=== PATIENT | male | born 1990 | race Caucasian/White ===

== ENCOUNTER 2016-10-11 17:17 | Emergency (ER) | payer MEDICAID, OTHER ==
[~2016-10-11] VITALS: Ht 167.6 cm; Wt 65.9 kg
[~2016-10-11 17:17] MED LIST: RISP3 PO
[2016-10-11 18:34] LABS: BASOPHILS # (AUTO) 0.03 K/uL (0.00-0.20); BASOPHILS % (AUTO) 0.5 % (0.0-2.0); EOSINOPHILS # (AUTO) 0.17 K/uL (0.00-0.70); EOSINOPHILS % (AUTO) 2.56 % (1.0-6.0); HEMATOCRIT 42.2 % (41-53); HEMOGLOBIN 14.2 g/dL (13.5-17.5); LYMPHOCYTES # (AUTO) 2.1 K/uL (1.0-4.8); LYMPHOCYTES % (AUTO) 30.6 % (22.0-44.0); MEAN CORPUSCULAR HEMOGLOBIN 31.6 pg (26.0-34.0); MEAN CORPUSCULAR HGB CONC 33.7 G/dL (31.0-37.0); MEAN CORPUSCULAR VOLUME 94 fL (80-100); MONOCYTES # (AUTO) 0.6 K/uL (0.1-1.0); MONOCYTES % (AUTO) 9.1 % (2.0-9.0); NEUTROPHILS # (AUTO) 3.9 K/uL (1.8-7.7); NEUTROPHILS % (AUTO) 57.3 % (40.0-70.0); PLATELET COUNT (AUTO) 220 K/uL (150-450); WHITE BLOOD COUNT (AUTO) 6.7 K/uL (4.5-11.0)
[2016-10-11 18:37] LABS: ANION GAP 4 mmol/L (8-16); CALCIUM, TOTAL 8.8 mg/dL (8.8-10.5); CARBON DIOXIDE 30 mmol/L (22-29); CHLORIDE 104 mmol/L (98-107); CREATININE 1.02 mg/dL (0.60-1.30); GLOMERULAR FILTR. RATE CALC > 60 mL/min (>60); POTASSIUM 4.6 mmol/L (3.5-5.1); SODIUM SERUM 138 mmol/L (136-145); UREA NITROGEN, BLOOD 6 mg/dL (7-18)
[2016-10-11 18:47] VITALS: BP 104/61
[2016-10-11 18:51] LABS: ALANINE AMINOTRANSFERASE 23 U/L (12-78); ALBUMIN 4.1 g/dL (3.4-5.0); ASPARTATE AMINOTRANSFERASE 16 U/L (15-37); BILIRUBIN,TOTAL 0.3 mg/dL (0.1-1.0)
[2016-10-11] MEDS ORDERED: LORazepam 1 MG TABLET PO ONE (19:45)
[2016-10-11] MEDS ORDERED: RisperiDONE 1 MG TABLET PO ONE (20:00)
== END 2016-10-11 20:08 | disposition home or self-care (01) ==
LOC: EMS 17:18
DX: F31.9 Bipolar disorder, unspecified (principal); Z91.012 Allergy to eggs; Z91.011 Allergy to milk products; Z88.0 Allergy status to penicillin; Z91.018 Allergy to other foods
CPT/HCPCS: 36415; 80053; 80307; 85025; 99285; G0480

== ENCOUNTER 2016-10-24 13:47 | Emergency (ER) | payer MEDICAID, OTHER ==
[~2016-10-24] VITALS: Ht 167.6 cm; Wt 68.2 kg
[2016-10-24 15:11] LABS: BASOPHILS # (AUTO) 0.03 K/uL (0.00-0.20); BASOPHILS % (AUTO) 0.3 % (0.0-2.0); EOSINOPHILS # (AUTO) 0.35 K/uL (0.00-0.70); EOSINOPHILS % (AUTO) 3.48 % (1.0-6.0); HEMATOCRIT 42.1 % (41-53); HEMOGLOBIN 13.9 g/dL (13.5-17.5); LYMPHOCYTES # (AUTO) 1.4 K/uL (1.0-4.8); LYMPHOCYTES % (AUTO) 13.4 % (22.0-44.0); MEAN CORPUSCULAR HEMOGLOBIN 31.4 pg (26.0-34.0); MEAN CORPUSCULAR VOLUME 95 fL (80-100); MONOCYTES # (AUTO) 0.8 K/uL (0.1-1.0); MONOCYTES % (AUTO) 7.5 % (2.0-9.0); NEUTROPHILS # (AUTO) 7.6 K/uL (1.8-7.7); NEUTROPHILS % (AUTO) 75.4 % (40.0-70.0); PLATELET COUNT (AUTO) 190 K/uL (150-450); RED BLOOD CELL COUNT(AUTO) 4.43 MIL/uL (4.50-5.90); WHITE BLOOD COUNT (AUTO) 10.1 K/uL (4.5-11.0)
[2016-10-24 15:19] LABS: ANION GAP 4 mmol/L (8-16); CALCIUM, TOTAL 8.1 mg/dL (8.8-10.5); CARBON DIOXIDE 28 mmol/L (22-29); CHLORIDE 106 mmol/L (98-107); CREATININE 1.01 mg/dL (0.60-1.30); GLOMERULAR FILTR. RATE CALC > 60 mL/min (>60); POTASSIUM 4.2 mmol/L (3.5-5.1); SODIUM SERUM 138 mmol/L (136-145); UREA NITROGEN, BLOOD 8 mg/dL (7-18)
[2016-10-24 15:25] LABS: ALANINE AMINOTRANSFERASE 17 U/L (12-78); ALBUMIN 3.4 g/dL (3.4-5.0); ASPARTATE AMINOTRANSFERASE 10 U/L (15-37); BILIRUBIN,TOTAL 0.4 mg/dL (0.1-1.0); TOTAL PROTEIN, SERUM 6.1 g/dL (6.4-8.2)
[2016-10-24] MEDS ORDERED: AMMONIA 1 EA AMP IH ONE (17:28)
[2016-10-24 20:48] VITALS: BP 115/56
== END 2016-10-24 20:50 | disposition home or self-care (01) ==
LOC: EMS 13:49
DX: F20.0 Paranoid schizophrenia (principal); F31.9 Bipolar disorder, unspecified; F15.10 Other stimulant abuse, uncomplicated; Z91.012 Allergy to eggs; Z91.011 Allergy to milk products; Z88.0 Allergy status to penicillin; Z91.018 Allergy to other foods
CPT/HCPCS: 36415; 70450; 72125; 80053; 80307; 85025; 93005; 99285; G0480

== ENCOUNTER 2017-05-09 20:52 | Inpatient (IN) | payer MEDICAID, OTHER ==
[~2017-05-09] VITALS: Ht 165.1 cm; Wt 64.4 kg
[~2017-05-09 20:52] MED LIST changes: +DIPH25CA85 PO; +PALI234D IM; -RISP3 PO
[2017-05-09] MEDS ORDERED: RIFA150 PO (21:08)
[2017-05-09 21:37] LABS: BASOPHILS % (AUTO) 1.1 % (0.0-2.0); EOSINOPHILS % (AUTO) 3.9 % (1.0-6.0); HEMATOCRIT 41.2 % (41-53); LYMPHOCYTES % (AUTO) 16.7 % (22.0-44.0); MEAN CORPUSCULAR HEMOGLOBIN 31.1 pg (26.0-34.0); MEAN CORPUSCULAR VOLUME 92 fL (80-100); NEUTROPHILS # (AUTO) 3.7 K/uL (1.8-7.7); NEUTROPHILS % (AUTO) 61.3 % (40.0-70.0); PLATELET COUNT (AUTO) 176 K/uL (150-450); RED CELL DISTRIBUTION WIDTH 13.6 % (11.5-14.5)
[2017-05-09 22:04] LABS: ANION GAP 6 mmol/L (8-16); CALCIUM, TOTAL 8.5 mg/dL (8.8-10.5); CARBON DIOXIDE 34 mmol/L (22-29); CHLORIDE 98 mmol/L (98-107); CREATININE 0.94 mg/dL (0.60-1.30); GLOMERULAR FILTR. RATE CALC > 60 mL/min (>60); GLUCOSE,RANDOM 67 mg/dL (70-110); POTASSIUM 3.2 mmol/L (3.5-5.1); SODIUM SERUM 138 mmol/L (136-145); UREA NITROGEN, BLOOD 7 mg/dL (7-18)
[2017-05-09 22:10] LABS: ALANINE AMINOTRANSFERASE 23 U/L (12-78); ALBUMIN 3.9 g/dL (3.4-5.0); ALKALINE PHOSPHATASE 87 U/L (46-116); ASPARTATE AMINOTRANSFERASE 28 U/L (15-37); BILIRUBIN,TOTAL 0.2 mg/dL (0.1-1.0); TOTAL PROTEIN, SERUM 7.1 g/dL (6.4-8.2)
[2017-05-09] MEDS ORDERED: BENZONATATE 100 MG CAPSULE PO ONE (23:15)
[2017-05-09] MEDS ORDERED: POTASSIUM CHLORIDE 20 MEQ ER TABLET PO ONE (23:30)
[2017-05-09] MEDS ORDERED: HALOPERIDOL 5 MG TABLET PO PRN (23:30)
[2017-05-09 23:54] LABS: APPEARANCE,URINE CLEAR (CLEAR); BILIRUBIN,URINE NEGATIVE (NEGATIVE); GLUCOSE, URINE (UA) NEGATIVE (NEGATIVE); KETONES,URINE NEGATIVE (NEGATIVE); LEUKOCYTE ESTERASE ,URINE NEGATIVE (NEGATIVE); NITRATE,URINE NEGATIVE (NEGATIVE); OCCULT BLOOD,URINE NEGATIVE (NEGATIVE); PH,URINE 8.5 (5.0-8.0); PROTEIN,URINE NEGATIVE (NEGATIVE); UROBILINOGEN,URINE 0.2 mg/dL (<=1.0)
[2017-05-09 23:58] LABS: AMPHET/METH SCREEN,URINE NEGATIVE (NEGATIVE); BARBITURATE SCREEN, URINE NEGATIVE (NEGATIVE); BENZODIAZEPINES SCREEN,URINE NEGATIVE (NEGATIVE); CANNABINOID SCREEN,URINE NEGATIVE (NEGATIVE); COCAINE SCREEN,URINE NEGATIVE (NEGATIVE); METHADONE SCREEN, URINE NEGATIVE (NEGATIVE); OPIATE SCREEN,URINE NEGATIVE (NEGATIVE)
[2017-05-09 23:59] LABS: PHENCYCLIDINE SCREEN,URINE NEGATIVE (NEGATIVE)
[2017-05-10 03:37] LABS: CHOL/HDL RATIO 2.5 (4.2-7.3); CHOLESTEROL 160 mg/dL (131-200); HDL CHOLESTEROL 64 mg/dL (40-60); LDL CHOL (CALC.) 79 mg/dL (0-130); TRIGLYCERIDES 87 mg/dL (15-150)
[2017-05-10] MEDS: LORazepam 2 MG TABLET PO PRN ×2 (09:27→20:42)
[2017-05-10] MEDS ORDERED: ClonazePAM 0.5 MG TABLET PO ONE (18:15)
[2017-05-10 20:14] VITALS: BP 118/67
[2017-05-10] MEDS ORDERED: ACETAMINOPHEN 650 MG RECTAL SUPPOSITORY PR PRN (20:30)
[2017-05-10] MEDS: ZOLPIDEM TARTRATE 10 MG TABLET PO PRN (20:42)
[2017-05-10] MEDS: IBUPROFEN 400 MG TABLET PO PRN (20:42)
[2017-05-10] MEDS ORDERED: ACETAMINOPHEN 325 MG TABLET PO PRN (21:30)
[2017-05-11 06:42] VITALS: BP 109/67
[2017-05-11 08:00] VITALS: BP 110/66
[2017-05-11] MEDS: NICOTINE 21 MG/24 HOUR PATCH TD SCH (08:40)
[2017-05-11] MEDS: IBUPROFEN 400 MG TABLET PO PRN (08:40)
[2017-05-11] MEDS: LORazepam 2 MG TABLET PO PRN ×3 (08:40→20:35)
[2017-05-11] MEDS ORDERED: TUBERCULIN, PURIFIED PROTEIN DERIVATIVE 5 TU/0.1 ML SYG ID ONE (11:00)
[2017-05-11] MEDS: LORATADINE 10 MG TABLET PO SCH (16:35)
[2017-05-11 16:47] VITALS: BP 110/66
[2017-05-11] MEDS: ZOLPIDEM TARTRATE 10 MG TABLET PO PRN (20:02)
[2017-05-11] MEDS: DiphenhydrAMINE HCL 25 MG CAPSULE PO SCH (20:02)
[2017-05-11] MEDS: HALOPERIDOL 5 MG TABLET PO SCH (20:08)
[2017-05-11] MEDS: BENZTROPINE MESYLATE 2 MG TABLET PO SCH (20:08)
[2017-05-12 06:44] VITALS: BP 124/64
[2017-05-12 08:19] VITALS: BP 112/62
[2017-05-12] MEDS: LORATADINE 10 MG TABLET PO SCH (09:34)
[2017-05-12] MEDS: NICOTINE 21 MG/24 HOUR PATCH TD SCH (09:37)
[2017-05-12 12:30] VITALS: BP 126/67
[2017-05-12] MEDS: IBUPROFEN 400 MG TABLET PO PRN (12:42)
[2017-05-12 16:00] VITALS: BP 123/65
[2017-05-12] MEDS: LORazepam 2 MG TABLET PO PRN ×2 (16:37→20:38)
[2017-05-12] MEDS: DiphenhydrAMINE HCL 25 MG CAPSULE PO SCH (20:37)
[2017-05-12] MEDS: HALOPERIDOL 5 MG TABLET PO SCH (20:37)
[2017-05-12] MEDS: BENZTROPINE MESYLATE 2 MG TABLET PO SCH (20:37)
[2017-05-12] MEDS: ZOLPIDEM TARTRATE 10 MG TABLET PO PRN (20:38)
[2017-05-13 08:00] VITALS: BP 116/66
[2017-05-13] MEDS: LORATADINE 10 MG TABLET PO SCH (09:31)
[2017-05-13] MEDS: NICOTINE 21 MG/24 HOUR PATCH TD SCH (09:31)
[2017-05-13] MEDS: RIFAMPIN 150 MG CAPSULE PO SCH (09:31)
[2017-05-13] MEDS: LORazepam 2 MG TABLET PO PRN ×3 (09:32→20:50)
[2017-05-13 16:00] VITALS: BP 131/73
[2017-05-13] MEDS: ZOLPIDEM TARTRATE 10 MG TABLET PO PRN (20:50)
[2017-05-13] MEDS: PALIPERIDONE 3 MG ER TABLET PO SCH (20:50)
[2017-05-13] MEDS: BENZTROPINE MESYLATE 2 MG TABLET PO SCH (20:50)
[2017-05-13] MEDS: DiphenhydrAMINE HCL 25 MG CAPSULE PO SCH (20:50)
[2017-05-14 03:48] VITALS: BP 102/64
[2017-05-14 08:23] VITALS: BP 124/70
[2017-05-14] MEDS: LORazepam 2 MG TABLET PO PRN ×2 (09:11→13:25)
[2017-05-14] MEDS: LORATADINE 10 MG TABLET PO SCH (09:11)
[2017-05-14] MEDS: RIFAMPIN 150 MG CAPSULE PO SCH (09:11)
[2017-05-14] MEDS: NICOTINE 21 MG/24 HOUR PATCH TD SCH (09:12)
[2017-05-14 16:00] VITALS: BP 121/66
[2017-05-14] MEDS: DiphenhydrAMINE HCL 25 MG CAPSULE PO SCH (20:29)
[2017-05-14] MEDS: PALIPERIDONE 3 MG ER TABLET PO SCH (20:29)
[2017-05-14] MEDS: BENZTROPINE MESYLATE 2 MG TABLET PO SCH (20:30)
[2017-05-15 06:09] VITALS: BP 110/66
[2017-05-15 08:00] VITALS: BP 122/55
[2017-05-15] MEDS: RIFAMPIN 150 MG CAPSULE PO SCH (08:53)
[2017-05-15] MEDS: LORATADINE 10 MG TABLET PO SCH (08:53)
[2017-05-15] MEDS: NICOTINE 21 MG/24 HOUR PATCH TD SCH (08:59)
[2017-05-15] MEDS: LORazepam 2 MG TABLET PO PRN ×2 (14:01→21:18)
[2017-05-15 16:05] VITALS: BP 112/62
[2017-05-15] MEDS: DiphenhydrAMINE HCL 25 MG CAPSULE PO SCH (21:17)
[2017-05-15] MEDS: PALIPERIDONE 3 MG ER TABLET PO SCH (21:17)
[2017-05-15] MEDS: BENZTROPINE MESYLATE 2 MG TABLET PO SCH (21:17)
[2017-05-15] MEDS: ZOLPIDEM TARTRATE 10 MG TABLET PO PRN (21:18)
[2017-05-16 05:22] VITALS: BP 108/76
[2017-05-16 08:04] VITALS: BP 123/67
[2017-05-16] MEDS: RIFAMPIN 150 MG CAPSULE PO SCH (08:51)
[2017-05-16] MEDS: LORATADINE 10 MG TABLET PO SCH (08:51)
[2017-05-16] MEDS: NICOTINE 21 MG/24 HOUR PATCH TD SCH (08:52)
[2017-05-16] MEDS: IBUPROFEN 400 MG TABLET PO PRN (13:42)
[2017-05-16 13:43] VITALS: BP 112/58
[2017-05-16 16:00] VITALS: BP 114/64
[2017-05-16] MEDS: LORazepam 2 MG TABLET PO PRN (16:58)
[2017-05-16] MEDS: BENZTROPINE MESYLATE 2 MG TABLET PO SCH (20:25)
[2017-05-16] MEDS: PALIPERIDONE 3 MG ER TABLET PO SCH (20:26)
[2017-05-16] MEDS: DiphenhydrAMINE HCL 25 MG CAPSULE PO SCH (20:26)
[2017-05-16] MEDS: ZOLPIDEM TARTRATE 10 MG TABLET PO PRN (20:26)
[2017-05-17 06:31] VITALS: BP 109/64
[2017-05-17 08:24] VITALS: BP 117/62
[2017-05-17] MEDS: LORazepam 2 MG TABLET PO PRN ×3 (08:36→21:45)
[2017-05-17] MEDS: RIFAMPIN 150 MG CAPSULE PO SCH (08:36)
[2017-05-17] MEDS: LORATADINE 10 MG TABLET PO SCH (08:37)
[2017-05-17] MEDS: NICOTINE 21 MG/24 HOUR PATCH TD SCH (08:37)
[2017-05-17 16:00] VITALS: BP 116/67
[2017-05-17] MEDS ORDERED: PALIPERIDONE PALMITATE 234 MG/1.5 ML SYRINGE IM SCH (21:00)
[2017-05-17] MEDS: PALIPERIDONE 3 MG ER TABLET PO SCH (21:10)
[2017-05-17] MEDS: DiphenhydrAMINE HCL 25 MG CAPSULE PO SCH (21:10)
[2017-05-17] MEDS: BENZTROPINE MESYLATE 2 MG TABLET PO SCH (21:10)
[2017-05-18 05:57] VITALS: BP 122/68
[2017-05-18 08:36] VITALS: BP 110/60
[2017-05-18] MEDS: LORATADINE 10 MG TABLET PO SCH (08:58)
[2017-05-18] MEDS: RIFAMPIN 150 MG CAPSULE PO SCH (08:58)
[2017-05-18] MEDS: NICOTINE 21 MG/24 HOUR PATCH TD SCH (08:58)
[2017-05-18] MEDS ORDERED: PALI6 PO (10:35)
[2017-05-18] MEDS ORDERED: BENZ2TAB10 PO (10:35)
== END 2017-05-18 14:54 | disposition home or self-care (01) | DRG 750 ==
LOC: EMS 20:53 → B3A 05-10 17:21
PROVIDERS: ADMIT Psychiatry & Neurology Psychiatry; ATTEND Psychiatry & Neurology Psychiatry
DX: F20.0 Paranoid schizophrenia (principal); R45.851 Suicidal ideations; E87.6 Hypokalemia; F10.10 Alcohol abuse, uncomplicated; G89.29 Other chronic pain; M54.9 Dorsalgia, unspecified; F31.9 Bipolar disorder, unspecified; R76.11 Nonspecific reaction to tuberculin skin test without active tuberculosis; Z88.0 Allergy status to penicillin; Z91.5 Personal history of self-harm; Z91.012 Allergy to eggs; Z91.018 Allergy to other foods
CPT/HCPCS: 71046; 84132; 99285; G0480

== ENCOUNTER 2017-07-24 17:55 | Inpatient (IN) | payer MEDICAID ==
[~2017-07-24] VITALS: Ht 167.6 cm; Wt 65.9 kg
[~2017-07-24 17:55] MED LIST changes: +BENZ2TAB10 PO; -DIPH25CA85 PO; +PALI6 PO; +RIFA150 PO
[2017-07-24] MEDS ORDERED: HALOPERIDOL 5 MG TABLET PO PRN (18:45)
[2017-07-24 18:49] VITALS: BP 114/59
[2017-07-24] MEDS ORDERED: -PHARMACY VACCINE NOTE- MISC ONE (19:00)
[2017-07-24 19:40] VITALS: BP 117/78
[2017-07-24] MEDS: ZOLPIDEM TARTRATE 10 MG TABLET PO PRN (20:40)
[2017-07-24] MEDS ORDERED: IBUPROFEN 400 MG TABLET PO PRN (21:00)
[2017-07-24] MEDS ORDERED: ACETAMINOPHEN 325 MG TABLET PO PRN (21:00)
[2017-07-25 06:09] VITALS: BP 107/60
[2017-07-25 08:29] VITALS: BP 108/75
[2017-07-25] MEDS: NICOTINE 7 MG/24 HOUR PATCH TD SCH (09:00)
[2017-07-25] MEDS ORDERED: ACETAMINOPHEN 325 MG TABLET PO PRN (09:45)
[2017-07-25 09:51] LABS: EOSINOPHILS % (AUTO) 6.3 % (1.0-6.0); HEMATOCRIT 42.7 % (41-53); HEMOGLOBIN 14.9 g/dL (13.5-17.5); LYMPHOCYTES # (AUTO) 2.2 K/uL (1.0-4.8); LYMPHOCYTES % (AUTO) 34.5 % (22.0-44.0); MEAN CORPUSCULAR HEMOGLOBIN 31.2 pg (26.0-34.0); MEAN CORPUSCULAR HGB CONC 34.8 G/dL (31.0-37.0); MEAN CORPUSCULAR VOLUME 90 fL (80-100); MONOCYTES # (AUTO) 0.7 K/uL (0.1-1.0); MONOCYTES % (AUTO) 10.9 % (2.0-9.0); NEUTROPHILS # (AUTO) 3.1 K/uL (1.8-7.7); NEUTROPHILS % (AUTO) 47.3 % (40.0-70.0); PLATELET COUNT (AUTO) 171 K/uL (150-450); RED BLOOD CELL COUNT(AUTO) 4.77 MIL/uL (4.50-5.90); RED CELL DISTRIBUTION WIDTH 13.4 % (11.5-14.5)
[2017-07-25 09:59] LABS: HEMOGLOBIN A1C 5.5 % (4.5-6.2)
[2017-07-25 10:19] LABS: ALANINE AMINOTRANSFERASE 21 U/L (12-78); ALBUMIN 3.7 g/dL (3.4-5.0); ALKALINE PHOSPHATASE 87 U/L (46-116); ANION GAP 8 mmol/L (8-16); ASPARTATE AMINOTRANSFERASE 19 U/L (15-37); BILIRUBIN,TOTAL 0.4 mg/dL (0.1-1.0); CARBON DIOXIDE 30 mmol/L (22-29); CHLORIDE 104 mmol/L (98-107); CHOL/HDL RATIO 2.8 (4.2-7.3); CHOLESTEROL 130 mg/dL (131-200); CREATININE 0.88 mg/dL (0.60-1.30); FREE T4 (FREE THYROXINE) 1.09 ng/dL (0.76-1.46); GLOMERULAR FILTR. RATE CALC > 60 mL/min (>60); GLUCOSE,RANDOM 96 mg/dL (70-110); HDL CHOLESTEROL 46 mg/dL (40-60); LDL CHOL (CALC.) 62 mg/dL (0-130); POTASSIUM 3.8 mmol/L (3.5-5.1); SODIUM SERUM 142 mmol/L (136-145); THYROID STIMULATING HORMONE 1.12 uIU/mL (0.36-3.74); TOTAL PROTEIN, SERUM 6.8 g/dL (6.4-8.2); TRIGLYCERIDES 110 mg/dL (15-150); UREA NITROGEN, BLOOD 12 mg/dL (7-18)
[2017-07-25] MEDS: IBUPROFEN 400 MG TABLET PO PRN (11:58)
[2017-07-25 17:20] VITALS: BP 114/65
[2017-07-25] MEDS: LORazepam 2 MG TABLET PO PRN (17:27)
[2017-07-25] MEDS ORDERED: PALIPERIDONE PALMITATE 234 MG/1.5 ML SYRINGE IM SCH (20:15)
[2017-07-26 06:18] VITALS: BP 109/62
[2017-07-26 08:00] VITALS: BP 107/61
[2017-07-26] MEDS: RIFAMPIN 150 MG CAPSULE PO SCH (09:00)
[2017-07-26] MEDS: NICOTINE 7 MG/24 HOUR PATCH TD SCH (09:47)
[2017-07-26 16:12] VITALS: BP 105/67
[2017-07-26] MEDS: IBUPROFEN 400 MG TABLET PO PRN (16:30)
[2017-07-26] MEDS: LORazepam 2 MG TABLET PO PRN (18:00)
[2017-07-26] MEDS: BENZTROPINE MESYLATE 2 MG TABLET PO SCH (20:44)
[2017-07-26] MEDS: ZOLPIDEM TARTRATE 10 MG TABLET PO PRN (22:08)
[2017-07-27 06:09] VITALS: BP 105/60
[2017-07-27 08:52] VITALS: BP 102/69
[2017-07-27] MEDS: RIFAMPIN 150 MG CAPSULE PO SCH (09:15)
[2017-07-27] MEDS: NICOTINE 7 MG/24 HOUR PATCH TD SCH (09:15)
[2017-07-27 12:09] VITALS: BP 108/53
[2017-07-27] MEDS: IBUPROFEN 400 MG TABLET PO PRN (12:13)
[2017-07-27] MEDS: LORazepam 2 MG TABLET PO PRN (16:11)
[2017-07-27 16:51] VITALS: BP 105/61
[2017-07-27] MEDS: ZOLPIDEM TARTRATE 10 MG TABLET PO PRN (20:35)
[2017-07-27] MEDS: BENZTROPINE MESYLATE 2 MG TABLET PO SCH (21:00)
[2017-07-28 06:43] VITALS: BP 108/68
[2017-07-28 08:27] VITALS: BP 111/66
[2017-07-28] MEDS: RIFAMPIN 150 MG CAPSULE PO SCH (09:14)
[2017-07-28] MEDS: NICOTINE 7 MG/24 HOUR PATCH TD SCH (09:14)
[2017-07-28] MEDS: LORazepam 2 MG TABLET PO PRN (09:14)
[2017-08-03] MEDS ORDERED: PALIPERIDONE PALMITATE 234 MG/1.5 ML SYRINGE IM SCH (09:00)
== END 2017-07-28 13:30 | disposition home or self-care (01) | DRG 750 ==
LOC: B2S 18:55
PROVIDERS: ADMIT Psychiatry & Neurology Psychiatry; ATTEND Psychiatry & Neurology Psychiatry
DX: F20.0 Paranoid schizophrenia (principal); R45.851 Suicidal ideations; Z88.0 Allergy status to penicillin; Z91.011 Allergy to milk products; F31.9 Bipolar disorder, unspecified; R76.11 Nonspecific reaction to tuberculin skin test without active tuberculosis; F10.10 Alcohol abuse, uncomplicated; Z71.41 Alcohol abuse counseling and surveillance of alcoholic; Z71.51 Drug abuse counseling and surveillance of drug abuser; F19.10 Other psychoactive substance abuse, uncomplicated
CPT/HCPCS: 83036; 84439; 84443

== ENCOUNTER 2018-07-12 11:50 | Emergency (ER) | payer MEDICAID, OTHER ==
[~2018-07-12 11:50] MED LIST changes: -PALI234D IM; -PALI6 PO
== END 2018-07-12 13:00 | disposition left against medical advice (07) ==
LOC: EMS 11:51
DX: Z53.21 Procedure and treatment not carried out due to patient leaving prior to being seen by health care provider (principal)

== ENCOUNTER 2018-07-15 09:14 | Emergency (ER) | payer OTHER ==
[~2018-07-15] VITALS: Ht 167.6 cm; Wt 75.0 kg
[2018-07-15] MEDS ORDERED: PROZ10 PO (09:24)
[2018-07-15] MEDS ORDERED: GABA-531 PO (09:24)
[2018-07-15] MEDS ORDERED: ACETAMINOPHEN 500 MG TABLET PO ONE (09:45)
[2018-07-15 09:56] LABS: BASOPHILS % (AUTO) 0.5 % (0.0-2.0); EOSINOPHILS % (AUTO) 1.5 % (1.0-6.0); HEMATOCRIT 37.5 % (41-53); HEMOGLOBIN 12.1 g/dL (13.5-17.5); LYMPHOCYTES # (AUTO) 1.1 K/uL (1.0-4.8); LYMPHOCYTES % (AUTO) 10.7 % (22.0-44.0); MEAN CORPUSCULAR HEMOGLOBIN 26.9 pg (26.0-34.0); MEAN CORPUSCULAR HGB CONC 32.3 G/dL (31.0-37.0); MEAN CORPUSCULAR VOLUME 83 fL (80-100); MONOCYTES % (AUTO) 9.2 % (2.0-9.0); NEUTROPHILS # (AUTO) 8.4 K/uL (1.8-7.7); NEUTROPHILS % (AUTO) 78.1 % (40.0-70.0); PLATELET COUNT (AUTO) 231 K/uL (150-450); RED CELL DISTRIBUTION WIDTH 16.3 % (11.5-14.5)
[2018-07-15 10:04] LABS: ANION GAP 8 mmol/L (8-16); CALCIUM, TOTAL 9.4 mg/dL (8.8-10.5); CARBON DIOXIDE 30 mmol/L (22-29); CHLORIDE 101 mmol/L (98-107); CREATININE 0.97 mg/dL (0.60-1.30); GLOMERULAR FILTR. RATE CALC > 60 mL/min (>60); GLUCOSE,RANDOM 98 mg/dL (70-110); SODIUM SERUM 139 mmol/L (136-145); UREA NITROGEN, BLOOD 10 mg/dL (7-18)
[2018-07-15 10:10] LABS: ALANINE AMINOTRANSFERASE 32 U/L (12-78); ALBUMIN 3.8 g/dL (3.4-5.0); ALKALINE PHOSPHATASE 85 U/L (46-116); ASPARTATE AMINOTRANSFERASE 23 U/L (15-37); BILIRUBIN,TOTAL 0.2 mg/dL (0.1-1.0)
[2018-07-15 11:29] LABS: AMPHET/METH SCREEN,URINE NEGATIVE (NEGATIVE); BARBITURATE SCREEN, URINE NEGATIVE (NEGATIVE); BENZODIAZEPINES SCREEN,URINE NEGATIVE (NEGATIVE); CANNABINOID SCREEN,URINE POSITIVE (NEGATIVE); COCAINE SCREEN,URINE NEGATIVE (NEGATIVE); METHADONE SCREEN, URINE NEGATIVE (NEGATIVE); OPIATE SCREEN,URINE POSITIVE (NEGATIVE)
[2018-07-15 11:32] LABS: PHENCYCLIDINE SCREEN,URINE NEGATIVE (NEGATIVE)
[2018-07-15 11:40] VITALS: BP 120/68
== END 2018-07-15 11:45 | disposition home or self-care (01) ==
LOC: EMS 09:14
DX: F20.9 Schizophrenia, unspecified (principal); F15.10 Other stimulant abuse, uncomplicated; R51 Headache; F31.9 Bipolar disorder, unspecified; Z88.0 Allergy status to penicillin; Z91.011 Allergy to milk products
CPT/HCPCS: 36415; 71045; 80053; 80307; 85025; 99284; G0480

== ENCOUNTER 2018-08-18 22:52 | Inpatient (IN) | payer MEDICAID, OTHER ==
[~2018-08-18] VITALS: Ht 170.2 cm; Wt 63.0 kg
[~2018-08-18 22:52] MED LIST changes: -BENZ2TAB10 PO; +GABA-531 PO; +PROZ10 PO
[2018-08-19] MEDS ORDERED: HALOPERIDOL LACTATE 5 MG/ML VIAL IM ONE
[2018-08-19] MEDS ORDERED: LORazepam 2 MG/ML VIAL IM ONE
[2018-08-19] MEDS ORDERED: DiphenhydrAMINE HCL 50 MG/ML VIAL IM ONE
[2018-08-19] MEDS ORDERED: HALOPERIDOL 5 MG TABLET PO PRN (00:15)
[2018-08-19 00:39] LABS: BASOPHILS % (AUTO) 0.6 % (0.0-2.0); EOSINOPHILS % (AUTO) 6.4 % (1.0-6.0); HEMATOCRIT 35.1 % (41-53); HEMOGLOBIN 11.1 g/dL (13.5-17.5); LYMPHOCYTES # (AUTO) 1.8 K/uL (1.0-4.8); MEAN CORPUSCULAR HEMOGLOBIN 26.3 pg (26.0-34.0); MEAN CORPUSCULAR HGB CONC 31.7 G/dL (31.0-37.0); MEAN CORPUSCULAR VOLUME 83 fL (80-100); MONOCYTES # (AUTO) 0.7 K/uL (0.1-1.0); MONOCYTES % (AUTO) 9.6 % (2.0-9.0); NEUTROPHILS # (AUTO) 4.7 K/uL (1.8-7.7); NEUTROPHILS % (AUTO) 60.4 % (40.0-70.0); PLATELET COUNT (AUTO) 237 K/uL (150-450); RED BLOOD CELL COUNT(AUTO) 4.23 MIL/uL (4.50-5.90); RED CELL DISTRIBUTION WIDTH 16.5 % (11.5-14.5)
[2018-08-19 00:45] LABS: ANION GAP 8 mmol/L (8-16); CALCIUM, TOTAL 8.9 mg/dL (8.8-10.5); CARBON DIOXIDE 27 mmol/L (22-29); CHLORIDE 102 mmol/L (98-107); CREATININE 1.04 mg/dL (0.60-1.30); GLOMERULAR FILTR. RATE CALC > 60 mL/min (>60); GLUCOSE,RANDOM 135 mg/dL (70-110); POTASSIUM 3.2 mmol/L (3.5-5.1); SODIUM SERUM 137 mmol/L (136-145); UREA NITROGEN, BLOOD 9 mg/dL (7-18)
[2018-08-19 00:47] LABS: LITHIUM < 0.20 mmol/L (0.60-1.20)
[2018-08-19 00:58] LABS: ALANINE AMINOTRANSFERASE 20 U/L (12-78); ALBUMIN 3.9 g/dL (3.4-5.0); ALKALINE PHOSPHATASE 84 U/L (46-116); ASPARTATE AMINOTRANSFERASE 23 U/L (15-37); BILIRUBIN,TOTAL 0.3 mg/dL (0.1-1.0); THYROID STIMULATING HORMONE 1.09 uIU/mL (0.36-3.74); TOTAL PROTEIN, SERUM 6.5 g/dL (6.4-8.2)
[2018-08-19 00:59] LABS: VALPROIC ACID < 3 mcg/mL (50-100)
[2018-08-19 01:16] LABS: APPEARANCE,URINE CLEAR (CLEAR); BILIRUBIN,URINE NEGATIVE (NEGATIVE); GLUCOSE, URINE (UA) NEGATIVE (NEGATIVE); KETONES,URINE NEGATIVE (NEGATIVE); LEUKOCYTE ESTERASE ,URINE NEGATIVE (NEGATIVE); NITRATE,URINE NEGATIVE (NEGATIVE); OCCULT BLOOD,URINE NEGATIVE (NEGATIVE); PROTEIN,URINE NEGATIVE (NEGATIVE); UROBILINOGEN,URINE 0.2 mg/dL (<=1.0)
[2018-08-19 01:51] LABS: AMPHET/METH SCREEN,URINE POSITIVE (NEGATIVE); BARBITURATE SCREEN, URINE NEGATIVE (NEGATIVE); BENZODIAZEPINES SCREEN,URINE NEGATIVE (NEGATIVE); CANNABINOID SCREEN,URINE POSITIVE (NEGATIVE); COCAINE SCREEN,URINE NEGATIVE (NEGATIVE); METHADONE SCREEN, URINE NEGATIVE (NEGATIVE); OPIATE SCREEN,URINE NEGATIVE (NEGATIVE)
[2018-08-19 01:54] LABS: PHENCYCLIDINE SCREEN,URINE NEGATIVE (NEGATIVE)
[2018-08-19] MEDS ORDERED: POTASSIUM CHLORIDE 20 MEQ ER TABLET PO ONE (03:00)
[2018-08-20 01:10] VITALS: BP 106/65
[2018-08-20] MEDS: LORazepam 2 MG TABLET PO PRN ×2 (10:49→20:06)
[2018-08-20] MEDS ORDERED: BACITRACIN 28.4 GM OINTMENT TP PRN (12:30)
[2018-08-20] MEDS ORDERED: ALBUTEROL SULFATE HFA 90 MCG/PUFF 8 GM INHALER IH PRN (12:30)
[2018-08-20] MEDS ORDERED: ONDANSETRON HCL 4 MG TABLET PO PRN (12:30)
[2018-08-20] MEDS ORDERED: ACETAMINOPHEN 325 MG TABLET PO PRN (12:30)
[2018-08-20] MEDS ORDERED: DOCUSATE SODIUM 100 MG CAPSULE PO PRN (12:30)
[2018-08-20] MEDS ORDERED: IBUPROFEN 400 MG TABLET PO PRN (12:30)
[2018-08-20] MEDS ORDERED: MAGNESIUM HYDROXIDE SUSPENSION 30 ML UDCUP PO PRN (12:30)
[2018-08-20] MEDS ORDERED: PETROLATUM,WHITE 28 GM JELLY TP PRN (12:30)
[2018-08-20] MEDS ORDERED: NICOTINE 14 MG/24 HOUR PATCH TD PRN (12:30)
[2018-08-20] MEDS ORDERED: MAG HYDROX/AL HYDROX/SIMETH ES 30 ML SUSPENSION UDCUP PO PRN (12:30)
[2018-08-20] MEDS ORDERED: CloNIDine HCL 0.1 MG TABLET PO PRN (12:30)
[2018-08-20] MEDS ORDERED: GuaiFENesin/D-METHORPHAN [SUGAR-FREE] 200-20MG/10 ML SYRUP UDCUP PO PRN (12:30)
[2018-08-20 14:29] VITALS: BP 118/63
[2018-08-20] MEDS: ZOLPIDEM TARTRATE 10 MG TABLET PO PRN (20:06)
[2018-08-21] MEDS: RIFAMPIN 150 MG CAPSULE PO SCH ×2 (08:21→08:46)
[2018-08-21 10:31] VITALS: BP 98/62
[2018-08-21] MEDS: ARIPiprazole 10 MG TABLET PO SCH (10:38)
[2018-08-21] MEDS: FLUoxetine HCL 20 MG CAPSULE PO SCH (10:38)
[2018-08-21] MEDS: LORazepam 2 MG TABLET PO PRN ×2 (13:22→18:18)
[2018-08-21] MEDS: BACITRACIN 28.4 GM OINTMENT TP SCH (17:00)
[2018-08-21 18:16] VITALS: BP 116/55
[2018-08-21] MEDS: ZOLPIDEM TARTRATE 10 MG TABLET PO PRN (20:19)
[2018-08-22 08:00] VITALS: BP 128/66
[2018-08-22] MEDS: RIFAMPIN 150 MG CAPSULE PO SCH (09:00)
[2018-08-22] MEDS: ARIPiprazole 10 MG TABLET PO SCH (09:29)
[2018-08-22] MEDS: FLUoxetine HCL 20 MG CAPSULE PO SCH (09:32)
[2018-08-22] MEDS: LORazepam 2 MG TABLET PO PRN (09:32)
[2018-08-22] MEDS: BACITRACIN 28.4 GM OINTMENT TP SCH (09:32)
[2018-08-22] MEDS ORDERED: ARIP10TA8 PO (12:49)
[2018-08-22] MEDS ORDERED: BACI30OI6 TP (12:53)
== END 2018-08-22 14:45 | disposition home or self-care (01) | DRG 750 ==
LOC: EMS 22:52 → 3EC 08-19 23:45
DX: F25.0 Schizoaffective disorder, bipolar type (principal); R45.850 Homicidal ideations; D64.9 Anemia, unspecified; F15.10 Other stimulant abuse, uncomplicated; F10.10 Alcohol abuse, uncomplicated; E87.6 Hypokalemia; F12.10 Cannabis abuse, uncomplicated; Z79.899 Other long term (current) drug therapy
CPT/HCPCS: 84443; 96372; G0480; J1200; J1630; J2060

== ENCOUNTER 2018-08-26 17:55 | Emergency (ER) | payer MEDICAID, OTHER ==
[~2018-08-26] VITALS: Ht 170.2 cm; Wt 72.7 kg
[~2018-08-26 17:55] MED LIST changes: +ARIP10TA8 PO; +BACI30OI6 TP; -GABA-531 PO
[2018-08-26 19:40] LABS: BASOPHILS % (AUTO) 0.8 % (0.0-2.0); EOSINOPHILS % (AUTO) 3.1 % (1.0-6.0); HEMOGLOBIN 11.8 g/dL (13.5-17.5); LYMPHOCYTES # (AUTO) 1.9 K/uL (1.0-4.8); LYMPHOCYTES % (AUTO) 19.8 % (22.0-44.0); MEAN CORPUSCULAR HEMOGLOBIN 26.8 pg (26.0-34.0); MEAN CORPUSCULAR HGB CONC 31.9 G/dL (31.0-37.0); MEAN CORPUSCULAR VOLUME 84 fL (80-100); MONOCYTES % (AUTO) 10.7 % (2.0-9.0); NEUTROPHILS # (AUTO) 6.4 K/uL (1.8-7.7); NEUTROPHILS % (AUTO) 65.6 % (40.0-70.0); PLATELET COUNT (AUTO) 231 K/uL (150-450); RED BLOOD CELL COUNT(AUTO) 4.41 MIL/uL (4.50-5.90); RED CELL DISTRIBUTION WIDTH 16.5 % (11.5-14.5)
[2018-08-26 19:44] LABS: ANION GAP 5 mmol/L (8-16); CARBON DIOXIDE 32 mmol/L (22-29); CHLORIDE 104 mmol/L (98-107); CREATININE 0.81 mg/dL (0.60-1.30); GLOMERULAR FILTR. RATE CALC > 60 mL/min (>60); GLUCOSE,RANDOM 99 mg/dL (70-110); SODIUM SERUM 141 mmol/L (136-145); UREA NITROGEN, BLOOD 18 mg/dL (7-18)
[2018-08-26 19:50] LABS: ALANINE AMINOTRANSFERASE 27 U/L (12-78); ALBUMIN 4.1 g/dL (3.4-5.0); ALKALINE PHOSPHATASE 99 U/L (46-116); ASPARTATE AMINOTRANSFERASE 27 U/L (15-37); BILIRUBIN,TOTAL 0.2 mg/dL (0.1-1.0)
[2018-08-26] MEDS ORDERED: BACITRACIN 0.9 GM PACKET OINTMENT TP ONE (20:00)
[2018-08-26 21:54] LABS: AMPHET/METH SCREEN,URINE POSITIVE (NEGATIVE); BARBITURATE SCREEN, URINE NEGATIVE (NEGATIVE); BENZODIAZEPINES SCREEN,URINE NEGATIVE (NEGATIVE); CANNABINOID SCREEN,URINE POSITIVE (NEGATIVE); COCAINE SCREEN,URINE NEGATIVE (NEGATIVE); METHADONE SCREEN, URINE NEGATIVE (NEGATIVE); OPIATE SCREEN,URINE NEGATIVE (NEGATIVE)
[2018-08-26 21:55] LABS: PHENCYCLIDINE SCREEN,URINE NEGATIVE (NEGATIVE)
[2018-08-27 04:56] VITALS: BP 127/80
== END 2018-08-27 05:06 | disposition home or self-care (01) ==
LOC: EMS 17:55
DX: S60.221A Contusion of right hand, initial encounter (principal); F25.9 Schizoaffective disorder, unspecified; R45.851 Suicidal ideations; F31.9 Bipolar disorder, unspecified; F15.90 Other stimulant use, unspecified, uncomplicated; Z88.0 Allergy status to penicillin; Z88.8 Allergy status to other drugs, medicaments and biological substances; W22.8XXA Striking against or struck by other objects, initial encounter; Y93.89 Activity, other specified; Y92.89 Other specified places as the place of occurrence of the external cause; Y99.8 Other external cause status
CPT/HCPCS: 36415; 73130; 80053; 80307; 85025; 99285; G0480

== ENCOUNTER 2018-09-04 05:04 | Inpatient (IN) | payer MEDICAID, OTHER ==
[~2018-09-04] VITALS: Ht 167.6 cm; Wt 60.8 kg
[~2018-09-04 05:04] MED LIST changes: -BACI30OI6 TP
[2018-09-04] MEDS ORDERED: DiphenhydrAMINE HCL 50 MG/ML VIAL IM ONE (05:30)
[2018-09-04] MEDS ORDERED: HALOPERIDOL LACTATE 5 MG/ML VIAL IM ONE (05:30)
[2018-09-04] MEDS ORDERED: LORazepam 2 MG/ML VIAL IM ONE (05:30)
[2018-09-04] MEDS ORDERED: ZIPRASIDONE MESYLATE 20 MG/VIAL IM ONE (05:30)
[2018-09-04 07:19] LABS: BASOPHILS % (AUTO) 0.8 % (0.0-2.0); EOSINOPHILS % (AUTO) 2.1 % (1.0-6.0); HEMOGLOBIN 11.3 g/dL (13.5-17.5); MEAN CORPUSCULAR HEMOGLOBIN 26.6 pg (26.0-34.0); MEAN CORPUSCULAR HGB CONC 32.1 G/dL (31.0-37.0); MEAN CORPUSCULAR VOLUME 83 fL (80-100); MONOCYTES # (AUTO) 0.9 K/uL (0.1-1.0); MONOCYTES % (AUTO) 11.2 % (2.0-9.0); NEUTROPHILS # (AUTO) 4.8 K/uL (1.8-7.7); NEUTROPHILS % (AUTO) 60.9 % (40.0-70.0); PLATELET COUNT (AUTO) 247 K/uL (150-450); RED BLOOD CELL COUNT(AUTO) 4.23 MIL/uL (4.50-5.90); RED CELL DISTRIBUTION WIDTH 16.9 % (11.5-14.5)
[2018-09-04 07:31] LABS: ANION GAP 7 mmol/L (8-16); CALCIUM, TOTAL 8.9 mg/dL (8.8-10.5); CARBON DIOXIDE 28 mmol/L (22-29); CHLORIDE 105 mmol/L (98-107); CREATININE 0.84 mg/dL (0.60-1.30); GLOMERULAR FILTR. RATE CALC > 60 mL/min (>60); GLUCOSE,RANDOM 96 mg/dL (70-110); POTASSIUM 3.4 mmol/L (3.5-5.1); SODIUM SERUM 140 mmol/L (136-145); UREA NITROGEN, BLOOD 15 mg/dL (7-18)
[2018-09-04 07:37] LABS: ALANINE AMINOTRANSFERASE 25 U/L (12-78); ALBUMIN 3.7 g/dL (3.4-5.0); ALKALINE PHOSPHATASE 94 U/L (46-116); ASPARTATE AMINOTRANSFERASE 26 U/L (15-37); BILIRUBIN,TOTAL 0.2 mg/dL (0.1-1.0)
[2018-09-04] MEDS ORDERED: OLANZapine 5 MG RAPDIS TABLET PO PRN (13:15)
[2018-09-04] MEDS ORDERED: ZOLPIDEM TARTRATE 10 MG TABLET PO PRN (13:15)
[2018-09-04 16:11] VITALS: BP 131/67
[2018-09-05 02:15] VITALS: BP 109/49
[2018-09-05 08:02] VITALS: BP 126/70
[2018-09-05] MEDS: RIFAMPIN 150 MG CAPSULE PO SCH (09:00)
[2018-09-05] MEDS: ARIPiprazole 10 MG TABLET PO SCH (09:00)
[2018-09-05] MEDS: FLUoxetine HCL 10 MG CAPSULE PO SCH (09:50)
[2018-09-05] MEDS: LORazepam 2 MG TABLET PO PRN ×2 (10:02→18:22)
[2018-09-05 11:01] LABS: AMPHET/METH SCREEN,URINE NEGATIVE (NEGATIVE); BARBITURATE SCREEN, URINE NEGATIVE (NEGATIVE); BENZODIAZEPINES SCREEN,URINE NEGATIVE (NEGATIVE); CANNABINOID SCREEN,URINE POSITIVE (NEGATIVE); COCAINE SCREEN,URINE NEGATIVE (NEGATIVE); METHADONE SCREEN, URINE NEGATIVE (NEGATIVE); OPIATE SCREEN,URINE NEGATIVE (NEGATIVE); PHENCYCLIDINE SCREEN,URINE NEGATIVE (NEGATIVE)
[2018-09-05] MEDS ORDERED: MAG HYDROX/AL HYDROX/SIMETH ES 30 ML SUSPENSION UDCUP PO PRN (15:45)
[2018-09-05] MEDS ORDERED: POTASSIUM CHLORIDE 10% 40 MEQ/30 ML LIQUID UDCUP PO ONE (15:45)
[2018-09-05] MEDS ORDERED: IBUPROFEN 400 MG TABLET PO PRN (15:45)
[2018-09-05] MEDS ORDERED: ACETAMINOPHEN 325 MG TABLET PO PRN (15:45)
[2018-09-05] MEDS ORDERED: CloNIDine HCL 0.1 MG TABLET PO PRN (15:45)
[2018-09-05] MEDS ORDERED: DOCUSATE SODIUM 100 MG CAPSULE PO PRN (15:45)
[2018-09-05] MEDS ORDERED: GuaiFENesin/D-METHORPHAN [SUGAR-FREE] 200-20MG/10 ML SYRUP UDCUP PO PRN (15:45)
[2018-09-05] MEDS ORDERED: LOPERAMIDE HCL 2 MG CAPSULE PO PRN (15:45)
[2018-09-05] MEDS ORDERED: MAGNESIUM HYDROXIDE SUSPENSION 30 ML UDCUP PO PRN (15:45)
[2018-09-05] MEDS ORDERED: PETROLATUM,WHITE 28 GM JELLY TP PRN (15:45)
[2018-09-05] MEDS ORDERED: ALBUTEROL SULFATE HFA 90 MCG/PUFF 8 GM INHALER IH PRN (15:45)
[2018-09-05] MEDS ORDERED: NICOTINE 14 MG/24 HOUR PATCH TD PRN (15:45)
[2018-09-05] MEDS ORDERED: ONDANSETRON HCL 4 MG TABLET PO PRN (15:45)
[2018-09-05 16:30] VITALS: BP 120/60
[2018-09-06] MEDS: ARIPiprazole 10 MG TABLET PO SCH (09:00)
[2018-09-06] MEDS: RIFAMPIN 150 MG CAPSULE PO SCH (09:00)
[2018-09-06] MEDS: FLUoxetine HCL 10 MG CAPSULE PO SCH (09:24)
[2018-09-06 11:42] VITALS: BP 119/55
[2018-09-06] MEDS: LORazepam 2 MG TABLET PO PRN ×2 (12:54→17:33)
[2018-09-06 17:45] VITALS: BP 128/79
[2018-09-07 08:25] VITALS: BP 141/82
[2018-09-07] MEDS: RIFAMPIN 150 MG CAPSULE PO SCH (09:00)
[2018-09-07] MEDS: ARIPiprazole 10 MG TABLET PO SCH (09:34)
[2018-09-07] MEDS: FLUoxetine HCL 10 MG CAPSULE PO SCH (09:34)
[2018-09-07] MEDS ORDERED: ARIP10TA8 PO (10:45)
[2018-09-07] MEDS ORDERED: PROZ10 PO (10:45)
== END 2018-09-07 14:30 | disposition home or self-care (01) | DRG 750 ==
LOC: EMS 05:09 → 3EI 14:51
DX: F25.0 Schizoaffective disorder, bipolar type (principal); R45.851 Suicidal ideations; E87.6 Hypokalemia; F12.10 Cannabis abuse, uncomplicated; F15.10 Other stimulant abuse, uncomplicated; D64.9 Anemia, unspecified; Z88.0 Allergy status to penicillin; Z65.3 Problems related to other legal circumstances; Z79.899 Other long term (current) drug therapy; Z86.11 Personal history of tuberculosis; Z88.8 Allergy status to other drugs, medicaments and biological substances
CPT/HCPCS: 80307; 87081; 96372; 99291; G0480; J1200; J1630; J2060; J3486

== ENCOUNTER 2018-10-05 22:38 | Inpatient (IN) | payer MEDICAID ==
[~2018-10-05] VITALS: Ht 165.1 cm; Wt 61.2 kg
[~2018-10-05 22:38] MED LIST changes: -ARIP10TA8 PO; +FLUO-191 PO; +PALI234D IM; -PROZ10 PO; -RIFA150 PO
[2018-10-05] MEDS ORDERED: RisperiDONE 1 MG TABLET PO ONE (23:00)
[2018-10-05 23:14] LABS: AMPHET/METH SCREEN,URINE POSITIVE (NEGATIVE); BARBITURATE SCREEN, URINE NEGATIVE (NEGATIVE); BENZODIAZEPINES SCREEN,URINE NEGATIVE (NEGATIVE); CANNABINOID SCREEN,URINE POSITIVE (NEGATIVE); COCAINE SCREEN,URINE NEGATIVE (NEGATIVE); METHADONE SCREEN, URINE NEGATIVE (NEGATIVE); OPIATE SCREEN,URINE NEGATIVE (NEGATIVE)
[2018-10-05 23:16] LABS: PHENCYCLIDINE SCREEN,URINE NEGATIVE (NEGATIVE)
[2018-10-05 23:23] LABS: BASOPHILS % (AUTO) 0.7 % (0.0-2.0); EOSINOPHILS % (AUTO) 1.9 % (1.0-6.0); HEMATOCRIT 37.1 % (41-53); HEMOGLOBIN 11.9 g/dL (13.5-17.5); LYMPHOCYTES % (AUTO) 26.6 % (22.0-44.0); MEAN CORPUSCULAR VOLUME 81 fL (80-100); MONOCYTES # (AUTO) 0.8 K/uL (0.1-1.0); MONOCYTES % (AUTO) 10.7 % (2.0-9.0); NEUTROPHILS # (AUTO) 4.5 K/uL (1.8-7.7); NEUTROPHILS % (AUTO) 60.1 % (40.0-70.0); PLATELET COUNT (AUTO) 223 K/uL (150-450); RED BLOOD CELL COUNT(AUTO) 4.57 MIL/uL (4.50-5.90); RED CELL DISTRIBUTION WIDTH 15.9 % (11.5-14.5)
[2018-10-05 23:32] LABS: ANION GAP 8 mmol/L (8-16); CALCIUM, TOTAL 9.1 mg/dL (8.8-10.5); CARBON DIOXIDE 28 mmol/L (22-29); CHLORIDE 101 mmol/L (98-107); CREATININE 1.07 mg/dL (0.60-1.30); GLOMERULAR FILTR. RATE CALC > 60 mL/min (>60); GLUCOSE,RANDOM 82 mg/dL (70-110); POTASSIUM 3.7 mmol/L (3.5-5.1); SODIUM SERUM 137 mmol/L (136-145); UREA NITROGEN, BLOOD 12 mg/dL (7-18)
[2018-10-05 23:38] LABS: ALANINE AMINOTRANSFERASE 23 U/L (12-78); ALBUMIN 3.7 g/dL (3.4-5.0); ALKALINE PHOSPHATASE 89 U/L (46-116); ASPARTATE AMINOTRANSFERASE 24 U/L (15-37); BILIRUBIN,TOTAL 0.3 mg/dL (0.1-1.0); TOTAL PROTEIN, SERUM 6.8 g/dL (6.4-8.2)
[2018-10-06 00:51] VITALS: BP 102/59
[2018-10-06] MEDS ORDERED: ALBUTEROL SULFATE HFA 90 MCG/PUFF 8 GM INHALER IH PRN (07:15)
[2018-10-06] MEDS ORDERED: NICOTINE 14 MG/24 HOUR PATCH TD PRN (07:15)
[2018-10-06] MEDS ORDERED: CloNIDine HCL 0.1 MG TABLET PO PRN (07:15)
[2018-10-06] MEDS ORDERED: MAGNESIUM HYDROXIDE SUSPENSION 30 ML UDCUP PO PRN (07:15)
[2018-10-06] MEDS ORDERED: MAG HYDROX/AL HYDROX/SIMETH ES 30 ML SUSPENSION UDCUP PO PRN (07:15)
[2018-10-06] MEDS ORDERED: ONDANSETRON HCL 4 MG TABLET PO PRN (07:15)
[2018-10-06] MEDS ORDERED: GuaiFENesin/D-METHORPHAN [SUGAR-FREE] 200-20MG/10 ML SYRUP UDCUP PO PRN (07:15)
[2018-10-06] MEDS ORDERED: DOCUSATE SODIUM 100 MG CAPSULE PO PRN (07:15)
[2018-10-06] MEDS ORDERED: PETROLATUM,WHITE 28 GM JELLY TP PRN (07:15)
[2018-10-06] MEDS ORDERED: LOPERAMIDE HCL 2 MG CAPSULE PO PRN (07:15)
[2018-10-06] MEDS: ACETAMINOPHEN 325 MG TABLET PO PRN (12:59)
[2018-10-06 13:00] VITALS: BP 103/60
[2018-10-06] MEDS: LORazepam 2 MG TABLET PO PRN (14:53)
[2018-10-07 06:36] LABS: BASOPHILS % (AUTO) 1.1 % (0.0-2.0); EOSINOPHILS % (AUTO) 7.1 % (1.0-6.0); HEMATOCRIT 38.5 % (41-53); HEMOGLOBIN 12.2 g/dL (13.5-17.5); LYMPHOCYTES # (AUTO) 1.8 K/uL (1.0-4.8); LYMPHOCYTES % (AUTO) 35.8 % (22.0-44.0); MEAN CORPUSCULAR HEMOGLOBIN 26.3 pg (26.0-34.0); MEAN CORPUSCULAR HGB CONC 31.7 G/dL (31.0-37.0); MEAN CORPUSCULAR VOLUME 83 fL (80-100); MONOCYTES # (AUTO) 0.7 K/uL (0.1-1.0); MONOCYTES % (AUTO) 13.3 % (2.0-9.0); NEUTROPHILS # (AUTO) 2.2 K/uL (1.8-7.7); NEUTROPHILS % (AUTO) 42.7 % (40.0-70.0); PLATELET COUNT (AUTO) 220 K/uL (150-450); RED BLOOD CELL COUNT(AUTO) 4.64 MIL/uL (4.50-5.90); RED CELL DISTRIBUTION WIDTH 16.3 % (11.5-14.5)
[2018-10-07 06:44] LABS: HEMOGLOBIN A1C 5.8 % (4.5-6.2)
[2018-10-07 07:07] LABS: ALANINE AMINOTRANSFERASE 19 U/L (12-78); ALBUMIN 3.3 g/dL (3.4-5.0); ALKALINE PHOSPHATASE 79 U/L (46-116); ANION GAP 7 mmol/L (8-16); ASPARTATE AMINOTRANSFERASE 13 U/L (15-37); BILIRUBIN,TOTAL 0.3 mg/dL (0.1-1.0); CALCIUM, TOTAL 8.9 mg/dL (8.8-10.5); CARBON DIOXIDE 27 mmol/L (22-29); CHLORIDE 105 mmol/L (98-107); CHOL/HDL RATIO 2.5 (4.2-7.3); CHOLESTEROL 120 mg/dL (131-200); CREATININE 0.85 mg/dL (0.60-1.30); GLOMERULAR FILTR. RATE CALC > 60 mL/min (>60); GLUCOSE,RANDOM 88 mg/dL (70-110); HDL CHOLESTEROL 48 mg/dL (40-60); LDL CHOL (CALC.) 60 mg/dL (0-130); POTASSIUM 4.3 mmol/L (3.5-5.1); SODIUM SERUM 139 mmol/L (136-145); THYROID STIMULATING HORMONE 0.38 uIU/mL (0.36-3.74); TOTAL PROTEIN, SERUM 6.1 g/dL (6.4-8.2); TRIGLYCERIDES 58 mg/dL (15-150); UREA NITROGEN, BLOOD 15 mg/dL (7-18)
[2018-10-07] MEDS: FLUoxetine HCL 20 MG CAPSULE PO SCH (08:38)
[2018-10-07 09:45] VITALS: BP 101/56
[2018-10-07] MEDS: LORazepam 2 MG TABLET PO PRN ×2 (11:14→16:16)
[2018-10-07 16:23] VITALS: BP 106/64
[2018-10-07] MEDS: ZOLPIDEM TARTRATE 10 MG TABLET PO PRN (20:53)
[2018-10-08] MEDS: FLUoxetine HCL 20 MG CAPSULE PO SCH (08:00)
[2018-10-08 08:32] VITALS: BP 109/61
[2018-10-08] MEDS: LORazepam 2 MG TABLET PO PRN ×2 (11:48→17:05)
[2018-10-08] MEDS: IBUPROFEN 400 MG TABLET PO PRN (12:05)
[2018-10-09] MEDS: LORazepam 2 MG TABLET PO PRN ×2 (07:58→16:03)
[2018-10-09] MEDS: FLUoxetine HCL 20 MG CAPSULE PO SCH (07:58)
[2018-10-09 11:27] VITALS: BP 106/60
[2018-10-09 16:00] VITALS: BP 104/60
[2018-10-09] MEDS: ZOLPIDEM TARTRATE 10 MG TABLET PO PRN (20:15)
[2018-10-10] MEDS: FLUoxetine HCL 20 MG CAPSULE PO SCH (08:18)
[2018-10-10] MEDS: LORazepam 2 MG TABLET PO PRN ×2 (10:43→18:00)
[2018-10-10] MEDS: NICOTINE 21 MG/24 HOUR PATCH TD SCH (10:46)
[2018-10-10 13:11] VITALS: BP 111/60
[2018-10-10 16:02] VITALS: BP 105/65
[2018-10-10] MEDS: ZOLPIDEM TARTRATE 10 MG TABLET PO PRN (20:21)
[2018-10-11 08:10] VITALS: BP 107/75
[2018-10-11] MEDS: FLUoxetine HCL 20 MG CAPSULE PO SCH (08:32)
[2018-10-11] MEDS: NICOTINE 21 MG/24 HOUR PATCH TD SCH (09:04)
[2018-10-11 09:42] VITALS: BP 107/75
[2018-10-11] MEDS: LORazepam 2 MG TABLET PO PRN ×2 (10:53→16:36)
[2018-10-11 16:20] VITALS: BP 114/63
[2018-10-11] MEDS: ZOLPIDEM TARTRATE 10 MG TABLET PO PRN (21:03)
[2018-10-12 08:07] VITALS: BP 122/67
[2018-10-12] MEDS: FLUoxetine HCL 20 MG CAPSULE PO SCH (08:08)
[2018-10-12] MEDS: NICOTINE 21 MG/24 HOUR PATCH TD SCH (08:09)
[2018-10-12] MEDS: LORazepam 2 MG TABLET PO PRN ×3 (09:20→20:57)
[2018-10-12 16:10] VITALS: BP 133/71
[2018-10-12] MEDS: ZOLPIDEM TARTRATE 10 MG TABLET PO PRN (20:58)
[2018-10-12] MEDS: RisperiDONE 2 MG TABLET PO SCH (20:58)
[2018-10-13 08:30] VITALS: BP 118/58
[2018-10-13] MEDS: FLUoxetine HCL 20 MG CAPSULE PO SCH (08:39)
[2018-10-13] MEDS: NICOTINE 21 MG/24 HOUR PATCH TD SCH (08:40)
[2018-10-13] MEDS: LORazepam 2 MG TABLET PO PRN ×3 (10:07→20:09)
[2018-10-13 16:05] VITALS: BP 141/73
[2018-10-13] MEDS: RisperiDONE 2 MG TABLET PO SCH (20:09)
[2018-10-13] MEDS: ZOLPIDEM TARTRATE 10 MG TABLET PO PRN (20:09)
[2018-10-14] MEDS: NICOTINE 21 MG/24 HOUR PATCH TD SCH (08:30)
[2018-10-14] MEDS: FLUoxetine HCL 20 MG CAPSULE PO SCH (09:08)
[2018-10-14] MEDS: LORazepam 2 MG TABLET PO PRN ×3 (09:09→20:29)
[2018-10-14 09:20] VITALS: BP 118/78
[2018-10-14 16:08] VITALS: BP 117/63
[2018-10-14] MEDS: RisperiDONE 2 MG TABLET PO SCH (20:30)
[2018-10-14] MEDS: ZOLPIDEM TARTRATE 10 MG TABLET PO PRN (21:15)
[2018-10-15 08:15] VITALS: BP 104/61
[2018-10-15] MEDS: FLUoxetine HCL 20 MG CAPSULE PO SCH (08:33)
[2018-10-15] MEDS: LORazepam 2 MG TABLET PO PRN ×4 (08:33→22:06)
[2018-10-15] MEDS: NICOTINE 21 MG/24 HOUR PATCH TD SCH (08:40)
[2018-10-15 16:00] VITALS: BP 115/65
[2018-10-15] MEDS: RisperiDONE 2 MG TABLET PO SCH (20:09)
[2018-10-15] MEDS: ZOLPIDEM TARTRATE 10 MG TABLET PO PRN (20:10)
[2018-10-16 08:33] VITALS: BP 121/65
[2018-10-16] MEDS: FLUoxetine HCL 20 MG CAPSULE PO SCH (08:38)
[2018-10-16] MEDS: NICOTINE 21 MG/24 HOUR PATCH TD SCH (08:41)
[2018-10-16] MEDS: LORazepam 1 MG TABLET PO PRN ×2 (10:50→17:39)
[2018-10-16 16:31] VITALS: BP 109/66
[2018-10-16] MEDS: RisperiDONE 2 MG TABLET PO SCH (20:23)
[2018-10-16] MEDS: ZOLPIDEM TARTRATE 10 MG TABLET PO PRN (20:23)
[2018-10-17] MEDS: LORazepam 1 MG TABLET PO PRN ×3 (00:15→17:54)
[2018-10-17] MEDS: NICOTINE 21 MG/24 HOUR PATCH TD SCH (08:56)
[2018-10-17] MEDS: FLUoxetine HCL 20 MG CAPSULE PO SCH (08:57)
[2018-10-17] MEDS ORDERED: PALIPERIDONE PALMITATE 234 MG/1.5 ML SYRINGE IM SCH (09:00)
[2018-10-17 12:15] VITALS: BP 114/78
[2018-10-17 16:40] VITALS: BP 105/65
[2018-10-17] MEDS: ZOLPIDEM TARTRATE 10 MG TABLET PO PRN (20:42)
[2018-10-17] MEDS: RisperiDONE 2 MG TABLET PO SCH (20:42)
[2018-10-18] MEDS: LORazepam 1 MG TABLET PO PRN ×4 (00:35→20:03)
[2018-10-18] MEDS: FLUoxetine HCL 20 MG CAPSULE PO SCH (08:26)
[2018-10-18] MEDS: NICOTINE 21 MG/24 HOUR PATCH TD SCH (08:26)
[2018-10-18 16:54] VITALS: BP 115/65
[2018-10-18] MEDS: RisperiDONE 2 MG TABLET PO SCH (20:03)
[2018-10-18] MEDS: ZOLPIDEM TARTRATE 10 MG TABLET PO PRN (20:03)
[2018-10-18] MEDS: IBUPROFEN 400 MG TABLET PO PRN (22:07)
[2018-10-19 08:01] VITALS: BP 95/56
[2018-10-19] MEDS: NICOTINE 21 MG/24 HOUR PATCH TD SCH (09:00)
[2018-10-19] MEDS: FLUoxetine HCL 20 MG CAPSULE PO SCH (09:00)
[2018-10-19] MEDS: LORazepam 1 MG TABLET PO PRN ×3 (11:24→23:59)
[2018-10-19 17:09] VITALS: BP 120/72
[2018-10-19] MEDS: RisperiDONE 2 MG TABLET PO SCH (20:21)
[2018-10-19] MEDS: ZOLPIDEM TARTRATE 10 MG TABLET PO PRN (20:21)
[2018-10-19] MEDS: IBUPROFEN 400 MG TABLET PO PRN (21:13)
[2018-10-19 21:15] VITALS: BP 118/62
[2018-10-20 08:28] VITALS: BP 118/69
[2018-10-20] MEDS: NICOTINE 21 MG/24 HOUR PATCH TD SCH (08:28)
[2018-10-20] MEDS: FLUoxetine HCL 20 MG CAPSULE PO SCH (08:57)
[2018-10-20] MEDS: ACETAMINOPHEN 325 MG TABLET PO PRN (11:08)
[2018-10-20] MEDS: LORazepam 1 MG TABLET PO PRN (11:19)
[2018-10-20 16:30] VITALS: BP 116/66
[2018-10-20] MEDS: RisperiDONE 2 MG TABLET PO SCH (20:26)
[2018-10-21 00:40] VITALS: BP 112/71
[2018-10-21] MEDS: ZOLPIDEM TARTRATE 10 MG TABLET PO PRN (00:44)
[2018-10-21] MEDS: IBUPROFEN 400 MG TABLET PO PRN (00:44)
[2018-10-21] MEDS: LORazepam 1 MG TABLET PO PRN (01:12)
[2018-10-21] MEDS: FLUoxetine HCL 20 MG CAPSULE PO SCH (08:45)
[2018-10-21] MEDS ORDERED: PALI234D IM (08:59)
[2018-10-21] MEDS ORDERED: RISP2 PO (08:59)
[2018-10-21] MEDS ORDERED: FLUO-191 PO (08:59)
[2018-10-21 09:03] VITALS: BP 135/78
== END 2018-10-21 12:35 | disposition home or self-care (01) | DRG 750 ==
LOC: EMS 22:40 → 3EC 10-06 00:01
DX: F25.0 Schizoaffective disorder, bipolar type (principal); F15.20 Other stimulant dependence, uncomplicated; F12.20 Cannabis dependence, uncomplicated; D64.9 Anemia, unspecified; F17.210 Nicotine dependence, cigarettes, uncomplicated; F19.10 Other psychoactive substance abuse, uncomplicated; Z86.11 Personal history of tuberculosis; Z91.14 Patient's other noncompliance with medication regimen; Z88.0 Allergy status to penicillin; Z79.899 Other long term (current) drug therapy; Z88.8 Allergy status to other drugs, medicaments and biological substances; Z59.0 Homelessness; Z71.51 Drug abuse counseling and surveillance of drug abuser
CPT/HCPCS: 83036; 84443; 87081; G0480

== ENCOUNTER 2019-01-20 15:14 | Inpatient (IN) | payer MEDICAID ==
[~2019-01-20] VITALS: Ht 162.6 cm; Wt 61.7 kg
[~2019-01-20 15:14] MED LIST changes: +RISP2 PO
[2019-01-20 17:16] LABS: BASOPHILS % (AUTO) 0.7 % (0.0-2.0); EOSINOPHILS % (AUTO) 1.3 % (1.0-6.0); HEMATOCRIT 41.2 % (41-53); HEMOGLOBIN 13.5 g/dL (13.5-17.5); LYMPHOCYTES # (AUTO) 1.9 K/uL (1.0-4.8); LYMPHOCYTES % (AUTO) 24.5 % (22.0-44.0); MEAN CORPUSCULAR HEMOGLOBIN 28.7 pg (26.0-34.0); MEAN CORPUSCULAR HGB CONC 32.8 G/dL (31.0-37.0); MEAN CORPUSCULAR VOLUME 88 fL (80-100); MONOCYTES # (AUTO) 0.8 K/uL (0.1-1.0); MONOCYTES % (AUTO) 9.8 % (2.0-9.0); NEUTROPHILS # (AUTO) 4.9 K/uL (1.8-7.7); NEUTROPHILS % (AUTO) 63.7 % (40.0-70.0); PLATELET COUNT (AUTO) 238 K/uL (150-450); RED BLOOD CELL COUNT(AUTO) 4.71 MIL/uL (4.50-5.90); RED CELL DISTRIBUTION WIDTH 17.5 % (11.5-14.5)
[2019-01-20 17:24] LABS: ANION GAP 8 mmol/L (8-16); CARBON DIOXIDE 30 mmol/L (22-29); CHLORIDE 104 mmol/L (98-107); CREATININE 0.95 mg/dL (0.60-1.30); GLOMERULAR FILTR. RATE CALC > 60 mL/min (>60); GLUCOSE,RANDOM 101 mg/dL (70-110); POTASSIUM 4.3 mmol/L (3.5-5.1); SODIUM SERUM 142 mmol/L (136-145); UREA NITROGEN, BLOOD 10 mg/dL (7-18)
[2019-01-20 17:30] LABS: ALANINE AMINOTRANSFERASE 7 U/L (12-78); ALBUMIN 4.1 g/dL (3.4-5.0); ALKALINE PHOSPHATASE 86 U/L (46-116); ASPARTATE AMINOTRANSFERASE 22 U/L (15-37); BILIRUBIN,TOTAL 0.2 mg/dL (0.1-1.0)
[2019-01-20 19:13] LABS: AMPHET/METH SCREEN,URINE NEGATIVE (NEGATIVE); BARBITURATE SCREEN, URINE NEGATIVE (NEGATIVE); BENZODIAZEPINES SCREEN,URINE NEGATIVE (NEGATIVE); CANNABINOID SCREEN,URINE POSITIVE (NEGATIVE); COCAINE SCREEN,URINE NEGATIVE (NEGATIVE); METHADONE SCREEN, URINE NEGATIVE (NEGATIVE); OPIATE SCREEN,URINE NEGATIVE (NEGATIVE)
[2019-01-20 19:17] LABS: PHENCYCLIDINE SCREEN,URINE NEGATIVE (NEGATIVE)
[2019-01-21] MEDS ORDERED: INFLUENZA VIRUS VACCINE QVS 2019-20 (3YR+)/PF 60 MCG/0.5 ML SYRINGE IM ONE (04:15)
[2019-01-21 04:19] VITALS: BP 116/77
[2019-01-21 08:12] VITALS: BP 111/67
[2019-01-21 16:00] VITALS: BP 117/69
[2019-01-21] MEDS ORDERED: PETROLATUM,WHITE 28 GM JELLY TP PRN (20:00)
[2019-01-21] MEDS ORDERED: BENZOCAINE/MENTHOL LOZENGE MM PRN (20:00)
[2019-01-21] MEDS ORDERED: ONDANSETRON HCL 4 MG TABLET PO PRN (20:00)
[2019-01-21] MEDS ORDERED: MAG HYDROX/AL HYDROX/SIMETH ES 30 ML SUSPENSION UDCUP PO PRN (20:00)
[2019-01-21] MEDS ORDERED: ACETAMINOPHEN 325 MG TABLET PO PRN (20:00)
[2019-01-21] MEDS ORDERED: CloNIDine HCL 0.1 MG TABLET PO PRN (20:00)
[2019-01-21] MEDS ORDERED: LOPERAMIDE HCL 2 MG CAPSULE PO PRN (20:00)
[2019-01-21] MEDS ORDERED: DOCUSATE SODIUM 100 MG CAPSULE PO PRN (20:00)
[2019-01-21] MEDS ORDERED: OMEPRAZOLE 20 MG CAPSULE PO PRN (20:00)
[2019-01-21] MEDS ORDERED: BACITRACIN 28.4 GM OINTMENT TP PRN (20:00)
[2019-01-21] MEDS ORDERED: MAGNESIUM HYDROXIDE SUSPENSION 30 ML UDCUP PO PRN (20:00)
[2019-01-21] MEDS ORDERED: ALBUTEROL SULFATE HFA 90 MCG/PUFF 8 GM INHALER IH PRN (20:00)
[2019-01-21] MEDS: LORazepam 2 MG TABLET PO PRN (21:42)
[2019-01-21] MEDS: ZOLPIDEM TARTRATE 10 MG TABLET PO PRN (21:42)
[2019-01-22 06:20] VITALS: BP 131/76
[2019-01-22 08:00] VITALS: BP 97/71
[2019-01-22 08:14] LABS: CHOL/HDL RATIO 2.6 (4.2-7.3)
[2019-01-22] MEDS: RisperiDONE 3 MG TABLET PO SCH ×2 (10:08→16:54)
[2019-01-22 16:00] VITALS: BP 115/65
[2019-01-22] MEDS: LORazepam 2 MG TABLET PO PRN (16:54)
[2019-01-23 08:30] VITALS: BP 132/62
[2019-01-23] MEDS: LORazepam 2 MG TABLET PO PRN ×2 (08:41→16:26)
[2019-01-23] MEDS: RisperiDONE 3 MG TABLET PO SCH ×2 (08:41→16:26)
[2019-01-23 17:14] VITALS: BP 114/62
[2019-01-23] MEDS ORDERED: HALOPERIDOL LACTATE 5 MG/ML VIAL IM ONE (20:15)
[2019-01-23] MEDS ORDERED: DiphenhydrAMINE HCL 50 MG/ML VIAL IM ONE (20:15)
[2019-01-23] MEDS ORDERED: LORazepam 2 MG/ML VIAL IM ONE (20:15)
[2019-01-24 06:54] VITALS: BP 114/72
[2019-01-24] MEDS: RisperiDONE 3 MG TABLET PO SCH ×2 (08:09→16:49)
[2019-01-24 08:18] VITALS: BP 141/61
[2019-01-24] MEDS: LORazepam 2 MG TABLET PO PRN (16:49)
[2019-01-24 17:08] VITALS: BP 120/60
[2019-01-25 08:00] VITALS: BP 113/61
[2019-01-25] MEDS: RisperiDONE 3 MG TABLET PO SCH ×2 (08:37→16:35)
[2019-01-25 16:00] VITALS: BP 116/72
[2019-01-26] MEDS: RisperiDONE 3 MG TABLET PO SCH ×2 (08:12→16:15)
[2019-01-26 08:59] VITALS: BP 114/66
[2019-01-26 14:26] VITALS: BP 117/68
[2019-01-26] MEDS: IBUPROFEN 600 MG TABLET PO PRN (14:26)
[2019-01-26 16:19] VITALS: BP 117/61
[2019-01-27 05:44] VITALS: BP 126/72
[2019-01-27 08:15] VITALS: BP 117/63
[2019-01-27] MEDS: RisperiDONE 3 MG TABLET PO SCH (09:44)
[2019-01-27 16:12] VITALS: BP 111/73
[2019-01-27] MEDS: LORazepam 2 MG TABLET PO PRN (16:54)
[2019-01-27] MEDS: RisperiDONE 4 MG TABLET PO SCH (16:54)
[2019-01-27] MEDS: HALOPERIDOL 5 MG TABLET PO PRN (16:54)
[2019-01-27] MEDS: ZOLPIDEM TARTRATE 10 MG TABLET PO PRN (20:31)
[2019-01-28 06:58] VITALS: BP 107/75
[2019-01-28] MEDS: RisperiDONE 4 MG TABLET PO SCH ×2 (09:03→16:26)
[2019-01-28 10:33] VITALS: BP 116/74
[2019-01-28] MEDS: HALOPERIDOL 5 MG TABLET PO PRN (16:26)
[2019-01-28] MEDS: LORazepam 2 MG TABLET PO PRN ×2 (16:26→20:47)
[2019-01-28 16:44] VITALS: BP 119/78
[2019-01-28] MEDS: ZOLPIDEM TARTRATE 10 MG TABLET PO PRN (20:47)
[2019-01-29 08:12] VITALS: BP 131/67
[2019-01-29] MEDS: RisperiDONE 4 MG TABLET PO SCH ×2 (09:24→16:01)
[2019-01-29] MEDS: HALOPERIDOL 5 MG TABLET PO PRN ×2 (10:24→16:01)
[2019-01-29] MEDS: LORazepam 2 MG TABLET PO PRN ×3 (10:24→21:01)
[2019-01-29 16:00] VITALS: BP 119/67
[2019-01-29] MEDS: ZOLPIDEM TARTRATE 10 MG TABLET PO PRN (21:01)
[2019-01-30 01:12] VITALS: BP 117/72
[2019-01-30] MEDS: RisperiDONE 4 MG TABLET PO SCH ×2 (09:33→17:21)
[2019-01-30 12:32] VITALS: BP 120/62
[2019-01-30] MEDS ORDERED: LORazepam 2 MG/ML VIAL IM ONE (12:45)
[2019-01-30] MEDS ORDERED: DiphenhydrAMINE HCL 50 MG/ML VIAL IM ONE (12:45)
[2019-01-30] MEDS ORDERED: HALOPERIDOL LACTATE 5 MG/ML VIAL IM ONE (12:45)
[2019-01-30] MEDS: LORazepam 2 MG TABLET PO PRN (17:21)
[2019-01-30] MEDS: HALOPERIDOL 5 MG TABLET PO PRN (17:21)
[2019-01-31 08:16] VITALS: BP 124/61
[2019-01-31] MEDS: RisperiDONE 4 MG TABLET PO SCH ×2 (08:32→16:22)
[2019-01-31 16:02] VITALS: BP 125/83
[2019-02-01 00:14] VITALS: BP 117/78
[2019-02-01] MEDS: LORazepam 2 MG TABLET PO PRN ×3 (00:44→16:01)
[2019-02-01] MEDS: ZOLPIDEM TARTRATE 10 MG TABLET PO PRN ×2 (00:44→20:42)
[2019-02-01 08:17] VITALS: BP 117/72
[2019-02-01] MEDS: RisperiDONE 4 MG TABLET PO SCH ×2 (08:34→16:01)
[2019-02-01] MEDS: HALOPERIDOL 5 MG TABLET PO PRN ×2 (08:34→16:01)
[2019-02-02 08:00] VITALS: BP 124/73
[2019-02-02] MEDS: HALOPERIDOL 5 MG TABLET PO PRN ×3 (08:22→20:46)
[2019-02-02] MEDS: RisperiDONE 4 MG TABLET PO SCH ×2 (08:22→16:46)
[2019-02-02] MEDS: LORazepam 2 MG TABLET PO PRN ×3 (08:22→20:46)
[2019-02-02 13:51] VITALS: BP 127/84
[2019-02-02] MEDS: IBUPROFEN 600 MG TABLET PO PRN (13:51)
[2019-02-02] MEDS ORDERED: ONDANSETRON HCL 4 MG/2 ML VIAL IM ONE (14:30)
[2019-02-02 16:00] VITALS: BP 116/77
[2019-02-02] MEDS: ZOLPIDEM TARTRATE 10 MG TABLET PO PRN (20:46)
[2019-02-03 06:16] VITALS: BP 115/75
[2019-02-03 08:09] VITALS: BP 122/73
[2019-02-03] MEDS: RisperiDONE 4 MG TABLET PO SCH ×2 (09:14→16:31)
[2019-02-03] MEDS ORDERED: RISP4 PO (15:28)
[2019-02-03 16:49] VITALS: BP 122/69
== END 2019-02-03 18:52 | disposition home or self-care (01) | DRG 750 ==
LOC: EMS 15:15 → B3A 01-21 02:03
PROVIDERS: ADMIT Psychiatry & Neurology Psychiatry; ATTEND Psychiatry & Neurology Psychiatry
DX: F20.0 Paranoid schizophrenia (principal); F31.9 Bipolar disorder, unspecified; G47.00 Insomnia, unspecified; K59.00 Constipation, unspecified; Z88.0 Allergy status to penicillin; Z88.8 Allergy status to other drugs, medicaments and biological substances; Z90.49 Acquired absence of other specified parts of digestive tract
CPT/HCPCS: 96372; G0480; J1200; J1630; J2060; J2405

== ENCOUNTER 2019-02-09 16:08 | Inpatient (IN) | payer MEDICAID, OTHER ==
[~2019-02-09] VITALS: Ht 160 cm; Wt 62.6 kg
[~2019-02-09 16:08] MED LIST changes: -FLUO-191 PO; -PALI234D IM; -RISP2 PO; +RISP4 PO
[2019-02-09 17:12] LABS: BASOPHILS % (AUTO) 0.8 % (0.0-2.0); EOSINOPHILS % (AUTO) 0.6 % (1.0-6.0); HEMATOCRIT 45.5 % (41-53); LYMPHOCYTES # (AUTO) 2.2 K/uL (1.0-4.8); LYMPHOCYTES % (AUTO) 17.1 % (22.0-44.0); MEAN CORPUSCULAR HEMOGLOBIN 28.8 pg (26.0-34.0); MEAN CORPUSCULAR HGB CONC 33.1 G/dL (31.0-37.0); MEAN CORPUSCULAR VOLUME 87 fL (80-100); MONOCYTES # (AUTO) 1.4 K/uL (0.1-1.0); MONOCYTES % (AUTO) 10.4 % (2.0-9.0); NEUTROPHILS # (AUTO) 9.2 K/uL (1.8-7.7); NEUTROPHILS % (AUTO) 71.1 % (40.0-70.0); PLATELET COUNT (AUTO) 252 K/uL (150-450); RED BLOOD CELL COUNT(AUTO) 5.22 MIL/uL (4.50-5.90); RED CELL DISTRIBUTION WIDTH 15.9 % (11.5-14.5)
[2019-02-09 17:19] LABS: ANION GAP 12 mmol/L (8-16); CALCIUM, TOTAL 9.5 mg/dL (8.8-10.5); CARBON DIOXIDE 24 mmol/L (22-29); CHLORIDE 99 mmol/L (98-107); GLOMERULAR FILTR. RATE CALC > 60 mL/min (>60); GLUCOSE,RANDOM 112 mg/dL (70-110); POTASSIUM 3.4 mmol/L (3.5-5.1); SODIUM SERUM 135 mmol/L (136-145); UREA NITROGEN, BLOOD 8 mg/dL (7-18)
[2019-02-09 17:25] LABS: ALANINE AMINOTRANSFERASE 40 U/L (12-78); ALBUMIN 4.5 g/dL (3.4-5.0); ALKALINE PHOSPHATASE 107 U/L (46-116); ASPARTATE AMINOTRANSFERASE 59 U/L (15-37); BILIRUBIN,TOTAL 0.6 mg/dL (0.1-1.0); TOTAL PROTEIN, SERUM 8.1 g/dL (6.4-8.2)
[2019-02-09] MEDS ORDERED: HALOPERIDOL LACTATE 5 MG/ML VIAL IM ONE (19:30)
[2019-02-09] MEDS ORDERED: LORazepam 2 MG/ML VIAL IM ONE (19:30)
[2019-02-09] MEDS ORDERED: DiphenhydrAMINE HCL 50 MG/ML VIAL IM ONE (19:30)
[2019-02-09 19:52] LABS: AMPHET/METH SCREEN,URINE POSITIVE (NEGATIVE); BARBITURATE SCREEN, URINE NEGATIVE (NEGATIVE); BENZODIAZEPINES SCREEN,URINE NEGATIVE (NEGATIVE); CANNABINOID SCREEN,URINE POSITIVE (NEGATIVE); COCAINE SCREEN,URINE NEGATIVE (NEGATIVE); METHADONE SCREEN, URINE NEGATIVE (NEGATIVE); OPIATE SCREEN,URINE NEGATIVE (NEGATIVE)
[2019-02-09 20:00] LABS: PHENCYCLIDINE SCREEN,URINE NEGATIVE (NEGATIVE)
[2019-02-10 04:38] LABS: CHOL/HDL RATIO 2.2 (4.2-7.3); CHOLESTEROL 155 mg/dL (131-200); HDL CHOLESTEROL 72 mg/dL (40-60); LDL CHOL (CALC.) 70 mg/dL (0-130); TRIGLYCERIDES 64 mg/dL (15-150)
[2019-02-10 16:00] VITALS: BP 109/75
[2019-02-10] MEDS: LORazepam 2 MG TABLET PO PRN (17:33)
[2019-02-10] MEDS ORDERED: INFLUENZA VIRUS VACCINE QVS 2019-20 (3YR+)/PF 60 MCG/0.5 ML SYRINGE IM ONE (18:30)
[2019-02-10] MEDS ORDERED: ALBUTEROL SULFATE HFA 90 MCG/PUFF 8 GM INHALER IH PRN (20:15)
[2019-02-10] MEDS ORDERED: ONDANSETRON HCL 4 MG TABLET PO PRN (20:15)
[2019-02-10] MEDS ORDERED: BENZOCAINE/MENTHOL LOZENGE MM PRN (20:15)
[2019-02-10] MEDS ORDERED: BACITRACIN 28.4 GM OINTMENT TP PRN (20:15)
[2019-02-10] MEDS ORDERED: MAG HYDROX/AL HYDROX/SIMETH ES 30 ML SUSPENSION UDCUP PO PRN (20:15)
[2019-02-10] MEDS ORDERED: CloNIDine HCL 0.1 MG TABLET PO PRN (20:15)
[2019-02-10] MEDS ORDERED: MAGNESIUM HYDROXIDE SUSPENSION 30 ML UDCUP PO PRN (20:15)
[2019-02-10] MEDS ORDERED: ACETAMINOPHEN 325 MG TABLET PO PRN (20:15)
[2019-02-10] MEDS ORDERED: LOPERAMIDE HCL 2 MG CAPSULE PO PRN (20:15)
[2019-02-10] MEDS ORDERED: PETROLATUM,WHITE 28 GM JELLY TP PRN (20:15)
[2019-02-11 07:19] VITALS: BP 105/72
[2019-02-11] MEDS: DOCUSATE SODIUM 100 MG CAPSULE PO SCH (08:53)
[2019-02-11] MEDS: OMEPRAZOLE 20 MG CAPSULE PO SCH (08:53)
[2019-02-11 09:11] VITALS: BP 95/63
[2019-02-11] MEDS: LORazepam 2 MG TABLET PO PRN ×2 (12:19→16:38)
[2019-02-11 16:00] VITALS: BP 105/68
[2019-02-11] MEDS: HALOPERIDOL 5 MG TABLET PO PRN (16:38)
[2019-02-12 08:11] VITALS: BP 109/69
[2019-02-12] MEDS: DOCUSATE SODIUM 100 MG CAPSULE PO SCH (08:53)
[2019-02-12] MEDS: OMEPRAZOLE 20 MG CAPSULE PO SCH (08:53)
[2019-02-12] MEDS: RisperiDONE 4 MG TABLET PO SCH ×2 (10:54→16:12)
[2019-02-12 16:00] VITALS: BP 114/73
[2019-02-12] MEDS: HALOPERIDOL 5 MG TABLET PO PRN (16:12)
[2019-02-12] MEDS: LORazepam 2 MG TABLET PO PRN (16:12)
[2019-02-12 17:05] VITALS: BP 114/73
[2019-02-13 08:30] VITALS: BP 123/65
[2019-02-13] MEDS: OMEPRAZOLE 20 MG CAPSULE PO SCH (08:39)
[2019-02-13] MEDS: DOCUSATE SODIUM 100 MG CAPSULE PO SCH (08:39)
[2019-02-13] MEDS: RisperiDONE 4 MG TABLET PO SCH ×2 (08:39→16:56)
[2019-02-13 16:18] VITALS: BP 104/60
[2019-02-13] MEDS: LORazepam 2 MG TABLET PO PRN (16:56)
[2019-02-13] MEDS: HALOPERIDOL 5 MG TABLET PO PRN (16:56)
[2019-02-14 04:19] VITALS: BP 108/62
[2019-02-14] MEDS: RisperiDONE 4 MG TABLET PO SCH ×2 (08:32→16:22)
[2019-02-14] MEDS: DOCUSATE SODIUM 100 MG CAPSULE PO SCH (08:32)
[2019-02-14] MEDS: OMEPRAZOLE 20 MG CAPSULE PO SCH (08:32)
[2019-02-14 09:29] VITALS: BP 112/72
[2019-02-14] MEDS: IBUPROFEN 600 MG TABLET PO PRN (09:29)
[2019-02-14 09:59] VITALS: BP 107/74
[2019-02-14 16:00] VITALS: BP 106/66
[2019-02-15] MEDS: ZOLPIDEM TARTRATE 10 MG TABLET PO PRN (01:07)
[2019-02-15] MEDS: LORazepam 2 MG TABLET PO PRN ×4 (01:07→17:10)
[2019-02-15 01:09] VITALS: BP 123/72
[2019-02-15] MEDS: DOCUSATE SODIUM 100 MG CAPSULE PO SCH (08:36)
[2019-02-15] MEDS: RisperiDONE 4 MG TABLET PO SCH ×2 (08:36→17:10)
[2019-02-15] MEDS: OMEPRAZOLE 20 MG CAPSULE PO SCH (08:36)
[2019-02-15] MEDS: HALOPERIDOL 5 MG TABLET PO PRN ×2 (08:36→17:10)
[2019-02-15] MEDS ORDERED: POTASSIUM CHLORIDE 10 MEQ ER TABLET PO ONE (09:15)
[2019-02-15 16:00] VITALS: BP 108/65
[2019-02-16 05:03] VITALS: BP 102/69
[2019-02-16] MEDS: DOCUSATE SODIUM 100 MG CAPSULE PO SCH (08:16)
[2019-02-16] MEDS: LORazepam 2 MG TABLET PO PRN ×3 (08:16→20:20)
[2019-02-16] MEDS: RisperiDONE 4 MG TABLET PO SCH ×2 (08:16→16:19)
[2019-02-16] MEDS: HALOPERIDOL 5 MG TABLET PO PRN ×2 (08:16→16:20)
[2019-02-16] MEDS: OMEPRAZOLE 20 MG CAPSULE PO SCH (08:16)
[2019-02-16 08:32] VITALS: BP 105/62
[2019-02-16 16:07] VITALS: BP 102/60
[2019-02-16] MEDS: ZOLPIDEM TARTRATE 10 MG TABLET PO PRN (20:20)
[2019-02-17 05:48] VITALS: BP 113/76
[2019-02-17] MEDS: RisperiDONE 4 MG TABLET PO SCH ×2 (08:29→16:21)
[2019-02-17] MEDS: DOCUSATE SODIUM 100 MG CAPSULE PO SCH (08:29)
[2019-02-17] MEDS: OMEPRAZOLE 20 MG CAPSULE PO SCH (08:29)
[2019-02-17 08:56] VITALS: BP 116/63
[2019-02-17 12:47] VITALS: BP 137/78
[2019-02-17] MEDS: IBUPROFEN 600 MG TABLET PO PRN (12:47)
[2019-02-17] MEDS: LORazepam 2 MG TABLET PO PRN (12:47)
[2019-02-17 16:05] VITALS: BP 123/74
[2019-02-17] MEDS: ZOLPIDEM TARTRATE 10 MG TABLET PO PRN (21:15)
[2019-02-18 06:14] VITALS: BP 118/72
[2019-02-18 08:06] VITALS: BP 128/64
[2019-02-18] MEDS: RisperiDONE 4 MG TABLET PO SCH ×2 (08:08→16:02)
[2019-02-18] MEDS: DOCUSATE SODIUM 100 MG CAPSULE PO SCH (08:08)
[2019-02-18] MEDS: OMEPRAZOLE 20 MG CAPSULE PO SCH (08:08)
[2019-02-18 08:20] LABS: ANION GAP 6 mmol/L (8-16); CALCIUM, TOTAL 9.1 mg/dL (8.8-10.5); CARBON DIOXIDE 30 mmol/L (22-29); CHLORIDE 103 mmol/L (98-107); CREATININE 0.84 mg/dL (0.60-1.30); GLOMERULAR FILTR. RATE CALC > 60 mL/min (>60); GLUCOSE,RANDOM 87 mg/dL (70-110); POTASSIUM 4.6 mmol/L (3.5-5.1); SODIUM SERUM 139 mmol/L (136-145); UREA NITROGEN, BLOOD 15 mg/dL (7-18)
[2019-02-18] MEDS ORDERED: RisperiDONE 4 MG TABLET ONE (15:24)
[2019-02-18 16:14] VITALS: BP 115/71
[2019-02-18] MEDS: ClonazePAM 0.5 MG TABLET PO SCH (20:41)
[2019-02-18] MEDS: HALOPERIDOL 5 MG TABLET PO SCH (20:41)
[2019-02-19] MEDS: RisperiDONE 4 MG TABLET PO SCH ×2 (08:19→16:59)
[2019-02-19] MEDS: ClonazePAM 0.5 MG TABLET PO SCH ×2 (08:19→16:58)
[2019-02-19] MEDS: DOCUSATE SODIUM 100 MG CAPSULE PO SCH (08:19)
[2019-02-19] MEDS: OMEPRAZOLE 20 MG CAPSULE PO SCH (08:19)
[2019-02-19 08:22] VITALS: BP 107/57
[2019-02-19] MEDS: IBUPROFEN 600 MG TABLET PO PRN (13:27)
[2019-02-19 16:10] VITALS: BP 110/62
[2019-02-19] MEDS: HALOPERIDOL 5 MG TABLET PO PRN (16:58)
[2019-02-19] MEDS: HALOPERIDOL 5 MG TABLET PO SCH (20:52)
[2019-02-19] MEDS: ZOLPIDEM TARTRATE 10 MG TABLET PO PRN (20:52)
[2019-02-20] MEDS: OMEPRAZOLE 20 MG CAPSULE PO SCH (08:47)
[2019-02-20] MEDS: DOCUSATE SODIUM 100 MG CAPSULE PO SCH (08:47)
[2019-02-20] MEDS: IBUPROFEN 600 MG TABLET PO PRN (08:47)
[2019-02-20] MEDS: RisperiDONE 4 MG TABLET PO SCH ×2 (08:47→16:18)
[2019-02-20] MEDS: ClonazePAM 0.5 MG TABLET PO SCH ×2 (08:50→16:18)
[2019-02-20 16:08] VITALS: BP 120/69
[2019-02-20] MEDS: HALOPERIDOL 5 MG TABLET PO SCH (20:23)
[2019-02-21 02:37] VITALS: BP 114/71
[2019-02-21] MEDS: IBUPROFEN 600 MG TABLET PO PRN (02:48)
[2019-02-21 08:00] VITALS: BP 129/76
[2019-02-21] MEDS: OMEPRAZOLE 20 MG CAPSULE PO SCH (08:24)
[2019-02-21] MEDS: RisperiDONE 4 MG TABLET PO SCH ×2 (08:25→16:35)
[2019-02-21] MEDS: DOCUSATE SODIUM 100 MG CAPSULE PO SCH (08:25)
[2019-02-21] MEDS: ClonazePAM 0.5 MG TABLET PO SCH ×2 (08:25→16:35)
[2019-02-21] MEDS ORDERED: HALOPERIDOL DECANOATE 100 MG/ML VIAL IM ONE (12:30)
[2019-02-21] MEDS: NICOTINE 14 MG/24 HOUR PATCH TD SCH (14:13)
[2019-02-21 16:05] VITALS: BP 108/72
[2019-02-21] MEDS: HALOPERIDOL 5 MG TABLET PO SCH (20:36)
[2019-02-21] MEDS: ZOLPIDEM TARTRATE 10 MG TABLET PO PRN (20:36)
[2019-02-22 01:23] VITALS: BP 120/80
[2019-02-22 01:59] VITALS: BP 126/84
[2019-02-22] MEDS: IBUPROFEN 600 MG TABLET PO PRN ×2 (01:59→20:50)
[2019-02-22 08:04] VITALS: BP 121/61
[2019-02-22] MEDS: OMEPRAZOLE 20 MG CAPSULE PO SCH (08:22)
[2019-02-22] MEDS: DOCUSATE SODIUM 100 MG CAPSULE PO SCH (08:22)
[2019-02-22] MEDS: ClonazePAM 0.5 MG TABLET PO SCH ×2 (08:22→17:19)
[2019-02-22] MEDS: RisperiDONE 4 MG TABLET PO SCH ×2 (08:22→17:19)
[2019-02-22] MEDS: NICOTINE 14 MG/24 HOUR PATCH TD SCH (08:23)
[2019-02-22 16:05] VITALS: BP 109/67
[2019-02-22] MEDS: HALOPERIDOL 5 MG TABLET PO SCH (20:06)
[2019-02-23 06:11] VITALS: BP 100/55
[2019-02-23 08:10] VITALS: BP 126/63
[2019-02-23] MEDS: DOCUSATE SODIUM 100 MG CAPSULE PO SCH (08:24)
[2019-02-23] MEDS: RisperiDONE 4 MG TABLET PO SCH ×2 (08:24→16:31)
[2019-02-23] MEDS: ClonazePAM 0.5 MG TABLET PO SCH ×2 (08:24→16:31)
[2019-02-23] MEDS: NICOTINE 14 MG/24 HOUR PATCH TD SCH (08:25)
[2019-02-23] MEDS: OMEPRAZOLE 20 MG CAPSULE PO SCH (08:26)
[2019-02-23] MEDS: IBUPROFEN 600 MG TABLET PO PRN (08:56)
[2019-02-23] MEDS: LORazepam 2 MG TABLET PO PRN (12:16)
[2019-02-23] MEDS: HALOPERIDOL 5 MG TABLET PO PRN (12:16)
[2019-02-23 16:52] VITALS: BP 116/67
[2019-02-23] MEDS: ZOLPIDEM TARTRATE 10 MG TABLET PO PRN (20:04)
[2019-02-23] MEDS: HALOPERIDOL 5 MG TABLET PO SCH (20:04)
[2019-02-24 08:07] VITALS: BP 118/62
[2019-02-24] MEDS: ClonazePAM 0.5 MG TABLET PO SCH ×2 (08:22→17:06)
[2019-02-24] MEDS: OMEPRAZOLE 20 MG CAPSULE PO SCH (08:22)
[2019-02-24] MEDS: DOCUSATE SODIUM 100 MG CAPSULE PO SCH (08:23)
[2019-02-24] MEDS: RisperiDONE 4 MG TABLET PO SCH ×2 (08:23→17:06)
[2019-02-24] MEDS: NICOTINE 14 MG/24 HOUR PATCH TD SCH (08:52)
[2019-02-24] MEDS ORDERED: HALOPERIDOL DECANOATE 50 MG/ML VIAL IM ONE (09:00)
[2019-02-24] MEDS ORDERED: HALO5TAB2 PO (13:17)
[2019-02-24] MEDS ORDERED: CLON.5 PO (13:17)
[2019-02-24 16:05] VITALS: BP 107/66
== END 2019-02-24 19:50 | disposition home or self-care (01) | DRG 750 ==
LOC: EMS 16:11 → B3A 02-10 13:30 → 3EC 02-18 14:32 → B3A 02-18 16:19
PROVIDERS: ADMIT Psychiatry & Neurology Psychiatry; ATTEND Psychiatry & Neurology Psychiatry
DX: F20.0 Paranoid schizophrenia (principal); F31.9 Bipolar disorder, unspecified; G47.00 Insomnia, unspecified; K59.00 Constipation, unspecified; Z20.1 Contact with and (suspected) exposure to tuberculosis; Z90.49 Acquired absence of other specified parts of digestive tract; Z86.11 Personal history of tuberculosis; Z56.0 Unemployment, unspecified; Z88.0 Allergy status to penicillin
CPT/HCPCS: G0480; J1200; J1630; J1631; J2060

== ENCOUNTER 2019-03-04 07:50 | Inpatient (IN) | payer MEDICAID, OTHER ==
[~2019-03-04] VITALS: Ht 167.6 cm; Wt 67.2 kg
[~2019-03-04 07:50] MED LIST changes: +CLON.5 PO; +HALO5TAB2 PO
[2019-03-04] MEDS ORDERED: IBUPROFEN 600 MG TABLET PO ONE (09:45)
[2019-03-04] MEDS ORDERED: OLANZapine 5 MG TABLET PO ONE (09:45)
[2019-03-04] MEDS ORDERED: ACETAMINOPHEN 500 MG TABLET PO ONE (09:45)
[2019-03-04] MEDS ORDERED: DiphenhydrAMINE HCL 25 MG CAPSULE PO ONE (10:45)
[2019-03-04] MEDS ORDERED: LORazepam 1 MG TABLET PO ONE (10:45)
[2019-03-04] MEDS ORDERED: HALOPERIDOL 5 MG TABLET PO ONE (10:45)
[2019-03-04 10:54] LABS: BASOPHILS % (AUTO) 0.6 % (0.0-2.0); EOSINOPHILS % (AUTO) 2.8 % (1.0-6.0); HEMATOCRIT 43.2 % (41-53); HEMOGLOBIN 14.3 g/dL (13.5-17.5); LYMPHOCYTES % (AUTO) 29.2 % (22.0-44.0); MEAN CORPUSCULAR HEMOGLOBIN 29.3 pg (26.0-34.0); MEAN CORPUSCULAR HGB CONC 33.1 G/dL (31.0-37.0); MEAN CORPUSCULAR VOLUME 89 fL (80-100); MONOCYTES # (AUTO) 0.8 K/uL (0.1-1.0); MONOCYTES % (AUTO) 11.2 % (2.0-9.0); NEUTROPHILS # (AUTO) 3.9 K/uL (1.8-7.7); NEUTROPHILS % (AUTO) 56.2 % (40.0-70.0); PLATELET COUNT (AUTO) 245 K/uL (150-450); RED BLOOD CELL COUNT(AUTO) 4.88 MIL/uL (4.50-5.90); RED CELL DISTRIBUTION WIDTH 14.6 % (11.5-14.5)
[2019-03-04 11:05] LABS: ANION GAP 7 mmol/L (8-16); CALCIUM, TOTAL 8.8 mg/dL (8.8-10.5); CARBON DIOXIDE 29 mmol/L (22-29); CHLORIDE 101 mmol/L (98-107); CREATININE 0.89 mg/dL (0.60-1.30); GLOMERULAR FILTR. RATE CALC > 60 mL/min (>60); GLUCOSE,RANDOM 102 mg/dL (70-110); POTASSIUM 4.2 mmol/L (3.5-5.1); SODIUM SERUM 137 mmol/L (136-145); UREA NITROGEN, BLOOD 14 mg/dL (7-18)
[2019-03-04 11:10] LABS: ALANINE AMINOTRANSFERASE 42 U/L (12-78); ALKALINE PHOSPHATASE 101 U/L (46-116); ASPARTATE AMINOTRANSFERASE 29 U/L (15-37); BILIRUBIN,TOTAL 0.2 mg/dL (0.1-1.0); TOTAL PROTEIN, SERUM 7.4 g/dL (6.4-8.2)
[2019-03-04 11:11] LABS: AMPHET/METH SCREEN,URINE POSITIVE (NEGATIVE); BARBITURATE SCREEN, URINE NEGATIVE (NEGATIVE); BENZODIAZEPINES SCREEN,URINE NEGATIVE (NEGATIVE); CANNABINOID SCREEN,URINE NEGATIVE (NEGATIVE); COCAINE SCREEN,URINE NEGATIVE (NEGATIVE); METHADONE SCREEN, URINE NEGATIVE (NEGATIVE); OPIATE SCREEN,URINE NEGATIVE (NEGATIVE); PHENCYCLIDINE SCREEN,URINE NEGATIVE (NEGATIVE)
[2019-03-04 14:22] VITALS: BP 105/70
[2019-03-04] MEDS ORDERED: INFLUENZA VIRUS VACCINE QVS 2019-20 (3YR+)/PF 60 MCG/0.5 ML SYRINGE IM ONE (15:45)
[2019-03-04] MEDS ORDERED: ONDANSETRON HCL 4 MG TABLET PO PRN (16:00)
[2019-03-04] MEDS ORDERED: PETROLATUM,WHITE 28 GM JELLY TP PRN (16:00)
[2019-03-04] MEDS ORDERED: CloNIDine HCL 0.1 MG TABLET PO PRN (16:00)
[2019-03-04] MEDS ORDERED: BACITRACIN 28.4 GM OINTMENT TP PRN (16:00)
[2019-03-04] MEDS ORDERED: LOPERAMIDE HCL 2 MG CAPSULE PO PRN (16:00)
[2019-03-04] MEDS ORDERED: ALBUTEROL SULFATE HFA 90 MCG/PUFF 8 GM INHALER IH PRN (16:00)
[2019-03-04] MEDS ORDERED: ACETAMINOPHEN 325 MG TABLET PO PRN (16:00)
[2019-03-04] MEDS ORDERED: MAGNESIUM HYDROXIDE SUSPENSION 30 ML UDCUP PO PRN (16:00)
[2019-03-04] MEDS ORDERED: MAG HYDROX/AL HYDROX/SIMETH ES 30 ML SUSPENSION UDCUP PO PRN (16:00)
[2019-03-04] MEDS ORDERED: BENZOCAINE/MENTHOL LOZENGE MM PRN (16:00)
[2019-03-04] MEDS: ClonazePAM 0.5 MG TABLET PO SCH (16:25)
[2019-03-04] MEDS: BENZTROPINE MESYLATE 1 MG TABLET PO SCH (16:25)
[2019-03-04] MEDS: HALOPERIDOL 5 MG TABLET PO SCH (20:18)
[2019-03-05 06:45] VITALS: BP 114/65
[2019-03-05] MEDS: OMEPRAZOLE 20 MG CAPSULE PO SCH (08:04)
[2019-03-05] MEDS: DOCUSATE SODIUM 100 MG CAPSULE PO SCH (08:04)
[2019-03-05] MEDS: ClonazePAM 0.5 MG TABLET PO SCH ×2 (08:04→16:06)
[2019-03-05] MEDS: BENZTROPINE MESYLATE 1 MG TABLET PO SCH ×2 (08:04→16:06)
[2019-03-05 08:32] VITALS: BP 104/60
[2019-03-05 15:34] VITALS: BP 115/72
[2019-03-05] MEDS: IBUPROFEN 600 MG TABLET PO PRN (15:34)
[2019-03-05 16:08] VITALS: BP 115/72
[2019-03-05] MEDS: HALOPERIDOL 5 MG TABLET PO SCH (20:00)
[2019-03-06 06:45] VITALS: BP 116/65
[2019-03-06 06:48] VITALS: BP 142/92
[2019-03-06 08:18] VITALS: BP 103/47
[2019-03-06] MEDS: DOCUSATE SODIUM 100 MG CAPSULE PO SCH (08:48)
[2019-03-06] MEDS: ClonazePAM 0.5 MG TABLET PO SCH ×2 (08:48→16:22)
[2019-03-06] MEDS: BENZTROPINE MESYLATE 1 MG TABLET PO SCH ×2 (08:48→16:22)
[2019-03-06] MEDS: OMEPRAZOLE 20 MG CAPSULE PO SCH (08:48)
[2019-03-06] MEDS: IBUPROFEN 600 MG TABLET PO PRN (11:56)
[2019-03-06 16:03] VITALS: BP 110/65
[2019-03-06] MEDS: HALOPERIDOL 5 MG TABLET PO SCH (20:34)
[2019-03-07 06:14] VITALS: BP 102/63
[2019-03-07] MEDS: ClonazePAM 0.5 MG TABLET PO SCH ×2 (08:37→16:14)
[2019-03-07] MEDS: OMEPRAZOLE 20 MG CAPSULE PO SCH (08:37)
[2019-03-07] MEDS: DOCUSATE SODIUM 100 MG CAPSULE PO SCH (08:37)
[2019-03-07] MEDS: BENZTROPINE MESYLATE 1 MG TABLET PO SCH ×2 (08:37→16:14)
[2019-03-07 16:18] VITALS: BP 118/65
[2019-03-07] MEDS: HALOPERIDOL 5 MG TABLET PO SCH (20:17)
[2019-03-08 06:58] VITALS: BP 108/59
[2019-03-08 08:14] VITALS: BP 106/61
[2019-03-08] MEDS: DOCUSATE SODIUM 100 MG CAPSULE PO SCH (08:21)
[2019-03-08] MEDS: BENZTROPINE MESYLATE 1 MG TABLET PO SCH ×2 (08:21→16:31)
[2019-03-08] MEDS: ClonazePAM 0.5 MG TABLET PO SCH ×2 (08:21→16:31)
[2019-03-08] MEDS: OMEPRAZOLE 20 MG CAPSULE PO SCH (08:21)
[2019-03-08] MEDS: IBUPROFEN 600 MG TABLET PO PRN ×2 (11:54→18:44)
[2019-03-08 16:12] VITALS: BP 145/59
[2019-03-08] MEDS: HALOPERIDOL 5 MG TABLET PO PRN (17:24)
[2019-03-08] MEDS: HALOPERIDOL 5 MG TABLET PO SCH (20:34)
[2019-03-08] MEDS: ZOLPIDEM TARTRATE 10 MG TABLET PO PRN (21:13)
[2019-03-09 06:40] VITALS: BP 134/64
[2019-03-09 08:17] VITALS: BP 101/65
[2019-03-09] MEDS: OMEPRAZOLE 20 MG CAPSULE PO SCH (08:42)
[2019-03-09] MEDS: DOCUSATE SODIUM 100 MG CAPSULE PO SCH (08:42)
[2019-03-09] MEDS: BENZTROPINE MESYLATE 1 MG TABLET PO SCH ×2 (08:42→16:27)
[2019-03-09] MEDS: ClonazePAM 0.5 MG TABLET PO SCH ×2 (08:42→16:27)
[2019-03-09] MEDS: IBUPROFEN 600 MG TABLET PO PRN ×2 (09:17→20:51)
[2019-03-09] MEDS: BENZOCAINE 10% 7 GM GEL TP PRN ×2 (13:30→20:51)
[2019-03-09] MEDS: HALOPERIDOL 5 MG TABLET PO PRN (14:02)
[2019-03-09 18:52] VITALS: BP 135/64
[2019-03-09] MEDS: HALOPERIDOL 5 MG TABLET PO SCH (20:34)
[2019-03-09] MEDS: ZOLPIDEM TARTRATE 10 MG TABLET PO PRN (20:50)
[2019-03-10] MEDS: HALOPERIDOL 5 MG TABLET PO PRN (06:44)
[2019-03-10] MEDS: BENZOCAINE 10% 7 GM GEL TP PRN ×2 (06:44→17:45)
[2019-03-10] MEDS: IBUPROFEN 600 MG TABLET PO PRN ×2 (06:54→17:44)
[2019-03-10 08:34] VITALS: BP 108/78
[2019-03-10] MEDS: BENZTROPINE MESYLATE 1 MG TABLET PO SCH ×2 (09:07→16:11)
[2019-03-10] MEDS: OMEPRAZOLE 20 MG CAPSULE PO SCH (09:08)
[2019-03-10] MEDS: ClonazePAM 0.5 MG TABLET PO SCH ×2 (09:08→16:11)
[2019-03-10] MEDS: DOCUSATE SODIUM 100 MG CAPSULE PO SCH (09:08)
[2019-03-10 16:08] VITALS: BP 116/65
[2019-03-10] MEDS: ZOLPIDEM TARTRATE 10 MG TABLET PO PRN (21:00)
[2019-03-10] MEDS: HALOPERIDOL 5 MG TABLET PO SCH (21:00)
[2019-03-11 02:14] VITALS: BP 110/69
[2019-03-11] MEDS: IBUPROFEN 600 MG TABLET PO PRN ×3 (02:18→20:02)
[2019-03-11] MEDS: BENZOCAINE 10% 7 GM GEL TP PRN ×2 (05:03→20:02)
[2019-03-11 08:16] VITALS: BP 113/83
[2019-03-11] MEDS: ClonazePAM 0.5 MG TABLET PO SCH ×2 (08:38→16:49)
[2019-03-11] MEDS: OMEPRAZOLE 20 MG CAPSULE PO SCH (08:38)
[2019-03-11] MEDS: BENZTROPINE MESYLATE 1 MG TABLET PO SCH ×2 (08:38→16:49)
[2019-03-11] MEDS: DOCUSATE SODIUM 100 MG CAPSULE PO SCH (08:39)
[2019-03-11] MEDS ORDERED: HALOPERIDOL LACTATE 5 MG/ML VIAL ONE (10:10)
[2019-03-11] MEDS ORDERED: DiphenhydrAMINE HCL 50 MG/ML VIAL ONE (10:10)
[2019-03-11] MEDS ORDERED: LORazepam 2 MG/ML VIAL ONE (10:10)
[2019-03-11] MEDS ORDERED: LORazepam 2 MG/ML VIAL IM ONE (10:15)
[2019-03-11] MEDS ORDERED: DiphenhydrAMINE HCL 50 MG/ML VIAL IM ONE (10:15)
[2019-03-11] MEDS ORDERED: HALOPERIDOL LACTATE 5 MG/ML VIAL IM ONE (10:15)
[2019-03-11 16:09] VITALS: BP 104/77
[2019-03-11] MEDS: HALOPERIDOL 5 MG TABLET PO SCH (20:02)
[2019-03-11] MEDS: ZOLPIDEM TARTRATE 10 MG TABLET PO PRN (20:02)
[2019-03-12] MEDS: OMEPRAZOLE 20 MG CAPSULE PO SCH (08:32)
[2019-03-12] MEDS: DOCUSATE SODIUM 100 MG CAPSULE PO SCH (08:37)
[2019-03-12] MEDS: ClonazePAM 0.5 MG TABLET PO SCH ×2 (08:38→16:06)
[2019-03-12] MEDS: BENZTROPINE MESYLATE 1 MG TABLET PO SCH ×2 (08:38→16:06)
[2019-03-12] MEDS: BENZOCAINE 10% 7 GM GEL TP PRN (13:02)
[2019-03-12] MEDS: IBUPROFEN 600 MG TABLET PO PRN (13:05)
[2019-03-12 16:03] VITALS: BP 116/66
[2019-03-12] MEDS: HALOPERIDOL 5 MG TABLET PO SCH (20:38)
[2019-03-13] MEDS: OMEPRAZOLE 20 MG CAPSULE PO SCH (08:50)
[2019-03-13] MEDS: ClonazePAM 0.5 MG TABLET PO SCH ×2 (08:50→16:31)
[2019-03-13] MEDS: BENZTROPINE MESYLATE 1 MG TABLET PO SCH ×2 (08:50→16:31)
[2019-03-13] MEDS: DOCUSATE SODIUM 100 MG CAPSULE PO SCH (08:50)
[2019-03-13 09:25] VITALS: BP 111/52
[2019-03-13] MEDS: IBUPROFEN 600 MG TABLET PO PRN ×2 (09:25→22:44)
[2019-03-13 16:11] VITALS: BP 109/55
[2019-03-13] MEDS: HALOPERIDOL 5 MG TABLET PO SCH (20:27)
[2019-03-13] MEDS: ZOLPIDEM TARTRATE 10 MG TABLET PO PRN (20:28)
[2019-03-13] MEDS: BENZOCAINE 10% 7 GM GEL TP PRN (21:26)
[2019-03-14 08:33] VITALS: BP 110/73
[2019-03-14] MEDS: OMEPRAZOLE 20 MG CAPSULE PO SCH (08:45)
[2019-03-14] MEDS: ClonazePAM 0.5 MG TABLET PO SCH ×2 (08:45→16:48)
[2019-03-14] MEDS: BENZTROPINE MESYLATE 1 MG TABLET PO SCH ×2 (08:45→16:48)
[2019-03-14] MEDS: DOCUSATE SODIUM 100 MG CAPSULE PO SCH (08:45)
[2019-03-14 16:22] VITALS: BP 115/65
[2019-03-14] MEDS: HALOPERIDOL 5 MG TABLET PO SCH (20:28)
[2019-03-14] MEDS: ZOLPIDEM TARTRATE 10 MG TABLET PO PRN (20:28)
[2019-03-14] MEDS ORDERED: KETOROLAC TROMETHAMINE 30 MG/ML VIAL IM PRN (23:00)
[2019-03-15 06:00] VITALS: BP 116/71
[2019-03-15] MEDS: OMEPRAZOLE 20 MG CAPSULE PO SCH (08:18)
[2019-03-15] MEDS: ClonazePAM 0.5 MG TABLET PO SCH ×2 (08:19→16:38)
[2019-03-15] MEDS: DOCUSATE SODIUM 100 MG CAPSULE PO SCH (08:20)
[2019-03-15] MEDS: BENZTROPINE MESYLATE 1 MG TABLET PO SCH ×2 (08:20→16:38)
[2019-03-15] MEDS: IBUPROFEN 600 MG TABLET PO PRN (09:27)
[2019-03-15] MEDS: HALOPERIDOL 5 MG TABLET PO PRN (14:06)
[2019-03-15 16:01] VITALS: BP 123/99
[2019-03-15] MEDS: BENZOCAINE 10% 7 GM GEL TP PRN (17:28)
[2019-03-15] MEDS: HALOPERIDOL 5 MG TABLET PO SCH (20:11)
[2019-03-16 08:27] VITALS: BP 102/41
[2019-03-16] MEDS: BENZTROPINE MESYLATE 1 MG TABLET PO SCH ×2 (08:27→16:08)
[2019-03-16] MEDS: DOCUSATE SODIUM 100 MG CAPSULE PO SCH (08:27)
[2019-03-16] MEDS: OMEPRAZOLE 20 MG CAPSULE PO SCH (08:27)
[2019-03-16] MEDS: ClonazePAM 0.5 MG TABLET PO SCH ×2 (08:28→16:08)
[2019-03-16] MEDS: IBUPROFEN 600 MG TABLET PO PRN (09:03)
[2019-03-16] MEDS: QUEtiapine FUMARATE 100 MG TABLET PO PRN (16:08)
[2019-03-16 16:11] VITALS: BP 101/69
[2019-03-16] MEDS: HALOPERIDOL 10 MG TABLET PO SCH (20:32)
[2019-03-16] MEDS: ZOLPIDEM TARTRATE 10 MG TABLET PO PRN (20:32)
[2019-03-17 02:08] VITALS: BP 113/75
[2019-03-17] MEDS ORDERED: KETOROLAC TROMETHAMINE 30 MG/ML VIAL IVP ONE (08:15)
[2019-03-17 08:54] VITALS: BP 127/76
[2019-03-17] MEDS: DOCUSATE SODIUM 100 MG CAPSULE PO SCH (09:33)
[2019-03-17] MEDS: ClonazePAM 0.5 MG TABLET PO SCH ×2 (09:33→16:04)
[2019-03-17] MEDS: OMEPRAZOLE 20 MG CAPSULE PO SCH (09:34)
[2019-03-17] MEDS: HALOPERIDOL 10 MG TABLET PO SCH ×2 (09:34→20:15)
[2019-03-17] MEDS: BENZTROPINE MESYLATE 1 MG TABLET PO SCH ×2 (09:34→16:04)
[2019-03-17] MEDS: QUEtiapine FUMARATE 100 MG TABLET PO PRN ×2 (11:03→16:16)
[2019-03-17 16:04] VITALS: BP 115/69
[2019-03-18 08:15] VITALS: BP 108/68
[2019-03-18] MEDS: OMEPRAZOLE 20 MG CAPSULE PO SCH (08:37)
[2019-03-18] MEDS: ClonazePAM 0.5 MG TABLET PO SCH ×2 (08:37→16:14)
[2019-03-18] MEDS: DOCUSATE SODIUM 100 MG CAPSULE PO SCH (08:38)
[2019-03-18] MEDS: BENZTROPINE MESYLATE 1 MG TABLET PO SCH ×2 (08:38→16:14)
[2019-03-18] MEDS: HALOPERIDOL 10 MG TABLET PO SCH ×2 (08:38→20:14)
[2019-03-18] MEDS: QUEtiapine FUMARATE 100 MG TABLET PO PRN ×2 (11:28→17:01)
[2019-03-18 16:57] VITALS: BP 110/61
[2019-03-18 17:34] VITALS: BP 110/61
[2019-03-18 19:35] VITALS: BP 120/85
[2019-03-18] MEDS: IBUPROFEN 600 MG TABLET PO PRN (19:35)
[2019-03-19] MEDS: HALOPERIDOL 10 MG TABLET PO SCH ×2 (08:18→20:36)
[2019-03-19] MEDS: OMEPRAZOLE 20 MG CAPSULE PO SCH (08:18)
[2019-03-19] MEDS: BENZTROPINE MESYLATE 1 MG TABLET PO SCH ×2 (08:18→16:14)
[2019-03-19] MEDS: ClonazePAM 0.5 MG TABLET PO SCH ×2 (08:18→16:14)
[2019-03-19] MEDS: DOCUSATE SODIUM 100 MG CAPSULE PO SCH (08:18)
[2019-03-19] MEDS: QUEtiapine FUMARATE 100 MG TABLET PO PRN ×2 (12:19→16:31)
[2019-03-19 16:11] VITALS: BP 133/79
[2019-03-19] MEDS: ZOLPIDEM TARTRATE 10 MG TABLET PO PRN (20:36)
[2019-03-19] MEDS: IBUPROFEN 600 MG TABLET PO PRN (23:42)
[2019-03-20] MEDS: OMEPRAZOLE 20 MG CAPSULE PO SCH (08:14)
[2019-03-20] MEDS: ClonazePAM 0.5 MG TABLET PO SCH ×2 (08:14→16:09)
[2019-03-20] MEDS: DOCUSATE SODIUM 100 MG CAPSULE PO SCH (08:14)
[2019-03-20] MEDS: HALOPERIDOL 10 MG TABLET PO SCH ×2 (08:15→20:52)
[2019-03-20] MEDS: BENZTROPINE MESYLATE 1 MG TABLET PO SCH ×2 (08:15→16:09)
[2019-03-20 08:26] VITALS: BP 110/76
[2019-03-20] MEDS: QUEtiapine FUMARATE 100 MG TABLET PO PRN ×2 (09:52→16:09)
[2019-03-20 16:23] VITALS: BP 120/70
[2019-03-20] MEDS: ZOLPIDEM TARTRATE 10 MG TABLET PO PRN (20:52)
[2019-03-20] MEDS ORDERED: HALOPERIDOL DECANOATE 100 MG/ML VIAL IM SCH (21:00)
[2019-03-21] MEDS: DOCUSATE SODIUM 100 MG CAPSULE PO SCH (08:48)
[2019-03-21] MEDS: HALOPERIDOL 10 MG TABLET PO SCH ×2 (08:49→20:20)
[2019-03-21] MEDS: ClonazePAM 0.5 MG TABLET PO SCH ×2 (08:49→16:02)
[2019-03-21] MEDS: BENZTROPINE MESYLATE 1 MG TABLET PO SCH ×2 (08:49→16:02)
[2019-03-21] MEDS: OMEPRAZOLE 20 MG CAPSULE PO SCH (08:49)
[2019-03-21] MEDS: IBUPROFEN 600 MG TABLET PO PRN (12:57)
[2019-03-21] MEDS: BENZOCAINE 10% 7 GM GEL TP PRN (12:58)
[2019-03-21 16:00] VITALS: BP 122/76
[2019-03-21] MEDS: QUEtiapine FUMARATE 100 MG TABLET PO PRN (19:17)
[2019-03-21] MEDS: ZOLPIDEM TARTRATE 10 MG TABLET PO PRN (20:20)
[2019-03-22 08:07] VITALS: BP 129/59
[2019-03-22] MEDS: HALOPERIDOL 10 MG TABLET PO SCH (09:03)
[2019-03-22] MEDS: BENZTROPINE MESYLATE 1 MG TABLET PO SCH (09:03)
[2019-03-22] MEDS: ClonazePAM 0.5 MG TABLET PO SCH (09:03)
[2019-03-22] MEDS: OMEPRAZOLE 20 MG CAPSULE PO SCH (09:03)
[2019-03-22] MEDS: DOCUSATE SODIUM 100 MG CAPSULE PO SCH (09:03)
[2019-03-22] MEDS ORDERED: HALO10 PO (10:38)
[2019-03-22] MEDS ORDERED: BENZ1TAB10 PO (10:39)
[2019-03-22] MEDS ORDERED: HALO100V4 IM (10:39)
== END 2019-03-22 15:10 | disposition home or self-care (01) | DRG 750 ==
LOC: EMS 07:52 → B2S 11:45 → B3A 15:00
PROVIDERS: ADMIT Psychiatry & Neurology Psychiatry; ATTEND Psychiatry & Neurology Psychiatry
DX: F20.0 Paranoid schizophrenia (principal); R45.850 Homicidal ideations; F15.90 Other stimulant use, unspecified, uncomplicated; F31.9 Bipolar disorder, unspecified; G47.00 Insomnia, unspecified; K59.00 Constipation, unspecified; F41.9 Anxiety disorder, unspecified; Z90.49 Acquired absence of other specified parts of digestive tract; Z86.11 Personal history of tuberculosis
CPT/HCPCS: 87081; G0480; J1200; J1630; J1631; J1885; J2060

== ENCOUNTER 2019-03-29 15:51 | Inpatient (IN) | payer MEDICAID, OTHER ==
[~2019-03-29] VITALS: Ht 167.6 cm; Wt 64.4 kg
[~2019-03-29 15:51] MED LIST changes: +BENZ1TAB10 PO; +HALO10 PO; +HALO100V4 IM; -HALO5TAB2 PO; -RISP4 PO
[2019-03-29] MEDS ORDERED: HYD50 PO (17:13)
[2019-03-29] MEDS ORDERED: DICL50TA9 PO (17:13)
[2019-03-29 17:23] LABS: BASOPHILS % (AUTO) 0.6 % (0.0-2.0); HEMATOCRIT 41.2 % (41-53); HEMOGLOBIN 14.1 g/dL (13.5-17.5); LYMPHOCYTES # (AUTO) 2.3 K/uL (1.0-4.8); LYMPHOCYTES % (AUTO) 21.6 % (22.0-44.0); MEAN CORPUSCULAR HEMOGLOBIN 30.6 pg (26.0-34.0); MEAN CORPUSCULAR HGB CONC 34.3 G/dL (31.0-37.0); MEAN CORPUSCULAR VOLUME 89 fL (80-100); MONOCYTES # (AUTO) 1.2 K/uL (0.1-1.0); MONOCYTES % (AUTO) 11.4 % (2.0-9.0); NEUTROPHILS # (AUTO) 6.9 K/uL (1.8-7.7); NEUTROPHILS % (AUTO) 65.4 % (40.0-70.0); PLATELET COUNT (AUTO) 270 K/uL (150-450); RED BLOOD CELL COUNT(AUTO) 4.63 MIL/uL (4.50-5.90); RED CELL DISTRIBUTION WIDTH 13.9 % (11.5-14.5)
[2019-03-29 17:35] LABS: ANION GAP 8 mmol/L (8-16); CALCIUM, TOTAL 9.2 mg/dL (8.8-10.5); CARBON DIOXIDE 32 mmol/L (22-29); CHLORIDE 102 mmol/L (98-107); CREATININE 1.03 mg/dL (0.60-1.30); GLOMERULAR FILTR. RATE CALC > 60 mL/min (>60); GLUCOSE,RANDOM 92 mg/dL (70-110); POTASSIUM 3.8 mmol/L (3.5-5.1); SODIUM SERUM 142 mmol/L (136-145); UREA NITROGEN, BLOOD 4 mg/dL (7-18)
[2019-03-29 17:39] LABS: AMPHET/METH SCREEN,URINE POSITIVE (NEGATIVE); BARBITURATE SCREEN, URINE NEGATIVE (NEGATIVE); BENZODIAZEPINES SCREEN,URINE NEGATIVE (NEGATIVE); CANNABINOID SCREEN,URINE POSITIVE (NEGATIVE); COCAINE SCREEN,URINE NEGATIVE (NEGATIVE); METHADONE SCREEN, URINE NEGATIVE (NEGATIVE); OPIATE SCREEN,URINE NEGATIVE (NEGATIVE)
[2019-03-29 17:40] LABS: ALANINE AMINOTRANSFERASE 24 U/L (12-78); ALBUMIN 3.9 g/dL (3.4-5.0); ALKALINE PHOSPHATASE 97 U/L (46-116); ASPARTATE AMINOTRANSFERASE 18 U/L (15-37); BILIRUBIN,TOTAL 0.3 mg/dL (0.1-1.0); TOTAL PROTEIN, SERUM 7.6 g/dL (6.4-8.2)
[2019-03-29 17:41] LABS: PHENCYCLIDINE SCREEN,URINE NEGATIVE (NEGATIVE)
[2019-03-29] MEDS ORDERED: QUEtiapine FUMARATE 100 MG TABLET PO PRN (18:45)
[2019-03-29] MEDS ORDERED: ZOLPIDEM TARTRATE 10 MG TABLET PO PRN (18:45)
[2019-03-29 19:27] LABS: APPEARANCE,URINE CLEAR (CLEAR); BILIRUBIN,URINE NEGATIVE (NEGATIVE); GLUCOSE, URINE (UA) NEGATIVE (NEGATIVE); KETONES,URINE NEGATIVE (NEGATIVE); LEUKOCYTE ESTERASE ,URINE NEGATIVE (NEGATIVE); NITRATE,URINE NEGATIVE (NEGATIVE); OCCULT BLOOD,URINE NEGATIVE (NEGATIVE); PH,URINE 6.5 (5.0-8.0); PROTEIN,URINE NEGATIVE (NEGATIVE); UROBILINOGEN,URINE 0.2 mg/dL (<=1.0)
[2019-03-29] MEDS ORDERED: ClonazePAM 1 MG TABLET PO SCH (21:00)
[2019-03-29] MEDS: HALOPERIDOL 5 MG TABLET PO SCH (21:00)
[2019-03-29] MEDS: BENZTROPINE MESYLATE 1 MG TABLET PO SCH (21:05)
[2019-03-30 04:09] LABS: CHOL/HDL RATIO 3.1 (4.2-7.3); CHOLESTEROL 143 mg/dL (131-200); HDL CHOLESTEROL 46 mg/dL (40-60); LDL CHOL (CALC.) 79 mg/dL (0-130); TRIGLYCERIDES 92 mg/dL (15-150)
[2019-03-30 05:41] VITALS: BP 132/79
[2019-03-30] MEDS ORDERED: INFLUENZA VIRUS VACCINE QVS 2019-20 (3YR+)/PF 60 MCG/0.5 ML SYRINGE IM ONE (07:00)
[2019-03-30] MEDS: BENZTROPINE MESYLATE 1 MG TABLET PO SCH ×2 (09:00→16:39)
[2019-03-30] MEDS: HALOPERIDOL 5 MG TABLET PO SCH (09:00)
[2019-03-30] MEDS ORDERED: OMEPRAZOLE 20 MG CAPSULE PO PRN (09:15)
[2019-03-30] MEDS ORDERED: BENZOCAINE/MENTHOL LOZENGE MM PRN (09:15)
[2019-03-30] MEDS ORDERED: ACETAMINOPHEN 325 MG TABLET PO PRN (09:15)
[2019-03-30] MEDS ORDERED: ONDANSETRON HCL 4 MG TABLET PO PRN (09:15)
[2019-03-30] MEDS ORDERED: CloNIDine HCL 0.1 MG TABLET PO PRN (09:15)
[2019-03-30] MEDS ORDERED: BACITRACIN 28.4 GM OINTMENT TP PRN (09:15)
[2019-03-30] MEDS ORDERED: PETROLATUM,WHITE 28 GM JELLY TP PRN (09:15)
[2019-03-30] MEDS ORDERED: MAGNESIUM HYDROXIDE SUSPENSION 30 ML UDCUP PO PRN (09:15)
[2019-03-30] MEDS ORDERED: ALBUTEROL SULFATE HFA 90 MCG/PUFF 8 GM INHALER IH PRN (09:15)
[2019-03-30] MEDS ORDERED: DOCUSATE SODIUM 100 MG CAPSULE PO PRN (09:15)
[2019-03-30] MEDS ORDERED: MAG HYDROX/AL HYDROX/SIMETH ES 30 ML SUSPENSION UDCUP PO PRN (09:15)
[2019-03-30] MEDS ORDERED: LOPERAMIDE HCL 2 MG CAPSULE PO PRN (09:15)
[2019-03-30 09:48] VITALS: BP 110/69
[2019-03-30] MEDS: ClonazePAM 0.5 MG TABLET PO SCH ×2 (10:26→16:39)
[2019-03-30] MEDS: OLANZapine 5 MG TABLET PO SCH (16:40)
[2019-03-30 21:28] VITALS: BP 127/84
[2019-03-31 05:52] VITALS: BP 119/73
[2019-03-31] MEDS: OLANZapine 5 MG TABLET PO SCH ×2 (09:00→17:00)
[2019-03-31] MEDS: BENZTROPINE MESYLATE 1 MG TABLET PO SCH ×2 (09:00→17:00)
[2019-03-31 09:35] VITALS: BP 133/74
[2019-03-31] MEDS: ClonazePAM 0.5 MG TABLET PO SCH ×2 (10:27→17:14)
[2019-03-31 18:13] VITALS: BP 113/69
[2019-04-01 08:57] VITALS: BP 131/88
[2019-04-01] MEDS: ClonazePAM 0.5 MG TABLET PO SCH ×2 (09:00→16:05)
[2019-04-01] MEDS: BENZTROPINE MESYLATE 1 MG TABLET PO SCH ×2 (09:00→16:07)
[2019-04-01] MEDS: OLANZapine 5 MG TABLET PO SCH ×2 (09:43→16:07)
[2019-04-01 16:00] VITALS: BP 114/65
[2019-04-01] MEDS: IBUPROFEN 600 MG TABLET PO PRN (16:06)
[2019-04-02 08:00] VITALS: BP 105/68
[2019-04-02] MEDS: BENZTROPINE MESYLATE 1 MG TABLET PO SCH ×2 (08:53→16:13)
[2019-04-02] MEDS: ClonazePAM 0.5 MG TABLET PO SCH ×2 (08:58→16:13)
[2019-04-02] MEDS: OLANZapine 5 MG TABLET PO SCH ×2 (08:59→16:13)
[2019-04-02] MEDS: IBUPROFEN 600 MG TABLET PO PRN (09:43)
[2019-04-02 19:27] VITALS: BP 124/73
[2019-04-03 08:58] VITALS: BP 96/54
[2019-04-03] MEDS: ClonazePAM 0.5 MG TABLET PO SCH ×2 (10:25→16:31)
[2019-04-03] MEDS: OLANZapine 5 MG TABLET PO SCH ×2 (10:25→16:32)
[2019-04-03] MEDS: BENZTROPINE MESYLATE 1 MG TABLET PO SCH ×2 (10:25→16:31)
[2019-04-03 21:18] VITALS: BP 131/70
[2019-04-04 08:00] VITALS: BP 124/98
[2019-04-04 08:30] VITALS: BP 124/98
[2019-04-04] MEDS: BENZTROPINE MESYLATE 1 MG TABLET PO SCH ×2 (10:03→16:28)
[2019-04-04] MEDS: OLANZapine 5 MG TABLET PO SCH ×2 (10:03→16:28)
[2019-04-04] MEDS: ClonazePAM 0.5 MG TABLET PO SCH ×2 (10:03→16:28)
[2019-04-04 17:56] VITALS: BP 115/63
[2019-04-05 08:30] VITALS: BP 122/68
[2019-04-05] MEDS: BENZTROPINE MESYLATE 1 MG TABLET PO SCH ×2 (09:27→16:16)
[2019-04-05] MEDS: OLANZapine 5 MG TABLET PO SCH ×2 (09:27→16:16)
[2019-04-05] MEDS: ClonazePAM 0.5 MG TABLET PO SCH ×2 (09:27→16:16)
[2019-04-05 17:48] VITALS: BP 115/74
[2019-04-06] MEDS: OLANZapine 5 MG TABLET PO SCH ×2 (08:56→16:08)
[2019-04-06] MEDS: ClonazePAM 0.5 MG TABLET PO SCH ×2 (08:57→16:08)
[2019-04-06] MEDS: BENZTROPINE MESYLATE 1 MG TABLET PO SCH ×2 (08:57→16:08)
[2019-04-06 09:17] VITALS: BP 123/78
[2019-04-06 19:51] VITALS: BP 114/59
[2019-04-07] MEDS: OLANZapine 5 MG TABLET PO SCH ×2 (09:06→16:04)
[2019-04-07] MEDS: ClonazePAM 0.5 MG TABLET PO SCH ×2 (09:06→16:04)
[2019-04-07] MEDS: BENZTROPINE MESYLATE 1 MG TABLET PO SCH ×2 (09:06→16:04)
[2019-04-07 10:06] VITALS: BP 136/82
[2019-04-07 17:05] VITALS: BP_SYST 122; BP_SYST 135; BP_DIAS 73; BP_DIAS 98
[2019-04-08 08:51] VITALS: BP 130/80
[2019-04-08] MEDS: ClonazePAM 0.5 MG TABLET PO SCH (10:51)
[2019-04-08] MEDS: OLANZapine 5 MG TABLET PO SCH (10:51)
[2019-04-08] MEDS: BENZTROPINE MESYLATE 1 MG TABLET PO SCH (10:52)
[2019-04-08] MEDS ORDERED: BENZ1TAB10 PO (14:15)
[2019-04-08] MEDS ORDERED: CLON.5 PO (14:17)
[2019-04-08] MEDS ORDERED: HALO100A IM (14:24)
[2019-04-08] MEDS ORDERED: OLAN15TA2 PO (14:26)
[2019-04-17] MEDS ORDERED: HALOPERIDOL DECANOATE 100 MG/ML VIAL IM SCH (09:00)
== END 2019-04-08 15:45 | disposition home or self-care (01) | DRG 885 ==
LOC: EMS 15:59 → 3EI 03-30 01:00
PROVIDERS: ADMIT Psychiatry & Neurology Psychiatry; ATTEND Psychiatry & Neurology Psychiatry
DX: F25.1 Schizoaffective disorder, depressive type (principal); F17.210 Nicotine dependence, cigarettes, uncomplicated; F31.9 Bipolar disorder, unspecified; F15.10 Other stimulant abuse, uncomplicated; F41.9 Anxiety disorder, unspecified; K59.00 Constipation, unspecified; G47.00 Insomnia, unspecified; Z90.49 Acquired absence of other specified parts of digestive tract; Z59.0 Homelessness; Z86.11 Personal history of tuberculosis; Z91.14 Patient's other noncompliance with medication regimen
CPT/HCPCS: 87081; G0480

== ENCOUNTER 2019-06-25 03:46 | Inpatient (IN) | payer MEDICAID, OTHER ==
[~2019-06-25] VITALS: Ht 167.6 cm; Wt 62.5 kg
[~2019-06-25 03:46] MED LIST changes: -HALO10 PO; +HALO100A IM; -HALO100V4 IM; +OLAN15TA2 PO
[2019-06-25 05:10] LABS: AMPHET/METH SCREEN,URINE POSITIVE (NEGATIVE); BARBITURATE SCREEN, URINE NEGATIVE (NEGATIVE); BENZODIAZEPINES SCREEN,URINE NEGATIVE (NEGATIVE); CANNABINOID SCREEN,URINE POSITIVE (NEGATIVE); COCAINE SCREEN,URINE NEGATIVE (NEGATIVE); METHADONE SCREEN, URINE NEGATIVE (NEGATIVE); OPIATE SCREEN,URINE NEGATIVE (NEGATIVE); PHENCYCLIDINE SCREEN,URINE NEGATIVE (NEGATIVE)
[2019-06-25] MEDS ORDERED: HALOPERIDOL 5 MG TABLET PO PRN (05:30)
[2019-06-25] MEDS ORDERED: LORazepam 1 MG TABLET PO ONE (05:30)
[2019-06-25] MEDS ORDERED: LORazepam 2 MG/ML VIAL IM ONE (05:45)
[2019-06-25] MEDS ORDERED: HALOPERIDOL LACTATE 5 MG/ML VIAL IM ONE (05:45)
[2019-06-25] MEDS ORDERED: DiphenhydrAMINE HCL 50 MG/ML VIAL IM ONE (05:45)
[2019-06-25 08:49] VITALS: BP 124/59
[2019-06-25] MEDS ORDERED: MAG HYDROX/AL HYDROX/SIMETH ES 30 ML SUSPENSION UDCUP PO PRN (14:45)
[2019-06-25] MEDS ORDERED: ALBUTEROL SULFATE HFA 90 MCG/PUFF 8 GM INHALER IH PRN (14:45)
[2019-06-25] MEDS ORDERED: ONDANSETRON HCL 4 MG TABLET PO PRN (14:45)
[2019-06-25] MEDS ORDERED: ACETAMINOPHEN 325 MG TABLET PO PRN (14:45)
[2019-06-25] MEDS ORDERED: DOCUSATE SODIUM 100 MG CAPSULE PO PRN (14:45)
[2019-06-25] MEDS ORDERED: BACITRACIN 28.4 GM OINTMENT TP PRN (14:45)
[2019-06-25] MEDS ORDERED: LOPERAMIDE HCL 2 MG CAPSULE PO PRN (14:45)
[2019-06-25] MEDS ORDERED: MAGNESIUM HYDROXIDE SUSPENSION 30 ML UDCUP PO PRN (14:45)
[2019-06-25] MEDS ORDERED: IBUPROFEN 600 MG TABLET PO PRN (14:45)
[2019-06-25] MEDS ORDERED: OMEPRAZOLE 20 MG CAPSULE PO PRN (14:45)
[2019-06-25] MEDS ORDERED: PETROLATUM,WHITE 28 GM JELLY TP PRN (14:45)
[2019-06-25] MEDS ORDERED: CloNIDine HCL 0.1 MG TABLET PO PRN (14:45)
[2019-06-25] MEDS ORDERED: BENZOCAINE/MENTHOL LOZENGE MM PRN (14:45)
[2019-06-25 16:39] VITALS: BP 117/73
[2019-06-25] MEDS ORDERED: RisperiDONE 3 MG TABLET PO SCH (17:30)
[2019-06-25] MEDS: HALOPERIDOL 10 MG TABLET PO SCH (20:46)
[2019-06-26] MEDS ORDERED: HALOPERIDOL DECANOATE 100 MG/ML VIAL IM SCH (09:00)
[2019-06-26] MEDS ORDERED: HALOPERIDOL LACTATE 5 MG/ML VIAL ONE (09:06)
[2019-06-26] MEDS ORDERED: HALOPERIDOL LACTATE 5 MG/ML VIAL IM ONE (09:15)
[2019-06-26] MEDS ORDERED: DiphenhydrAMINE HCL 50 MG/ML VIAL IM ONE (09:15)
[2019-06-26] MEDS ORDERED: LORazepam 2 MG/ML VIAL IM ONE (09:15)
[2019-06-26 19:02] VITALS: BP 133/78
[2019-06-26] MEDS: HALOPERIDOL 10 MG TABLET PO SCH (20:21)
[2019-06-27 11:09] VITALS: BP 107/61
[2019-06-27] MEDS ORDERED: HALOPERIDOL LACTATE 5 MG/ML VIAL IM ONE (12:15)
[2019-06-27] MEDS ORDERED: LORazepam 2 MG/ML VIAL IM ONE (12:15)
[2019-06-27] MEDS ORDERED: DiphenhydrAMINE HCL 50 MG/ML VIAL IM ONE (12:15)
[2019-06-27 16:09] VITALS: BP 116/67
[2019-06-27] MEDS: HALOPERIDOL 10 MG TABLET PO SCH (20:06)
[2019-06-28] MEDS: LORazepam 2 MG TABLET PO PRN ×2 (14:41→20:18)
[2019-06-28 16:12] VITALS: BP 106/73
[2019-06-28] MEDS: HALOPERIDOL 10 MG TABLET PO SCH (20:25)
[2019-06-29 02:24] VITALS: BP 106/66
[2019-06-29] MEDS: ZOLPIDEM TARTRATE 10 MG TABLET PO PRN (02:24)
[2019-06-29 08:10] VITALS: BP 125/72
[2019-06-29] MEDS: LORazepam 2 MG TABLET PO PRN ×2 (08:35→13:58)
[2019-06-29] MEDS ORDERED: HALOPERIDOL DECANOATE 100 MG/ML VIAL IM ONE (12:45)
[2019-06-29 16:02] VITALS: BP 141/68
[2019-06-29] MEDS: HALOPERIDOL 10 MG TABLET PO SCH (20:20)
[2019-06-30] MEDS: ZOLPIDEM TARTRATE 10 MG TABLET PO PRN (02:00)
[2019-06-30 02:04] VITALS: BP 118/70
[2019-06-30] MEDS ORDERED: HALO100V4 IM (09:19)
[2019-06-30 09:30] VITALS: BP 116/75
[2019-06-30] MEDS: LORazepam 2 MG TABLET PO PRN (12:55)
[2019-06-30 16:40] VITALS: BP 134/86
[2019-06-30] MEDS ORDERED: HALOPERIDOL LACTATE 5 MG/ML VIAL ONE (19:15)
[2019-06-30] MEDS ORDERED: HALOPERIDOL LACTATE 5 MG/ML VIAL IM ONE (19:15)
[2019-06-30] MEDS ORDERED: LORazepam 2 MG/ML VIAL IM ONE (19:15)
[2019-06-30] MEDS ORDERED: DiphenhydrAMINE HCL 50 MG/ML VIAL IM ONE (19:15)
[2019-06-30] MEDS ORDERED: LORazepam 2 MG/ML VIAL ONE (19:15)
[2019-06-30] MEDS ORDERED: DiphenhydrAMINE HCL 50 MG/ML VIAL ONE (19:15)
[2019-07-01 07:51] LABS: BASOPHILS % (AUTO) 0.7 % (0.0-2.0); EOSINOPHILS % (AUTO) 4.5 % (1.0-6.0); HEMOGLOBIN 14.4 g/dL (13.5-17.5); LYMPHOCYTES # (AUTO) 1.9 K/uL (1.0-4.8); LYMPHOCYTES % (AUTO) 25.1 % (22.0-44.0); MEAN CORPUSCULAR HEMOGLOBIN 29.7 pg (26.0-34.0); MEAN CORPUSCULAR HGB CONC 33.4 G/dL (31.0-37.0); MEAN CORPUSCULAR VOLUME 89 fL (80-100); MONOCYTES # (AUTO) 0.8 K/uL (0.1-1.0); MONOCYTES % (AUTO) 10.6 % (2.0-9.0); NEUTROPHILS # (AUTO) 4.5 K/uL (1.8-7.7); NEUTROPHILS % (AUTO) 59.1 % (40.0-70.0); PLATELET COUNT (AUTO) 249 K/uL (150-450); RED BLOOD CELL COUNT(AUTO) 4.84 MIL/uL (4.50-5.90); RED CELL DISTRIBUTION WIDTH 14.6 % (11.5-14.5)
[2019-07-01 08:00] VITALS: BP 112/80
[2019-07-01 08:24] LABS: ALANINE AMINOTRANSFERASE 32 U/L (12-78); ALBUMIN 3.6 g/dL (3.4-5.0); ALKALINE PHOSPHATASE 101 U/L (46-116); ANION GAP 5 mmol/L (8-16); ASPARTATE AMINOTRANSFERASE 21 U/L (15-37); BILIRUBIN,TOTAL 0.4 mg/dL (0.1-1.0); CALCIUM, TOTAL 8.9 mg/dL (8.8-10.5); CARBON DIOXIDE 30 mmol/L (22-29); CHLORIDE 103 mmol/L (98-107); CREATININE 0.94 mg/dL (0.60-1.30); GLOMERULAR FILTR. RATE CALC > 60 mL/min (>60); GLUCOSE,RANDOM 83 mg/dL (70-110); POTASSIUM 4.5 mmol/L (3.5-5.1); SODIUM SERUM 138 mmol/L (136-145); TOTAL PROTEIN, SERUM 6.5 g/dL (6.4-8.2); UREA NITROGEN, BLOOD 16 mg/dL (7-18)
[2019-07-01] MEDS ORDERED: LORazepam 2 MG/ML VIAL ONE (14:28)
[2019-07-01] MEDS ORDERED: DiphenhydrAMINE HCL 50 MG/ML VIAL ONE (14:28)
[2019-07-01] MEDS ORDERED: HALOPERIDOL LACTATE 5 MG/ML VIAL ONE (14:28)
[2019-07-01] MEDS ORDERED: HALOPERIDOL LACTATE 5 MG/ML VIAL IM ONE (14:30)
[2019-07-01] MEDS ORDERED: LORazepam 2 MG/ML VIAL IM ONE (14:30)
[2019-07-01] MEDS ORDERED: DiphenhydrAMINE HCL 50 MG/ML VIAL IM ONE (14:30)
[2019-07-01] MEDS: ZOLPIDEM TARTRATE 10 MG TABLET PO PRN (22:27)
[2019-07-02 10:15] VITALS: BP 109/54
== END 2019-07-02 15:00 | disposition home or self-care (01) | DRG 885 ==
LOC: EMS 03:46 → 3EC 07:27 → EMS 08:14
PROVIDERS: ADMIT Psychiatry & Neurology Psychiatry; ATTEND Psychiatry & Neurology Psychiatry
DX: F20.0 Paranoid schizophrenia (principal); F31.9 Bipolar disorder, unspecified; Z87.891 Personal history of nicotine dependence; Z86.11 Personal history of tuberculosis
CPT/HCPCS: 99291; J1200; J1630; J1631; J2060

== ENCOUNTER 2019-07-06 15:58 | Inpatient (IN) | payer MEDICAID, OTHER ==
[~2019-07-06] VITALS: Ht 172.7 cm; Wt 62.1 kg
[~2019-07-06 15:58] MED LIST changes: -BENZ1TAB10 PO; -CLON.5 PO; -HALO100A IM; +HALO100V4 IM; -OLAN15TA2 PO
[2019-07-06 21:04] LABS: BASOPHILS % (AUTO) 0.4 % (0.0-2.0); EOSINOPHILS % (AUTO) 6.5 % (1.0-6.0); HEMATOCRIT 38.9 % (41-53); HEMOGLOBIN 12.7 g/dL (13.5-17.5); LYMPHOCYTES # (AUTO) 2.9 K/uL (1.0-4.8); LYMPHOCYTES % (AUTO) 42.3 % (22.0-44.0); MEAN CORPUSCULAR HGB CONC 32.7 G/dL (31.0-37.0); MEAN CORPUSCULAR VOLUME 89 fL (80-100); MONOCYTES # (AUTO) 0.8 K/uL (0.1-1.0); MONOCYTES % (AUTO) 12.1 % (2.0-9.0); NEUTROPHILS # (AUTO) 2.7 K/uL (1.8-7.7); NEUTROPHILS % (AUTO) 38.7 % (40.0-70.0); PLATELET COUNT (AUTO) 246 K/uL (150-450); RED BLOOD CELL COUNT(AUTO) 4.38 MIL/uL (4.50-5.90); RED CELL DISTRIBUTION WIDTH 14.5 % (11.5-14.5)
[2019-07-06 21:18] LABS: ANION GAP 9 mmol/L (8-16); CALCIUM, TOTAL 8.3 mg/dL (8.8-10.5); CARBON DIOXIDE 27 mmol/L (22-29); CHLORIDE 106 mmol/L (98-107); CREATININE 0.87 mg/dL (0.60-1.30); GLOMERULAR FILTR. RATE CALC > 60 mL/min (>60); GLUCOSE,RANDOM 85 mg/dL (70-110); POTASSIUM 3.6 mmol/L (3.5-5.1); SODIUM SERUM 142 mmol/L (136-145); UREA NITROGEN, BLOOD 10 mg/dL (7-18)
[2019-07-06 21:24] LABS: ALANINE AMINOTRANSFERASE 42 U/L (12-78); ALBUMIN 3.5 g/dL (3.4-5.0); ALKALINE PHOSPHATASE 98 U/L (46-116); ASPARTATE AMINOTRANSFERASE 45 U/L (15-37); BILIRUBIN,TOTAL 0.4 mg/dL (0.1-1.0); TOTAL PROTEIN, SERUM 6.4 g/dL (6.4-8.2)
[2019-07-06] MEDS ORDERED: HALOPERIDOL 5 MG TABLET PO PRN (22:45)
[2019-07-07 03:09] VITALS: BP 114/81
[2019-07-07] MEDS ORDERED: INFLUENZA VIRUS VACCINE QVS 2019-20 (3YR+)/PF 60 MCG/0.5 ML SYRINGE IM ONE (04:30)
[2019-07-07 05:27] LABS: CHOL/HDL RATIO 2.8 (4.2-7.3); CHOLESTEROL 113 mg/dL (131-200); HDL CHOLESTEROL 40 mg/dL (40-60); LDL CHOL (CALC.) 64 mg/dL (0-130); TRIGLYCERIDES 47 mg/dL (15-150)
[2019-07-07 08:10] VITALS: BP 126/70
[2019-07-07] MEDS ORDERED: CloNIDine HCL 0.1 MG TABLET PO PRN (08:15)
[2019-07-07] MEDS ORDERED: MAGNESIUM HYDROXIDE SUSPENSION 30 ML UDCUP PO PRN (08:15)
[2019-07-07] MEDS ORDERED: MAG HYDROX/AL HYDROX/SIMETH ES 30 ML SUSPENSION UDCUP PO PRN (08:15)
[2019-07-07] MEDS ORDERED: PETROLATUM,WHITE 28 GM JELLY TP PRN (08:15)
[2019-07-07] MEDS ORDERED: LOPERAMIDE HCL 2 MG CAPSULE PO PRN (08:15)
[2019-07-07] MEDS ORDERED: BENZOCAINE/MENTHOL LOZENGE MM PRN (08:15)
[2019-07-07] MEDS ORDERED: ONDANSETRON HCL 4 MG TABLET PO PRN (08:15)
[2019-07-07] MEDS ORDERED: BACITRACIN 28.4 GM OINTMENT TP PRN (08:15)
[2019-07-07] MEDS ORDERED: ALBUTEROL SULFATE HFA 90 MCG/PUFF 8 GM INHALER IH PRN (08:15)
[2019-07-07] MEDS: OMEPRAZOLE 20 MG CAPSULE PO SCH (09:00)
[2019-07-07] MEDS: DOCUSATE SODIUM 100 MG CAPSULE PO SCH (09:00)
[2019-07-07 11:56] VITALS: BP 122/74
[2019-07-07] MEDS: ACETAMINOPHEN 325 MG TABLET PO PRN (11:56)
[2019-07-07 16:05] VITALS: BP 104/78
[2019-07-07] MEDS: LORazepam 2 MG TABLET PO PRN (16:39)
[2019-07-07 17:02] VITALS: BP 118/72
[2019-07-07] MEDS: IBUPROFEN 600 MG TABLET PO PRN (17:02)
[2019-07-07] MEDS: HALOPERIDOL 5 MG TABLET PO SCH (20:32)
[2019-07-07] MEDS: BENZTROPINE MESYLATE 2 MG TABLET PO SCH (20:32)
[2019-07-08 08:00] VITALS: BP 105/59
[2019-07-08] MEDS: DOCUSATE SODIUM 100 MG CAPSULE PO SCH (08:02)
[2019-07-08] MEDS: LORazepam 2 MG TABLET PO PRN (08:02)
[2019-07-08] MEDS: OMEPRAZOLE 20 MG CAPSULE PO SCH (08:02)
[2019-07-08 16:06] VITALS: BP 105/61
[2019-07-08 18:37] VITALS: BP 115/76
[2019-07-08] MEDS: ACETAMINOPHEN 325 MG TABLET PO PRN (18:42)
[2019-07-08] MEDS: BENZTROPINE MESYLATE 2 MG TABLET PO SCH (20:18)
[2019-07-08] MEDS: HALOPERIDOL 5 MG TABLET PO SCH (20:18)
[2019-07-09 08:00] VITALS: BP 142/71
[2019-07-09] MEDS: LORazepam 2 MG TABLET PO PRN ×2 (08:08→18:10)
[2019-07-09] MEDS: DOCUSATE SODIUM 100 MG CAPSULE PO SCH (08:31)
[2019-07-09] MEDS: OMEPRAZOLE 20 MG CAPSULE PO SCH (08:31)
[2019-07-09 16:05] VITALS: BP 115/65
[2019-07-09] MEDS: BENZTROPINE MESYLATE 2 MG TABLET PO SCH (20:10)
[2019-07-09] MEDS: HALOPERIDOL 5 MG TABLET PO SCH (20:10)
[2019-07-10 08:00] VITALS: BP 106/67
[2019-07-10] MEDS: OMEPRAZOLE 20 MG CAPSULE PO SCH (08:31)
[2019-07-10] MEDS: LORazepam 2 MG TABLET PO PRN ×2 (08:31→18:06)
[2019-07-10] MEDS: DOCUSATE SODIUM 100 MG CAPSULE PO SCH (08:31)
[2019-07-10 12:38] VITALS: BP 116/72
[2019-07-10] MEDS: ACETAMINOPHEN 325 MG TABLET PO PRN (12:38)
[2019-07-10 16:13] VITALS: BP 119/72
[2019-07-10] MEDS: HALOPERIDOL 5 MG TABLET PO SCH (20:10)
[2019-07-10] MEDS: BENZTROPINE MESYLATE 2 MG TABLET PO SCH (20:10)
[2019-07-11 08:02] VITALS: BP 106/66
[2019-07-11] MEDS: DOCUSATE SODIUM 100 MG CAPSULE PO SCH (08:36)
[2019-07-11] MEDS: OMEPRAZOLE 20 MG CAPSULE PO SCH (08:36)
[2019-07-11] MEDS: LORazepam 2 MG TABLET PO PRN ×3 (08:47→20:18)
[2019-07-11 16:04] VITALS: BP 120/66
[2019-07-11] MEDS: HALOPERIDOL 5 MG TABLET PO SCH (20:00)
[2019-07-11] MEDS: BENZTROPINE MESYLATE 2 MG TABLET PO SCH (20:00)
[2019-07-11] MEDS: ZOLPIDEM TARTRATE 10 MG TABLET PO PRN (21:19)
[2019-07-11] MEDS: GuaiFENesin [SUGAR-FREE] 200 MG/10 ML SOLUTION UDCUP PO PRN (22:16)
[2019-07-12] MEDS: DOCUSATE SODIUM 100 MG CAPSULE PO SCH (09:00)
[2019-07-12] MEDS: OMEPRAZOLE 20 MG CAPSULE PO SCH (09:03)
[2019-07-12 09:16] VITALS: BP 133/62
[2019-07-12] MEDS: LORazepam 2 MG TABLET PO PRN ×2 (11:38→20:09)
[2019-07-12 16:15] VITALS: BP 110/60
[2019-07-12] MEDS: HALOPERIDOL 5 MG TABLET PO SCH (20:11)
[2019-07-12] MEDS: BENZTROPINE MESYLATE 2 MG TABLET PO SCH (20:11)
[2019-07-13 08:08] VITALS: BP 134/55
[2019-07-13] MEDS: OMEPRAZOLE 20 MG CAPSULE PO SCH (08:29)
[2019-07-13] MEDS: LORazepam 2 MG TABLET PO PRN ×3 (08:29→17:44)
[2019-07-13] MEDS: DOCUSATE SODIUM 100 MG CAPSULE PO SCH (08:34)
[2019-07-13 16:04] VITALS: BP 120/68
[2019-07-13] MEDS: IBUPROFEN 600 MG TABLET PO PRN (18:24)
[2019-07-13] MEDS: HALOPERIDOL 5 MG TABLET PO SCH (20:15)
[2019-07-13] MEDS: BENZTROPINE MESYLATE 2 MG TABLET PO SCH (20:15)
[2019-07-14] MEDS: DOCUSATE SODIUM 100 MG CAPSULE PO SCH (08:06)
[2019-07-14] MEDS: OMEPRAZOLE 20 MG CAPSULE PO SCH (08:06)
[2019-07-14] MEDS: GuaiFENesin [SUGAR-FREE] 200 MG/10 ML SOLUTION UDCUP PO PRN (08:07)
[2019-07-14] MEDS: LORazepam 2 MG TABLET PO PRN (08:07)
[2019-07-14 08:51] VITALS: BP 116/62
[2019-07-14 16:17] VITALS: BP 111/59
[2019-07-14] MEDS: BENZTROPINE MESYLATE 2 MG TABLET PO SCH (20:10)
[2019-07-14] MEDS: HALOPERIDOL 5 MG TABLET PO SCH (20:10)
[2019-07-15] MEDS: DOCUSATE SODIUM 100 MG CAPSULE PO SCH (08:27)
[2019-07-15] MEDS: OMEPRAZOLE 20 MG CAPSULE PO SCH (08:27)
[2019-07-15 09:14] VITALS: BP 116/72
[2019-07-15] MEDS: LORazepam 2 MG TABLET PO PRN (15:01)
[2019-07-15 16:43] VITALS: BP 118/65
[2019-07-15] MEDS: BENZTROPINE MESYLATE 2 MG TABLET PO SCH (20:46)
[2019-07-15] MEDS: HALOPERIDOL 5 MG TABLET PO SCH (20:46)
[2019-07-15] MEDS ORDERED: DOCUSATE SODIUM 100 MG CAPSULE PO PRN (21:45)
[2019-07-15] MEDS ORDERED: OMEPRAZOLE 20 MG CAPSULE PO PRN (21:45)
[2019-07-15] MEDS ORDERED: GuaiFENesin/D-METHORPHAN/PHENYLEPH 5 ML LIQUID ORAL.SYG PO PRN (21:45)
[2019-07-16] MEDS: MULTIVITAMINS WITH IRON TABLET PO SCH (08:19)
[2019-07-16 08:47] VITALS: BP 115/64
[2019-07-16] MEDS: LORazepam 2 MG TABLET PO PRN ×2 (12:09→17:48)
[2019-07-16 16:00] VITALS: BP 114/62
[2019-07-16] MEDS: HALOPERIDOL 5 MG TABLET PO SCH (19:20)
[2019-07-16] MEDS: BENZTROPINE MESYLATE 2 MG TABLET PO SCH (19:20)
[2019-07-17] MEDS: MULTIVITAMINS WITH IRON TABLET PO SCH (08:00)
[2019-07-17 08:29] VITALS: BP 113/64
[2019-07-17] MEDS: LORazepam 2 MG TABLET PO PRN (08:41)
[2019-07-17] MEDS ORDERED: LORazepam 2 MG/ML VIAL ONE (16:09)
[2019-07-17] MEDS ORDERED: DiphenhydrAMINE HCL 50 MG/ML VIAL ONE (16:10)
[2019-07-17] MEDS ORDERED: HALOPERIDOL LACTATE 5 MG/ML VIAL ONE (16:10)
[2019-07-17] MEDS ORDERED: LORazepam 2 MG/ML VIAL IM ONE (16:15)
[2019-07-17] MEDS ORDERED: HALOPERIDOL LACTATE 5 MG/ML VIAL IM ONE (16:15)
[2019-07-17] MEDS ORDERED: DiphenhydrAMINE HCL 50 MG/ML VIAL IM ONE (16:15)
[2019-07-17 16:57] VITALS: BP 125/69
[2019-07-17] MEDS: BENZTROPINE MESYLATE 2 MG TABLET PO SCH (20:24)
[2019-07-17] MEDS: HALOPERIDOL 5 MG TABLET PO SCH (20:24)
[2019-07-18] MEDS: MULTIVITAMINS WITH IRON TABLET PO SCH (08:00)
[2019-07-18] MEDS: LORazepam 2 MG TABLET PO PRN (10:27)
[2019-07-18 10:30] VITALS: BP 133/67
[2019-07-18 12:34] VITALS: BP 124/62
[2019-07-18] MEDS: IBUPROFEN 600 MG TABLET PO PRN (12:34)
[2019-07-18 17:42] VITALS: BP 96/66
[2019-07-18] MEDS: HALOPERIDOL 5 MG TABLET PO SCH (20:32)
[2019-07-18] MEDS: BENZTROPINE MESYLATE 2 MG TABLET PO SCH (20:32)
[2019-07-18 20:42] VITALS: BP 121/64
[2019-07-18] MEDS: ZOLPIDEM TARTRATE 10 MG TABLET PO PRN (22:04)
[2019-07-19] MEDS: MULTIVITAMINS WITH IRON TABLET PO SCH (08:00)
[2019-07-19] MEDS: LORazepam 2 MG TABLET PO PRN ×2 (08:25→20:41)
[2019-07-19 10:29] VITALS: BP 119/73
[2019-07-19 18:22] VITALS: BP 127/84
[2019-07-19] MEDS: BENZTROPINE MESYLATE 2 MG TABLET PO SCH (20:37)
[2019-07-19] MEDS: HALOPERIDOL 5 MG TABLET PO SCH (20:37)
[2019-07-19] MEDS: ZOLPIDEM TARTRATE 10 MG TABLET PO PRN (20:41)
[2019-07-20] MEDS: MULTIVITAMINS WITH IRON TABLET PO SCH (08:00)
[2019-07-20 10:22] VITALS: BP 109/64
[2019-07-20] MEDS: LORazepam 2 MG TABLET PO PRN (12:56)
[2019-07-20] MEDS: NICOTINE 21 MG/24 HOUR PATCH TD SCH (14:51)
[2019-07-20 17:05] VITALS: BP 101/62
[2019-07-20] MEDS: BENZTROPINE MESYLATE 2 MG TABLET PO SCH (20:31)
[2019-07-20] MEDS: HALOPERIDOL 5 MG TABLET PO SCH (20:32)
[2019-07-21] MEDS: ZOLPIDEM TARTRATE 10 MG TABLET PO PRN (00:35)
[2019-07-21 01:00] VITALS: BP 134/78
[2019-07-21] MEDS: MULTIVITAMINS WITH IRON TABLET PO SCH (08:00)
[2019-07-21 08:09] VITALS: BP 147/79
[2019-07-21] MEDS: NICOTINE 21 MG/24 HOUR PATCH TD SCH (08:44)
[2019-07-21] MEDS: LORazepam 2 MG TABLET PO PRN (11:27)
[2019-07-21 16:22] VITALS: BP 130/93
[2019-07-21] MEDS: BENZTROPINE MESYLATE 2 MG TABLET PO SCH (20:55)
[2019-07-21] MEDS: HALOPERIDOL 5 MG TABLET PO SCH (20:56)
[2019-07-22] MEDS: ZOLPIDEM TARTRATE 10 MG TABLET PO PRN (01:45)
[2019-07-22] MEDS: LORazepam 2 MG TABLET PO PRN (01:45)
[2019-07-22 03:37] VITALS: BP 120/72
[2019-07-22] MEDS: MULTIVITAMINS WITH IRON TABLET PO SCH (08:00)
[2019-07-22 08:22] VITALS: BP 103/61
[2019-07-22] MEDS: NICOTINE 21 MG/24 HOUR PATCH TD SCH (08:56)
[2019-07-22 16:06] VITALS: BP 134/74
[2019-07-22] MEDS: IBUPROFEN 600 MG TABLET PO PRN (17:56)
[2019-07-22] MEDS: HALOPERIDOL 5 MG TABLET PO SCH (20:39)
[2019-07-22] MEDS: BENZTROPINE MESYLATE 2 MG TABLET PO SCH (20:39)
[2019-07-23] MEDS: MULTIVITAMINS WITH IRON TABLET PO SCH (08:00)
[2019-07-23] MEDS: NICOTINE 21 MG/24 HOUR PATCH TD SCH (08:16)
[2019-07-23 08:48] VITALS: BP 110/71
[2019-07-23] MEDS ORDERED: HALOPERIDOL DECANOATE 100 MG/ML VIAL IM SCH (09:00)
[2019-07-23] MEDS ORDERED: HALOPERIDOL DECANOATE 100 MG/ML VIAL IM ONE (13:00)
[2019-07-23] MEDS ORDERED: BENZ2TAB10 PO (13:35)
[2019-07-23] MEDS ORDERED: HALO100V4 IM (13:35)
== END 2019-07-23 14:45 | disposition home or self-care (01) | DRG 885 ==
LOC: EMS 16:01 → 3EC 07-07 02:57
PROVIDERS: ADMIT Psychiatry & Neurology Psychiatry; ATTEND Psychiatry & Neurology Psychiatry
DX: F20.0 Paranoid schizophrenia (principal); E78.00 Pure hypercholesterolemia, unspecified; F12.90 Cannabis use, unspecified, uncomplicated; F15.90 Other stimulant use, unspecified, uncomplicated; Z91.14 Patient's other noncompliance with medication regimen; Z87.891 Personal history of nicotine dependence; Z87.820 Personal history of traumatic brain injury; Z86.11 Personal history of tuberculosis; K59.00 Constipation, unspecified; G47.00 Insomnia, unspecified; F31.9 Bipolar disorder, unspecified; Z79.899 Other long term (current) drug therapy; Z28.21 Immunization not carried out because of patient refusal
CPT/HCPCS: 87081; G0480; J1200; J1630; J1631; J2060

== ENCOUNTER 2019-08-10 04:51 | Inpatient (IN) | payer MEDICAID, OTHER ==
[~2019-08-10] VITALS: Ht 160 cm; Wt 68.9 kg
[~2019-08-10 04:51] MED LIST changes: +BENZ2TAB10 PO
[2019-08-10] MEDS ORDERED: QUET200T PO (05:06)
[2019-08-10] MEDS ORDERED: QUET25TA PO (05:06)
[2019-08-10 05:29] LABS: BASOPHILS % (AUTO) 0.5 % (0.0-2.0); EOSINOPHILS % (AUTO) 6.1 % (1.0-6.0); HEMATOCRIT 40.2 % (41-53); HEMOGLOBIN 13.4 g/dL (13.5-17.5); LYMPHOCYTES # (AUTO) 2.4 K/uL (1.0-4.8); LYMPHOCYTES % (AUTO) 23.4 % (22.0-44.0); MEAN CORPUSCULAR HEMOGLOBIN 29.5 pg (26.0-34.0); MEAN CORPUSCULAR HGB CONC 33.3 G/dL (31.0-37.0); MEAN CORPUSCULAR VOLUME 89 fL (80-100); NEUTROPHILS # (AUTO) 6.1 K/uL (1.8-7.7); PLATELET COUNT (AUTO) 217 K/uL (150-450); RED BLOOD CELL COUNT(AUTO) 4.54 MIL/uL (4.50-5.90); RED CELL DISTRIBUTION WIDTH 14.6 % (11.5-14.5)
[2019-08-10 05:41] LABS: AMPHET/METH SCREEN,URINE NEGATIVE (NEGATIVE); BARBITURATE SCREEN, URINE NEGATIVE (NEGATIVE); BENZODIAZEPINES SCREEN,URINE NEGATIVE (NEGATIVE); CANNABINOID SCREEN,URINE NEGATIVE (NEGATIVE); COCAINE SCREEN,URINE NEGATIVE (NEGATIVE); METHADONE SCREEN, URINE NEGATIVE (NEGATIVE); OPIATE SCREEN,URINE NEGATIVE (NEGATIVE)
[2019-08-10 05:42] LABS: PHENCYCLIDINE SCREEN,URINE NEGATIVE (NEGATIVE)
[2019-08-10 05:42] LABS: ANION GAP 8 mmol/L (8-16); CALCIUM, TOTAL 11.2 mg/dL (8.8-10.5); CARBON DIOXIDE 28 mmol/L (22-29); CHLORIDE 102 mmol/L (98-107); CREATININE 0.93 mg/dL (0.60-1.30); GLOMERULAR FILTR. RATE CALC > 60 mL/min (>60); GLUCOSE,RANDOM 110 mg/dL (70-110); POTASSIUM 3.6 mmol/L (3.5-5.1); SODIUM SERUM 138 mmol/L (136-145); UREA NITROGEN, BLOOD 12 mg/dL (7-18)
[2019-08-10 05:48] LABS: ALANINE AMINOTRANSFERASE 41 U/L (12-78); ALBUMIN 3.9 g/dL (3.4-5.0); ALKALINE PHOSPHATASE 109 U/L (46-116); ASPARTATE AMINOTRANSFERASE 24 U/L (15-37); BILIRUBIN,TOTAL 0.1 mg/dL (0.1-1.0); TOTAL PROTEIN, SERUM 7.2 g/dL (6.4-8.2)
[2019-08-10 10:45] VITALS: BP 127/67
[2019-08-10] MEDS ORDERED: INFLUENZA VIRUS VACCINE QVS 2019-20 (3YR+)/PF 60 MCG/0.5 ML SYRINGE IM ONE (11:45)
[2019-08-10] MEDS ORDERED: PNEUMOCOCCAL VACCINE POLYVALENT 0.5 ML VIAL [PPSV23] IM ONE (11:45)
[2019-08-10] MEDS ORDERED: LOPERAMIDE HCL 2 MG CAPSULE PO PRN (13:00)
[2019-08-10] MEDS ORDERED: MAGNESIUM HYDROXIDE SUSPENSION 30 ML UDCUP PO PRN (13:00)
[2019-08-10] MEDS ORDERED: MAG HYDROX/AL HYDROX/SIMETH ES 30 ML SUSPENSION UDCUP PO PRN (13:00)
[2019-08-10 16:01] VITALS: BP 116/60
[2019-08-11 05:56] VITALS: BP 118/67
[2019-08-11 08:02] VITALS: BP 121/72
[2019-08-11] MEDS: PROMETHAZINE HCL 25 MG TABLET PO PRN (13:33)
[2019-08-11] MEDS: LORazepam 2 MG TABLET PO PRN (13:33)
[2019-08-11 16:18] VITALS: BP 116/60
[2019-08-12 05:10] VITALS: BP 150/74
[2019-08-12 08:02] VITALS: BP 109/64
[2019-08-12 08:55] LABS: CHOL/HDL RATIO 4.4 (4.2-7.3)
[2019-08-12] MEDS: NICOTINE 21 MG/24 HOUR PATCH TD SCH ×2 (09:00→09:54)
[2019-08-12 09:40] LABS: FREE T4 (FREE THYROXINE) 1.07 ng/dL (0.76-1.46); THYROID STIMULATING HORMONE 1.45 uIU/mL (0.36-3.74)
[2019-08-12] MEDS: ACETAMINOPHEN 325 MG TABLET PO PRN (15:21)
[2019-08-12 16:03] VITALS: BP 127/81
[2019-08-12] MEDS: LORazepam 2 MG TABLET PO PRN (16:27)
[2019-08-12] MEDS: PROMETHAZINE HCL 25 MG TABLET PO PRN (20:04)
[2019-08-12 20:08] VITALS: BP 130/72
[2019-08-12] MEDS: ZOLPIDEM TARTRATE 10 MG TABLET PO PRN (20:46)
[2019-08-13 08:45] VITALS: BP 110/57
[2019-08-13] MEDS: LORazepam 2 MG TABLET PO PRN ×3 (09:34→20:34)
[2019-08-13] MEDS: NICOTINE 21 MG/24 HOUR PATCH TD SCH (09:34)
[2019-08-13] MEDS: HALOPERIDOL 5 MG TABLET PO PRN (09:35)
[2019-08-13 17:03] VITALS: BP 114/78
[2019-08-13] MEDS: ZOLPIDEM TARTRATE 10 MG TABLET PO PRN (20:18)
[2019-08-14 05:56] VITALS: BP 120/61
[2019-08-14] MEDS ORDERED: LOPERAMIDE HCL 2 MG CAPSULE PO PRN (06:00)
[2019-08-14] MEDS ORDERED: CloNIDine HCL 0.1 MG TABLET PO PRN (06:00)
[2019-08-14] MEDS ORDERED: BACITRACIN 28.4 GM OINTMENT TP PRN (06:00)
[2019-08-14] MEDS ORDERED: ALBUTEROL SULFATE HFA 90 MCG/PUFF 8 GM INHALER IH PRN (06:00)
[2019-08-14] MEDS ORDERED: BENZOCAINE/MENTHOL LOZENGE MM PRN (06:00)
[2019-08-14] MEDS ORDERED: ONDANSETRON HCL 4 MG TABLET PO PRN (06:00)
[2019-08-14] MEDS ORDERED: PETROLATUM,WHITE 28 GM JELLY TP PRN (06:00)
[2019-08-14] MEDS: MULTIVITAMINS WITH IRON TABLET PO SCH (07:30)
[2019-08-14 08:01] VITALS: BP 106/64
[2019-08-14] MEDS: DOCUSATE SODIUM 100 MG CAPSULE PO SCH (09:00)
[2019-08-14] MEDS: OMEPRAZOLE 20 MG CAPSULE PO SCH (09:00)
[2019-08-14] MEDS: QUEtiapine FUMARATE 200 MG TABLET PO SCH ×2 (09:00→16:02)
[2019-08-14] MEDS: NICOTINE 21 MG/24 HOUR PATCH TD SCH (09:17)
[2019-08-14] MEDS: ACETAMINOPHEN 325 MG TABLET PO PRN (09:48)
[2019-08-14] MEDS: BENZOCAINE 10% 7 GM GEL TP PRN ×2 (11:25→15:06)
[2019-08-14] MEDS: HYDROCODONE/ACETAMINOPHEN 5-325 MG TABLET PO PRN ×2 (12:42→20:14)
[2019-08-14] MEDS: LORazepam 2 MG TABLET PO PRN (16:02)
[2019-08-14 17:26] VITALS: BP 130/92
[2019-08-14] MEDS: ZOLPIDEM TARTRATE 10 MG TABLET PO PRN (20:14)
[2019-08-15 00:40] VITALS: BP 132/65
[2019-08-15] MEDS: MULTIVITAMINS WITH IRON TABLET PO SCH (07:30)
[2019-08-15 08:15] VITALS: BP 127/69
[2019-08-15] MEDS: OMEPRAZOLE 20 MG CAPSULE PO SCH (09:00)
[2019-08-15] MEDS: DOCUSATE SODIUM 100 MG CAPSULE PO SCH (09:00)
[2019-08-15] MEDS: QUEtiapine FUMARATE 200 MG TABLET PO SCH ×2 (09:48→16:04)
[2019-08-15] MEDS: NICOTINE 21 MG/24 HOUR PATCH TD SCH (09:48)
[2019-08-15 16:01] VITALS: BP 129/67
[2019-08-15] MEDS: LORazepam 2 MG TABLET PO PRN ×2 (16:04→20:27)
[2019-08-15] MEDS: ZOLPIDEM TARTRATE 10 MG TABLET PO PRN (20:27)
[2019-08-16] MEDS: MULTIVITAMINS WITH IRON TABLET PO SCH (06:39)
[2019-08-16] MEDS: DOCUSATE SODIUM 100 MG CAPSULE PO SCH (08:44)
[2019-08-16] MEDS: OMEPRAZOLE 20 MG CAPSULE PO SCH (08:44)
[2019-08-16] MEDS: QUEtiapine FUMARATE 200 MG TABLET PO SCH ×2 (08:44→16:06)
[2019-08-16] MEDS: NICOTINE 21 MG/24 HOUR PATCH TD SCH (08:45)
[2019-08-16 08:47] VITALS: BP 105/62
[2019-08-16 16:00] VITALS: BP 126/69
[2019-08-16] MEDS: HYDROCODONE/ACETAMINOPHEN 5-325 MG TABLET PO PRN (16:06)
[2019-08-16] MEDS: LORazepam 2 MG TABLET PO PRN (16:06)
[2019-08-17] VITALS: BP 111/59
[2019-08-17] MEDS: MULTIVITAMINS WITH IRON TABLET PO SCH (06:39)
[2019-08-17 08:26] VITALS: BP 112/76
[2019-08-17] MEDS: NICOTINE 21 MG/24 HOUR PATCH TD SCH (08:42)
[2019-08-17] MEDS: QUEtiapine FUMARATE 200 MG TABLET PO SCH ×2 (08:43→17:08)
[2019-08-17] MEDS: DOCUSATE SODIUM 100 MG CAPSULE PO SCH (08:43)
[2019-08-17] MEDS: OMEPRAZOLE 20 MG CAPSULE PO SCH (08:43)
[2019-08-17] MEDS: HYDROCODONE/ACETAMINOPHEN 5-325 MG TABLET PO PRN (11:38)
[2019-08-17 16:00] VITALS: BP 133/69
[2019-08-17] MEDS: LORazepam 2 MG TABLET PO PRN (17:08)
[2019-08-18 00:04] VITALS: BP 118/86
[2019-08-18] MEDS: LORazepam 2 MG TABLET PO PRN ×3 (00:11→21:02)
[2019-08-18] MEDS: ZOLPIDEM TARTRATE 10 MG TABLET PO PRN ×2 (00:11→20:47)
[2019-08-18] MEDS: MULTIVITAMINS WITH IRON TABLET PO SCH (07:18)
[2019-08-18] MEDS: QUEtiapine FUMARATE 200 MG TABLET PO SCH ×2 (08:25→16:27)
[2019-08-18] MEDS: DOCUSATE SODIUM 100 MG CAPSULE PO SCH (08:32)
[2019-08-18] MEDS: OMEPRAZOLE 20 MG CAPSULE PO SCH (08:32)
[2019-08-18] MEDS: NICOTINE 21 MG/24 HOUR PATCH TD SCH (13:46)
[2019-08-18 16:01] VITALS: BP 115/84
[2019-08-19] MEDS: MULTIVITAMINS WITH IRON TABLET PO SCH (06:39)
[2019-08-19] MEDS: HYDROCODONE/ACETAMINOPHEN 5-325 MG TABLET PO PRN (08:12)
[2019-08-19] MEDS: DOCUSATE SODIUM 100 MG CAPSULE PO SCH ×2 (08:12→09:00)
[2019-08-19] MEDS: QUEtiapine FUMARATE 200 MG TABLET PO SCH ×2 (08:12→16:00)
[2019-08-19] MEDS: OMEPRAZOLE 20 MG CAPSULE PO SCH ×2 (08:12→09:00)
[2019-08-19 08:21] VITALS: BP 117/76
[2019-08-19] MEDS: NICOTINE 21 MG/24 HOUR PATCH TD SCH ×2 (09:00→14:52)
[2019-08-19] MEDS: LORazepam 2 MG TABLET PO PRN (14:51)
[2019-08-19 16:01] VITALS: BP 102/60
[2019-08-19] MEDS: ZOLPIDEM TARTRATE 10 MG TABLET PO PRN (20:43)
[2019-08-20 01:09] VITALS: BP 109/67
[2019-08-20] MEDS: MULTIVITAMINS WITH IRON TABLET PO SCH (06:35)
[2019-08-20 08:04] VITALS: BP 130/61
[2019-08-20] MEDS: OMEPRAZOLE 20 MG CAPSULE PO SCH (08:08)
[2019-08-20] MEDS: QUEtiapine FUMARATE 200 MG TABLET PO SCH ×2 (08:08→16:52)
[2019-08-20] MEDS: DOCUSATE SODIUM 100 MG CAPSULE PO SCH (08:08)
[2019-08-20] MEDS: NICOTINE 21 MG/24 HOUR PATCH TD SCH (08:10)
[2019-08-20] MEDS ORDERED: HALOPERIDOL DECANOATE 100 MG/ML VIAL IM SCH (09:00)
[2019-08-20] MEDS: HYDROCODONE/ACETAMINOPHEN 5-325 MG TABLET PO PRN (09:59)
[2019-08-20] MEDS: LORazepam 2 MG TABLET PO PRN (09:59)
[2019-08-20 16:01] VITALS: BP 116/58
[2019-08-20] MEDS: ZOLPIDEM TARTRATE 10 MG TABLET PO PRN (20:47)
[2019-08-21 06:34] VITALS: BP 111/56
[2019-08-21] MEDS: MULTIVITAMINS WITH IRON TABLET PO SCH (06:44)
[2019-08-21 08:01] VITALS: BP_SYST 103; BP_SYST 121; BP_DIAS 53; BP_DIAS 62
[2019-08-21] MEDS: QUEtiapine FUMARATE 200 MG TABLET PO SCH ×2 (08:27→16:44)
[2019-08-21] MEDS: DOCUSATE SODIUM 100 MG CAPSULE PO SCH (08:41)
[2019-08-21] MEDS: OMEPRAZOLE 20 MG CAPSULE PO SCH (08:41)
[2019-08-21] MEDS: NICOTINE 21 MG/24 HOUR PATCH TD SCH (09:00)
[2019-08-21] MEDS: HYDROCODONE/ACETAMINOPHEN 5-325 MG TABLET PO PRN (11:41)
[2019-08-21 16:03] VITALS: BP 113/87
[2019-08-21] MEDS: LORazepam 2 MG TABLET PO PRN (16:44)
[2019-08-22 06:00] VITALS: BP 104/56
[2019-08-22] MEDS ORDERED: MULTIVITAMINS WITH IRON TABLET PO SCH (06:00)
[2019-08-22] MEDS: QUEtiapine FUMARATE 200 MG TABLET PO SCH ×2 (08:15→16:02)
[2019-08-22 08:26] VITALS: BP 130/61
[2019-08-22] MEDS: NICOTINE 21 MG/24 HOUR PATCH TD SCH (09:00)
[2019-08-22] MEDS: DOCUSATE SODIUM 100 MG CAPSULE PO SCH (09:00)
[2019-08-22] MEDS: MULTIVITAMINS WITH IRON TABLET PO SCH (09:00)
[2019-08-22] MEDS: OMEPRAZOLE 20 MG CAPSULE PO SCH (09:00)
[2019-08-22] MEDS: LORazepam 2 MG TABLET PO PRN (16:02)
[2019-08-22 16:11] VITALS: BP 112/69
[2019-08-23] VITALS (7 sets, daily range): BP systolic 109–118; BP diastolic 64–72
[2019-08-23] MEDS: NICOTINE 21 MG/24 HOUR PATCH TD SCH (08:05)
[2019-08-23] MEDS: OMEPRAZOLE 20 MG CAPSULE PO SCH (08:05)
[2019-08-23] MEDS: MULTIVITAMINS WITH IRON TABLET PO SCH (08:06)
[2019-08-23] MEDS: QUEtiapine FUMARATE 200 MG TABLET PO SCH ×2 (08:06→16:31)
[2019-08-23] MEDS: DOCUSATE SODIUM 100 MG CAPSULE PO SCH (08:06)
[2019-08-23] MEDS: HYDROCODONE/ACETAMINOPHEN 5-325 MG TABLET PO PRN ×2 (08:06→14:21)
[2019-08-23] MEDS: BENZOCAINE 10% 7 GM GEL TP PRN (17:41)
[2019-08-23] MEDS: ZOLPIDEM TARTRATE 10 MG TABLET PO PRN (21:26)
[2019-08-24] VITALS (7 sets, daily range): BP systolic 106–122; BP diastolic 62–72
[2019-08-24] MEDS: NICOTINE 21 MG/24 HOUR PATCH TD SCH (08:01)
[2019-08-24] MEDS: HYDROCODONE/ACETAMINOPHEN 5-325 MG TABLET PO PRN ×2 (08:02→14:03)
[2019-08-24] MEDS: QUEtiapine FUMARATE 200 MG TABLET PO SCH ×2 (08:02→17:18)
[2019-08-24] MEDS: DOCUSATE SODIUM 100 MG CAPSULE PO SCH (08:02)
[2019-08-24] MEDS: MULTIVITAMINS WITH IRON TABLET PO SCH (08:03)
[2019-08-24] MEDS: OMEPRAZOLE 20 MG CAPSULE PO SCH (08:03)
[2019-08-24] MEDS: ZOLPIDEM TARTRATE 10 MG TABLET PO PRN (21:01)
[2019-08-25 04:56] VITALS: BP 125/78
[2019-08-25] MEDS: MULTIVITAMINS WITH IRON TABLET PO SCH ×2 (08:16→09:00)
[2019-08-25] MEDS: DOCUSATE SODIUM 100 MG CAPSULE PO SCH ×2 (08:16→09:00)
[2019-08-25] MEDS: QUEtiapine FUMARATE 200 MG TABLET PO SCH ×2 (08:16→17:01)
[2019-08-25] MEDS: OMEPRAZOLE 20 MG CAPSULE PO SCH ×2 (08:16→09:00)
[2019-08-25] MEDS: NICOTINE 21 MG/24 HOUR PATCH TD SCH (08:17)
[2019-08-25] MEDS: HYDROCODONE/ACETAMINOPHEN 5-325 MG TABLET PO PRN ×2 (12:18→20:35)
[2019-08-25 16:09] VITALS: BP 125/74
[2019-08-25] MEDS: LORazepam 2 MG TABLET PO PRN (17:01)
[2019-08-25] MEDS: ZOLPIDEM TARTRATE 10 MG TABLET PO PRN (20:35)
[2019-08-25] MEDS ORDERED: OMEPRAZOLE 20 MG CAPSULE PO PRN (22:30)
[2019-08-25] MEDS ORDERED: DOCUSATE SODIUM 100 MG CAPSULE PO PRN (22:30)
[2019-08-26 00:25] VITALS: BP 124/72
[2019-08-26] MEDS: BENZOCAINE 10% 7 GM GEL TP PRN (01:16)
[2019-08-26] MEDS: HYDROCODONE/ACETAMINOPHEN 5-325 MG TABLET PO PRN (02:46)
[2019-08-26 08:12] VITALS: BP 123/65
[2019-08-26 08:19] LABS: HEMATOCRIT 41.7 % (41-53); HEMOGLOBIN 14.2 g/dL (13.5-17.5); MEAN CORPUSCULAR HEMOGLOBIN 30.1 pg (26.0-34.0); MEAN CORPUSCULAR HGB CONC 33.9 G/dL (31.0-37.0); MEAN CORPUSCULAR VOLUME 89 fL (80-100); PLATELET COUNT (AUTO) 234 K/uL (150-450); RED CELL DISTRIBUTION WIDTH 13.7 % (11.5-14.5)
[2019-08-26] MEDS: LORazepam 2 MG TABLET PO PRN ×2 (08:21→16:30)
[2019-08-26] MEDS: NICOTINE 21 MG/24 HOUR PATCH TD SCH (08:21)
[2019-08-26] MEDS: QUEtiapine FUMARATE 200 MG TABLET PO SCH ×2 (08:21→16:30)
[2019-08-26] MEDS: MULTIVITAMINS WITH IRON TABLET PO SCH (08:21)
[2019-08-26 09:10] LABS: ANION GAP 10 mmol/L (8-16); CALCIUM, TOTAL 9.4 mg/dL (8.8-10.5); CARBON DIOXIDE 28 mmol/L (22-29); CHLORIDE 100 mmol/L (98-107); CREATININE 0.81 mg/dL (0.60-1.30); GLOMERULAR FILTR. RATE CALC > 60 mL/min (>60); GLUCOSE,RANDOM 84 mg/dL (70-110); PHOSPHORUS 3.9 mg/dL (2.5-4.9); POTASSIUM 3.6 mmol/L (3.5-5.1); SODIUM SERUM 138 mmol/L (136-145); UREA NITROGEN, BLOOD 16 mg/dL (7-18)
[2019-08-26 09:42] LABS: BAND NEUTROPHILS % (MANUAL) 4 % (0-5); LYMPHOCYTES % (MANUAL) 37 % (22-44); MONOCYTES % (MANUAL) 2 % (2-9); SEGMENTED NEUTROPHILS % 57 % (40-70)
[2019-08-27 08:15] VITALS: BP 119/69
[2019-08-27] MEDS: MULTIVITAMINS WITH IRON TABLET PO SCH (09:14)
[2019-08-27] MEDS: QUEtiapine FUMARATE 200 MG TABLET PO SCH ×2 (09:15→16:03)
[2019-08-27] MEDS: NICOTINE 21 MG/24 HOUR PATCH TD SCH (09:15)
[2019-08-27] MEDS: LORazepam 2 MG TABLET PO PRN ×2 (14:53→20:43)
[2019-08-27] MEDS: HYDROCODONE/ACETAMINOPHEN 5-325 MG TABLET PO PRN (14:54)
[2019-08-27 14:58] VITALS: BP 127/78
[2019-08-27 16:39] VITALS: BP 108/85
[2019-08-27] MEDS: ZOLPIDEM TARTRATE 10 MG TABLET PO PRN (20:43)
[2019-08-28 05:00] VITALS: BP 118/70
[2019-08-28] MEDS: MULTIVITAMINS WITH IRON TABLET PO SCH (09:12)
[2019-08-28] MEDS: QUEtiapine FUMARATE 200 MG TABLET PO SCH ×2 (09:12→17:04)
[2019-08-28] MEDS: NICOTINE 21 MG/24 HOUR PATCH TD SCH (09:13)
[2019-08-28] MEDS: LORazepam 2 MG TABLET PO PRN (14:39)
[2019-08-28 16:08] VITALS: BP 116/65
[2019-08-29 00:49] VITALS: BP 116/60
[2019-08-29] MEDS: MULTIVITAMINS WITH IRON TABLET PO SCH (08:43)
[2019-08-29] MEDS: QUEtiapine FUMARATE 200 MG TABLET PO SCH ×2 (08:43→16:52)
[2019-08-29] MEDS: NICOTINE 21 MG/24 HOUR PATCH TD SCH (09:00)
[2019-08-29 16:05] VITALS: BP 111/60
[2019-08-29] MEDS ORDERED: TUBERCULIN, PURIFIED PROTEIN DERIVATIVE 5 TU/0.1 ML SYRINGE ID ONE (17:00)
[2019-08-30 01:24] VITALS: BP 138/73
[2019-08-30] MEDS: NICOTINE 21 MG/24 HOUR PATCH TD SCH (09:00)
[2019-08-30] MEDS: MULTIVITAMINS WITH IRON TABLET PO SCH (09:24)
[2019-08-30] MEDS: QUEtiapine FUMARATE 200 MG TABLET PO SCH ×2 (09:24→16:27)
[2019-08-30] MEDS: HYDROCODONE/ACETAMINOPHEN 5-325 MG TABLET PO PRN (14:39)
[2019-08-30 16:21] VITALS: BP 127/73
[2019-08-30] MEDS: LORazepam 2 MG TABLET PO PRN (16:27)
[2019-08-30] MEDS: ZOLPIDEM TARTRATE 10 MG TABLET PO PRN (22:14)
[2019-08-31 06:58] VITALS: BP 102/60
[2019-08-31 09:24] VITALS: BP 118/77
[2019-08-31] MEDS: NICOTINE 21 MG/24 HOUR PATCH TD SCH (09:56)
[2019-08-31] MEDS: QUEtiapine FUMARATE 200 MG TABLET PO SCH ×2 (09:56→16:08)
[2019-08-31] MEDS: MULTIVITAMINS WITH IRON TABLET PO SCH (10:05)
[2019-08-31] MEDS: HYDROCODONE/ACETAMINOPHEN 5-325 MG TABLET PO PRN (13:34)
[2019-08-31] MEDS: LORazepam 2 MG TABLET PO PRN ×2 (13:34→20:38)
[2019-08-31 16:11] VITALS: BP 139/75
[2019-08-31] MEDS: ZOLPIDEM TARTRATE 10 MG TABLET PO PRN (20:38)
[2019-09-01 04:51] VITALS: BP 130/71
[2019-09-01 08:30] VITALS: BP 110/60
[2019-09-01] MEDS: MULTIVITAMINS WITH IRON TABLET PO SCH (08:58)
[2019-09-01] MEDS: NICOTINE 21 MG/24 HOUR PATCH TD SCH ×2 (08:58→09:00)
[2019-09-01] MEDS: QUEtiapine FUMARATE 200 MG TABLET PO SCH ×2 (08:58→16:14)
[2019-09-01] MEDS: LORazepam 2 MG TABLET PO PRN ×2 (13:54→21:03)
[2019-09-01 16:05] VITALS: BP 116/60
[2019-09-01] MEDS: HYDROCODONE/ACETAMINOPHEN 5-325 MG TABLET PO PRN (16:05)
[2019-09-01 16:07] VITALS: BP 116/60
[2019-09-01 17:05] VITALS: BP 118/64
[2019-09-01] MEDS: ZOLPIDEM TARTRATE 10 MG TABLET PO PRN (21:03)
[2019-09-02] VITALS: BP 120/66
[2019-09-02] MEDS: QUEtiapine FUMARATE 200 MG TABLET PO SCH ×2 (08:35→16:06)
[2019-09-02] MEDS: MULTIVITAMINS WITH IRON TABLET PO SCH (08:35)
[2019-09-02] MEDS: NICOTINE 21 MG/24 HOUR PATCH TD SCH (08:36)
[2019-09-02 08:41] VITALS: BP 97/54
[2019-09-02 16:14] VITALS: BP 124/69
[2019-09-02] MEDS: HYDROCODONE/ACETAMINOPHEN 5-325 MG TABLET PO PRN (16:27)
[2019-09-02] MEDS: LORazepam 2 MG TABLET PO PRN (19:18)
[2019-09-03] VITALS (7 sets, daily range): BP systolic 12–130; BP diastolic 66–77
[2019-09-03] MEDS: LORazepam 2 MG TABLET PO PRN ×2 (00:11→16:02)
[2019-09-03] MEDS: HYDROCODONE/ACETAMINOPHEN 5-325 MG TABLET PO PRN ×3 (00:12→14:15)
[2019-09-03] MEDS: MULTIVITAMINS WITH IRON TABLET PO SCH (08:13)
[2019-09-03] MEDS: QUEtiapine FUMARATE 200 MG TABLET PO SCH ×2 (08:13→16:02)
[2019-09-03] MEDS: NICOTINE 21 MG/24 HOUR PATCH TD SCH (08:14)
[2019-09-03] MEDS: ZOLPIDEM TARTRATE 10 MG TABLET PO PRN (22:39)
[2019-09-04] MEDS: LORazepam 2 MG TABLET PO PRN ×3 (00:12→18:45)
[2019-09-04] MEDS: IBUPROFEN 600 MG TABLET PO PRN (00:12)
[2019-09-04 05:19] VITALS: BP 143/94
[2019-09-04 07:50] VITALS: BP 134/70
[2019-09-04] MEDS: HYDROCODONE/ACETAMINOPHEN 5-325 MG TABLET PO PRN ×2 (07:55→14:00)
[2019-09-04 08:29] VITALS: BP 132/77
[2019-09-04] MEDS: QUEtiapine FUMARATE 200 MG TABLET PO SCH ×2 (08:52→16:24)
[2019-09-04] MEDS: MULTIVITAMINS WITH IRON TABLET PO SCH (08:52)
[2019-09-04] MEDS: NICOTINE 21 MG/24 HOUR PATCH TD SCH ×2 (09:00→14:35)
[2019-09-04 14:00] VITALS: BP 118/68
[2019-09-04 15:00] VITALS: BP 126/70
[2019-09-04 16:11] VITALS: BP 119/68
[2019-09-04] MEDS: BENZOCAINE 10% 7 GM GEL TP PRN (16:25)
[2019-09-05 01:07] VITALS: BP 130/83
[2019-09-05 08:09] VITALS: BP 126/61
[2019-09-05] MEDS: QUEtiapine FUMARATE 200 MG TABLET PO SCH ×2 (08:22→16:38)
[2019-09-05] MEDS: MULTIVITAMINS WITH IRON TABLET PO SCH (08:22)
[2019-09-05] MEDS: NICOTINE 21 MG/24 HOUR PATCH TD SCH (08:23)
[2019-09-05] MEDS: LORazepam 2 MG TABLET PO PRN (16:38)
[2019-09-05] MEDS: HYDROCODONE/ACETAMINOPHEN 5-325 MG TABLET PO PRN (16:38)
[2019-09-05 16:42] VITALS: BP 113/65
[2019-09-06 00:20] VITALS: BP 128/8
[2019-09-06 02:38] VITALS: BP 124/76
[2019-09-06] MEDS: ZOLPIDEM TARTRATE 10 MG TABLET PO PRN (02:43)
[2019-09-06] MEDS: HYDROCODONE/ACETAMINOPHEN 5-325 MG TABLET PO PRN (02:43)
[2019-09-06] MEDS: LORazepam 2 MG TABLET PO PRN (02:43)
[2019-09-06 08:42] VITALS: BP 128/80
[2019-09-06] MEDS: MULTIVITAMINS WITH IRON TABLET PO SCH (08:50)
[2019-09-06] MEDS: QUEtiapine FUMARATE 200 MG TABLET PO SCH ×2 (08:50→16:29)
[2019-09-06] MEDS: NICOTINE 21 MG/24 HOUR PATCH TD SCH (09:00)
[2019-09-06 16:22] VITALS: BP 128/76
[2019-09-07 08:05] VITALS: BP 117/66
[2019-09-07] MEDS: MULTIVITAMINS WITH IRON TABLET PO SCH (09:08)
[2019-09-07] MEDS: QUEtiapine FUMARATE 200 MG TABLET PO SCH ×2 (09:08→16:27)
[2019-09-07] MEDS: NICOTINE 21 MG/24 HOUR PATCH TD SCH (09:08)
[2019-09-07 13:21] VITALS: BP 122/72
[2019-09-07] MEDS: HYDROCODONE/ACETAMINOPHEN 5-325 MG TABLET PO PRN (13:21)
[2019-09-07 14:21] VITALS: BP 124/68
[2019-09-07] MEDS: LORazepam 2 MG TABLET PO PRN (17:08)
[2019-09-07] MEDS: ZOLPIDEM TARTRATE 10 MG TABLET PO PRN (22:10)
[2019-09-08 00:37] VITALS: BP 118/69
[2019-09-08 08:08] VITALS: BP 97/59
[2019-09-08] MEDS: MULTIVITAMINS WITH IRON TABLET PO SCH (08:25)
[2019-09-08] MEDS: QUEtiapine FUMARATE 200 MG TABLET PO SCH ×2 (08:25→16:02)
[2019-09-08 08:42] VITALS: BP 120/68
[2019-09-08] MEDS: NICOTINE 21 MG/24 HOUR PATCH TD SCH (09:00)
[2019-09-08] MEDS: LORazepam 2 MG TABLET PO PRN ×3 (13:21→23:35)
[2019-09-08] MEDS: HALOPERIDOL 5 MG TABLET PO PRN ×2 (13:21→23:35)
[2019-09-08] MEDS: HYDROCODONE/ACETAMINOPHEN 5-325 MG TABLET PO PRN ×2 (13:21→19:47)
[2019-09-08 16:12] VITALS: BP 138/68
[2019-09-08] MEDS: BENZOCAINE 10% 7 GM GEL TP PRN (19:46)
[2019-09-08] MEDS: ZOLPIDEM TARTRATE 10 MG TABLET PO PRN (20:58)
[2019-09-09 00:05] VITALS: BP 132/84
[2019-09-09 08:23] VITALS: BP 111/63
[2019-09-09] MEDS: QUEtiapine FUMARATE 200 MG TABLET PO SCH ×2 (08:59→16:21)
[2019-09-09] MEDS: NICOTINE 21 MG/24 HOUR PATCH TD SCH ×2 (09:00→15:06)
[2019-09-09] MEDS: MULTIVITAMINS WITH IRON TABLET PO SCH (09:00)
[2019-09-09] MEDS: LORazepam 2 MG TABLET PO PRN ×3 (12:19→20:44)
[2019-09-09] MEDS: HALOPERIDOL 5 MG TABLET PO PRN (12:19)
[2019-09-09] MEDS: HYDROCODONE/ACETAMINOPHEN 5-325 MG TABLET PO PRN ×2 (12:19→18:25)
[2019-09-09] MEDS: BENZOCAINE 10% 7 GM GEL TP PRN (18:27)
[2019-09-09] MEDS: ZOLPIDEM TARTRATE 10 MG TABLET PO PRN (20:44)
[2019-09-09 21:25] VITALS: BP 129/81
[2019-09-10] MEDS: NICOTINE 21 MG/24 HOUR PATCH TD SCH (09:00)
[2019-09-10] MEDS: MULTIVITAMINS WITH IRON TABLET PO SCH (09:31)
[2019-09-10] MEDS: QUEtiapine FUMARATE 200 MG TABLET PO SCH ×2 (09:31→16:10)
[2019-09-10 16:09] VITALS: BP 129/73
[2019-09-10] MEDS: HYDROCODONE/ACETAMINOPHEN 5-325 MG TABLET PO PRN (16:10)
[2019-09-10] MEDS: LORazepam 2 MG TABLET PO PRN ×2 (16:10→20:28)
[2019-09-10] MEDS: BENZOCAINE 10% 7 GM GEL TP PRN (16:10)
[2019-09-10] MEDS: ZOLPIDEM TARTRATE 10 MG TABLET PO PRN (20:28)
[2019-09-11 00:02] VITALS: BP 132/95
[2019-09-11] MEDS: HYDROCODONE/ACETAMINOPHEN 5-325 MG TABLET PO PRN (00:02)
[2019-09-11 08:08] VITALS: BP 131/86
[2019-09-11] MEDS: MULTIVITAMINS WITH IRON TABLET PO SCH (09:22)
[2019-09-11] MEDS: NICOTINE 21 MG/24 HOUR PATCH TD SCH (09:22)
[2019-09-11] MEDS: QUEtiapine FUMARATE 200 MG TABLET PO SCH ×2 (09:23→16:47)
[2019-09-11] MEDS: IBUPROFEN 600 MG TABLET PO PRN (12:46)
[2019-09-11 16:18] VITALS: BP 127/73
[2019-09-11] MEDS: LORazepam 2 MG TABLET PO PRN (16:47)
[2019-09-11] MEDS: ZOLPIDEM TARTRATE 10 MG TABLET PO PRN (21:33)
[2019-09-12 04:54] VITALS: BP 111/77
[2019-09-12] MEDS: HYDROCODONE/ACETAMINOPHEN 5-325 MG TABLET PO PRN ×2 (04:54→14:51)
[2019-09-12 08:06] VITALS: BP 134/71
[2019-09-12] MEDS: NICOTINE 21 MG/24 HOUR PATCH TD SCH (08:23)
[2019-09-12] MEDS: MULTIVITAMINS WITH IRON TABLET PO SCH (08:23)
[2019-09-12] MEDS: QUEtiapine FUMARATE 200 MG TABLET PO SCH ×2 (08:39→16:31)
[2019-09-12 14:51] VITALS: BP 136/76
[2019-09-12 16:12] VITALS: BP 135/82
[2019-09-12] MEDS: ZOLPIDEM TARTRATE 10 MG TABLET PO PRN (20:39)
[2019-09-12] MEDS: LORazepam 2 MG TABLET PO PRN (20:39)
[2019-09-13 02:30] VITALS: BP 133/78
[2019-09-13 08:11] VITALS: BP 106/63
[2019-09-13] MEDS: MULTIVITAMINS WITH IRON TABLET PO SCH (08:26)
[2019-09-13] MEDS: NICOTINE 21 MG/24 HOUR PATCH TD SCH (08:26)
[2019-09-13] MEDS: QUEtiapine FUMARATE 200 MG TABLET PO SCH ×2 (08:26→16:09)
[2019-09-13] MEDS: LORazepam 2 MG TABLET PO PRN ×2 (16:09→20:19)
[2019-09-13] MEDS: BENZOCAINE 10% 7 GM GEL TP PRN (16:10)
[2019-09-13] MEDS: HYDROCODONE/ACETAMINOPHEN 5-325 MG TABLET PO PRN (16:10)
[2019-09-13 16:15] VITALS: BP 129/79
[2019-09-13] MEDS: HALOPERIDOL 5 MG TABLET PO PRN (20:19)
[2019-09-13] MEDS: ZOLPIDEM TARTRATE 10 MG TABLET PO PRN (20:19)
[2019-09-14 05:35] VITALS: BP 126/72
[2019-09-14] MEDS: QUEtiapine FUMARATE 200 MG TABLET PO SCH ×2 (08:24→16:12)
[2019-09-14] MEDS: MULTIVITAMINS WITH IRON TABLET PO SCH (08:24)
[2019-09-14] MEDS: NICOTINE 21 MG/24 HOUR PATCH TD SCH (08:24)
[2019-09-14] MEDS: LORazepam 2 MG TABLET PO PRN ×3 (08:24→20:32)
[2019-09-14 13:29] VITALS: BP 125/75
[2019-09-14 16:07] VITALS: BP 122/80
[2019-09-14] MEDS: HYDROCODONE/ACETAMINOPHEN 5-325 MG TABLET PO PRN (16:12)
[2019-09-14 16:19] VITALS: BP 125/16
[2019-09-14] MEDS: ZOLPIDEM TARTRATE 10 MG TABLET PO PRN (20:33)
[2019-09-15 00:54] VITALS: BP 119/77
[2019-09-15 08:32] VITALS: BP 116/73
[2019-09-15] MEDS: NICOTINE 21 MG/24 HOUR PATCH TD SCH (09:00)
[2019-09-15] MEDS: QUEtiapine FUMARATE 200 MG TABLET PO SCH ×2 (09:51→16:21)
[2019-09-15] MEDS: MULTIVITAMINS WITH IRON TABLET PO SCH (09:51)
[2019-09-15 15:45] VITALS: BP 128/64
[2019-09-15] MEDS: HYDROCODONE/ACETAMINOPHEN 5-325 MG TABLET PO PRN ×2 (15:45→21:58)
[2019-09-15 16:05] VITALS: BP 135/55
[2019-09-15] MEDS: ZOLPIDEM TARTRATE 10 MG TABLET PO PRN (20:54)
[2019-09-15] MEDS: LORazepam 2 MG TABLET PO PRN (21:27)
[2019-09-15 21:55] VITALS: BP 122/66
[2019-09-15 22:58] VITALS: BP 120/62
[2019-09-16 06:41] VITALS: BP 118/70
[2019-09-16] MEDS: QUEtiapine FUMARATE 200 MG TABLET PO SCH ×2 (08:19→17:16)
[2019-09-16] MEDS: MULTIVITAMINS WITH IRON TABLET PO SCH (08:19)
[2019-09-16] MEDS: NICOTINE 21 MG/24 HOUR PATCH TD SCH (08:19)
[2019-09-16] MEDS: LORazepam 2 MG TABLET PO PRN ×2 (08:19→13:21)
[2019-09-16 08:47] VITALS: BP 113/72
[2019-09-16 16:08] VITALS: BP 110/68
[2019-09-16] MEDS: HYDROCODONE/ACETAMINOPHEN 5-325 MG TABLET PO PRN (17:58)
[2019-09-16] MEDS: ZOLPIDEM TARTRATE 10 MG TABLET PO PRN (22:29)
[2019-09-17 08:06] VITALS: BP 105/60
[2019-09-17] MEDS: NICOTINE 21 MG/24 HOUR PATCH TD SCH (09:00)
[2019-09-17] MEDS: MULTIVITAMINS WITH IRON TABLET PO SCH (09:07)
[2019-09-17] MEDS: QUEtiapine FUMARATE 200 MG TABLET PO SCH ×2 (09:07→16:44)
[2019-09-17] MEDS: HYDROCODONE/ACETAMINOPHEN 5-325 MG TABLET PO PRN ×2 (15:14→23:40)
[2019-09-17] MEDS: LORazepam 2 MG TABLET PO PRN (15:14)
[2019-09-17 16:04] VITALS: BP 135/77
[2019-09-17] MEDS: ZOLPIDEM TARTRATE 10 MG TABLET PO PRN (23:40)
[2019-09-18 03:16] VITALS: BP 128/82
[2019-09-18 08:12] VITALS: BP 139/80
[2019-09-18] MEDS: MULTIVITAMINS WITH IRON TABLET PO SCH (09:19)
[2019-09-18] MEDS: QUEtiapine FUMARATE 200 MG TABLET PO SCH ×2 (09:19→16:54)
[2019-09-18] MEDS: NICOTINE 21 MG/24 HOUR PATCH TD SCH (09:57)
[2019-09-18] MEDS: HYDROCODONE/ACETAMINOPHEN 5-325 MG TABLET PO PRN ×3 (09:57→23:01)
[2019-09-18] MEDS: CHLORHEXIDINE GLUCONATE 0.12% 15 ML UDCUP ORAL RINSE PO SCH ×3 (13:00→20:41)
[2019-09-18 16:09] VITALS: BP 134/82
[2019-09-18] MEDS: LORazepam 2 MG TABLET PO PRN (16:54)
[2019-09-18] MEDS ORDERED: ERYTHROMYCIN BASE 500 MG TABLET PO SCH (21:00)
[2019-09-18 22:56] VITALS: BP 138/72
[2019-09-18] MEDS: ACETAMINOPHEN 325 MG TABLET PO PRN (22:56)
[2019-09-19] MEDS ORDERED: SODIUM CHLORIDE 0.9% 100 ML ONE (00:41)
[2019-09-19] MEDS ORDERED: IOVERSOL 350 MG/ML 100 ML VIAL ONE (00:41)
== END 2019-09-19 06:15 | disposition short-term general hospital (02) | DRG 750 ==
LOC: EMS 04:53 → B3A 10:47
PROVIDERS: ADMIT Psychiatry & Neurology Psychiatry; ATTEND Psychiatry & Neurology Psychiatry
DX: F20.0 Paranoid schizophrenia (principal); F41.9 Anxiety disorder, unspecified; G47.00 Insomnia, unspecified; K59.00 Constipation, unspecified; K02.9 Dental caries, unspecified; Z86.11 Personal history of tuberculosis; Z59.0 Homelessness
CPT/HCPCS: 83735; 84100; 84439; 84443; 85007; 87081; G0480; J1631; J7050

== ENCOUNTER 2019-09-19 00:21 | Inpatient (IN) | payer MEDICAID, OTHER ==
[~2019-09-19] VITALS: Ht 170.2 cm; Wt 72.7 kg
[~2019-09-19 00:21] MED LIST changes: +QUET200T PO; +QUET25TA PO
[2019-09-19] MEDS ORDERED: CLINDAMYCIN 600 MG/D5% WATER 50 ML IV ONE (00:45)
[2019-09-19 01:21] LABS: BASOPHILS % (AUTO) 0.3 % (0.0-2.0); EOSINOPHILS % (AUTO) 2.3 % (1.0-6.0); HEMATOCRIT 40.8 % (41-53); HEMOGLOBIN 13.6 g/dL (13.5-17.5); LYMPHOCYTES # (AUTO) 1.4 K/uL (1.0-4.8); LYMPHOCYTES % (AUTO) 15.7 % (22.0-44.0); MEAN CORPUSCULAR HEMOGLOBIN 29.7 pg (26.0-34.0); MEAN CORPUSCULAR HGB CONC 33.4 G/dL (31.0-37.0); MEAN CORPUSCULAR VOLUME 89 fL (80-100); MONOCYTES # (AUTO) 1.2 K/uL (0.1-1.0); MONOCYTES % (AUTO) 13.8 % (2.0-9.0); NEUTROPHILS # (AUTO) 5.9 K/uL (1.8-7.7); NEUTROPHILS % (AUTO) 67.9 % (40.0-70.0); PLATELET COUNT (AUTO) 221 K/uL (150-450); RED BLOOD CELL COUNT(AUTO) 4.58 MIL/uL (4.50-5.90)
[2019-09-19 01:23] LABS: ANION GAP 11 mmol/L (8-16); CALCIUM, TOTAL 9.4 mg/dL (8.8-10.5); CARBON DIOXIDE 27 mmol/L (22-29); CHLORIDE 103 mmol/L (98-107); CREATININE 0.76 mg/dL (0.60-1.30); GLOMERULAR FILTR. RATE CALC > 60 mL/min (>60); GLUCOSE,RANDOM 111 mg/dL (70-110); POTASSIUM 4.1 mmol/L (3.5-5.1); SODIUM SERUM 141 mmol/L (136-145); UREA NITROGEN, BLOOD 14 mg/dL (7-18)
[2019-09-19 01:30] LABS: ALANINE AMINOTRANSFERASE 31 U/L (12-78); ALBUMIN 3.8 g/dL (3.4-5.0); ALKALINE PHOSPHATASE 93 U/L (46-116); ASPARTATE AMINOTRANSFERASE 15 U/L (15-37); BILIRUBIN,TOTAL 0.2 mg/dL (0.1-1.0); TOTAL PROTEIN, SERUM 7.7 g/dL (6.4-8.2)
[2019-09-19 01:50] LABS: INFLUENZA TYPE A NEGATIVE FOR TYPE A (NEGATIVE); INFLUENZA TYPE B NEGATIVE FOR TYPE B (NEGATIVE)
[2019-09-19] MEDS ORDERED: PredniSONE 20 MG TABLET PO ONE (02:00)
[2019-09-19] MEDS ORDERED: SODIUM CHLORIDE 0.9% 1,000 ML IV ONE (02:00)
[2019-09-19] MEDS ORDERED: DiphenhydrAMINE HCL 50 MG/ML VIAL IVP ONE (02:00)
[2019-09-19] MEDS ORDERED: 0.9% SODIUM CHLORIDE 10 ML SYRINGE IVP PRN ×2 (04:15→05:45)
[2019-09-19] MEDS ORDERED: ACETAMINOPHEN 325 MG TABLET PO PRN (04:15)
[2019-09-19] MEDS ORDERED: HYDROCODONE/ACETAMINOPHEN 5-325 MG TABLET PO ONE (05:00)
[2019-09-19] MEDS ORDERED: OxyCODONE HCL/ACETAMINOPHEN 5-325 MG TABLET PO PRN (05:45)
[2019-09-19] MEDS ORDERED: ONDANSETRON HCL 4 MG/2 ML VIAL IVP PRN (05:45)
[2019-09-19] MEDS ORDERED: DOCUSATE SODIUM 100 MG CAPSULE PO SCH (09:00)
[2019-09-19] MEDS ORDERED: FAMOTIDINE 10 MG/ML 2 ML VIAL IVP SCH ×2 (09:00)
[2019-09-19] MEDS ORDERED: SODIUM CHLORIDE 0.9% 500 ML IV ONE (09:21)
[2019-09-19] MEDS: CLINDAMYCIN 600 MG/D5% WATER 50 ML IV SCH ×2 (10:14→16:42)
[2019-09-19 11:27] VITALS: BP 100/57
[2019-09-19] MEDS ORDERED: DOCUSATE SODIUM 100 MG CAPSULE PO PRN (11:45)
[2019-09-19] MEDS: SODIUM CHLORIDE 0.9% 1,000 ML IV SCH ×2 (11:45→22:28)
[2019-09-19] MEDS: LEVOFLOXACIN 750 MG/D5% WATER 150 ML IV SCH (15:00)
[2019-09-19] MEDS: OxyCODONE HCL/ACETAMINOPHEN 5-325 MG TABLET PO PRN ×2 (15:00→22:14)
[2019-09-19 16:00] VITALS: BP 105/56
[2019-09-19 19:50] VITALS: BP 110/58
[2019-09-20] MEDS: CLINDAMYCIN 900 MG/D5% WATER 50 ML IV SCH ×3 (00:33→17:11)
[2019-09-20 04:15] VITALS: BP 108/56
[2019-09-20] MEDS: PANTOPRAZOLE SODIUM 40 MG DR TABLET PO SCH (07:46)
[2019-09-20] MEDS: OxyCODONE HCL/ACETAMINOPHEN 5-325 MG TABLET PO PRN ×2 (07:46→21:54)
[2019-09-20 07:47] VITALS: BP 151/83
[2019-09-20 08:20] LABS: BASOPHILS % (AUTO) 0.5 % (0.0-2.0); EOSINOPHILS % (AUTO) 4.6 % (1.0-6.0); HEMATOCRIT 42.1 % (41-53); HEMOGLOBIN 14.2 g/dL (13.5-17.5); LYMPHOCYTES # (AUTO) 2.1 K/uL (1.0-4.8); LYMPHOCYTES % (AUTO) 23.9 % (22.0-44.0); MEAN CORPUSCULAR HEMOGLOBIN 30.4 pg (26.0-34.0); MEAN CORPUSCULAR HGB CONC 33.7 G/dL (31.0-37.0); MEAN CORPUSCULAR VOLUME 90 fL (80-100); MONOCYTES # (AUTO) 1.2 K/uL (0.1-1.0); PLATELET COUNT (AUTO) 228 K/uL (150-450); RED BLOOD CELL COUNT(AUTO) 4.66 MIL/uL (4.50-5.90); RED CELL DISTRIBUTION WIDTH 14.5 % (11.5-14.5)
[2019-09-20 08:33] LABS: ANION GAP 8 mmol/L (8-16); CALCIUM, TOTAL 9.6 mg/dL (8.8-10.5); CARBON DIOXIDE 32 mmol/L (22-29); CHLORIDE 100 mmol/L (98-107); CREATININE 0.91 mg/dL (0.60-1.30); GLOMERULAR FILTR. RATE CALC > 60 mL/min (>60); GLUCOSE,RANDOM 101 mg/dL (70-110); POTASSIUM 4.2 mmol/L (3.5-5.1); SODIUM SERUM 140 mmol/L (136-145); UREA NITROGEN, BLOOD 14 mg/dL (7-18)
[2019-09-20] MEDS: QUEtiapine FUMARATE 200 MG TABLET PO SCH ×2 (10:19→21:42)
[2019-09-20 11:38] VITALS: BP 104/51
[2019-09-20 14:52] VITALS: BP 122/73
[2019-09-20] MEDS: SODIUM CHLORIDE 0.9% 1,000 ML IV SCH ×2 (15:12→23:03)
[2019-09-20] MEDS: LEVOFLOXACIN 750 MG/D5% WATER 150 ML IV SCH (15:12)
[2019-09-20 21:17] VITALS: BP 110/63
[2019-09-21] MEDS: CLINDAMYCIN 900 MG/D5% WATER 50 ML IV SCH ×3 (00:49→16:53)
[2019-09-21 04:04] VITALS: BP 123/69
[2019-09-21 07:24] VITALS: BP 117/74
[2019-09-21] MEDS: QUEtiapine FUMARATE 200 MG TABLET PO SCH ×2 (07:59→20:18)
[2019-09-21] MEDS: OxyCODONE HCL/ACETAMINOPHEN 5-325 MG TABLET PO PRN ×2 (07:59→16:53)
[2019-09-21] MEDS: PANTOPRAZOLE SODIUM 40 MG DR TABLET PO SCH (07:59)
[2019-09-21] MEDS: SODIUM CHLORIDE 0.9% 1,000 ML IV SCH ×2 (10:49→22:36)
[2019-09-21] MEDS: LEVOFLOXACIN 750 MG/D5% WATER 150 ML IV SCH (13:43)
[2019-09-21 19:55] VITALS: BP 106/55
[2019-09-22] MEDS: CLINDAMYCIN 900 MG/D5% WATER 50 ML IV SCH ×2 (01:37→08:26)
[2019-09-22 07:08] LABS: BASOPHILS % (AUTO) 0.4 % (0.0-2.0); EOSINOPHILS % (AUTO) 8.3 % (1.0-6.0); HEMATOCRIT 40.6 % (41-53); HEMOGLOBIN 13.7 g/dL (13.5-17.5); LYMPHOCYTES % (AUTO) 37.8 % (22.0-44.0); MEAN CORPUSCULAR HEMOGLOBIN 30.2 pg (26.0-34.0); MEAN CORPUSCULAR HGB CONC 33.8 G/dL (31.0-37.0); MEAN CORPUSCULAR VOLUME 89 fL (80-100); MONOCYTES # (AUTO) 0.6 K/uL (0.1-1.0); MONOCYTES % (AUTO) 11.8 % (2.0-9.0); NEUTROPHILS # (AUTO) 2.2 K/uL (1.8-7.7); NEUTROPHILS % (AUTO) 41.7 % (40.0-70.0); PLATELET COUNT (AUTO) 245 K/uL (150-450); RED BLOOD CELL COUNT(AUTO) 4.54 MIL/uL (4.50-5.90)
[2019-09-22 07:27] LABS: ALANINE AMINOTRANSFERASE 25 U/L (12-78); ALBUMIN 3.6 g/dL (3.4-5.0); ALKALINE PHOSPHATASE 80 U/L (46-116); ANION GAP 6 mmol/L (8-16); ASPARTATE AMINOTRANSFERASE 17 U/L (15-37); BILIRUBIN,TOTAL 0.3 mg/dL (0.1-1.0); C-REACTIVE PROTEIN QUANT 0.78 mg/dL (0.00-0.30); CALCIUM, TOTAL 9.4 mg/dL (8.8-10.5); CARBON DIOXIDE 30 mmol/L (22-29); CHLORIDE 103 mmol/L (98-107); CREATININE 1.04 mg/dL (0.60-1.30); GLOMERULAR FILTR. RATE CALC > 60 mL/min (>60); GLUCOSE,RANDOM 86 mg/dL (70-110); POTASSIUM 4.1 mmol/L (3.5-5.1); SODIUM SERUM 139 mmol/L (136-145); TOTAL PROTEIN, SERUM 7.3 g/dL (6.4-8.2); UREA NITROGEN, BLOOD 16 mg/dL (7-18)
[2019-09-22 08:24] VITALS: BP 109/66
[2019-09-22] MEDS: QUEtiapine FUMARATE 200 MG TABLET PO SCH ×2 (08:26→19:59)
[2019-09-22] MEDS: PANTOPRAZOLE SODIUM 40 MG DR TABLET PO SCH (08:26)
[2019-09-22] MEDS: LEVOFLOXACIN 750 MG/D5% WATER 150 ML IV SCH (14:20)
[2019-09-22] MEDS: CLINDAMYCIN HCL 150 MG CAPSULE PO SCH ×2 (14:59→23:28)
[2019-09-22] MEDS ORDERED: SODIUM CHLORIDE 0.9% 500 ML IV ONE (15:00)
[2019-09-22 15:07] VITALS: BP 117/59
[2019-09-22] MEDS: LORazepam 1 MG TABLET PO PRN (16:54)
[2019-09-22 19:32] VITALS: BP 115/58
[2019-09-22] MEDS: SODIUM CHLORIDE 0.9% 1,000 ML IV SCH (23:27)
[2019-09-22] MEDS: OxyCODONE HCL/ACETAMINOPHEN 5-325 MG TABLET PO PRN (23:32)
[2019-09-23] VITALS: BP 113/63
[2019-09-23] MEDS: LORazepam 1 MG TABLET PO PRN (00:07)
[2019-09-23 04:00] VITALS: BP 110/50
[2019-09-23 07:52] VITALS: BP 106/58
[2019-09-23] MEDS: CLINDAMYCIN HCL 150 MG CAPSULE PO SCH (08:13)
[2019-09-23] MEDS: PANTOPRAZOLE SODIUM 40 MG DR TABLET PO SCH (08:13)
[2019-09-23] MEDS: QUEtiapine FUMARATE 200 MG TABLET PO SCH (08:13)
[2019-09-23] MEDS ORDERED: LEVOFLOXACIN 750 MG TABLET PO SCH (09:00)
[2019-09-23 11:49] VITALS: BP 100/56
[2019-09-23] MEDS ORDERED: LEVO750T68 PO (12:59)
[2019-09-23] MEDS ORDERED: CLIN150C9 PO (12:59)
[2019-09-23] MEDS ORDERED: QUET200T PO (13:00)
== END 2019-09-23 14:00 | DRG 114 ==
LOC: EMS 00:21 → 6N 05:44
PROVIDERS: ADMIT Internal Medicine; ATTEND Internal Medicine
DX: K04.7 Periapical abscess without sinus (principal); F20.9 Schizophrenia, unspecified; M27.2 Inflammatory conditions of jaws; F31.9 Bipolar disorder, unspecified; Z88.0 Allergy status to penicillin; L03.211 Cellulitis of face; Z90.49 Acquired absence of other specified parts of digestive tract; Z20.828 Contact with and (suspected) exposure to other viral communicable diseases; K02.9 Dental caries, unspecified; F41.9 Anxiety disorder, unspecified; G43.909 Migraine, unspecified, not intractable, without status migrainosus; Z88.8 Allergy status to other drugs, medicaments and biological substances; Z91.041 Radiographic dye allergy status
CPT/HCPCS: 70491; 84145; 86140; 87040; 87081; 87804; 93005; J1200; J1956; J3490; J7030; J7040

== ENCOUNTER 2019-09-23 09:24 | Inpatient (IN) | payer MEDICAID ==
[~2019-09-23] VITALS: Ht 162.6 cm; Wt 75.7 kg
[2019-09-23] MEDS ORDERED: LEVO750T68 PO (12:59)
[2019-09-23] MEDS ORDERED: CLIN150C9 PO (12:59)
[2019-09-23] MEDS ORDERED: QUET200T PO (13:00)
[2019-09-23] MEDS ORDERED: ZOLPIDEM TARTRATE 10 MG TABLET PO PRN (14:45)
[2019-09-23 15:43] VITALS: BP 135/80
[2019-09-23 16:38] VITALS: BP 103/61
[2019-09-23 17:59] VITALS: BP 103/61
[2019-09-23] MEDS: QUEtiapine FUMARATE 200 MG TABLET PO SCH (21:46)
[2019-09-24 05:48] VITALS: BP 114/72
[2019-09-24] MEDS ORDERED: ALBUTEROL SULFATE HFA 90 MCG/PUFF 8 GM INHALER IH PRN (07:00)
[2019-09-24] MEDS ORDERED: CloNIDine HCL 0.1 MG TABLET PO PRN (07:00)
[2019-09-24] MEDS ORDERED: OMEPRAZOLE 20 MG CAPSULE PO PRN (07:00)
[2019-09-24] MEDS ORDERED: BENZOCAINE/MENTHOL LOZENGE MM PRN (07:00)
[2019-09-24] MEDS ORDERED: DOCUSATE SODIUM 100 MG CAPSULE PO PRN (07:00)
[2019-09-24] MEDS ORDERED: LOPERAMIDE HCL 2 MG CAPSULE PO PRN (07:00)
[2019-09-24] MEDS ORDERED: MAGNESIUM HYDROXIDE SUSPENSION 30 ML UDCUP PO PRN (07:00)
[2019-09-24] MEDS ORDERED: PETROLATUM,WHITE 28 GM JELLY TP PRN (07:00)
[2019-09-24] MEDS ORDERED: CHLORHEXIDINE GLUCONATE 0.12% 15 ML UDCUP ORAL RINSE PO PRN (07:00)
[2019-09-24] MEDS ORDERED: BACITRACIN 28.4 GM OINTMENT TP PRN (07:00)
[2019-09-24] MEDS ORDERED: ONDANSETRON HCL 4 MG TABLET PO PRN (07:00)
[2019-09-24] MEDS ORDERED: MAG HYDROX/AL HYDROX/SIMETH ES 30 ML SUSPENSION UDCUP PO PRN (07:00)
[2019-09-24] MEDS: LEVOFLOXACIN 750 MG TABLET PO SCH ×2 (08:58→14:52)
[2019-09-24] MEDS: CLINDAMYCIN HCL 150 MG CAPSULE PO SCH ×3 (08:58→16:30)
[2019-09-24] MEDS: QUEtiapine FUMARATE 200 MG TABLET PO SCH ×2 (08:58→20:25)
[2019-09-24 09:17] VITALS: BP 91/52
[2019-09-24 16:20] VITALS: BP 130/74
[2019-09-24] MEDS: LORazepam 2 MG TABLET PO PRN ×2 (17:12→23:16)
[2019-09-25 00:10] VITALS: BP 128/74
[2019-09-25] MEDS: CLINDAMYCIN HCL 150 MG CAPSULE PO SCH ×3 (08:56→16:08)
[2019-09-25] MEDS: QUEtiapine FUMARATE 200 MG TABLET PO SCH ×2 (08:56→20:47)
[2019-09-25] MEDS: LEVOFLOXACIN 750 MG TABLET PO SCH (08:56)
[2019-09-25] MEDS: LORazepam 2 MG TABLET PO PRN ×2 (08:57→16:08)
[2019-09-25 09:11] VITALS: BP 112/60
[2019-09-25 16:09] VITALS: BP 111/60
[2019-09-26 01:07] VITALS: BP 127/76
[2019-09-26 08:11] VITALS: BP 100/60
[2019-09-26] MEDS: LEVOFLOXACIN 750 MG TABLET PO SCH (08:17)
[2019-09-26] MEDS: CLINDAMYCIN HCL 150 MG CAPSULE PO SCH ×3 (08:17→16:02)
[2019-09-26] MEDS: QUEtiapine FUMARATE 200 MG TABLET PO SCH ×2 (08:17→20:20)
[2019-09-26 16:10] VITALS: BP 125/73
[2019-09-26] MEDS: QUEtiapine FUMARATE 100 MG TABLET PO PRN (20:20)
[2019-09-26 20:44] VITALS: BP 118/74
[2019-09-26] MEDS: IBUPROFEN 600 MG TABLET PO PRN (20:44)
[2019-09-27 00:41] VITALS: BP 119/82
[2019-09-27 08:07] VITALS: BP 108/66
[2019-09-27] MEDS: LEVOFLOXACIN 750 MG TABLET PO SCH (08:09)
[2019-09-27] MEDS: QUEtiapine FUMARATE 200 MG TABLET PO SCH ×2 (08:09→20:16)
[2019-09-27] MEDS: CLINDAMYCIN HCL 150 MG CAPSULE PO SCH ×3 (08:09→16:03)
[2019-09-27] MEDS: QUEtiapine FUMARATE 100 MG TABLET PO PRN ×2 (12:29→19:52)
[2019-09-27] MEDS: LORazepam 2 MG TABLET PO PRN ×2 (16:03→20:38)
[2019-09-27 16:17] VITALS: BP 110/66
[2019-09-28 05:47] VITALS: BP 124/76
[2019-09-28] MEDS: CLINDAMYCIN HCL 150 MG CAPSULE PO SCH ×3 (08:03→16:38)
[2019-09-28] MEDS: LEVOFLOXACIN 750 MG TABLET PO SCH (08:03)
[2019-09-28] MEDS: QUEtiapine FUMARATE 200 MG TABLET PO SCH ×2 (08:03→20:05)
[2019-09-28 08:09] VITALS: BP 106/73
[2019-09-28 16:10] VITALS: BP 129/85
[2019-09-28] MEDS: ClonazePAM 0.5 MG TABLET PO SCH (20:05)
[2019-09-28] MEDS: QUEtiapine FUMARATE 100 MG TABLET PO PRN (22:30)
[2019-09-29 00:08] VITALS: BP 108/84
[2019-09-29 08:23] VITALS: BP 109/72
[2019-09-29] MEDS: LEVOFLOXACIN 750 MG TABLET PO SCH (09:13)
[2019-09-29] MEDS: QUEtiapine FUMARATE 200 MG TABLET PO SCH ×2 (09:13→20:35)
[2019-09-29] MEDS: CLINDAMYCIN HCL 150 MG CAPSULE PO SCH ×3 (09:13→16:27)
[2019-09-29 16:07] VITALS: BP 127/93
[2019-09-29] MEDS: ClonazePAM 0.5 MG TABLET PO SCH (20:34)
[2019-09-30 04:10] VITALS: BP 111/66
[2019-09-30] MEDS: LEVOFLOXACIN 750 MG TABLET PO SCH (08:35)
[2019-09-30] MEDS: QUEtiapine FUMARATE 200 MG TABLET PO SCH ×2 (08:36→20:19)
[2019-09-30] MEDS: CLINDAMYCIN HCL 150 MG CAPSULE PO SCH ×3 (08:36→16:13)
[2019-09-30 08:50] VITALS: BP 126/63
[2019-09-30] MEDS: QUEtiapine FUMARATE 100 MG TABLET PO PRN (13:33)
[2019-09-30 16:52] VITALS: BP 138/77
[2019-09-30 19:20] VITALS: BP 128/76
[2019-09-30] MEDS: IBUPROFEN 600 MG TABLET PO PRN (19:20)
[2019-09-30] MEDS: ClonazePAM 0.5 MG TABLET PO SCH (20:19)
[2019-10-01 05:27] VITALS: BP 121/72
[2019-10-01] MEDS: CLINDAMYCIN HCL 150 MG CAPSULE PO SCH ×3 (08:19→16:23)
[2019-10-01] MEDS: QUEtiapine FUMARATE 100 MG TABLET PO PRN ×2 (08:20→10:06)
[2019-10-01] MEDS: QUEtiapine FUMARATE 200 MG TABLET PO SCH ×2 (08:37→20:43)
[2019-10-01 09:22] VITALS: BP 114/63
[2019-10-01] MEDS: LORazepam 2 MG TABLET PO PRN (16:24)
[2019-10-01 16:32] VITALS: BP 141/89
[2019-10-01] MEDS: ClonazePAM 0.5 MG TABLET PO SCH (20:43)
[2019-10-02 05:29] VITALS: BP 110/35
[2019-10-02 08:25] VITALS: BP 114/65
[2019-10-02] MEDS: CLINDAMYCIN HCL 150 MG CAPSULE PO SCH ×3 (08:29→16:42)
[2019-10-02] MEDS: QUEtiapine FUMARATE 200 MG TABLET PO SCH ×2 (08:31→20:36)
[2019-10-02] MEDS: QUEtiapine FUMARATE 100 MG TABLET PO PRN (13:38)
[2019-10-02 16:20] VITALS: BP 131/82
[2019-10-02] MEDS: ClonazePAM 0.5 MG TABLET PO SCH (20:36)
[2019-10-03] MEDS: ACETAMINOPHEN 325 MG TABLET PO PRN (00:22)
[2019-10-03] MEDS: QUEtiapine FUMARATE 100 MG TABLET PO PRN (00:22)
[2019-10-03 00:27] VITALS: BP 127/82
[2019-10-03] MEDS: QUEtiapine FUMARATE 200 MG TABLET PO SCH ×2 (08:02→20:50)
[2019-10-03] MEDS: CLINDAMYCIN HCL 150 MG CAPSULE PO SCH ×3 (08:02→16:49)
[2019-10-03 08:06] VITALS: BP 117/60
[2019-10-03 16:04] VITALS: BP 125/73
[2019-10-03] MEDS: LORazepam 2 MG TABLET PO PRN (16:49)
[2019-10-04 05:00] VITALS: BP 121/70
[2019-10-04 08:22] VITALS: BP 119/72
[2019-10-04] MEDS: QUEtiapine FUMARATE 200 MG TABLET PO SCH ×2 (08:48→20:50)
[2019-10-04] MEDS: IBUPROFEN 600 MG TABLET PO PRN (13:23)
[2019-10-04 16:22] VITALS: BP 126/77
[2019-10-05] MEDS: QUEtiapine FUMARATE 100 MG TABLET PO PRN ×2 (04:23→13:25)
[2019-10-05 05:53] VITALS: BP 132/74
[2019-10-05 08:20] VITALS: BP 131/80
[2019-10-05] MEDS: QUEtiapine FUMARATE 200 MG TABLET PO SCH ×2 (08:27→20:08)
[2019-10-05 21:12] VITALS: BP 113/63
[2019-10-06 05:58] VITALS: BP 116/86
[2019-10-06] MEDS: QUEtiapine FUMARATE 200 MG TABLET PO SCH ×2 (08:01→20:09)
[2019-10-06 08:37] VITALS: BP 119/71
[2019-10-06 16:04] VITALS: BP 112/67
[2019-10-06] MEDS: LORazepam 2 MG TABLET PO PRN (16:47)
[2019-10-06] MEDS: QUEtiapine FUMARATE 100 MG TABLET PO PRN (17:13)
[2019-10-06] MEDS: IBUPROFEN 600 MG TABLET PO PRN (19:36)
[2019-10-07 00:55] VITALS: BP 105/60
[2019-10-07 06:55] LABS: HEMATOCRIT 40.1 % (41-53); HEMOGLOBIN 13.6 g/dL (13.5-17.5); MEAN CORPUSCULAR HEMOGLOBIN 30.4 pg (26.0-34.0); MEAN CORPUSCULAR VOLUME 89 fL (80-100); PLATELET COUNT (AUTO) 209 K/uL (150-450); RED BLOOD CELL COUNT(AUTO) 4.49 MIL/uL (4.50-5.90); RED CELL DISTRIBUTION WIDTH 14.2 % (11.5-14.5)
[2019-10-07 07:24] LABS: ANION GAP 11 mmol/L (8-16); CARBON DIOXIDE 25 mmol/L (22-29); CHLORIDE 106 mmol/L (98-107); CREATININE 0.79 mg/dL (0.60-1.30); GLOMERULAR FILTR. RATE CALC > 60 mL/min (>60); GLUCOSE,RANDOM 93 mg/dL (70-110); PHOSPHORUS 4.5 mg/dL (2.5-4.9); POTASSIUM 4.5 mmol/L (3.5-5.1); SODIUM SERUM 142 mmol/L (136-145); UREA NITROGEN, BLOOD 12 mg/dL (7-18)
[2019-10-07 08:03] VITALS: BP 112/70
[2019-10-07] MEDS: QUEtiapine FUMARATE 100 MG TABLET PO PRN ×3 (08:07→17:41)
[2019-10-07] MEDS: QUEtiapine FUMARATE 200 MG TABLET PO SCH ×2 (08:33→20:11)
[2019-10-07 12:33] LABS: BAND NEUTROPHILS % (MANUAL) 3 % (0-5); BASOPHILS % (MANUAL) 1 % (0-2); EOSINOPHILS % (MANUAL) 5 % (1-6); LYMPHOCYTES % (MANUAL) 39 % (22-44); MONOCYTES % (MANUAL) 12 % (2-9); SEGMENTED NEUTROPHILS % 40 % (40-70)
[2019-10-07 16:03] VITALS: BP 136/69
[2019-10-07] MEDS: LORazepam 2 MG TABLET PO PRN (17:41)
[2019-10-08 04:10] VITALS: BP 128/75
[2019-10-08] MEDS: QUEtiapine FUMARATE 200 MG TABLET PO SCH ×2 (08:00→22:21)
[2019-10-08 08:03] VITALS: BP 139/75
[2019-10-08 16:04] VITALS: BP 138/87
[2019-10-09 05:23] VITALS: BP 125/76
[2019-10-09 08:14] VITALS: BP 108/72
[2019-10-09] MEDS: QUEtiapine FUMARATE 200 MG TABLET PO SCH ×2 (08:30→20:25)
[2019-10-09 16:12] VITALS: BP 112/76
[2019-10-09] MEDS: IBUPROFEN 600 MG TABLET PO PRN (16:31)
[2019-10-09] MEDS: LORazepam 2 MG TABLET PO PRN (16:32)
[2019-10-09] MEDS: QUEtiapine FUMARATE 100 MG TABLET PO PRN (17:52)
[2019-10-10] MEDS: QUEtiapine FUMARATE 200 MG TABLET PO SCH ×2 (08:10→20:17)
[2019-10-10] MEDS: QUEtiapine FUMARATE 100 MG TABLET PO PRN (14:54)
[2019-10-10 16:05] VITALS: BP 116/68
[2019-10-10] MEDS: ACETAMINOPHEN 325 MG TABLET PO PRN (18:56)
[2019-10-11 00:23] VITALS: BP 121/78
[2019-10-11] MEDS: QUEtiapine FUMARATE 200 MG TABLET PO SCH ×2 (07:59→20:09)
[2019-10-11 08:42] VITALS: BP 128/75
[2019-10-11] MEDS: QUEtiapine FUMARATE 100 MG TABLET PO PRN ×2 (13:07→17:28)
[2019-10-11 17:04] VITALS: BP 118/78
[2019-10-12 06:10] VITALS: BP 122/70
[2019-10-12 06:41] VITALS: BP 120/70
[2019-10-12] MEDS: QUEtiapine FUMARATE 100 MG TABLET PO PRN (07:58)
[2019-10-12 08:07] VITALS: BP 120/73
[2019-10-12] MEDS: QUEtiapine FUMARATE 200 MG TABLET PO SCH ×2 (09:05→20:26)
[2019-10-12 16:42] VITALS: BP 122/69
[2019-10-13 05:32] VITALS: BP 124/76
[2019-10-13 08:05] VITALS: BP 111/78
[2019-10-13] MEDS: QUEtiapine FUMARATE 200 MG TABLET PO SCH ×2 (08:37→20:29)
[2019-10-13] MEDS: IBUPROFEN 600 MG TABLET PO PRN (08:37)
[2019-10-13 16:12] VITALS: BP 134/86
[2019-10-14 08:14] VITALS: BP 132/66
[2019-10-14] MEDS: QUEtiapine FUMARATE 200 MG TABLET PO SCH ×2 (08:34→20:50)
[2019-10-14] MEDS: IBUPROFEN 600 MG TABLET PO PRN (16:03)
[2019-10-14 16:04] VITALS: BP 121/69
[2019-10-14] MEDS: QUEtiapine FUMARATE 100 MG TABLET PO PRN (21:48)
[2019-10-15 05:39] VITALS: BP 137/78
[2019-10-15 08:15] VITALS: BP 127/73
[2019-10-15] MEDS: QUEtiapine FUMARATE 200 MG TABLET PO SCH ×2 (08:24→20:27)
[2019-10-15] MEDS: QUEtiapine FUMARATE 100 MG TABLET PO PRN ×2 (13:23→17:28)
[2019-10-15] MEDS: ACETAMINOPHEN 325 MG TABLET PO PRN (13:23)
[2019-10-15 16:04] VITALS: BP 140/75
[2019-10-16 05:36] VITALS: BP 110/62
[2019-10-16] MEDS: QUEtiapine FUMARATE 200 MG TABLET PO SCH ×2 (08:31→20:29)
[2019-10-16 16:04] VITALS: BP 128/71
[2019-10-17 01:12] VITALS: BP 118/78
[2019-10-17 08:05] VITALS: BP 127/67
[2019-10-17] MEDS: QUEtiapine FUMARATE 200 MG TABLET PO SCH ×2 (08:39→20:30)
[2019-10-17] MEDS: QUEtiapine FUMARATE 100 MG TABLET PO PRN (16:06)
[2019-10-17 17:38] VITALS: BP 121/74
[2019-10-18 05:48] VITALS: BP 122/78
[2019-10-18 08:11] VITALS: BP 132/68
[2019-10-18] MEDS: QUEtiapine FUMARATE 200 MG TABLET PO SCH ×2 (08:40→20:18)
[2019-10-18 16:07] VITALS: BP 117/72
[2019-10-18] MEDS: QUEtiapine FUMARATE 100 MG TABLET PO PRN (21:07)
[2019-10-19 05:42] VITALS: BP 116/84
[2019-10-19] MEDS: QUEtiapine FUMARATE 200 MG TABLET PO SCH ×2 (08:20→21:48)
[2019-10-19 08:58] VITALS: BP 127/70
[2019-10-19 20:06] VITALS: BP 128/81
[2019-10-19] MEDS: QUEtiapine FUMARATE 100 MG TABLET PO PRN (20:52)
[2019-10-20 01:55] VITALS: BP 122/78
[2019-10-20] MEDS: QUEtiapine FUMARATE 100 MG TABLET PO PRN (08:03)
[2019-10-20 08:12] VITALS: BP 116/68
[2019-10-20] MEDS: QUEtiapine FUMARATE 200 MG TABLET PO SCH ×2 (09:14→20:39)
[2019-10-20 16:06] VITALS: BP 132/71
[2019-10-20] MEDS ORDERED: LORazepam 2 MG/ML VIAL ONE (20:28)
[2019-10-20] MEDS ORDERED: DiphenhydrAMINE HCL 50 MG/ML VIAL ONE (20:29)
[2019-10-20] MEDS ORDERED: ZIPRASIDONE MESYLATE 20 MG/VIAL IM PRN (20:30)
[2019-10-20] MEDS ORDERED: DiphenhydrAMINE HCL 50 MG/ML VIAL IM ONE (20:30)
[2019-10-20] MEDS ORDERED: LORazepam 2 MG/ML VIAL IM ONE (20:30)
[2019-10-20] MEDS ORDERED: ZIPRASIDONE MESYLATE 20 MG/VIAL IM ONE (20:31)
[2019-10-21 06:19] VITALS: BP 116/63
[2019-10-21 08:09] VITALS: BP 128/56
[2019-10-21] MEDS: QUEtiapine FUMARATE 200 MG TABLET PO SCH (09:11)
[2019-10-21] MEDS: QUEtiapine FUMARATE 100 MG TABLET PO PRN (11:01)
[2019-10-21 16:03] VITALS: BP 115/69
[2019-10-21] MEDS: ACETAMINOPHEN 325 MG TABLET PO PRN (16:49)
[2019-10-21] MEDS: IBUPROFEN 600 MG TABLET PO PRN (18:36)
[2019-10-21] MEDS: RisperiDONE CONC 2 MG/2 ML SOLUTION ORAL.SYG PO SCH (20:23)
[2019-10-21] MEDS: ChlorproMAZINE HCL 25 MG/ML 2 ML AMP IM PRN (21:28)
[2019-10-22 00:02] VITALS: BP 121/68
[2019-10-22] MEDS: RisperiDONE CONC 2 MG/2 ML SOLUTION ORAL.SYG PO SCH ×2 (09:00→20:17)
[2019-10-22] MEDS: ChlorproMAZINE HCL 25 MG/ML 2 ML AMP IM PRN (09:25)
[2019-10-22 16:03] VITALS: BP 122/78
[2019-10-23 04:20] VITALS: BP 139/79
[2019-10-23 08:00] VITALS: BP_SYST 101; BP_SYST 125; BP_DIAS 71; BP_DIAS 76
[2019-10-23] MEDS: RisperiDONE CONC 2 MG/2 ML SOLUTION ORAL.SYG PO SCH ×2 (09:37→20:24)
[2019-10-23] MEDS: IBUPROFEN 600 MG TABLET PO PRN (14:09)
[2019-10-23 16:04] VITALS: BP 120/80
[2019-10-24 01:00] VITALS: BP 121/73
[2019-10-24 08:14] VITALS: BP 106/50
[2019-10-24] MEDS: RisperiDONE CONC 2 MG/2 ML SOLUTION ORAL.SYG PO SCH ×2 (08:57→21:45)
[2019-10-24 16:04] VITALS: BP 113/76
[2019-10-25 00:30] VITALS: BP 114/74
[2019-10-25 08:19] VITALS: BP 120/71
[2019-10-25] MEDS: RisperiDONE CONC 2 MG/2 ML SOLUTION ORAL.SYG PO SCH ×2 (08:31→20:29)
[2019-10-26] MEDS: RisperiDONE CONC 2 MG/2 ML SOLUTION ORAL.SYG PO SCH ×2 (08:12→20:10)
[2019-10-26 08:33] VITALS: BP 119/67
[2019-10-26] MEDS: IBUPROFEN 600 MG TABLET PO PRN ×2 (12:24→22:02)
[2019-10-26 13:24] VITALS: BP 126/82
[2019-10-26 16:04] VITALS: BP 119/72
[2019-10-26 16:55] LABS: GLUCOMETER DEV NAME(LOC) BV3N.; GLUCOSE,POINT OF CARE 142 MG/DL (70-110)
[2019-10-27 06:18] VITALS: BP 118/65
[2019-10-27 08:14] VITALS: BP 117/82
[2019-10-27] MEDS: RisperiDONE CONC 2 MG/2 ML SOLUTION ORAL.SYG PO SCH ×2 (09:54→20:18)
[2019-10-27] MEDS ORDERED: ONDANSETRON HCL 4 MG/2 ML VIAL IM ONE (11:00)
[2019-10-27 13:27] VITALS: BP 127/80
[2019-10-27] MEDS: ACETAMINOPHEN 325 MG TABLET PO PRN ×2 (13:30→18:25)
[2019-10-27 16:04] VITALS: BP 116/77
[2019-10-27 18:15] VITALS: BP 136/79
[2019-10-28 01:18] VITALS: BP 110/72
[2019-10-28 07:44] LABS: BASOPHILS % (AUTO) 0.7 % (0.0-2.0); EOSINOPHILS % (AUTO) 6.9 % (1.0-6.0); HEMATOCRIT 38.1 % (41-53); LYMPHOCYTES # (AUTO) 2.1 K/uL (1.0-4.8); LYMPHOCYTES % (AUTO) 36.8 % (22.0-44.0); MEAN CORPUSCULAR HEMOGLOBIN 30.2 pg (26.0-34.0); MEAN CORPUSCULAR VOLUME 89 fL (80-100); MONOCYTES # (AUTO) 0.8 K/uL (0.1-1.0); MONOCYTES % (AUTO) 13.5 % (2.0-9.0); NEUTROPHILS # (AUTO) 2.4 K/uL (1.8-7.7); NEUTROPHILS % (AUTO) 42.1 % (40.0-70.0); PLATELET COUNT (AUTO) 220 K/uL (150-450)
[2019-10-28 08:00] LABS: ALANINE AMINOTRANSFERASE 21 U/L (12-78); ALBUMIN 3.8 g/dL (3.4-5.0); ALKALINE PHOSPHATASE 96 U/L (46-116); ANION GAP 12 mmol/L (8-16); ASPARTATE AMINOTRANSFERASE 20 U/L (15-37); BILIRUBIN,TOTAL 0.2 mg/dL (0.1-1.0); CALCIUM, TOTAL 8.4 mg/dL (8.8-10.5); CARBON DIOXIDE 27 mmol/L (22-29); CHLORIDE 105 mmol/L (98-107); CREATININE 0.85 mg/dL (0.60-1.30); GLOMERULAR FILTR. RATE CALC > 60 mL/min (>60); GLUCOSE,RANDOM 90 mg/dL (70-110); LIPASE 171 U/L (73-393); POTASSIUM 3.7 mmol/L (3.5-5.1); SODIUM SERUM 144 mmol/L (136-145); TOTAL PROTEIN, SERUM 7.2 g/dL (6.4-8.2); UREA NITROGEN, BLOOD 10 mg/dL (7-18)
[2019-10-28 08:03] VITALS: BP 129/75
[2019-10-28] MEDS: RisperiDONE CONC 2 MG/2 ML SOLUTION ORAL.SYG PO SCH ×2 (08:22→21:24)
[2019-10-28 16:20] VITALS: BP 129/81
[2019-10-28] MEDS: ACETAMINOPHEN 325 MG TABLET PO PRN (17:15)
[2019-10-28] MEDS: IBUPROFEN 600 MG TABLET PO PRN (22:17)
[2019-10-29 06:16] VITALS: BP 110/68
[2019-10-29 09:03] VITALS: BP 112/71
[2019-10-29] MEDS: RisperiDONE CONC 2 MG/2 ML SOLUTION ORAL.SYG PO SCH ×2 (09:19→20:09)
[2019-10-29 16:13] VITALS: BP 122/76
[2019-10-29] MEDS: IBUPROFEN 600 MG TABLET PO PRN (19:45)
[2019-10-30 08:11] VITALS: BP 109/62
[2019-10-30] MEDS: RisperiDONE CONC 2 MG/2 ML SOLUTION ORAL.SYG PO SCH ×2 (08:21→20:16)
[2019-10-30 16:19] VITALS: BP 114/73
[2019-10-30] MEDS: IBUPROFEN 600 MG TABLET PO PRN (17:52)
[2019-10-31] MEDS: RisperiDONE CONC 2 MG/2 ML SOLUTION ORAL.SYG PO SCH ×2 (08:17→20:15)
[2019-10-31 08:22] VITALS: BP 136/81
[2019-10-31 16:06] VITALS: BP 109/67
[2019-11-01 00:43] VITALS: BP 112/72
[2019-11-01] MEDS: RisperiDONE CONC 2 MG/2 ML SOLUTION ORAL.SYG PO SCH ×2 (08:27→20:25)
[2019-11-01 09:39] VITALS: BP 108/63
[2019-11-01 16:04] VITALS: BP 118/70
[2019-11-02 05:54] VITALS: BP 113/73
[2019-11-02 08:04] VITALS: BP 100/55
[2019-11-02] MEDS: RisperiDONE CONC 2 MG/2 ML SOLUTION ORAL.SYG PO SCH ×2 (09:24→20:42)
[2019-11-02] MEDS: ACETAMINOPHEN 325 MG TABLET PO PRN (14:03)
[2019-11-02 14:05] VITALS: BP 128/68
[2019-11-02 16:04] VITALS: BP 109/64
[2019-11-03 08:06] VITALS: BP 118/66
[2019-11-03] MEDS: RisperiDONE CONC 2 MG/2 ML SOLUTION ORAL.SYG PO SCH ×2 (10:34→20:06)
[2019-11-03 16:06] VITALS: BP 136/76
[2019-11-04 01:12] VITALS: BP 122/68
[2019-11-04 08:25] VITALS: BP 136/78
[2019-11-04] MEDS: RisperiDONE CONC 2 MG/2 ML SOLUTION ORAL.SYG PO SCH ×2 (09:20→20:08)
[2019-11-04 16:06] VITALS: BP 137/75
[2019-11-05 04:33] VITALS: BP 126/70
[2019-11-05 08:38] VITALS: BP 125/73
[2019-11-05] MEDS: RisperiDONE CONC 2 MG/2 ML SOLUTION ORAL.SYG PO SCH ×2 (08:48→20:10)
[2019-11-05 16:22] VITALS: BP 138/70
[2019-11-06 05:24] VITALS: BP 111/84
[2019-11-06 08:17] VITALS: BP 116/73
[2019-11-06] MEDS: RisperiDONE CONC 2 MG/2 ML SOLUTION ORAL.SYG PO SCH ×2 (08:19→20:01)
[2019-11-06 16:03] VITALS: BP 115/66
[2019-11-07 00:23] VITALS: BP 121/74
[2019-11-07 08:24] VITALS: BP 117/67
[2019-11-07] MEDS: RisperiDONE CONC 2 MG/2 ML SOLUTION ORAL.SYG PO SCH ×2 (09:20→21:07)
[2019-11-07 16:37] VITALS: BP 113/75
[2019-11-07] MEDS: ACETAMINOPHEN 325 MG TABLET PO PRN (19:21)
[2019-11-08 04:20] VITALS: BP 117/80
[2019-11-08 08:10] VITALS: BP 101/63
[2019-11-08] MEDS: RisperiDONE CONC 2 MG/2 ML SOLUTION ORAL.SYG PO SCH ×2 (09:17→20:28)
[2019-11-08 16:15] VITALS: BP 121/74
[2019-11-09 00:05] VITALS: BP 118/80
[2019-11-09 08:11] VITALS: BP 116/70
[2019-11-09] MEDS: RisperiDONE CONC 2 MG/2 ML SOLUTION ORAL.SYG PO SCH ×2 (08:20→20:16)
[2019-11-09 16:02] VITALS: BP 126/68
[2019-11-10 01:41] VITALS: BP 124/94
[2019-11-10 08:07] VITALS: BP 119/63
[2019-11-10] MEDS: RisperiDONE CONC 2 MG/2 ML SOLUTION ORAL.SYG PO SCH ×2 (08:40→20:42)
[2019-11-10 16:19] VITALS: BP 118/70
[2019-11-10] MEDS ORDERED: RISP2L PO (20:45)
[2019-11-11 04:13] VITALS: BP 114/68
[2019-11-11] MEDS: RisperiDONE CONC 2 MG/2 ML SOLUTION ORAL.SYG PO SCH (08:34)
== END 2019-11-11 10:35 | DRG 885 ==
LOC: B3A 15:35
PROVIDERS: ADMIT Psychiatry & Neurology Child & Adolescent Psychiatry; ATTEND Psychiatry & Neurology Psychiatry
DX: F20.0 Paranoid schizophrenia (principal); G47.00 Insomnia, unspecified; K59.00 Constipation, unspecified; F41.9 Anxiety disorder, unspecified; Z72.0 Tobacco use; F19.10 Other psychoactive substance abuse, uncomplicated; Z20.828 Contact with and (suspected) exposure to other viral communicable diseases; Z59.0 Homelessness; Z91.14 Patient's other noncompliance with medication regimen
CPT/HCPCS: 70450; 83735; 84100; 85007; 87081; J1200; J2060; J2405; J3230; J3486; Q0162

== ENCOUNTER 2019-10-26 17:21 | Emergency (ER) | payer MEDICAID, OTHER ==
[~2019-10-26 17:21] MED LIST changes: -BENZ2TAB10 PO; +CLIN150C9 PO; -HALO100V4 IM; +LEVO750T68 PO; -QUET25TA PO
== END 2019-10-26 18:30 | disposition left against medical advice (07) ==
LOC: EMS 17:23
DX: Z03.89 Encounter for observation for other suspected diseases and conditions ruled out (principal); Z53.21 Procedure and treatment not carried out due to patient leaving prior to being seen by health care provider

== ENCOUNTER 2019-12-27 17:00 | Inpatient (IN) | payer MEDICAID, OTHER ==
[~2019-12-27] VITALS: Ht 170.2 cm; Wt 65.8 kg
[~2019-12-27 17:00] MED LIST changes: -CLIN150C9 PO; -LEVO750T68 PO; -QUET200T PO; +RISP2L PO
[2019-12-27 18:30] LABS: BASOPHILS % (AUTO) 0.3 % (0.0-2.0); EOSINOPHILS % (AUTO) 4.6 % (1.0-6.0); HEMATOCRIT 40.5 % (41-53); HEMOGLOBIN 13.6 g/dL (13.5-17.5); LYMPHOCYTES # (AUTO) 2.6 K/uL (1.0-4.8); LYMPHOCYTES % (AUTO) 31.8 % (22.0-44.0); MEAN CORPUSCULAR HEMOGLOBIN 29.8 pg (26.0-34.0); MEAN CORPUSCULAR HGB CONC 33.6 G/dL (31.0-37.0); MEAN CORPUSCULAR VOLUME 89 fL (80-100); MONOCYTES # (AUTO) 0.8 K/uL (0.1-1.0); MONOCYTES % (AUTO) 10.3 % (2.0-9.0); NEUTROPHILS # (AUTO) 4.4 K/uL (1.8-7.7); PLATELET COUNT (AUTO) 235 K/uL (150-450); RED BLOOD CELL COUNT(AUTO) 4.57 MIL/uL (4.50-5.90); RED CELL DISTRIBUTION WIDTH 13.2 % (11.5-14.5)
[2019-12-27 18:42] LABS: ALANINE AMINOTRANSFERASE 59 U/L (12-78); ALKALINE PHOSPHATASE 85 U/L (46-116); ASPARTATE AMINOTRANSFERASE 65 U/L (15-37); BILIRUBIN,TOTAL 0.3 mg/dL (0.1-1.0); CALCIUM, TOTAL 9.3 mg/dL (8.8-10.5); CARBON DIOXIDE 30 mmol/L (22-29); CREATININE 0.94 mg/dL (0.60-1.30); GLOMERULAR FILTR. RATE CALC > 60 mL/min (>60); GLUCOSE,RANDOM 106 mg/dL (70-110); TOTAL PROTEIN, SERUM 7.4 g/dL (6.4-8.2); UREA NITROGEN, BLOOD 7 mg/dL (7-18)
[2019-12-27] MEDS: HALOPERIDOL 5 MG TABLET PO ONE ×2 (18:45→18:54)
[2019-12-27] MEDS: LORazepam 2 MG TABLET PO ONE ×2 (18:45→18:53)
[2019-12-27 18:48] LABS: ANION GAP 6 mmol/L (8-16); CHLORIDE 100 mmol/L (98-107); POTASSIUM 3.9 mmol/L (3.5-5.1); SODIUM SERUM 136 mmol/L (136-145)
[2019-12-27 19:47] LABS: AMPHET/METH SCREEN,URINE NEGATIVE (NEGATIVE); BARBITURATE SCREEN, URINE NEGATIVE (NEGATIVE); BENZODIAZEPINES SCREEN,URINE NEGATIVE (NEGATIVE); CANNABINOID SCREEN,URINE POSITIVE (NEGATIVE); COCAINE SCREEN,URINE NEGATIVE (NEGATIVE); METHADONE SCREEN, URINE NEGATIVE (NEGATIVE); OPIATE SCREEN,URINE NEGATIVE (NEGATIVE)
[2019-12-27 19:53] LABS: PHENCYCLIDINE SCREEN,URINE NEGATIVE (NEGATIVE)
[2019-12-27] MEDS ORDERED: ZOLPIDEM TARTRATE 10 MG TABLET PO PRN (21:00)
[2019-12-27] MEDS ORDERED: HALOPERIDOL 5 MG TABLET PO PRN (21:00)
[2019-12-27] MEDS ORDERED: ACETAMINOPHEN 500 MG TABLET PO ONE (21:00)
[2019-12-28 02:15] VITALS: BP 117/78
[2019-12-28 08:18] LABS: CHOL/HDL RATIO 3.1 (4.2-7.3)
[2019-12-28] MEDS ORDERED: OMEPRAZOLE 20 MG CAPSULE PO PRN (08:30)
[2019-12-28] MEDS ORDERED: PETROLATUM,WHITE 28 GM JELLY TP PRN (08:30)
[2019-12-28] MEDS ORDERED: ALBUTEROL SULFATE HFA 90 MCG/PUFF 8 GM INHALER IH PRN (08:30)
[2019-12-28] MEDS ORDERED: LOPERAMIDE HCL 2 MG CAPSULE PO PRN (08:30)
[2019-12-28] MEDS ORDERED: MAGNESIUM HYDROXIDE SUSPENSION 30 ML UDCUP PO PRN (08:30)
[2019-12-28] MEDS ORDERED: CloNIDine HCL 0.1 MG TABLET PO PRN (08:30)
[2019-12-28] MEDS ORDERED: MAG HYDROX/AL HYDROX/SIMETH ES 30 ML SUSPENSION UDCUP PO PRN (08:30)
[2019-12-28] MEDS ORDERED: IBUPROFEN 600 MG TABLET PO PRN (08:30)
[2019-12-28] MEDS ORDERED: BENZOCAINE/MENTHOL LOZENGE PO PRN (08:30)
[2019-12-28] MEDS ORDERED: DOCUSATE SODIUM 100 MG CAPSULE PO PRN (08:30)
[2019-12-28] MEDS ORDERED: ACETAMINOPHEN 325 MG TABLET PO PRN (08:30)
[2019-12-28] MEDS ORDERED: ONDANSETRON HCL 4 MG TABLET PO PRN (08:30)
[2019-12-28] MEDS ORDERED: BACITRACIN 28 GM OINTMENT TP PRN (08:30)
[2019-12-28 08:48] VITALS: BP 126/61
[2019-12-28] MEDS: RisperiDONE CONC 2 MG/2 ML SOLUTION ORAL.SYG PO SCH ×2 (10:30→21:00)
[2019-12-28 16:08] VITALS: BP 103/58
[2019-12-29 06:12] VITALS: BP 130/79
[2019-12-29 08:23] VITALS: BP 117/69
[2019-12-29] MEDS: RisperiDONE CONC 2 MG/2 ML SOLUTION ORAL.SYG PO SCH ×3 (09:00→20:42)
[2019-12-29] MEDS ORDERED: HALOPERIDOL LACTATE 5 MG/ML VIAL IM PRN (14:15)
[2019-12-29 16:08] VITALS: BP 117/74
[2019-12-29] MEDS: LORazepam 2 MG TABLET PO PRN (19:16)
[2019-12-30 03:52] VITALS: BP 122/72
[2019-12-30 08:17] VITALS: BP 121/80
[2019-12-30] MEDS: RisperiDONE CONC 2 MG/2 ML SOLUTION ORAL.SYG PO SCH ×2 (09:02→20:55)
[2019-12-30 16:00] VITALS: BP 114/68
[2019-12-30] MEDS: LORazepam 2 MG TABLET PO PRN (16:57)
[2019-12-31 08:14] VITALS: BP 116/68
[2019-12-31] MEDS: RisperiDONE CONC 2 MG/2 ML SOLUTION ORAL.SYG PO SCH (08:29)
== END 2019-12-31 10:49 | DRG 750 ==
LOC: EMS 17:25 → B3A 21:07
PROVIDERS: ADMIT Psychiatry & Neurology Child & Adolescent Psychiatry; ATTEND Psychiatry & Neurology Child & Adolescent Psychiatry
DX: F20.9 Schizophrenia, unspecified (principal); G47.00 Insomnia, unspecified; K59.00 Constipation, unspecified; F41.9 Anxiety disorder, unspecified; Z87.891 Personal history of nicotine dependence; Z88.0 Allergy status to penicillin; Z91.041 Radiographic dye allergy status; Z20.828 Contact with and (suspected) exposure to other viral communicable diseases
CPT/HCPCS: 87426; G0480; 36415-L1; 36415-TC; 71045-TC; 80061-TC

== ENCOUNTER 2020-04-16 23:30 | Inpatient (IN) | payer MEDICAID, OTHER ==
[~2020-04-16] VITALS: Ht 167.6 cm; Wt 76.7 kg
[~2020-04-16 23:30] MED LIST changes: +RISP1SOL11 PO; -RISP2L PO
[2020-04-17 00:06] LABS: BASOPHILS % (AUTO) 0.3 % (0.0-2.0); HEMATOCRIT 41.2 % (41-53); HEMOGLOBIN 13.5 g/dL (13.5-17.5); LYMPHOCYTES # (AUTO) 2.2 K/uL (1.0-4.8); LYMPHOCYTES % (AUTO) 22.4 % (22.0-44.0); MEAN CORPUSCULAR HEMOGLOBIN 29.9 pg (26.0-34.0); MEAN CORPUSCULAR HGB CONC 32.7 G/dL (31.0-37.0); MEAN CORPUSCULAR VOLUME 92 fL (80-100); MONOCYTES # (AUTO) 1.3 K/uL (0.1-1.0); MONOCYTES % (AUTO) 12.9 % (2.0-9.0); NEUTROPHILS # (AUTO) 6.3 K/uL (1.8-7.7); NEUTROPHILS % (AUTO) 63.4 % (40.0-70.0); PLATELET COUNT (AUTO) 302 K/uL (150-450); RED CELL DISTRIBUTION WIDTH 13.7 % (11.5-14.5)
[2020-04-17 00:15] LABS: ANION GAP 13 mmol/L (8-16); CALCIUM, TOTAL 8.8 mg/dL (8.8-10.5); CARBON DIOXIDE 25 mmol/L (22-29); CHLORIDE 104 mmol/L (98-107); CREATININE 1.17 mg/dL (0.60-1.30); GLOMERULAR FILTR. RATE CALC > 60 mL/min (>60); GLUCOSE,RANDOM 110 mg/dL (70-110); POTASSIUM 4.5 mmol/L (3.5-5.1); SODIUM SERUM 142 mmol/L (136-145); UREA NITROGEN, BLOOD 14 mg/dL (7-18)
[2020-04-17] MEDS ORDERED: HALOPERIDOL LACTATE 5 MG/ML VIAL IM ONE ×2 (00:15)
[2020-04-17] MEDS ORDERED: LORazepam 2 MG/ML VIAL IM ONE ×2 (00:15)
[2020-04-17] MEDS ORDERED: DiphenhydrAMINE HCL 50 MG/ML VIAL IM ONE ×2 (00:15)
[2020-04-17 00:21] LABS: ALANINE AMINOTRANSFERASE 24 U/L (12-78); ALBUMIN 3.9 g/dL (3.4-5.0); ALKALINE PHOSPHATASE 110 U/L (46-116); ASPARTATE AMINOTRANSFERASE 21 U/L (15-37); BILIRUBIN,TOTAL 0.2 mg/dL (0.1-1.0); TOTAL PROTEIN, SERUM 7.4 g/dL (6.4-8.2)
[2020-04-17 02:18] LABS: COVID AG,FIA SOURCE NASOPHARYNGEAL
[2020-04-17] MEDS ORDERED: CloNIDine HCL 0.1 MG TABLET PO PRN (07:45)
[2020-04-17] MEDS ORDERED: PETROLATUM,WHITE 28 GM JELLY TP PRN (07:45)
[2020-04-17] MEDS ORDERED: MAGNESIUM HYDROXIDE SUSPENSION 30 ML UDCUP PO PRN (07:45)
[2020-04-17] MEDS ORDERED: ONDANSETRON HCL 4 MG TABLET PO PRN (07:45)
[2020-04-17] MEDS ORDERED: LOPERAMIDE HCL 2 MG CAPSULE PO PRN (07:45)
[2020-04-17] MEDS ORDERED: DOCUSATE SODIUM 100 MG CAPSULE PO PRN (07:45)
[2020-04-17] MEDS ORDERED: ALBUTEROL SULFATE HFA 90 MCG/PUFF 8 GM INHALER IH PRN (07:45)
[2020-04-17] MEDS: ACETAMINOPHEN 325 MG TABLET PO PRN (09:33)
[2020-04-17 17:52] VITALS: BP 107/68
[2020-04-17] MEDS: LORazepam 2 MG TABLET PO PRN (18:28)
[2020-04-18 05:49] VITALS: BP 111/60
[2020-04-18 07:31] LABS: CHOL/HDL RATIO 2.5 (4.2-7.3)
[2020-04-18 08:56] VITALS: BP 130/77
[2020-04-18] MEDS: RisperiDONE CONC 1 MG/ML SOLUTION ORAL.SYG PO SCH ×2 (09:15→21:00)
[2020-04-18] MEDS: IBUPROFEN 400 MG TABLET PO PRN (09:40)
[2020-04-18 16:18] VITALS: BP 107/70
[2020-04-18] MEDS: LORazepam 2 MG TABLET PO PRN (16:36)
[2020-04-18] MEDS: HALOPERIDOL 5 MG TABLET PO PRN (16:36)
[2020-04-19 05:45] VITALS: BP 118/77
[2020-04-19] MEDS: RisperiDONE CONC 1 MG/ML SOLUTION ORAL.SYG PO SCH ×2 (08:59→20:54)
[2020-04-19 16:17] VITALS: BP 121/66
[2020-04-19] MEDS: LORazepam 2 MG TABLET PO PRN (16:40)
[2020-04-19] MEDS: HALOPERIDOL 5 MG TABLET PO PRN (16:40)
[2020-04-20 06:32] VITALS: BP 114/68
[2020-04-20 08:28] VITALS: BP 104/64
[2020-04-20] MEDS: MULTIVITAMINS, THERAPEUTIC TABLET PO SCH (09:08)
[2020-04-20] MEDS: OMEGA-3/DHA/EPA/FISH OIL 1,000 MG CAPSULE PO SCH (09:08)
[2020-04-20] MEDS: RisperiDONE CONC 1 MG/ML SOLUTION ORAL.SYG PO SCH (09:09)
[2020-04-20 16:29] VITALS: BP 100/69
[2020-04-20] MEDS: LORazepam 2 MG TABLET PO PRN (17:11)
[2020-04-20] MEDS: RisperiDONE CONC 2 MG/2 ML SOLUTION ORAL.SYG PO SCH (22:05)
[2020-04-21 05:26] VITALS: BP 106/69
[2020-04-21] MEDS: OMEGA-3/DHA/EPA/FISH OIL 1,000 MG CAPSULE PO SCH (08:35)
[2020-04-21] MEDS: MULTIVITAMINS, THERAPEUTIC TABLET PO SCH (08:35)
[2020-04-21] MEDS: RisperiDONE CONC 2 MG/2 ML SOLUTION ORAL.SYG PO SCH ×2 (08:35→20:00)
[2020-04-21] MEDS: LORazepam 2 MG TABLET PO PRN ×3 (08:38→20:09)
[2020-04-21 14:27] VITALS: BP 107/68
[2020-04-21] MEDS: ACETAMINOPHEN 325 MG TABLET PO PRN (14:27)
[2020-04-21 16:07] VITALS: BP 112/64
[2020-04-21] MEDS: HALOPERIDOL 5 MG TABLET PO PRN (16:17)
[2020-04-21] MEDS: IBUPROFEN 400 MG TABLET PO PRN (17:07)
[2020-04-22 05:48] VITALS: BP 110/69
[2020-04-22 08:13] VITALS: BP 116/78
[2020-04-22] MEDS: OMEGA-3/DHA/EPA/FISH OIL 1,000 MG CAPSULE PO SCH (08:44)
[2020-04-22] MEDS: MULTIVITAMINS, THERAPEUTIC TABLET PO SCH (08:44)
[2020-04-22] MEDS: RisperiDONE CONC 2 MG/2 ML SOLUTION ORAL.SYG PO SCH ×2 (08:44→20:35)
[2020-04-22] MEDS: LORazepam 2 MG TABLET PO PRN ×3 (08:57→17:23)
[2020-04-22 16:28] VITALS: BP 117/68
[2020-04-23 06:21] VITALS: BP 103/66
[2020-04-23 08:25] VITALS: BP 108/62
[2020-04-23] MEDS: OMEGA-3/DHA/EPA/FISH OIL 1,000 MG CAPSULE PO SCH (08:28)
[2020-04-23] MEDS: RisperiDONE CONC 2 MG/2 ML SOLUTION ORAL.SYG PO SCH ×2 (08:28→20:57)
[2020-04-23] MEDS: MULTIVITAMINS, THERAPEUTIC TABLET PO SCH (08:29)
[2020-04-23] MEDS: LORazepam 2 MG TABLET PO PRN ×3 (09:59→20:59)
[2020-04-23 14:52] LABS: COVID AG,FIA SOURCE NASAL SWAB
[2020-04-23 16:22] VITALS: BP 111/64
[2020-04-23] MEDS: HALOPERIDOL 5 MG TABLET PO PRN (16:33)
[2020-04-24 01:33] VITALS: BP 121/78
[2020-04-24 08:08] VITALS: BP 116/70
[2020-04-24] MEDS: OMEGA-3/DHA/EPA/FISH OIL 1,000 MG CAPSULE PO SCH (09:07)
[2020-04-24] MEDS: RisperiDONE CONC 2 MG/2 ML SOLUTION ORAL.SYG PO SCH ×2 (09:07→20:26)
[2020-04-24] MEDS: MULTIVITAMINS, THERAPEUTIC TABLET PO SCH (09:08)
[2020-04-24] MEDS: LORazepam 2 MG TABLET PO PRN ×3 (09:43→18:19)
[2020-04-24 16:09] VITALS: BP 118/69
[2020-04-24] MEDS: HALOPERIDOL 5 MG TABLET PO PRN (17:20)
[2020-04-25 06:04] VITALS: BP 118/78
[2020-04-25 08:05] VITALS: BP 109/62
[2020-04-25] MEDS: OMEGA-3/DHA/EPA/FISH OIL 1,000 MG CAPSULE PO SCH (09:13)
[2020-04-25] MEDS: MULTIVITAMINS, THERAPEUTIC TABLET PO SCH (09:13)
[2020-04-25] MEDS: RisperiDONE CONC 2 MG/2 ML SOLUTION ORAL.SYG PO SCH ×2 (09:14→20:56)
[2020-04-25] MEDS: LORazepam 2 MG TABLET PO PRN ×2 (09:25→14:40)
[2020-04-25] MEDS: HALOPERIDOL 5 MG TABLET PO PRN (13:45)
[2020-04-25 17:26] VITALS: BP 111/68
[2020-04-26 01:47] VITALS: BP 128/65
[2020-04-26 08:08] VITALS: BP 114/66
[2020-04-26] MEDS: LORazepam 2 MG TABLET PO PRN ×3 (08:34→17:03)
[2020-04-26] MEDS: OMEGA-3/DHA/EPA/FISH OIL 1,000 MG CAPSULE PO SCH (08:34)
[2020-04-26] MEDS: MULTIVITAMINS, THERAPEUTIC TABLET PO SCH (08:34)
[2020-04-26] MEDS: RisperiDONE CONC 2 MG/2 ML SOLUTION ORAL.SYG PO SCH ×2 (08:35→20:30)
[2020-04-26] MEDS: IBUPROFEN 400 MG TABLET PO PRN ×2 (09:24→17:24)
[2020-04-26 16:12] VITALS: BP 112/63
[2020-04-26] MEDS: HALOPERIDOL 5 MG TABLET PO PRN (17:03)
[2020-04-27 08:08] VITALS: BP 117/69
[2020-04-27] MEDS: OMEGA-3/DHA/EPA/FISH OIL 1,000 MG CAPSULE PO SCH (08:19)
[2020-04-27] MEDS: MULTIVITAMINS, THERAPEUTIC TABLET PO SCH (08:19)
[2020-04-27] MEDS: HALOPERIDOL 5 MG TABLET PO PRN ×2 (08:20→14:20)
[2020-04-27] MEDS: LORazepam 2 MG TABLET PO PRN ×3 (08:20→18:26)
[2020-04-27] MEDS: RisperiDONE CONC 2 MG/2 ML SOLUTION ORAL.SYG PO SCH ×2 (08:20→20:49)
[2020-04-27 16:09] VITALS: BP 109/62
[2020-04-28 05:30] VITALS: BP 119/71
[2020-04-28 08:30] VITALS: BP 113/61
[2020-04-28] MEDS: RisperiDONE CONC 2 MG/2 ML SOLUTION ORAL.SYG PO SCH ×2 (09:03→20:32)
[2020-04-28] MEDS: OMEGA-3/DHA/EPA/FISH OIL 1,000 MG CAPSULE PO SCH (09:04)
[2020-04-28] MEDS: MULTIVITAMINS, THERAPEUTIC TABLET PO SCH (09:04)
[2020-04-28] MEDS: HALOPERIDOL 5 MG TABLET PO PRN (09:04)
[2020-04-28] MEDS: LORazepam 2 MG TABLET PO PRN ×2 (09:04→16:04)
[2020-04-28 16:10] VITALS: BP 128/70
[2020-04-28] MEDS ORDERED: TUBERCULIN, PURIFIED PROTEIN DERIVATIVE 5 TU/0.1 ML SYRINGE ID ONE (16:45)
[2020-04-29 03:24] VITALS: BP 125/67
[2020-04-29] MEDS: RisperiDONE CONC 2 MG/2 ML SOLUTION ORAL.SYG PO SCH (08:25)
[2020-04-29 08:26] VITALS: BP 100/62
[2020-04-29] MEDS: LORazepam 2 MG TABLET PO PRN ×2 (08:26→16:48)
[2020-04-29] MEDS: MULTIVITAMINS, THERAPEUTIC TABLET PO SCH (08:26)
[2020-04-29] MEDS: OMEGA-3/DHA/EPA/FISH OIL 1,000 MG CAPSULE PO SCH (08:26)
[2020-04-29 10:50] VITALS: BP 110/66
[2020-04-29] MEDS: IBUPROFEN 400 MG TABLET PO PRN (10:50)
[2020-04-29] MEDS: RisperiDONE CONC 3 MG/3 ML SOLUTION ORAL.SYG PO SCH ×2 (12:44→16:47)
[2020-04-29] MEDS: BusPIRone HCL 10 MG TABLET PO SCH ×2 (12:44→16:48)
[2020-04-29 16:18] VITALS: BP 113/65
[2020-04-30 06:20] VITALS: BP 132/78
[2020-04-30 08:36] VITALS: BP 121/76
[2020-04-30] MEDS: OMEGA-3/DHA/EPA/FISH OIL 1,000 MG CAPSULE PO SCH (08:37)
[2020-04-30] MEDS: MULTIVITAMINS, THERAPEUTIC TABLET PO SCH (08:37)
[2020-04-30] MEDS: BusPIRone HCL 10 MG TABLET PO SCH ×3 (08:37→16:31)
[2020-04-30] MEDS: RisperiDONE CONC 3 MG/3 ML SOLUTION ORAL.SYG PO SCH ×3 (08:38→16:31)
[2020-04-30] MEDS: IBUPROFEN 400 MG TABLET PO PRN (09:50)
[2020-04-30] MEDS: LORazepam 2 MG TABLET PO PRN (16:31)
[2020-04-30 22:11] LABS: COVID AG,FIA SOURCE NASOPHARYNGEAL
[2020-05-01 00:22] VITALS: BP 110/69
[2020-05-01] MEDS: BusPIRone HCL 10 MG TABLET PO SCH ×3 (09:00→17:39)
[2020-05-01] MEDS: RisperiDONE CONC 3 MG/3 ML SOLUTION ORAL.SYG PO SCH ×3 (09:19→16:14)
[2020-05-01] MEDS: MULTIVITAMINS, THERAPEUTIC TABLET PO SCH (09:19)
[2020-05-01] MEDS: OMEGA-3/DHA/EPA/FISH OIL 1,000 MG CAPSULE PO SCH (09:20)
[2020-05-01 09:52] VITALS: BP 106/63
[2020-05-01 16:00] VITALS: BP 114/68
[2020-05-01] MEDS: LORazepam 2 MG TABLET PO PRN (16:14)
[2020-05-01] MEDS: IBUPROFEN 400 MG TABLET PO PRN (16:14)
[2020-05-02] MEDS: MULTIVITAMINS, THERAPEUTIC TABLET PO SCH (09:16)
[2020-05-02] MEDS: BusPIRone HCL 10 MG TABLET PO SCH ×3 (09:16→17:00)
[2020-05-02] MEDS: RisperiDONE CONC 3 MG/3 ML SOLUTION ORAL.SYG PO SCH ×3 (09:17→17:08)
[2020-05-02] MEDS: OMEGA-3/DHA/EPA/FISH OIL 1,000 MG CAPSULE PO SCH (09:17)
[2020-05-02 13:00] VITALS: BP 135/89
[2020-05-02] MEDS: LORazepam 2 MG TABLET PO PRN (14:48)
[2020-05-02 16:14] VITALS: BP 107/64
[2020-05-02 16:50] VITALS: BP 113/65
[2020-05-02] MEDS: IBUPROFEN 400 MG TABLET PO PRN (17:09)
[2020-05-03 05:24] VITALS: BP 128/81
[2020-05-03 08:11] VITALS: BP 116/69
[2020-05-03] MEDS: OMEGA-3/DHA/EPA/FISH OIL 1,000 MG CAPSULE PO SCH (08:43)
[2020-05-03] MEDS: MULTIVITAMINS, THERAPEUTIC TABLET PO SCH (08:43)
[2020-05-03] MEDS: LORazepam 2 MG TABLET PO PRN ×2 (08:44→17:15)
[2020-05-03] MEDS: BusPIRone HCL 10 MG TABLET PO SCH ×3 (08:44→17:14)
[2020-05-03] MEDS: RisperiDONE CONC 3 MG/3 ML SOLUTION ORAL.SYG PO SCH ×3 (08:44→17:15)
[2020-05-03 08:45] VITALS: BP 116/69
[2020-05-03] MEDS: IBUPROFEN 400 MG TABLET PO PRN (08:45)
[2020-05-04 08:11] VITALS: BP 115/68
[2020-05-04] MEDS: RisperiDONE CONC 3 MG/3 ML SOLUTION ORAL.SYG PO SCH ×3 (08:46→17:02)
[2020-05-04] MEDS: LORazepam 2 MG TABLET PO PRN ×2 (08:47→14:19)
[2020-05-04] MEDS: BusPIRone HCL 10 MG TABLET PO SCH ×3 (08:47→17:02)
[2020-05-04] MEDS: MULTIVITAMINS, THERAPEUTIC TABLET PO SCH (08:47)
[2020-05-04] MEDS: OMEGA-3/DHA/EPA/FISH OIL 1,000 MG CAPSULE PO SCH (08:47)
[2020-05-04 16:17] VITALS: BP 131/80
[2020-05-05 08:04] VITALS: BP 127/82
[2020-05-05] MEDS: BusPIRone HCL 10 MG TABLET PO SCH ×3 (08:49→16:37)
[2020-05-05] MEDS: MULTIVITAMINS, THERAPEUTIC TABLET PO SCH (08:49)
[2020-05-05] MEDS: OMEGA-3/DHA/EPA/FISH OIL 1,000 MG CAPSULE PO SCH (08:49)
[2020-05-05] MEDS: RisperiDONE CONC 3 MG/3 ML SOLUTION ORAL.SYG PO SCH ×3 (08:49→16:37)
[2020-05-05 12:31] VITALS: BP 126/75
[2020-05-05] MEDS: LORazepam 2 MG TABLET PO PRN (12:40)
[2020-05-05] MEDS: IBUPROFEN 400 MG TABLET PO PRN (12:41)
[2020-05-05 16:01] VITALS: BP 109/59
[2020-05-06 05:16] VITALS: BP 118/77
[2020-05-06] MEDS: RisperiDONE CONC 3 MG/3 ML SOLUTION ORAL.SYG PO SCH ×3 (08:31→16:33)
[2020-05-06] MEDS: MULTIVITAMINS, THERAPEUTIC TABLET PO SCH (08:32)
[2020-05-06] MEDS: LORazepam 2 MG TABLET PO PRN (08:32)
[2020-05-06] MEDS: OMEGA-3/DHA/EPA/FISH OIL 1,000 MG CAPSULE PO SCH (08:32)
[2020-05-06] MEDS: BusPIRone HCL 10 MG TABLET PO SCH ×3 (08:32→16:33)
[2020-05-06 08:52] VITALS: BP 116/62
[2020-05-06] MEDS: IBUPROFEN 400 MG TABLET PO PRN ×2 (10:30→17:42)
[2020-05-06 16:31] VITALS: BP 110/62
[2020-05-07 04:15] VITALS: BP 123/78
[2020-05-07 08:04] VITALS: BP 114/66
[2020-05-07] MEDS: OMEGA-3/DHA/EPA/FISH OIL 1,000 MG CAPSULE PO SCH (08:06)
[2020-05-07] MEDS: MULTIVITAMINS, THERAPEUTIC TABLET PO SCH (08:06)
[2020-05-07] MEDS: LORazepam 2 MG TABLET PO PRN (08:06)
[2020-05-07] MEDS: RisperiDONE CONC 3 MG/3 ML SOLUTION ORAL.SYG PO SCH ×3 (08:06→16:37)
[2020-05-07] MEDS: BusPIRone HCL 10 MG TABLET PO SCH ×3 (08:06→16:31)
[2020-05-07 16:14] VITALS: BP 106/60
[2020-05-08 06:14] VITALS: BP 113/67
[2020-05-08 08:01] VITALS: BP 111/68
[2020-05-08] MEDS: MULTIVITAMINS, THERAPEUTIC TABLET PO SCH (09:07)
[2020-05-08] MEDS: OMEGA-3/DHA/EPA/FISH OIL 1,000 MG CAPSULE PO SCH (09:08)
[2020-05-08] MEDS: RisperiDONE CONC 3 MG/3 ML SOLUTION ORAL.SYG PO SCH ×3 (09:08→17:19)
[2020-05-08] MEDS: BusPIRone HCL 10 MG TABLET PO SCH ×3 (09:08→17:19)
[2020-05-08 10:35] VITALS: BP 108/67
[2020-05-08] MEDS: IBUPROFEN 400 MG TABLET PO PRN (10:40)
[2020-05-08] MEDS: LORazepam 2 MG TABLET PO PRN (14:07)
[2020-05-08 16:27] VITALS: BP 140/60
[2020-05-09 00:55] VITALS: BP 118/64
[2020-05-09 08:01] VITALS: BP 112/62
[2020-05-09] MEDS: MULTIVITAMINS, THERAPEUTIC TABLET PO SCH (09:27)
[2020-05-09] MEDS: BusPIRone HCL 10 MG TABLET PO SCH ×3 (09:27→16:32)
[2020-05-09] MEDS: LORazepam 2 MG TABLET PO PRN ×2 (09:27→16:32)
[2020-05-09] MEDS: OMEGA-3/DHA/EPA/FISH OIL 1,000 MG CAPSULE PO SCH (09:27)
[2020-05-09] MEDS: RisperiDONE CONC 3 MG/3 ML SOLUTION ORAL.SYG PO SCH ×3 (09:28→17:12)
[2020-05-09 16:41] VITALS: BP 112/68
[2020-05-10 06:11] VITALS: BP 114/67
[2020-05-10] MEDS: RisperiDONE CONC 3 MG/3 ML SOLUTION ORAL.SYG PO SCH ×3 (08:31→18:16)
[2020-05-10] MEDS: OMEGA-3/DHA/EPA/FISH OIL 1,000 MG CAPSULE PO SCH (08:31)
[2020-05-10] MEDS: MULTIVITAMINS, THERAPEUTIC TABLET PO SCH (08:32)
[2020-05-10] MEDS: BusPIRone HCL 10 MG TABLET PO SCH ×3 (08:32→16:32)
[2020-05-10] MEDS: LORazepam 2 MG TABLET PO PRN ×2 (08:32→16:32)
[2020-05-10 13:21] VITALS: BP 130/78
[2020-05-10 16:24] VITALS: BP 112/66
[2020-05-11 01:34] VITALS: BP 129/77
[2020-05-11 08:13] VITALS: BP 124/74
[2020-05-11] MEDS: MULTIVITAMINS, THERAPEUTIC TABLET PO SCH (09:25)
[2020-05-11] MEDS: BusPIRone HCL 10 MG TABLET PO SCH ×3 (09:25→17:26)
[2020-05-11] MEDS: RisperiDONE CONC 3 MG/3 ML SOLUTION ORAL.SYG PO SCH ×3 (09:25→17:25)
[2020-05-11] MEDS: OMEGA-3/DHA/EPA/FISH OIL 1,000 MG CAPSULE PO SCH (09:25)
[2020-05-11] MEDS: LORazepam 2 MG TABLET PO PRN ×2 (09:26→17:26)
[2020-05-11 16:35] VITALS: BP 118/70
[2020-05-12 05:42] VITALS: BP 136/83
[2020-05-12 08:27] VITALS: BP 125/75
[2020-05-12] MEDS: RisperiDONE CONC 3 MG/3 ML SOLUTION ORAL.SYG PO SCH ×3 (08:43→16:53)
[2020-05-12] MEDS: LORazepam 2 MG TABLET PO PRN ×3 (08:44→17:26)
[2020-05-12] MEDS: MULTIVITAMINS, THERAPEUTIC TABLET PO SCH (08:44)
[2020-05-12] MEDS: BusPIRone HCL 10 MG TABLET PO SCH ×3 (08:44→16:53)
[2020-05-12] MEDS: OMEGA-3/DHA/EPA/FISH OIL 1,000 MG CAPSULE PO SCH (08:44)
[2020-05-12 16:18] VITALS: BP 107/60
[2020-05-13 05:27] VITALS: BP 132/71
[2020-05-13 08:09] VITALS: BP 138/83
[2020-05-13] MEDS: RisperiDONE CONC 3 MG/3 ML SOLUTION ORAL.SYG PO SCH ×3 (08:18→16:26)
[2020-05-13] MEDS: MULTIVITAMINS, THERAPEUTIC TABLET PO SCH (08:18)
[2020-05-13] MEDS: OMEGA-3/DHA/EPA/FISH OIL 1,000 MG CAPSULE PO SCH (08:18)
[2020-05-13] MEDS: BusPIRone HCL 10 MG TABLET PO SCH ×3 (08:18→16:26)
[2020-05-13] MEDS: LORazepam 2 MG TABLET PO PRN ×3 (08:18→22:24)
[2020-05-13 16:13] VITALS: BP 115/74
[2020-05-13] MEDS: ZOLPIDEM TARTRATE 10 MG TABLET PO PRN (22:24)
[2020-05-14 00:05] VITALS: BP 123/76
[2020-05-14 08:05] VITALS: BP 117/74
[2020-05-14] MEDS: OMEGA-3/DHA/EPA/FISH OIL 1,000 MG CAPSULE PO SCH (08:32)
[2020-05-14] MEDS: BusPIRone HCL 10 MG TABLET PO SCH ×3 (08:32→16:33)
[2020-05-14] MEDS: MULTIVITAMINS, THERAPEUTIC TABLET PO SCH (08:33)
[2020-05-14] MEDS: RisperiDONE CONC 3 MG/3 ML SOLUTION ORAL.SYG PO SCH ×3 (08:33→16:33)
[2020-05-14 16:01] VITALS: BP 120/74
[2020-05-14] MEDS: LORazepam 2 MG TABLET PO PRN (16:33)
[2020-05-15 01:18] VITALS: BP 122/71
[2020-05-15] MEDS: LORazepam 2 MG TABLET PO PRN ×3 (01:19→16:12)
[2020-05-15] MEDS: ACETAMINOPHEN 325 MG TABLET PO PRN (01:20)
[2020-05-15 08:19] VITALS: BP 116/71
[2020-05-15] MEDS: RisperiDONE CONC 3 MG/3 ML SOLUTION ORAL.SYG PO SCH ×3 (08:28→16:12)
[2020-05-15] MEDS: MULTIVITAMINS, THERAPEUTIC TABLET PO SCH (08:28)
[2020-05-15] MEDS: OMEGA-3/DHA/EPA/FISH OIL 1,000 MG CAPSULE PO SCH (08:28)
[2020-05-15] MEDS: BusPIRone HCL 10 MG TABLET PO SCH ×3 (08:28→16:12)
[2020-05-15 09:14] LABS: COVID AG,FIA SOURCE NASAL SWAB
[2020-05-15] MEDS: NICOTINE 14 MG/24 HOUR PATCH TD PRN (15:08)
[2020-05-15 16:02] VITALS: BP 117/65
[2020-05-15] MEDS: ZOLPIDEM TARTRATE 10 MG TABLET PO PRN (22:02)
[2020-05-16 05:19] VITALS: BP 121/76
[2020-05-16 08:10] VITALS: BP 114/68
[2020-05-16] MEDS: OMEGA-3/DHA/EPA/FISH OIL 1,000 MG CAPSULE PO SCH (10:01)
[2020-05-16] MEDS: MULTIVITAMINS, THERAPEUTIC TABLET PO SCH (10:01)
[2020-05-16] MEDS: RisperiDONE CONC 3 MG/3 ML SOLUTION ORAL.SYG PO SCH ×3 (10:01→16:20)
[2020-05-16] MEDS: BusPIRone HCL 10 MG TABLET PO SCH ×3 (10:01→16:20)
[2020-05-16] MEDS: NICOTINE 14 MG/24 HOUR PATCH TD PRN (10:53)
[2020-05-16 16:18] VITALS: BP 112/69
[2020-05-16] MEDS: LORazepam 2 MG TABLET PO PRN (16:20)
[2020-05-16 16:39] VITALS: BP 112/69
[2020-05-16] MEDS: ACETAMINOPHEN 325 MG TABLET PO PRN (16:39)
[2020-05-17 05:56] VITALS: BP 113/61
[2020-05-17 08:06] VITALS: BP 126/78
[2020-05-17] MEDS: RisperiDONE CONC 3 MG/3 ML SOLUTION ORAL.SYG PO SCH ×3 (08:33→16:41)
[2020-05-17] MEDS: MULTIVITAMINS, THERAPEUTIC TABLET PO SCH (08:33)
[2020-05-17] MEDS: BusPIRone HCL 10 MG TABLET PO SCH ×3 (08:33→16:41)
[2020-05-17] MEDS: OMEGA-3/DHA/EPA/FISH OIL 1,000 MG CAPSULE PO SCH (08:33)
[2020-05-17] MEDS: NICOTINE 14 MG/24 HOUR PATCH TD PRN (10:18)
[2020-05-17 16:03] VITALS: BP 137/86
[2020-05-17] MEDS: LORazepam 2 MG TABLET PO PRN (16:41)
[2020-05-18 00:41] VITALS: BP 136/87
[2020-05-18 08:01] VITALS: BP 125/66
[2020-05-18] MEDS: BusPIRone HCL 10 MG TABLET PO SCH ×3 (08:21→16:46)
[2020-05-18] MEDS: MULTIVITAMINS, THERAPEUTIC TABLET PO SCH (08:21)
[2020-05-18] MEDS: OMEGA-3/DHA/EPA/FISH OIL 1,000 MG CAPSULE PO SCH (08:21)
[2020-05-18] MEDS: LORazepam 2 MG TABLET PO PRN ×2 (08:21→16:47)
[2020-05-18] MEDS: RisperiDONE CONC 3 MG/3 ML SOLUTION ORAL.SYG PO SCH ×3 (08:21→16:46)
[2020-05-18] MEDS: NICOTINE 14 MG/24 HOUR PATCH TD PRN (14:47)
[2020-05-18 16:31] VITALS: BP 132/79
[2020-05-19 06:31] VITALS: BP 114/67
[2020-05-19] MEDS: RisperiDONE CONC 3 MG/3 ML SOLUTION ORAL.SYG PO SCH ×3 (08:00→16:35)
[2020-05-19] MEDS: MULTIVITAMINS, THERAPEUTIC TABLET PO SCH (08:00)
[2020-05-19] MEDS: BusPIRone HCL 10 MG TABLET PO SCH ×3 (08:00→16:35)
[2020-05-19] MEDS: OMEGA-3/DHA/EPA/FISH OIL 1,000 MG CAPSULE PO SCH (08:00)
[2020-05-19] MEDS: LORazepam 2 MG TABLET PO PRN ×2 (08:00→16:35)
[2020-05-19] MEDS: NICOTINE 14 MG/24 HOUR PATCH TD PRN (13:25)
[2020-05-19 16:11] VITALS: BP 154/84
[2020-05-19 20:14] VITALS: BP 117/67
[2020-05-20 04:13] VITALS: BP 115/69
[2020-05-20 08:02] VITALS: BP 130/74
[2020-05-20] MEDS: MULTIVITAMINS, THERAPEUTIC TABLET PO SCH (09:04)
[2020-05-20] MEDS: NICOTINE 14 MG/24 HOUR PATCH TD PRN (09:04)
[2020-05-20] MEDS: RisperiDONE CONC 3 MG/3 ML SOLUTION ORAL.SYG PO SCH ×3 (09:04→16:25)
[2020-05-20] MEDS: BusPIRone HCL 10 MG TABLET PO SCH ×3 (09:05→16:25)
[2020-05-20] MEDS: OMEGA-3/DHA/EPA/FISH OIL 1,000 MG CAPSULE PO SCH (09:05)
[2020-05-20 16:02] VITALS: BP 119/77
[2020-05-20] MEDS: ACETAMINOPHEN 325 MG TABLET PO PRN (17:28)
[2020-05-21 02:58] VITALS: BP 121/74
[2020-05-21] MEDS: OMEGA-3/DHA/EPA/FISH OIL 1,000 MG CAPSULE PO SCH (08:00)
[2020-05-21] MEDS: BusPIRone HCL 10 MG TABLET PO SCH ×3 (08:00→16:24)
[2020-05-21] MEDS: MULTIVITAMINS, THERAPEUTIC TABLET PO SCH (08:00)
[2020-05-21] MEDS: RisperiDONE CONC 3 MG/3 ML SOLUTION ORAL.SYG PO SCH ×3 (08:00→16:24)
[2020-05-21 08:25] VITALS: BP 123/74
[2020-05-21] MEDS: NICOTINE 14 MG/24 HOUR PATCH TD PRN (09:01)
[2020-05-21] MEDS: LORazepam 2 MG TABLET PO PRN (13:45)
[2020-05-21 16:16] VITALS: BP 124/76
[2020-05-22 01:16] VITALS: BP 119/71
[2020-05-22] MEDS: BusPIRone HCL 10 MG TABLET PO SCH ×3 (08:00→17:04)
[2020-05-22] MEDS: MULTIVITAMINS, THERAPEUTIC TABLET PO SCH (08:00)
[2020-05-22] MEDS: OMEGA-3/DHA/EPA/FISH OIL 1,000 MG CAPSULE PO SCH (08:00)
[2020-05-22] MEDS: LORazepam 2 MG TABLET PO PRN ×2 (08:00→17:04)
[2020-05-22] MEDS: NICOTINE 14 MG/24 HOUR PATCH TD PRN (08:01)
[2020-05-22] MEDS: RisperiDONE CONC 3 MG/3 ML SOLUTION ORAL.SYG PO SCH ×3 (08:08→17:04)
[2020-05-22 08:22] VITALS: BP 119/69
[2020-05-22 16:22] VITALS: BP 136/84
[2020-05-23 05:55] VITALS: BP 130/78
[2020-05-23 08:33] VITALS: BP 133/83
[2020-05-23] MEDS: BusPIRone HCL 10 MG TABLET PO SCH ×3 (08:48→16:07)
[2020-05-23] MEDS: OMEGA-3/DHA/EPA/FISH OIL 1,000 MG CAPSULE PO SCH (08:49)
[2020-05-23] MEDS: RisperiDONE CONC 3 MG/3 ML SOLUTION ORAL.SYG PO SCH ×3 (08:49→16:07)
[2020-05-23] MEDS: MULTIVITAMINS, THERAPEUTIC TABLET PO SCH (08:49)
[2020-05-23 16:05] VITALS: BP 133/80
[2020-05-23] MEDS: ACETAMINOPHEN 325 MG TABLET PO PRN (16:25)
[2020-05-23] MEDS: NICOTINE 14 MG/24 HOUR PATCH TD PRN (16:25)
[2020-05-24 04:46] VITALS: BP 130/77
[2020-05-24] MEDS: RisperiDONE CONC 3 MG/3 ML SOLUTION ORAL.SYG PO SCH ×3 (08:21→17:18)
[2020-05-24] MEDS: BusPIRone HCL 10 MG TABLET PO SCH ×3 (08:22→17:18)
[2020-05-24] MEDS: MULTIVITAMINS, THERAPEUTIC TABLET PO SCH (08:22)
[2020-05-24] MEDS: OMEGA-3/DHA/EPA/FISH OIL 1,000 MG CAPSULE PO SCH (08:22)
[2020-05-24] MEDS: NICOTINE 14 MG/24 HOUR PATCH TD PRN (13:20)
[2020-05-24 16:24] VITALS: BP 122/73
[2020-05-25] MEDS: LORazepam 2 MG TABLET PO PRN ×2 (00:33→12:55)
[2020-05-25 00:35] VITALS: BP 136/79
[2020-05-25] MEDS: OMEGA-3/DHA/EPA/FISH OIL 1,000 MG CAPSULE PO SCH (08:49)
[2020-05-25] MEDS: MULTIVITAMINS, THERAPEUTIC TABLET PO SCH (08:49)
[2020-05-25] MEDS: BusPIRone HCL 10 MG TABLET PO SCH ×3 (08:49→16:40)
[2020-05-25] MEDS: RisperiDONE CONC 3 MG/3 ML SOLUTION ORAL.SYG PO SCH ×3 (08:49→16:40)
[2020-05-25] MEDS: NICOTINE 14 MG/24 HOUR PATCH TD PRN (11:10)
[2020-05-25 16:57] VITALS: BP 107/64
[2020-05-26 04:48] VITALS: BP 110/67
[2020-05-26 08:07] VITALS: BP 113/73
[2020-05-26] MEDS: MULTIVITAMINS, THERAPEUTIC TABLET PO SCH (08:26)
[2020-05-26] MEDS: RisperiDONE CONC 3 MG/3 ML SOLUTION ORAL.SYG PO SCH ×3 (08:26→18:03)
[2020-05-26] MEDS: OMEGA-3/DHA/EPA/FISH OIL 1,000 MG CAPSULE PO SCH (08:26)
[2020-05-26] MEDS: BusPIRone HCL 10 MG TABLET PO SCH ×3 (08:27→17:18)
[2020-05-26] MEDS: LORazepam 2 MG TABLET PO PRN (08:27)
[2020-05-26] MEDS: NICOTINE 14 MG/24 HOUR PATCH TD PRN (09:30)
[2020-05-26 09:53] LABS: COVID AG,FIA SOURCE NASOPHARYNGEAL
[2020-05-26 16:03] VITALS: BP 119/75
[2020-05-27 06:36] VITALS: BP 121/86
[2020-05-27] MEDS: MULTIVITAMINS, THERAPEUTIC TABLET PO SCH (08:40)
[2020-05-27] MEDS: RisperiDONE CONC 3 MG/3 ML SOLUTION ORAL.SYG PO SCH ×3 (08:40→16:16)
[2020-05-27] MEDS: OMEGA-3/DHA/EPA/FISH OIL 1,000 MG CAPSULE PO SCH (08:40)
[2020-05-27] MEDS: BusPIRone HCL 10 MG TABLET PO SCH ×3 (08:40→16:16)
[2020-05-27] MEDS: NICOTINE 14 MG/24 HOUR PATCH TD PRN (08:41)
[2020-05-27] MEDS: LORazepam 2 MG TABLET PO PRN (08:51)
[2020-05-27 16:29] VITALS: BP 111/70
[2020-05-28 04:22] VITALS: BP 116/71
[2020-05-28] MEDS: MULTIVITAMINS, THERAPEUTIC TABLET PO SCH (08:51)
[2020-05-28] MEDS: BusPIRone HCL 10 MG TABLET PO SCH ×3 (08:51→16:20)
[2020-05-28] MEDS: OMEGA-3/DHA/EPA/FISH OIL 1,000 MG CAPSULE PO SCH (08:51)
[2020-05-28] MEDS: RisperiDONE CONC 3 MG/3 ML SOLUTION ORAL.SYG PO SCH ×3 (08:59→16:20)
[2020-05-28 16:10] VITALS: BP 125/67
[2020-05-28] MEDS: NICOTINE 14 MG/24 HOUR PATCH TD PRN (17:38)
[2020-05-29 05:40] VITALS: BP 120/73
[2020-05-29 08:06] VITALS: BP 118/71
[2020-05-29] MEDS: OMEGA-3/DHA/EPA/FISH OIL 1,000 MG CAPSULE PO SCH (08:40)
[2020-05-29] MEDS: BusPIRone HCL 10 MG TABLET PO SCH ×3 (08:40→17:05)
[2020-05-29] MEDS: RisperiDONE CONC 3 MG/3 ML SOLUTION ORAL.SYG PO SCH ×3 (08:40→17:05)
[2020-05-29] MEDS: MULTIVITAMINS, THERAPEUTIC TABLET PO SCH (08:41)
[2020-05-29] MEDS: NICOTINE 14 MG/24 HOUR PATCH TD PRN (08:41)
[2020-05-29 16:16] VITALS: BP 116/67
[2020-05-29] MEDS: LORazepam 2 MG TABLET PO PRN (17:05)
[2020-05-30 02:39] VITALS: BP 120/75
[2020-05-30] MEDS: RisperiDONE CONC 3 MG/3 ML SOLUTION ORAL.SYG PO SCH ×3 (09:10→16:20)
[2020-05-30] MEDS: BusPIRone HCL 10 MG TABLET PO SCH ×3 (09:10→16:20)
[2020-05-30] MEDS: OMEGA-3/DHA/EPA/FISH OIL 1,000 MG CAPSULE PO SCH (09:10)
[2020-05-30] MEDS: MULTIVITAMINS, THERAPEUTIC TABLET PO SCH (09:10)
[2020-05-30] MEDS: NICOTINE 14 MG/24 HOUR PATCH TD PRN (09:38)
[2020-05-30 10:25] VITALS: BP 114/69
[2020-05-30 15:06] LABS: COVID AG,FIA SOURCE NASOPHARYNGEAL
[2020-05-30 15:36] LABS: APPEARANCE,URINE CLEAR (CLEAR); BILIRUBIN,URINE NEGATIVE (NEGATIVE); GLUCOSE, URINE (UA) NEGATIVE (NEGATIVE); KETONES,URINE NEGATIVE (NEGATIVE); LEUKOCYTE ESTERASE ,URINE NEGATIVE (NEGATIVE); NITRATE,URINE NEGATIVE (NEGATIVE); OCCULT BLOOD,URINE NEGATIVE (NEGATIVE); PH,URINE 6.5 (5.0-8.0); PROTEIN,URINE NEGATIVE (NEGATIVE); UROBILINOGEN,URINE 0.2 mg/dL (<=1.0)
[2020-05-30] MEDS: LORazepam 2 MG TABLET PO PRN (16:20)
[2020-05-30 17:55] VITALS: BP 108/58
[2020-05-31 05:21] VITALS: BP 118/68
[2020-05-31 08:08] VITALS: BP 131/80
[2020-05-31] MEDS: RisperiDONE CONC 3 MG/3 ML SOLUTION ORAL.SYG PO SCH ×3 (09:25→17:04)
[2020-05-31] MEDS: MULTIVITAMINS, THERAPEUTIC TABLET PO SCH (09:26)
[2020-05-31] MEDS: NICOTINE 14 MG/24 HOUR PATCH TD PRN (09:26)
[2020-05-31] MEDS: BusPIRone HCL 10 MG TABLET PO SCH ×3 (09:26→17:05)
[2020-05-31] MEDS: OMEGA-3/DHA/EPA/FISH OIL 1,000 MG CAPSULE PO SCH (09:26)
[2020-05-31 16:08] VITALS: BP 115/63
[2020-05-31] MEDS: LORazepam 2 MG TABLET PO PRN (18:46)
[2020-06-01 04:19] VITALS: BP 112/62
[2020-06-01] MEDS: OMEGA-3/DHA/EPA/FISH OIL 1,000 MG CAPSULE PO SCH (09:01)
[2020-06-01] MEDS: RisperiDONE CONC 3 MG/3 ML SOLUTION ORAL.SYG PO SCH ×3 (09:01→16:12)
[2020-06-01] MEDS: BusPIRone HCL 10 MG TABLET PO SCH ×3 (09:01→16:12)
[2020-06-01] MEDS: MULTIVITAMINS, THERAPEUTIC TABLET PO SCH (09:01)
[2020-06-01] MEDS: NICOTINE 14 MG/24 HOUR PATCH TD PRN (09:02)
[2020-06-01] MEDS: LORazepam 2 MG TABLET PO PRN ×2 (09:03→16:12)
[2020-06-01 10:20] VITALS: BP 118/65
[2020-06-01] MEDS: IBUPROFEN 400 MG TABLET PO PRN (10:32)
[2020-06-01 16:02] VITALS: BP 100/67
[2020-06-02 01:17] VITALS: BP 118/71
[2020-06-02 08:24] VITALS: BP 112/78
[2020-06-02] MEDS: RisperiDONE CONC 3 MG/3 ML SOLUTION ORAL.SYG PO SCH ×3 (08:31→16:35)
[2020-06-02] MEDS: MULTIVITAMINS, THERAPEUTIC TABLET PO SCH (08:32)
[2020-06-02] MEDS: NICOTINE 14 MG/24 HOUR PATCH TD PRN (08:32)
[2020-06-02] MEDS: OMEGA-3/DHA/EPA/FISH OIL 1,000 MG CAPSULE PO SCH (08:32)
[2020-06-02] MEDS: LORazepam 2 MG TABLET PO PRN ×2 (08:32→12:44)
[2020-06-02] MEDS: BusPIRone HCL 10 MG TABLET PO SCH ×3 (08:32→16:35)
[2020-06-02 16:30] VITALS: BP 120/75
[2020-06-03 04:06] VITALS: BP 116/71
[2020-06-03 08:06] VITALS: BP 140/78
[2020-06-03] MEDS: BusPIRone HCL 10 MG TABLET PO SCH ×3 (08:18→16:01)
[2020-06-03] MEDS: OMEGA-3/DHA/EPA/FISH OIL 1,000 MG CAPSULE PO SCH (08:18)
[2020-06-03] MEDS: RisperiDONE CONC 3 MG/3 ML SOLUTION ORAL.SYG PO SCH ×3 (08:18→16:01)
[2020-06-03] MEDS: LORazepam 2 MG TABLET PO PRN (08:19)
[2020-06-03] MEDS: MULTIVITAMINS, THERAPEUTIC TABLET PO SCH (08:19)
[2020-06-03] MEDS: NICOTINE 14 MG/24 HOUR PATCH TD PRN (08:58)
[2020-06-03 16:01] VITALS: BP 124/74
[2020-06-04 04:59] VITALS: BP 112/67
[2020-06-04] MEDS: RisperiDONE CONC 3 MG/3 ML SOLUTION ORAL.SYG PO SCH ×3 (08:18→16:28)
[2020-06-04] MEDS: MULTIVITAMINS, THERAPEUTIC TABLET PO SCH (08:19)
[2020-06-04] MEDS: BusPIRone HCL 10 MG TABLET PO SCH ×3 (08:19→16:29)
[2020-06-04] MEDS: OMEGA-3/DHA/EPA/FISH OIL 1,000 MG CAPSULE PO SCH (08:19)
[2020-06-04 08:30] VITALS: BP 129/89
[2020-06-04] MEDS: NICOTINE 14 MG/24 HOUR PATCH TD PRN (12:03)
[2020-06-04 16:23] VITALS: BP 97/60
[2020-06-04] MEDS: ZOLPIDEM TARTRATE 10 MG TABLET PO PRN (23:48)
[2020-06-04] MEDS: LORazepam 2 MG TABLET PO PRN (23:49)
[2020-06-05 01:36] VITALS: BP 146/82
[2020-06-05] MEDS: OMEGA-3/DHA/EPA/FISH OIL 1,000 MG CAPSULE PO SCH (08:03)
[2020-06-05] MEDS: MULTIVITAMINS, THERAPEUTIC TABLET PO SCH (08:03)
[2020-06-05] MEDS: BusPIRone HCL 10 MG TABLET PO SCH ×3 (08:03→16:36)
[2020-06-05] MEDS: RisperiDONE CONC 3 MG/3 ML SOLUTION ORAL.SYG PO SCH ×3 (08:04→16:36)
[2020-06-05 08:37] VITALS: BP 114/73
[2020-06-05] MEDS: NICOTINE 14 MG/24 HOUR PATCH TD PRN (10:02)
[2020-06-05 16:13] VITALS: BP 124/84
[2020-06-05] MEDS: LORazepam 2 MG TABLET PO PRN (16:36)
[2020-06-06 05:44] VITALS: BP 119/74
[2020-06-06 07:57] VITALS: BP 122/64
[2020-06-06] MEDS: RisperiDONE CONC 3 MG/3 ML SOLUTION ORAL.SYG PO SCH ×3 (08:32→17:21)
[2020-06-06] MEDS: MULTIVITAMINS, THERAPEUTIC TABLET PO SCH (08:32)
[2020-06-06] MEDS: BusPIRone HCL 10 MG TABLET PO SCH ×3 (08:32→17:21)
[2020-06-06] MEDS: OMEGA-3/DHA/EPA/FISH OIL 1,000 MG CAPSULE PO SCH (08:32)
[2020-06-06] MEDS: LORazepam 2 MG TABLET PO PRN ×2 (08:33→12:39)
[2020-06-06 09:34] VITALS: BP 122/64
[2020-06-06] MEDS: NICOTINE 14 MG/24 HOUR PATCH TD PRN (10:03)
[2020-06-06 16:09] VITALS: BP 123/62
[2020-06-07 01:22] VITALS: BP 119/70
[2020-06-07 08:09] VITALS: BP 119/71
[2020-06-07] MEDS: MULTIVITAMINS, THERAPEUTIC TABLET PO SCH (08:16)
[2020-06-07] MEDS: OMEGA-3/DHA/EPA/FISH OIL 1,000 MG CAPSULE PO SCH (08:16)
[2020-06-07] MEDS: BusPIRone HCL 10 MG TABLET PO SCH ×4 (08:16→16:31)
[2020-06-07] MEDS: RisperiDONE CONC 3 MG/3 ML SOLUTION ORAL.SYG PO SCH ×4 (08:17→17:39)
[2020-06-07] MEDS: NICOTINE 14 MG/24 HOUR PATCH TD PRN (09:09)
[2020-06-07] MEDS: LORazepam 2 MG TABLET PO PRN (09:34)
[2020-06-07 16:13] VITALS: BP 115/61
[2020-06-08 01:35] VITALS: BP 119/82
[2020-06-08] MEDS: ZOLPIDEM TARTRATE 10 MG TABLET PO PRN (01:40)
[2020-06-08] MEDS: LORazepam 2 MG TABLET PO PRN ×2 (01:40→08:48)
[2020-06-08] MEDS: NICOTINE 14 MG/24 HOUR PATCH TD PRN (08:47)
[2020-06-08] MEDS: RisperiDONE CONC 3 MG/3 ML SOLUTION ORAL.SYG PO SCH ×3 (08:47→16:21)
[2020-06-08] MEDS: MULTIVITAMINS, THERAPEUTIC TABLET PO SCH (08:48)
[2020-06-08] MEDS: OMEGA-3/DHA/EPA/FISH OIL 1,000 MG CAPSULE PO SCH (08:48)
[2020-06-08] MEDS: BusPIRone HCL 10 MG TABLET PO SCH ×3 (08:48→16:21)
[2020-06-08 17:14] VITALS: BP 113/69
[2020-06-09 04:40] VITALS: BP 121/79
[2020-06-09] MEDS: LORazepam 2 MG TABLET PO PRN ×3 (04:41→16:34)
[2020-06-09 08:07] VITALS: BP 130/74
[2020-06-09] MEDS: RisperiDONE CONC 3 MG/3 ML SOLUTION ORAL.SYG PO SCH ×3 (08:15→16:33)
[2020-06-09] MEDS: OMEGA-3/DHA/EPA/FISH OIL 1,000 MG CAPSULE PO SCH (08:15)
[2020-06-09] MEDS: BusPIRone HCL 10 MG TABLET PO SCH ×3 (08:16→16:33)
[2020-06-09] MEDS: MULTIVITAMINS, THERAPEUTIC TABLET PO SCH (08:16)
[2020-06-09] MEDS: NICOTINE 14 MG/24 HOUR PATCH TD PRN (08:20)
[2020-06-09 16:22] VITALS: BP 116/68
[2020-06-10 00:59] VITALS: BP 117/77
[2020-06-10] MEDS: ZOLPIDEM TARTRATE 10 MG TABLET PO PRN ×2 (01:03→21:05)
[2020-06-10 08:09] VITALS: BP 129/74
[2020-06-10] MEDS: BusPIRone HCL 10 MG TABLET PO SCH ×3 (08:52→16:30)
[2020-06-10] MEDS: MULTIVITAMINS, THERAPEUTIC TABLET PO SCH (08:53)
[2020-06-10] MEDS: RisperiDONE CONC 3 MG/3 ML SOLUTION ORAL.SYG PO SCH ×3 (08:53→16:30)
[2020-06-10] MEDS: OMEGA-3/DHA/EPA/FISH OIL 1,000 MG CAPSULE PO SCH (08:53)
[2020-06-10 09:19] LABS: COVID AG,FIA SOURCE NASOPHARYNGEAL
[2020-06-10] MEDS: NICOTINE 14 MG/24 HOUR PATCH TD PRN (10:12)
[2020-06-10] MEDS ORDERED: PALIPERIDONE PALMITATE 234 MG/1.5 ML SYRINGE IM ONE (16:00)
[2020-06-10 16:33] VITALS: BP 120/74
[2020-06-11 04:32] VITALS: BP 116/71
[2020-06-11 08:04] VITALS: BP 153/71
[2020-06-11] MEDS: OMEGA-3/DHA/EPA/FISH OIL 1,000 MG CAPSULE PO SCH (08:34)
[2020-06-11] MEDS: MULTIVITAMINS, THERAPEUTIC TABLET PO SCH (08:34)
[2020-06-11] MEDS: BusPIRone HCL 10 MG TABLET PO SCH ×3 (08:34→16:20)
[2020-06-11] MEDS: RisperiDONE CONC 3 MG/3 ML SOLUTION ORAL.SYG PO SCH ×3 (08:35→16:20)
[2020-06-11] MEDS: NICOTINE 14 MG/24 HOUR PATCH TD PRN (09:22)
[2020-06-11 16:10] VITALS: BP 124/75
[2020-06-11] MEDS: IBUPROFEN 400 MG TABLET PO PRN (17:21)
[2020-06-12 00:23] VITALS: BP 119/63
[2020-06-12] MEDS: MAG HYDROX/AL HYDROX/SIMETH ES 30 ML SUSPENSION UDCUP PO PRN (03:14)
[2020-06-12] MEDS: ACETAMINOPHEN 325 MG TABLET PO PRN (05:34)
[2020-06-12 06:41] VITALS: BP 127/64
[2020-06-12] MEDS: IBUPROFEN 400 MG TABLET PO PRN ×2 (06:45→12:50)
[2020-06-12 08:06] VITALS: BP 115/69
[2020-06-12] MEDS: BusPIRone HCL 10 MG TABLET PO SCH ×3 (08:31→16:23)
[2020-06-12] MEDS: MULTIVITAMINS, THERAPEUTIC TABLET PO SCH (08:31)
[2020-06-12] MEDS: RisperiDONE CONC 3 MG/3 ML SOLUTION ORAL.SYG PO SCH ×3 (08:32→16:23)
[2020-06-12] MEDS: OMEGA-3/DHA/EPA/FISH OIL 1,000 MG CAPSULE PO SCH (08:33)
[2020-06-12] MEDS: NICOTINE 14 MG/24 HOUR PATCH TD PRN (10:14)
[2020-06-12 16:17] VITALS: BP 112/70
[2020-06-12] MEDS: LORazepam 2 MG TABLET PO PRN (16:23)
[2020-06-13 06:16] VITALS: BP 117/73
[2020-06-13 08:01] VITALS: BP 144/81
[2020-06-13] MEDS: MULTIVITAMINS, THERAPEUTIC TABLET PO SCH (08:41)
[2020-06-13] MEDS: BusPIRone HCL 10 MG TABLET PO SCH ×3 (08:41→17:48)
[2020-06-13] MEDS: OMEGA-3/DHA/EPA/FISH OIL 1,000 MG CAPSULE PO SCH (08:41)
[2020-06-13] MEDS: RisperiDONE CONC 3 MG/3 ML SOLUTION ORAL.SYG PO SCH ×3 (08:41→17:48)
[2020-06-13] MEDS: NICOTINE 14 MG/24 HOUR PATCH TD PRN (08:43)
[2020-06-13] MEDS: LORazepam 2 MG TABLET PO PRN ×2 (13:34→17:49)
[2020-06-13 16:05] VITALS: BP 115/68
[2020-06-14] MEDS: LORazepam 2 MG TABLET PO PRN ×3 (06:29→17:29)
[2020-06-14 08:20] VITALS: BP 114/65
[2020-06-14] MEDS: RisperiDONE CONC 3 MG/3 ML SOLUTION ORAL.SYG PO SCH ×3 (08:44→16:43)
[2020-06-14] MEDS: BusPIRone HCL 10 MG TABLET PO SCH ×3 (08:44→16:43)
[2020-06-14] MEDS: OMEGA-3/DHA/EPA/FISH OIL 1,000 MG CAPSULE PO SCH (08:44)
[2020-06-14] MEDS: NICOTINE 14 MG/24 HOUR PATCH TD PRN (08:44)
[2020-06-14] MEDS: MULTIVITAMINS, THERAPEUTIC TABLET PO SCH (08:44)
[2020-06-14] MEDS ORDERED: PALIPERIDONE PALMITATE 156 MG/ML SYRINGE IM ONE (09:00)
[2020-06-14 16:36] VITALS: BP 114/66
[2020-06-15 03:09] VITALS: BP 112/61
[2020-06-15 08:26] VITALS: BP 140/69
[2020-06-15] MEDS: BusPIRone HCL 10 MG TABLET PO SCH ×3 (08:47→16:39)
[2020-06-15] MEDS: MULTIVITAMINS, THERAPEUTIC TABLET PO SCH (08:47)
[2020-06-15] MEDS: NICOTINE 14 MG/24 HOUR PATCH TD PRN (08:47)
[2020-06-15] MEDS: OMEGA-3/DHA/EPA/FISH OIL 1,000 MG CAPSULE PO SCH (08:47)
[2020-06-15] MEDS: RisperiDONE CONC 3 MG/3 ML SOLUTION ORAL.SYG PO SCH ×3 (08:48→16:40)
[2020-06-15] MEDS: LORazepam 2 MG TABLET PO PRN (13:53)
[2020-06-15 16:08] VITALS: BP 149/76
[2020-06-15] MEDS: HALOPERIDOL 5 MG TABLET PO PRN (17:50)
[2020-06-16] MEDS: OMEGA-3/DHA/EPA/FISH OIL 1,000 MG CAPSULE PO SCH (08:10)
[2020-06-16] MEDS: BusPIRone HCL 10 MG TABLET PO SCH ×3 (08:10→17:09)
[2020-06-16] MEDS: MULTIVITAMINS, THERAPEUTIC TABLET PO SCH (08:11)
[2020-06-16] MEDS: RisperiDONE CONC 3 MG/3 ML SOLUTION ORAL.SYG PO SCH ×3 (08:11→17:09)
[2020-06-16 08:15] VITALS: BP 130/72
[2020-06-16] MEDS: LORazepam 2 MG TABLET PO PRN ×2 (13:00→17:09)
[2020-06-16 16:12] VITALS: BP 128/72
[2020-06-17 04:14] VITALS: BP 118/76
[2020-06-17 08:17] VITALS: BP 124/75
[2020-06-17] MEDS: OMEGA-3/DHA/EPA/FISH OIL 1,000 MG CAPSULE PO SCH (09:09)
[2020-06-17] MEDS: BusPIRone HCL 10 MG TABLET PO SCH ×3 (09:10→16:30)
[2020-06-17] MEDS: MULTIVITAMINS, THERAPEUTIC TABLET PO SCH (09:10)
[2020-06-17] MEDS: RisperiDONE CONC 3 MG/3 ML SOLUTION ORAL.SYG PO SCH ×3 (09:37→16:30)
[2020-06-17] MEDS: NICOTINE 14 MG/24 HOUR PATCH TD PRN (09:39)
[2020-06-17] MEDS: LORazepam 2 MG TABLET PO PRN (13:39)
[2020-06-17 17:24] VITALS: BP 116/79
[2020-06-18 00:08] VITALS: BP 132/88
[2020-06-18] MEDS: LORazepam 2 MG TABLET PO PRN (06:40)
[2020-06-18 08:19] VITALS: BP 110/68
[2020-06-18 08:25] LABS: COVID AG,FIA SOURCE NASOPHARYNGEAL
[2020-06-18] MEDS: MULTIVITAMINS, THERAPEUTIC TABLET PO SCH (08:47)
[2020-06-18] MEDS: BusPIRone HCL 10 MG TABLET PO SCH ×3 (08:47→17:55)
[2020-06-18] MEDS: OMEGA-3/DHA/EPA/FISH OIL 1,000 MG CAPSULE PO SCH (08:47)
[2020-06-18] MEDS: RisperiDONE CONC 3 MG/3 ML SOLUTION ORAL.SYG PO SCH ×3 (08:48→17:55)
[2020-06-18] MEDS: NICOTINE 14 MG/24 HOUR PATCH TD PRN (10:04)
[2020-06-18 16:01] VITALS: BP 113/72
[2020-06-18] MEDS: ACETAMINOPHEN 325 MG TABLET PO PRN (16:45)
[2020-06-19 03:24] VITALS: BP 124/70
[2020-06-19] MEDS: LORazepam 2 MG TABLET PO PRN ×4 (03:42→17:32)
[2020-06-19 08:26] VITALS: BP 125/79
[2020-06-19] MEDS: BusPIRone HCL 10 MG TABLET PO SCH ×3 (08:53→16:51)
[2020-06-19] MEDS: OMEGA-3/DHA/EPA/FISH OIL 1,000 MG CAPSULE PO SCH (08:53)
[2020-06-19] MEDS: MULTIVITAMINS, THERAPEUTIC TABLET PO SCH (08:53)
[2020-06-19] MEDS: NICOTINE 14 MG/24 HOUR PATCH TD PRN (09:23)
[2020-06-19] MEDS: RisperiDONE CONC 3 MG/3 ML SOLUTION ORAL.SYG PO SCH ×3 (09:36→16:46)
[2020-06-19] MEDS: MAG HYDROX/AL HYDROX/SIMETH ES 30 ML SUSPENSION UDCUP PO PRN (14:58)
[2020-06-19 16:10] VITALS: BP 117/62
[2020-06-20 05:33] VITALS: BP 121/74
[2020-06-20 08:25] VITALS: BP 126/84
[2020-06-20] MEDS: BusPIRone HCL 10 MG TABLET PO SCH ×3 (09:01→16:13)
[2020-06-20] MEDS: LORazepam 2 MG TABLET PO PRN ×3 (09:01→23:48)
[2020-06-20] MEDS: MULTIVITAMINS, THERAPEUTIC TABLET PO SCH (09:01)
[2020-06-20] MEDS: NICOTINE 14 MG/24 HOUR PATCH TD PRN (09:01)
[2020-06-20] MEDS: RisperiDONE CONC 3 MG/3 ML SOLUTION ORAL.SYG PO SCH ×3 (09:02→16:13)
[2020-06-20] MEDS: OMEGA-3/DHA/EPA/FISH OIL 1,000 MG CAPSULE PO SCH (09:11)
[2020-06-20 16:03] VITALS: BP 113/72
[2020-06-20] MEDS: HALOPERIDOL 5 MG TABLET PO PRN ×2 (16:15→23:48)
[2020-06-20] MEDS: MAG HYDROX/AL HYDROX/SIMETH ES 30 ML SUSPENSION UDCUP PO PRN (18:45)
[2020-06-20] MEDS: ZOLPIDEM TARTRATE 10 MG TABLET PO PRN (21:19)
[2020-06-21 00:50] VITALS: BP 114/76
[2020-06-21] MEDS: MULTIVITAMINS, THERAPEUTIC TABLET PO SCH (08:26)
[2020-06-21] MEDS: OMEGA-3/DHA/EPA/FISH OIL 1,000 MG CAPSULE PO SCH (08:26)
[2020-06-21] MEDS: BusPIRone HCL 10 MG TABLET PO SCH ×3 (08:26→16:11)
[2020-06-21 08:43] VITALS: BP 119/70
[2020-06-21] MEDS: RisperiDONE CONC 3 MG/3 ML SOLUTION ORAL.SYG PO SCH ×3 (10:04→16:11)
[2020-06-21] MEDS: LORazepam 2 MG TABLET PO PRN ×3 (10:22→20:52)
[2020-06-21] MEDS: HALOPERIDOL 5 MG TABLET PO PRN ×3 (10:22→20:52)
[2020-06-21] MEDS: NICOTINE 14 MG/24 HOUR PATCH TD PRN (10:46)
[2020-06-21 16:08] VITALS: BP 133/80
[2020-06-21] MEDS: ZOLPIDEM TARTRATE 10 MG TABLET PO PRN (20:52)
[2020-06-22 01:24] VITALS: BP 125/68
[2020-06-22] MEDS: MULTIVITAMINS, THERAPEUTIC TABLET PO SCH ×3 (09:00→09:29)
[2020-06-22] MEDS: LORazepam 2 MG TABLET PO PRN ×2 (09:19→16:15)
[2020-06-22] MEDS: HALOPERIDOL 5 MG TABLET PO PRN ×2 (09:19→16:15)
[2020-06-22] MEDS: OMEGA-3/DHA/EPA/FISH OIL 1,000 MG CAPSULE PO SCH (09:19)
[2020-06-22] MEDS: BusPIRone HCL 10 MG TABLET PO SCH ×3 (09:19→16:15)
[2020-06-22] MEDS: RisperiDONE CONC 3 MG/3 ML SOLUTION ORAL.SYG PO SCH ×3 (09:20→16:14)
[2020-06-22] MEDS: NICOTINE 14 MG/24 HOUR PATCH TD PRN (09:49)
[2020-06-22 16:09] VITALS: BP 117/83
[2020-06-23] MEDS: HALOPERIDOL 5 MG TABLET PO PRN ×4 (03:15→17:58)
[2020-06-23] MEDS: LORazepam 2 MG TABLET PO PRN ×4 (03:15→17:58)
[2020-06-23 04:56] VITALS: BP 114/71
[2020-06-23 08:14] VITALS: BP 136/80
[2020-06-23] MEDS: MULTIVITAMINS, THERAPEUTIC TABLET PO SCH ×3 (08:25→08:55)
[2020-06-23] MEDS: RisperiDONE CONC 3 MG/3 ML SOLUTION ORAL.SYG PO SCH ×3 (08:25→17:36)
[2020-06-23] MEDS: OMEGA-3/DHA/EPA/FISH OIL 1,000 MG CAPSULE PO SCH (08:25)
[2020-06-23] MEDS: BusPIRone HCL 10 MG TABLET PO SCH ×3 (08:25→17:36)
[2020-06-23] MEDS: NICOTINE 14 MG/24 HOUR PATCH TD PRN (10:04)
[2020-06-23 16:07] VITALS: BP 110/79
[2020-06-24 04:08] VITALS: BP 112/74
[2020-06-24 08:11] VITALS: BP 115/68
[2020-06-24] MEDS: LORazepam 2 MG TABLET PO PRN ×3 (08:22→20:14)
[2020-06-24] MEDS: OMEGA-3/DHA/EPA/FISH OIL 1,000 MG CAPSULE PO SCH (08:22)
[2020-06-24] MEDS: BusPIRone HCL 10 MG TABLET PO SCH (08:22)
[2020-06-24] MEDS: MULTIVITAMINS, THERAPEUTIC TABLET PO SCH (08:22)
[2020-06-24] MEDS: RisperiDONE CONC 3 MG/3 ML SOLUTION ORAL.SYG PO SCH ×3 (08:22→16:20)
[2020-06-24] MEDS: HALOPERIDOL 5 MG TABLET PO PRN ×3 (08:28→20:14)
[2020-06-24] MEDS: NICOTINE 14 MG/24 HOUR PATCH TD PRN (08:43)
[2020-06-24] MEDS: GABAPENTIN 100 MG CAPSULE PO SCH ×3 (11:55→20:14)
[2020-06-24 16:13] VITALS: BP 130/79
[2020-06-24] MEDS: GuaiFENesin/D-METHORPHAN [SUGAR-FREE] 200-20MG/10 ML SYRUP UDCUP PO PRN (18:03)
[2020-06-24] MEDS: ZOLPIDEM TARTRATE 10 MG TABLET PO PRN (20:14)
[2020-06-25 00:37] VITALS: BP 118/77
[2020-06-25 08:24] VITALS: BP 124/81
[2020-06-25] MEDS: RisperiDONE CONC 3 MG/3 ML SOLUTION ORAL.SYG PO SCH ×3 (08:57→16:34)
[2020-06-25] MEDS: HALOPERIDOL 5 MG TABLET PO PRN ×3 (08:58→19:03)
[2020-06-25] MEDS: NICOTINE 14 MG/24 HOUR PATCH TD PRN (08:58)
[2020-06-25] MEDS: GABAPENTIN 100 MG CAPSULE PO SCH ×3 (08:58→20:45)
[2020-06-25] MEDS: LORazepam 2 MG TABLET PO PRN ×3 (08:58→19:03)
[2020-06-25] MEDS: OMEGA-3/DHA/EPA/FISH OIL 1,000 MG CAPSULE PO SCH (08:58)
[2020-06-25] MEDS: MULTIVITAMINS, THERAPEUTIC TABLET PO SCH (08:59)
[2020-06-25] MEDS: GuaiFENesin/D-METHORPHAN [SUGAR-FREE] 200-20MG/10 ML SYRUP UDCUP PO PRN ×2 (11:14→19:03)
[2020-06-25 16:04] VITALS: BP 115/73
[2020-06-25] MEDS: ZOLPIDEM TARTRATE 10 MG TABLET PO PRN (21:04)
[2020-06-26 02:51] VITALS: BP 118/76
[2020-06-26] MEDS: OMEGA-3/DHA/EPA/FISH OIL 1,000 MG CAPSULE PO SCH (08:36)
[2020-06-26] MEDS: MULTIVITAMINS, THERAPEUTIC TABLET PO SCH (08:36)
[2020-06-26] MEDS: RisperiDONE CONC 3 MG/3 ML SOLUTION ORAL.SYG PO SCH ×3 (08:36→16:30)
[2020-06-26] MEDS: GABAPENTIN 100 MG CAPSULE PO SCH ×5 (08:36→20:47)
[2020-06-26 08:39] VITALS: BP 126/80
[2020-06-26] MEDS: LORazepam 2 MG TABLET PO PRN ×2 (09:50→16:30)
[2020-06-26] MEDS: NICOTINE 14 MG/24 HOUR PATCH TD PRN (13:11)
[2020-06-26 16:09] VITALS: BP 121/76
[2020-06-26] MEDS: HALOPERIDOL 5 MG TABLET PO PRN (18:15)
[2020-06-26] MEDS: ZOLPIDEM TARTRATE 10 MG TABLET PO PRN (20:46)
[2020-06-27 05:24] VITALS: BP 102/64
[2020-06-27] MEDS: RisperiDONE CONC 3 MG/3 ML SOLUTION ORAL.SYG PO SCH ×3 (09:04→17:05)
[2020-06-27] MEDS: NICOTINE 14 MG/24 HOUR PATCH TD PRN (09:05)
[2020-06-27] MEDS: MULTIVITAMINS, THERAPEUTIC TABLET PO SCH (09:05)
[2020-06-27] MEDS: OMEGA-3/DHA/EPA/FISH OIL 1,000 MG CAPSULE PO SCH (09:05)
[2020-06-27] MEDS: GABAPENTIN 100 MG CAPSULE PO SCH ×3 (09:05→20:05)
[2020-06-27 09:17] VITALS: BP 124/86
[2020-06-27] MEDS: HALOPERIDOL 5 MG TABLET PO PRN ×2 (09:59→17:01)
[2020-06-27] MEDS: IBUPROFEN 400 MG TABLET PO PRN (09:59)
[2020-06-27] MEDS: LORazepam 2 MG TABLET PO PRN ×2 (10:00→17:01)
[2020-06-27 16:11] VITALS: BP 105/67
[2020-06-27] MEDS: ZOLPIDEM TARTRATE 10 MG TABLET PO PRN (20:05)
[2020-06-28 04:52] VITALS: BP 110/79
[2020-06-28] MEDS: GABAPENTIN 100 MG CAPSULE PO SCH ×3 (08:01→21:17)
[2020-06-28] MEDS: OMEGA-3/DHA/EPA/FISH OIL 1,000 MG CAPSULE PO SCH (08:01)
[2020-06-28] MEDS: RisperiDONE CONC 3 MG/3 ML SOLUTION ORAL.SYG PO SCH ×3 (08:01→16:21)
[2020-06-28] MEDS: MULTIVITAMINS, THERAPEUTIC TABLET PO SCH (08:01)
[2020-06-28 08:36] VITALS: BP 100/68
[2020-06-28] MEDS: LORazepam 2 MG TABLET PO PRN ×2 (10:01→16:21)
[2020-06-28] MEDS: IBUPROFEN 400 MG TABLET PO PRN (10:01)
[2020-06-28] MEDS: GuaiFENesin/D-METHORPHAN [SUGAR-FREE] 200-20MG/10 ML SYRUP UDCUP PO PRN (10:01)
[2020-06-28] MEDS: HALOPERIDOL 5 MG TABLET PO PRN ×2 (10:02→16:21)
[2020-06-28 10:03] VITALS: BP 107/72
[2020-06-28 16:03] VITALS: BP 108/64
[2020-06-28] MEDS: FLUTICASONE PROPIONATE 50 MCG/SPRAY 16 GM NASAL SPRAY NASAL SCH (16:21)
[2020-06-28] MEDS: ZOLPIDEM TARTRATE 10 MG TABLET PO PRN (21:18)
[2020-06-29 04:05] VITALS: BP 112/67
[2020-06-29 08:01] VITALS: BP 110/64
[2020-06-29] MEDS: LORazepam 2 MG TABLET PO PRN ×2 (08:23→18:23)
[2020-06-29] MEDS: FLUTICASONE PROPIONATE 50 MCG/SPRAY 16 GM NASAL SPRAY NASAL SCH ×2 (08:23→16:24)
[2020-06-29] MEDS: OMEGA-3/DHA/EPA/FISH OIL 1,000 MG CAPSULE PO SCH (08:23)
[2020-06-29] MEDS: GABAPENTIN 100 MG CAPSULE PO SCH ×3 (08:23→20:21)
[2020-06-29] MEDS: MULTIVITAMINS, THERAPEUTIC TABLET PO SCH (08:23)
[2020-06-29] MEDS: NICOTINE 14 MG/24 HOUR PATCH TD PRN (08:24)
[2020-06-29] MEDS: ACETAMINOPHEN 325 MG TABLET PO PRN (13:31)
[2020-06-29 16:03] VITALS: BP 114/64
[2020-06-29] MEDS: ZOLPIDEM TARTRATE 10 MG TABLET PO PRN (20:21)
[2020-06-30 00:39] VITALS: BP 110/66
[2020-06-30 08:25] VITALS: BP 112/68
[2020-06-30] MEDS: HALOPERIDOL 5 MG TABLET PO PRN ×2 (08:49→13:55)
[2020-06-30] MEDS: OMEGA-3/DHA/EPA/FISH OIL 1,000 MG CAPSULE PO SCH (08:49)
[2020-06-30] MEDS: LORazepam 2 MG TABLET PO PRN ×2 (08:49→13:55)
[2020-06-30] MEDS: GABAPENTIN 100 MG CAPSULE PO SCH ×3 (08:49→21:11)
[2020-06-30] MEDS: MULTIVITAMINS, THERAPEUTIC TABLET PO SCH (08:50)
[2020-06-30] MEDS: FLUTICASONE PROPIONATE 50 MCG/SPRAY 16 GM NASAL SPRAY NASAL SCH ×2 (08:50→17:12)
[2020-06-30] MEDS: IBUPROFEN 400 MG TABLET PO PRN (12:10)
[2020-06-30 16:03] VITALS: BP 109/61
[2020-06-30] MEDS: NICOTINE 14 MG/24 HOUR PATCH TD PRN (16:04)
[2020-07-01 00:26] VITALS: BP 128/66
[2020-07-01] MEDS: LORazepam 2 MG TABLET PO PRN ×3 (00:53→17:35)
[2020-07-01] MEDS: HALOPERIDOL 5 MG TABLET PO PRN ×3 (00:53→17:35)
[2020-07-01 08:40] VITALS: BP 130/75
[2020-07-01] MEDS: GABAPENTIN 100 MG CAPSULE PO SCH ×4 (09:54→19:50)
[2020-07-01] MEDS: FLUTICASONE PROPIONATE 50 MCG/SPRAY 16 GM NASAL SPRAY NASAL SCH ×2 (09:54→16:27)
[2020-07-01] MEDS: MULTIVITAMINS, THERAPEUTIC TABLET PO SCH (09:54)
[2020-07-01] MEDS: OMEGA-3/DHA/EPA/FISH OIL 1,000 MG CAPSULE PO SCH (09:55)
[2020-07-01] MEDS: NICOTINE 14 MG/24 HOUR PATCH TD PRN (10:23)
[2020-07-01] MEDS: ACETAMINOPHEN 325 MG TABLET PO PRN (12:54)
[2020-07-01 16:17] VITALS: BP 106/62
[2020-07-01] MEDS: ZOLPIDEM TARTRATE 10 MG TABLET PO PRN (19:47)
[2020-07-02 05:43] VITALS: BP 114/72
[2020-07-02 08:27] VITALS: BP 132/77
[2020-07-02] MEDS: MULTIVITAMINS, THERAPEUTIC TABLET PO SCH (09:00)
[2020-07-02] MEDS: FLUTICASONE PROPIONATE 50 MCG/SPRAY 16 GM NASAL SPRAY NASAL SCH ×2 (09:24→16:01)
[2020-07-02] MEDS: OMEGA-3/DHA/EPA/FISH OIL 1,000 MG CAPSULE PO SCH (09:25)
[2020-07-02] MEDS: GABAPENTIN 100 MG CAPSULE PO SCH ×3 (09:25→20:58)
[2020-07-02] MEDS: HALOPERIDOL 5 MG TABLET PO PRN ×2 (09:25→14:19)
[2020-07-02] MEDS: LORazepam 2 MG TABLET PO PRN ×2 (09:25→14:19)
[2020-07-02] MEDS: NICOTINE 14 MG/24 HOUR PATCH TD PRN (11:02)
[2020-07-02 16:44] VITALS: BP 112/70
[2020-07-02] MEDS: ZOLPIDEM TARTRATE 10 MG TABLET PO PRN (20:58)
[2020-07-03 02:56] VITALS: BP 118/70
[2020-07-03] MEDS: MAG HYDROX/AL HYDROX/SIMETH ES 30 ML SUSPENSION UDCUP PO PRN (04:13)
[2020-07-03] MEDS: FLUTICASONE PROPIONATE 50 MCG/SPRAY 16 GM NASAL SPRAY NASAL SCH ×2 (08:18→16:44)
[2020-07-03] MEDS: LORazepam 2 MG TABLET PO PRN ×2 (08:19→14:14)
[2020-07-03] MEDS: OMEGA-3/DHA/EPA/FISH OIL 1,000 MG CAPSULE PO SCH (08:19)
[2020-07-03] MEDS: GABAPENTIN 100 MG CAPSULE PO SCH ×3 (08:19→20:04)
[2020-07-03] MEDS: MULTIVITAMINS, THERAPEUTIC TABLET PO SCH (09:00)
[2020-07-03] MEDS: NICOTINE 21 MG/24 HOUR PATCH TD PRN (09:48)
[2020-07-03] MEDS: HALOPERIDOL 5 MG TABLET PO PRN (14:14)
[2020-07-03 14:15] VITALS: BP 137/86
[2020-07-03] MEDS: IBUPROFEN 400 MG TABLET PO PRN (14:15)
[2020-07-03 16:10] VITALS: BP 118/75
[2020-07-04 02:26] VITALS: BP 106/62
[2020-07-04] MEDS: LORazepam 2 MG TABLET PO PRN ×4 (02:27→20:59)
[2020-07-04] MEDS: ZOLPIDEM TARTRATE 10 MG TABLET PO PRN ×2 (02:27→20:59)
[2020-07-04] MEDS: HALOPERIDOL 5 MG TABLET PO PRN ×4 (02:27→20:59)
[2020-07-04 08:07] VITALS: BP 109/69
[2020-07-04 08:31] LABS: COVID AG,FIA SOURCE NASAL SWAB
[2020-07-04] MEDS: MULTIVITAMINS, THERAPEUTIC TABLET PO SCH (09:00)
[2020-07-04] MEDS: GABAPENTIN 100 MG CAPSULE PO SCH ×3 (09:29→20:59)
[2020-07-04] MEDS: FLUTICASONE PROPIONATE 50 MCG/SPRAY 16 GM NASAL SPRAY NASAL SCH ×2 (09:29→16:36)
[2020-07-04] MEDS: OMEGA-3/DHA/EPA/FISH OIL 1,000 MG CAPSULE PO SCH (09:29)
[2020-07-04] MEDS: NICOTINE 21 MG/24 HOUR PATCH TD PRN (11:19)
[2020-07-04 16:03] VITALS: BP 115/67
[2020-07-04] MEDS: GuaiFENesin/D-METHORPHAN [SUGAR-FREE] 200-20MG/10 ML SYRUP UDCUP PO PRN (21:56)
[2020-07-05 06:03] VITALS: BP 119/64
[2020-07-05] MEDS: MULTIVITAMINS, THERAPEUTIC TABLET PO SCH (08:15)
[2020-07-05] MEDS: FLUTICASONE PROPIONATE 50 MCG/SPRAY 16 GM NASAL SPRAY NASAL SCH ×2 (08:15→16:59)
[2020-07-05] MEDS: GABAPENTIN 100 MG CAPSULE PO SCH ×3 (08:15→19:46)
[2020-07-05] MEDS: OMEGA-3/DHA/EPA/FISH OIL 1,000 MG CAPSULE PO SCH (08:15)
[2020-07-05 08:27] VITALS: BP 106/56
[2020-07-05] MEDS: LORazepam 2 MG TABLET PO PRN (11:22)
[2020-07-05 16:13] VITALS: BP 120/79
[2020-07-05] MEDS: ZOLPIDEM TARTRATE 10 MG TABLET PO PRN (19:46)
[2020-07-06 04:18] VITALS: BP 111/69
[2020-07-06 08:14] VITALS: BP 126/76
[2020-07-06] MEDS: MULTIVITAMINS, THERAPEUTIC TABLET PO SCH (08:37)
[2020-07-06] MEDS: GABAPENTIN 100 MG CAPSULE PO SCH ×3 (08:37→20:30)
[2020-07-06] MEDS: OMEGA-3/DHA/EPA/FISH OIL 1,000 MG CAPSULE PO SCH (08:37)
[2020-07-06] MEDS: FLUTICASONE PROPIONATE 50 MCG/SPRAY 16 GM NASAL SPRAY NASAL SCH ×2 (08:38→16:14)
[2020-07-06 17:13] VITALS: BP 131/85
[2020-07-06] MEDS: ZOLPIDEM TARTRATE 10 MG TABLET PO PRN (20:29)
[2020-07-06] MEDS: LORazepam 2 MG TABLET PO PRN (22:21)
[2020-07-06] MEDS: HALOPERIDOL 5 MG TABLET PO PRN (22:21)
[2020-07-07 00:50] VITALS: BP 121/71
[2020-07-07 08:30] VITALS: BP 124/73
[2020-07-07] MEDS: MULTIVITAMINS, THERAPEUTIC TABLET PO SCH (09:00)
[2020-07-07] MEDS: OMEGA-3/DHA/EPA/FISH OIL 1,000 MG CAPSULE PO SCH (09:58)
[2020-07-07] MEDS: FLUTICASONE PROPIONATE 50 MCG/SPRAY 16 GM NASAL SPRAY NASAL SCH ×2 (09:58→16:23)
[2020-07-07] MEDS: GABAPENTIN 100 MG CAPSULE PO SCH ×3 (09:58→21:03)
[2020-07-07] MEDS: MAG HYDROX/AL HYDROX/SIMETH ES 30 ML SUSPENSION UDCUP PO PRN (11:00)
[2020-07-07] MEDS: ACETAMINOPHEN 325 MG TABLET PO PRN (11:00)
[2020-07-07] MEDS: HALOPERIDOL 5 MG TABLET PO PRN ×2 (13:21→17:44)
[2020-07-07] MEDS: LORazepam 2 MG TABLET PO PRN ×2 (13:21→17:45)
[2020-07-07 16:08] VITALS: BP 124/63
[2020-07-07] MEDS: ZOLPIDEM TARTRATE 10 MG TABLET PO PRN (21:03)
[2020-07-08 04:44] VITALS: BP 121/64
[2020-07-08] MEDS: GABAPENTIN 100 MG CAPSULE PO SCH ×3 (08:17→20:55)
[2020-07-08] MEDS: OMEGA-3/DHA/EPA/FISH OIL 1,000 MG CAPSULE PO SCH (08:30)
[2020-07-08] MEDS: MULTIVITAMINS, THERAPEUTIC TABLET PO SCH (08:35)
[2020-07-08 09:12] VITALS: BP 124/72
[2020-07-08] MEDS: FLUTICASONE PROPIONATE 50 MCG/SPRAY 16 GM NASAL SPRAY NASAL SCH ×2 (09:41→16:12)
[2020-07-08] MEDS: LORazepam 2 MG TABLET PO PRN ×2 (10:27→18:09)
[2020-07-08] MEDS: HALOPERIDOL 5 MG TABLET PO PRN ×2 (10:27→18:09)
[2020-07-08] MEDS: NICOTINE 21 MG/24 HOUR PATCH TD PRN (11:11)
[2020-07-08 16:28] VITALS: BP 119/79
[2020-07-08] MEDS: ZOLPIDEM TARTRATE 10 MG TABLET PO PRN (20:55)
[2020-07-09 04:29] VITALS: BP 116/72
[2020-07-09 08:16] VITALS: BP 106/68
[2020-07-09] MEDS: OMEGA-3/DHA/EPA/FISH OIL 1,000 MG CAPSULE PO SCH (08:22)
[2020-07-09] MEDS: GABAPENTIN 100 MG CAPSULE PO SCH ×3 (08:22→20:21)
[2020-07-09] MEDS: MULTIVITAMINS, THERAPEUTIC TABLET PO SCH (09:00)
[2020-07-09] MEDS: NICOTINE 21 MG/24 HOUR PATCH TD PRN (09:25)
[2020-07-09] MEDS: FLUTICASONE PROPIONATE 50 MCG/SPRAY 16 GM NASAL SPRAY NASAL SCH ×2 (10:00→16:26)
[2020-07-09] MEDS: LORazepam 2 MG TABLET PO PRN (12:46)
[2020-07-09 16:01] VITALS: BP 105/65
[2020-07-09] MEDS: ZOLPIDEM TARTRATE 10 MG TABLET PO PRN (20:23)
[2020-07-10 04:50] VITALS: BP 119/71
[2020-07-10 08:04] VITALS: BP 120/73
[2020-07-10] MEDS: MULTIVITAMINS, THERAPEUTIC TABLET PO SCH (09:00)
[2020-07-10] MEDS: OMEGA-3/DHA/EPA/FISH OIL 1,000 MG CAPSULE PO SCH (09:13)
[2020-07-10] MEDS: FLUTICASONE PROPIONATE 50 MCG/SPRAY 16 GM NASAL SPRAY NASAL SCH ×2 (09:13→16:18)
[2020-07-10] MEDS: LORazepam 2 MG TABLET PO PRN ×2 (09:13→16:17)
[2020-07-10] MEDS: GABAPENTIN 100 MG CAPSULE PO SCH ×3 (09:13→20:11)
[2020-07-10] MEDS: NICOTINE 21 MG/24 HOUR PATCH TD PRN (09:14)
[2020-07-10] MEDS: HALOPERIDOL 5 MG TABLET PO PRN ×2 (09:14→16:17)
[2020-07-10 16:24] VITALS: BP 104/63
[2020-07-10] MEDS: ZOLPIDEM TARTRATE 10 MG TABLET PO PRN (21:08)
[2020-07-11 03:25] VITALS: BP 110/69
[2020-07-11] MEDS: MULTIVITAMINS, THERAPEUTIC TABLET PO SCH (08:27)
[2020-07-11] MEDS: LORazepam 2 MG TABLET PO PRN ×3 (08:27→19:15)
[2020-07-11] MEDS: OMEGA-3/DHA/EPA/FISH OIL 1,000 MG CAPSULE PO SCH (08:27)
[2020-07-11] MEDS: GABAPENTIN 100 MG CAPSULE PO SCH ×3 (08:28→20:42)
[2020-07-11] MEDS: FLUTICASONE PROPIONATE 50 MCG/SPRAY 16 GM NASAL SPRAY NASAL SCH ×2 (08:28→16:24)
[2020-07-11] MEDS: HALOPERIDOL 5 MG TABLET PO PRN ×2 (08:28→19:15)
[2020-07-11] MEDS: NICOTINE 21 MG/24 HOUR PATCH TD PRN (08:59)
[2020-07-11] MEDS: GuaiFENesin/D-METHORPHAN [SUGAR-FREE] 200-20MG/10 ML SYRUP UDCUP PO PRN (09:37)
[2020-07-11 16:28] VITALS: BP 107/72
[2020-07-11] MEDS: ZOLPIDEM TARTRATE 10 MG TABLET PO PRN (20:41)
[2020-07-12 05:03] VITALS: BP 115/64
[2020-07-12] MEDS: OMEGA-3/DHA/EPA/FISH OIL 1,000 MG CAPSULE PO SCH (08:02)
[2020-07-12] MEDS: MULTIVITAMINS, THERAPEUTIC TABLET PO SCH (08:02)
[2020-07-12] MEDS: GABAPENTIN 100 MG CAPSULE PO SCH ×3 (08:02→20:36)
[2020-07-12] MEDS: FLUTICASONE PROPIONATE 50 MCG/SPRAY 16 GM NASAL SPRAY NASAL SCH ×2 (08:03→16:51)
[2020-07-12 08:25] VITALS: BP 105/60
[2020-07-12] MEDS: NICOTINE 21 MG/24 HOUR PATCH TD PRN (09:11)
[2020-07-12] MEDS: PALIPERIDONE PALMITATE 234 MG/1.5 ML SYRINGE IM SCH (09:12)
[2020-07-12 16:01] VITALS: BP 117/65
[2020-07-12] MEDS: HALOPERIDOL 5 MG TABLET PO PRN (17:39)
[2020-07-12] MEDS: LORazepam 2 MG TABLET PO PRN (17:39)
[2020-07-13 04:04] VITALS: BP 112/64
[2020-07-13 08:46] VITALS: BP 102/60
[2020-07-13] MEDS: FLUTICASONE PROPIONATE 50 MCG/SPRAY 16 GM NASAL SPRAY NASAL SCH ×2 (08:58→16:01)
[2020-07-13] MEDS: OMEGA-3/DHA/EPA/FISH OIL 1,000 MG CAPSULE PO SCH (08:58)
[2020-07-13] MEDS: GABAPENTIN 100 MG CAPSULE PO SCH ×3 (08:59→20:31)
[2020-07-13] MEDS: MULTIVITAMINS, THERAPEUTIC TABLET PO SCH (08:59)
[2020-07-13] MEDS: LORazepam 2 MG TABLET PO PRN (16:00)
[2020-07-13 16:03] VITALS: BP 112/73
[2020-07-13] MEDS: ZOLPIDEM TARTRATE 10 MG TABLET PO PRN (20:46)
[2020-07-14 04:59] VITALS: BP 110/71
[2020-07-14 08:34] VITALS: BP 115/73
[2020-07-14] MEDS: OMEGA-3/DHA/EPA/FISH OIL 1,000 MG CAPSULE PO SCH (08:58)
[2020-07-14] MEDS: MULTIVITAMINS, THERAPEUTIC TABLET PO SCH (08:58)
[2020-07-14] MEDS: FLUTICASONE PROPIONATE 50 MCG/SPRAY 16 GM NASAL SPRAY NASAL SCH ×2 (08:58→16:42)
[2020-07-14] MEDS: GABAPENTIN 100 MG CAPSULE PO SCH ×3 (08:58→20:58)
[2020-07-14] MEDS: NICOTINE 21 MG/24 HOUR PATCH TD PRN (09:04)
[2020-07-14] MEDS: LORazepam 2 MG TABLET PO PRN ×2 (10:45→17:34)
[2020-07-14 16:38] VITALS: BP 113/65
[2020-07-14] MEDS: ZOLPIDEM TARTRATE 10 MG TABLET PO PRN (20:58)
[2020-07-15 05:20] VITALS: BP 110/68
[2020-07-15 08:32] VITALS: BP 110/63
[2020-07-15] MEDS: FLUTICASONE PROPIONATE 50 MCG/SPRAY 16 GM NASAL SPRAY NASAL SCH ×2 (08:43→16:02)
[2020-07-15] MEDS: GABAPENTIN 100 MG CAPSULE PO SCH ×3 (08:43→20:08)
[2020-07-15] MEDS: OMEGA-3/DHA/EPA/FISH OIL 1,000 MG CAPSULE PO SCH (08:43)
[2020-07-15] MEDS: MULTIVITAMINS, THERAPEUTIC TABLET PO SCH (08:43)
[2020-07-15] MEDS: LORazepam 2 MG TABLET PO PRN ×2 (09:21→15:51)
[2020-07-15] MEDS: NICOTINE 21 MG/24 HOUR PATCH TD PRN (10:33)
[2020-07-15 17:19] VITALS: BP 110/78
[2020-07-15] MEDS: ZOLPIDEM TARTRATE 10 MG TABLET PO PRN (20:51)
[2020-07-16 03:33] VITALS: BP 108/62
[2020-07-16] MEDS: MULTIVITAMINS, THERAPEUTIC TABLET PO SCH (08:44)
[2020-07-16] MEDS: OMEGA-3/DHA/EPA/FISH OIL 1,000 MG CAPSULE PO SCH (08:44)
[2020-07-16] MEDS: GABAPENTIN 100 MG CAPSULE PO SCH ×3 (08:44→20:43)
[2020-07-16] MEDS: NICOTINE 21 MG/24 HOUR PATCH TD PRN (08:50)
[2020-07-16] MEDS: FLUTICASONE PROPIONATE 50 MCG/SPRAY 16 GM NASAL SPRAY NASAL SCH ×2 (09:04→17:29)
[2020-07-16 09:48] VITALS: BP 119/71
[2020-07-16] MEDS: LORazepam 2 MG TABLET PO PRN (14:15)
[2020-07-16] MEDS: HALOPERIDOL 5 MG TABLET PO PRN (16:27)
[2020-07-16 16:58] VITALS: BP 114/78
[2020-07-16] MEDS: ZOLPIDEM TARTRATE 10 MG TABLET PO PRN (21:11)
[2020-07-17 06:07] VITALS: BP 110/74
[2020-07-17 08:21] VITALS: BP 126/84
[2020-07-17] MEDS: OMEGA-3/DHA/EPA/FISH OIL 1,000 MG CAPSULE PO SCH (08:54)
[2020-07-17] MEDS: GABAPENTIN 100 MG CAPSULE PO SCH ×3 (08:55→20:24)
[2020-07-17] MEDS: FLUTICASONE PROPIONATE 50 MCG/SPRAY 16 GM NASAL SPRAY NASAL SCH ×2 (09:35→16:55)
[2020-07-17 16:23] VITALS: BP 105/62
[2020-07-17] MEDS: NICOTINE 21 MG/24 HOUR PATCH TD PRN (16:55)
[2020-07-17] MEDS: HALOPERIDOL 5 MG TABLET PO PRN (18:30)
[2020-07-17] MEDS: LORazepam 2 MG TABLET PO PRN (18:30)
[2020-07-18 00:27] VITALS: BP 108/64
[2020-07-18] MEDS: GABAPENTIN 100 MG CAPSULE PO SCH ×3 (09:37→20:38)
[2020-07-18] MEDS: FLUTICASONE PROPIONATE 50 MCG/SPRAY 16 GM NASAL SPRAY NASAL SCH ×2 (09:37→16:18)
[2020-07-18] MEDS: OMEGA-3/DHA/EPA/FISH OIL 1,000 MG CAPSULE PO SCH (09:37)
[2020-07-18 09:39] VITALS: BP 138/82
[2020-07-18] MEDS: NICOTINE 21 MG/24 HOUR PATCH TD PRN (09:53)
[2020-07-18] MEDS: ACETAMINOPHEN 325 MG TABLET PO PRN (11:01)
[2020-07-18] MEDS: HALOPERIDOL 5 MG TABLET PO PRN (14:25)
[2020-07-18] MEDS: LORazepam 2 MG TABLET PO PRN (14:39)
[2020-07-18 16:15] VITALS: BP 110/73
[2020-07-19 04:22] VITALS: BP 108/72
[2020-07-19] MEDS: LORazepam 2 MG TABLET PO PRN ×3 (04:53→17:23)
[2020-07-19] MEDS: HALOPERIDOL 5 MG TABLET PO PRN ×3 (04:53→17:23)
[2020-07-19 08:22] VITALS: BP 125/56
[2020-07-19] MEDS: GABAPENTIN 100 MG CAPSULE PO SCH ×3 (09:22→20:34)
[2020-07-19] MEDS: OMEGA-3/DHA/EPA/FISH OIL 1,000 MG CAPSULE PO SCH (09:22)
[2020-07-19] MEDS: FLUTICASONE PROPIONATE 50 MCG/SPRAY 16 GM NASAL SPRAY NASAL SCH ×2 (09:22→16:55)
[2020-07-19] MEDS: NICOTINE 21 MG/24 HOUR PATCH TD PRN (09:35)
[2020-07-19] MEDS: ACETAMINOPHEN 325 MG TABLET PO PRN (10:56)
[2020-07-19] MEDS: IBUPROFEN 400 MG TABLET PO PRN (10:56)
[2020-07-19 16:06] VITALS: BP 101/64
[2020-07-19] MEDS: ZOLPIDEM TARTRATE 10 MG TABLET PO PRN (21:18)
[2020-07-20 05:44] VITALS: BP 118/68
[2020-07-20 08:10] VITALS: BP 121/74
[2020-07-20] MEDS: GABAPENTIN 100 MG CAPSULE PO SCH ×3 (08:26→20:29)
[2020-07-20] MEDS: OMEGA-3/DHA/EPA/FISH OIL 1,000 MG CAPSULE PO SCH (08:26)
[2020-07-20] MEDS: FLUTICASONE PROPIONATE 50 MCG/SPRAY 16 GM NASAL SPRAY NASAL SCH ×2 (08:26→17:42)
[2020-07-20] MEDS: LORazepam 2 MG TABLET PO PRN ×3 (08:27→16:19)
[2020-07-20] MEDS: NICOTINE 21 MG/24 HOUR PATCH TD PRN (08:33)
[2020-07-20] MEDS: HALOPERIDOL 5 MG TABLET PO PRN ×2 (11:59→21:48)
[2020-07-20 12:30] VITALS: BP 125/76
[2020-07-20] MEDS: ACETAMINOPHEN 325 MG TABLET PO PRN (12:30)
[2020-07-20 16:00] VITALS: BP 132/66
[2020-07-20] MEDS: ZOLPIDEM TARTRATE 10 MG TABLET PO PRN (20:29)
[2020-07-21 00:13] VITALS: BP 116/69
[2020-07-21 08:09] VITALS: BP 104/60
[2020-07-21] MEDS: FLUTICASONE PROPIONATE 50 MCG/SPRAY 16 GM NASAL SPRAY NASAL SCH ×2 (08:19→16:19)
[2020-07-21] MEDS: GABAPENTIN 100 MG CAPSULE PO SCH ×3 (08:19→20:35)
[2020-07-21] MEDS: OMEGA-3/DHA/EPA/FISH OIL 1,000 MG CAPSULE PO SCH (08:19)
[2020-07-21 08:41] LABS: COVID AG,FIA SOURCE NASOPHARYNGEAL
[2020-07-21] MEDS: NICOTINE 21 MG/24 HOUR PATCH TD PRN (09:39)
[2020-07-21] MEDS: LORazepam 2 MG TABLET PO PRN ×2 (09:39→18:03)
[2020-07-21] MEDS: HALOPERIDOL 5 MG TABLET PO PRN ×2 (11:00→19:12)
[2020-07-21] MEDS: IBUPROFEN 400 MG TABLET PO PRN (11:00)
[2020-07-21 16:29] VITALS: BP 131/81
[2020-07-21] MEDS: ZOLPIDEM TARTRATE 10 MG TABLET PO PRN (20:35)
[2020-07-22 04:44] VITALS: BP 128/67
[2020-07-22 08:22] VITALS: BP 118/75
[2020-07-22] MEDS: FLUTICASONE PROPIONATE 50 MCG/SPRAY 16 GM NASAL SPRAY NASAL SCH ×2 (08:22→17:46)
[2020-07-22] MEDS: OMEGA-3/DHA/EPA/FISH OIL 1,000 MG CAPSULE PO SCH (08:22)
[2020-07-22] MEDS: GABAPENTIN 100 MG CAPSULE PO SCH ×3 (08:22→20:25)
[2020-07-22] MEDS: HALOPERIDOL 5 MG TABLET PO PRN ×2 (08:22→17:46)
[2020-07-22] MEDS: NICOTINE 21 MG/24 HOUR PATCH TD PRN (08:22)
[2020-07-22] MEDS: LORazepam 2 MG TABLET PO PRN ×3 (08:22→18:55)
[2020-07-22 16:27] VITALS: BP 101/62
[2020-07-22] MEDS: ZOLPIDEM TARTRATE 10 MG TABLET PO PRN (20:25)
[2020-07-23 00:20] VITALS: BP 107/66
[2020-07-23 08:35] VITALS: BP 103/72
[2020-07-23] MEDS: FLUTICASONE PROPIONATE 50 MCG/SPRAY 16 GM NASAL SPRAY NASAL SCH ×2 (08:38→16:58)
[2020-07-23] MEDS: GABAPENTIN 100 MG CAPSULE PO SCH ×3 (08:39→21:46)
[2020-07-23] MEDS: LORazepam 2 MG TABLET PO PRN ×3 (09:12→22:40)
[2020-07-23] MEDS: NICOTINE 21 MG/24 HOUR PATCH TD PRN (09:12)
[2020-07-23] MEDS: HALOPERIDOL 5 MG TABLET PO PRN ×2 (16:09→22:39)
[2020-07-23 16:32] VITALS: BP 116/75
[2020-07-23] MEDS: ACETAMINOPHEN 325 MG TABLET PO PRN (18:05)
[2020-07-23] MEDS: ZOLPIDEM TARTRATE 10 MG TABLET PO PRN (21:44)
[2020-07-24 05:20] VITALS: BP 118/78
[2020-07-24 08:21] VITALS: BP 101/61
[2020-07-24] MEDS: GABAPENTIN 100 MG CAPSULE PO SCH ×3 (08:34→20:13)
[2020-07-24] MEDS: FLUTICASONE PROPIONATE 50 MCG/SPRAY 16 GM NASAL SPRAY NASAL SCH ×2 (08:34→16:53)
[2020-07-24] MEDS: NICOTINE 21 MG/24 HOUR PATCH TD PRN (08:34)
[2020-07-24] MEDS: LORazepam 2 MG TABLET PO PRN ×2 (12:30→16:53)
[2020-07-24] MEDS: HALOPERIDOL 5 MG TABLET PO PRN (12:30)
[2020-07-24 16:10] VITALS: BP 113/68
[2020-07-24] MEDS: ZOLPIDEM TARTRATE 10 MG TABLET PO PRN (20:13)
[2020-07-25 03:12] VITALS: BP 112/70
[2020-07-25] MEDS: GABAPENTIN 100 MG CAPSULE PO SCH ×3 (08:24→20:21)
[2020-07-25] MEDS: FLUTICASONE PROPIONATE 50 MCG/SPRAY 16 GM NASAL SPRAY NASAL SCH ×2 (08:24→16:07)
[2020-07-25] MEDS: NICOTINE 21 MG/24 HOUR PATCH TD PRN (08:24)
[2020-07-25 08:58] VITALS: BP 103/70
[2020-07-25] MEDS: HALOPERIDOL 5 MG TABLET PO PRN ×2 (13:16→20:21)
[2020-07-25] MEDS: LORazepam 2 MG TABLET PO PRN ×2 (13:16→18:33)
[2020-07-25 16:01] VITALS: BP 108/74
[2020-07-25] MEDS: ZOLPIDEM TARTRATE 10 MG TABLET PO PRN (20:26)
[2020-07-26 04:31] VITALS: BP 111/77
[2020-07-26 08:26] VITALS: BP 126/76
[2020-07-26] MEDS: FLUTICASONE PROPIONATE 50 MCG/SPRAY 16 GM NASAL SPRAY NASAL SCH ×2 (08:39→17:46)
[2020-07-26] MEDS: NICOTINE 21 MG/24 HOUR PATCH TD PRN (08:44)
[2020-07-26] MEDS: HALOPERIDOL 5 MG TABLET PO PRN ×2 (08:44→18:16)
[2020-07-26] MEDS: LORazepam 2 MG TABLET PO PRN ×2 (08:45→18:16)
[2020-07-26] MEDS: GABAPENTIN 100 MG CAPSULE PO SCH ×3 (09:01→21:11)
[2020-07-26 16:14] VITALS: BP 110/70
[2020-07-26] MEDS: ZOLPIDEM TARTRATE 10 MG TABLET PO PRN (21:55)
[2020-07-27 02:56] VITALS: BP 125/69
[2020-07-27 08:32] VITALS: BP 101/60
[2020-07-27] MEDS: GABAPENTIN 100 MG CAPSULE PO SCH ×3 (08:54→20:19)
[2020-07-27] MEDS: FLUTICASONE PROPIONATE 50 MCG/SPRAY 16 GM NASAL SPRAY NASAL SCH ×2 (08:55→17:01)
[2020-07-27] MEDS: LORazepam 2 MG TABLET PO PRN ×3 (08:55→18:48)
[2020-07-27] MEDS: NICOTINE 21 MG/24 HOUR PATCH TD PRN (09:36)
[2020-07-27] MEDS: HALOPERIDOL 5 MG TABLET PO PRN ×2 (11:16→18:48)
[2020-07-27 16:11] VITALS: BP 106/65
[2020-07-27] MEDS: ZOLPIDEM TARTRATE 10 MG TABLET PO PRN (20:45)
[2020-07-28 05:29] VITALS: BP 112/74
[2020-07-28 09:06] VITALS: BP 122/75
[2020-07-28] MEDS: FLUTICASONE PROPIONATE 50 MCG/SPRAY 16 GM NASAL SPRAY NASAL SCH ×2 (09:30→17:34)
[2020-07-28] MEDS: GABAPENTIN 100 MG CAPSULE PO SCH ×3 (09:31→20:52)
[2020-07-28] MEDS: NICOTINE 21 MG/24 HOUR PATCH TD PRN (10:37)
[2020-07-28 16:11] VITALS: BP 111/71
[2020-07-28] MEDS: LORazepam 2 MG TABLET PO PRN (21:25)
[2020-07-29 00:46] VITALS: BP 125/68
[2020-07-29 08:14] VITALS: BP 138/92
[2020-07-29] MEDS: GABAPENTIN 100 MG CAPSULE PO SCH ×3 (08:33→20:53)
[2020-07-29] MEDS: FLUTICASONE PROPIONATE 50 MCG/SPRAY 16 GM NASAL SPRAY NASAL SCH ×2 (08:33→16:56)
[2020-07-29] MEDS: LORazepam 2 MG TABLET PO PRN ×2 (08:34→18:00)
[2020-07-29] MEDS: NICOTINE 21 MG/24 HOUR PATCH TD PRN (09:43)
[2020-07-29] MEDS: HALOPERIDOL 5 MG TABLET PO PRN (12:48)
[2020-07-29 16:17] VITALS: BP 114/75
[2020-07-29] MEDS: ZOLPIDEM TARTRATE 10 MG TABLET PO PRN (20:53)
[2020-07-30 00:30] VITALS: BP 129/82
[2020-07-30 08:17] VITALS: BP 110/61
[2020-07-30] MEDS: FLUTICASONE PROPIONATE 50 MCG/SPRAY 16 GM NASAL SPRAY NASAL SCH ×2 (09:24→16:15)
[2020-07-30] MEDS: GABAPENTIN 100 MG CAPSULE PO SCH ×3 (09:25→21:21)
[2020-07-30] MEDS: NICOTINE 21 MG/24 HOUR PATCH TD PRN (10:16)
[2020-07-30] MEDS: NICOTINE POLACRILEX 2 MG LOZENGE PO PRN (16:16)
[2020-07-30] MEDS: HALOPERIDOL 5 MG TABLET PO PRN ×2 (16:19→21:22)
[2020-07-30] MEDS: LORazepam 2 MG TABLET PO PRN ×2 (16:19→21:22)
[2020-07-30 16:27] VITALS: BP 124/74
[2020-07-31 05:09] VITALS: BP 129/90
[2020-07-31] MEDS: NICOTINE POLACRILEX 2 MG LOZENGE PO PRN ×2 (05:12→17:22)
[2020-07-31] MEDS: LORazepam 2 MG TABLET PO PRN ×2 (05:12→14:36)
[2020-07-31 08:09] VITALS: BP 103/62
[2020-07-31] MEDS: FLUTICASONE PROPIONATE 50 MCG/SPRAY 16 GM NASAL SPRAY NASAL SCH ×2 (09:11→16:12)
[2020-07-31] MEDS: GABAPENTIN 100 MG CAPSULE PO SCH ×3 (09:12→20:13)
[2020-07-31] MEDS: HALOPERIDOL 5 MG TABLET PO PRN ×2 (12:02→20:13)
[2020-07-31 16:07] VITALS: BP 115/64
[2020-08-01 00:06] VITALS: BP 121/62
[2020-08-01 07:58] LABS: ALANINE AMINOTRANSFERASE 24 U/L (12-78); ALBUMIN 3.8 g/dL (3.4-5.0); ALKALINE PHOSPHATASE 94 U/L (46-116); ANION GAP 7 mmol/L (8-16); ASPARTATE AMINOTRANSFERASE 10 U/L (15-37); BILIRUBIN,TOTAL 0.3 mg/dL (0.1-1.0); CALCIUM, TOTAL 8.8 mg/dL (8.8-10.5); CARBON DIOXIDE 27 mmol/L (22-29); CHLORIDE 106 mmol/L (98-107); CHOL/HDL RATIO 3.6 (4.2-7.3); CHOLESTEROL 147 mg/dL (131-200); GLOMERULAR FILTR. RATE CALC > 60 mL/min (>60); GLUCOSE,RANDOM 88 mg/dL (70-110); HDL CHOLESTEROL 41 mg/dL (40-60); LDL CHOL (CALC.) 88 mg/dL (0-130); POTASSIUM 4.2 mmol/L (3.5-5.1); SODIUM SERUM 140 mmol/L (136-145); TOTAL PROTEIN, SERUM 6.8 g/dL (6.4-8.2); TRIGLYCERIDES 92 mg/dL (15-150); UREA NITROGEN, BLOOD 12 mg/dL (7-18)
[2020-08-01 08:22] VITALS: BP 104/65
[2020-08-01] MEDS: HALOPERIDOL 5 MG TABLET PO PRN ×2 (08:49→15:26)
[2020-08-01] MEDS: LORazepam 2 MG TABLET PO PRN ×2 (08:49→15:26)
[2020-08-01] MEDS: GABAPENTIN 100 MG CAPSULE PO SCH ×3 (08:49→20:02)
[2020-08-01] MEDS: FLUTICASONE PROPIONATE 50 MCG/SPRAY 16 GM NASAL SPRAY NASAL SCH ×2 (08:49→16:21)
[2020-08-01] MEDS: NICOTINE POLACRILEX 2 MG LOZENGE PO PRN ×2 (15:24→21:52)
[2020-08-01 16:13] VITALS: BP 106/65
[2020-08-02 00:50] VITALS: BP 114/68
[2020-08-02] MEDS: NICOTINE POLACRILEX 2 MG LOZENGE PO PRN ×2 (09:00→17:00)
[2020-08-02] MEDS: FLUTICASONE PROPIONATE 50 MCG/SPRAY 16 GM NASAL SPRAY NASAL SCH ×2 (09:00→16:31)
[2020-08-02] MEDS: LORazepam 2 MG TABLET PO PRN ×3 (09:01→19:27)
[2020-08-02] MEDS: GABAPENTIN 100 MG CAPSULE PO SCH ×3 (09:01→20:25)
[2020-08-02] MEDS: HALOPERIDOL 5 MG TABLET PO PRN ×2 (09:01→14:10)
[2020-08-02 13:06] VITALS: BP 103/68
[2020-08-02 16:11] VITALS: BP 116/73
[2020-08-02] MEDS: MAG HYDROX/AL HYDROX/SIMETH ES 30 ML SUSPENSION UDCUP PO PRN (21:16)
[2020-08-03 00:19] VITALS: BP 124/80
[2020-08-03] MEDS: NICOTINE POLACRILEX 2 MG LOZENGE PO PRN ×3 (00:21→16:18)
[2020-08-03 08:18] VITALS: BP 118/66
[2020-08-03] MEDS: GABAPENTIN 100 MG CAPSULE PO SCH ×3 (08:45→20:04)
[2020-08-03] MEDS: LORazepam 2 MG TABLET PO PRN ×2 (08:45→16:14)
[2020-08-03] MEDS: FLUTICASONE PROPIONATE 50 MCG/SPRAY 16 GM NASAL SPRAY NASAL SCH ×2 (08:45→16:13)
[2020-08-03] MEDS: HALOPERIDOL 5 MG TABLET PO PRN ×2 (08:45→16:14)
[2020-08-03 16:12] VITALS: BP 140/78
[2020-08-03] MEDS: ZOLPIDEM TARTRATE 10 MG TABLET PO PRN (20:03)
[2020-08-04 01:49] VITALS: BP 105/68
[2020-08-04 08:47] VITALS: BP 120/66
[2020-08-04] MEDS: GABAPENTIN 100 MG CAPSULE PO SCH ×3 (09:07→20:48)
[2020-08-04] MEDS: FLUTICASONE PROPIONATE 50 MCG/SPRAY 16 GM NASAL SPRAY NASAL SCH ×2 (09:08→16:16)
[2020-08-04] MEDS: LORazepam 2 MG TABLET PO PRN ×2 (09:47→15:12)
[2020-08-04] MEDS: IBUPROFEN 400 MG TABLET PO PRN (11:50)
[2020-08-04] MEDS: NICOTINE POLACRILEX 2 MG LOZENGE PO PRN ×2 (16:21→23:35)
[2020-08-04 16:34] VITALS: BP 116/68
[2020-08-04] MEDS: ZOLPIDEM TARTRATE 10 MG TABLET PO PRN (21:26)
[2020-08-05 01:24] VITALS: BP 114/72
[2020-08-05 08:29] VITALS: BP 100/62
[2020-08-05] MEDS: LORazepam 2 MG TABLET PO PRN ×2 (09:37→17:07)
[2020-08-05] MEDS: FLUTICASONE PROPIONATE 50 MCG/SPRAY 16 GM NASAL SPRAY NASAL SCH ×2 (09:37→17:10)
[2020-08-05] MEDS: GABAPENTIN 100 MG CAPSULE PO SCH ×3 (09:37→21:06)
[2020-08-05] MEDS: NICOTINE POLACRILEX 2 MG LOZENGE PO PRN ×3 (13:08→22:59)
[2020-08-05 16:10] VITALS: BP 126/80
[2020-08-06 05:24] VITALS: BP 116/75
[2020-08-06 08:11] VITALS: BP 103/60
[2020-08-06] MEDS: FLUTICASONE PROPIONATE 50 MCG/SPRAY 16 GM NASAL SPRAY NASAL SCH ×2 (08:33→16:12)
[2020-08-06] MEDS: HALOPERIDOL 5 MG TABLET PO PRN ×2 (08:33→17:41)
[2020-08-06] MEDS: LORazepam 2 MG TABLET PO PRN ×2 (08:34→17:40)
[2020-08-06] MEDS: GABAPENTIN 100 MG CAPSULE PO SCH ×3 (08:34→20:39)
[2020-08-06 16:04] VITALS: BP 109/75
[2020-08-06] MEDS: NICOTINE POLACRILEX 2 MG LOZENGE PO PRN (17:37)
[2020-08-06] MEDS: ZOLPIDEM TARTRATE 10 MG TABLET PO PRN (20:39)
[2020-08-07 02:03] VITALS: BP 119/78
[2020-08-07] MEDS: HALOPERIDOL 5 MG TABLET PO PRN ×3 (08:34→22:59)
[2020-08-07] MEDS: LORazepam 2 MG TABLET PO PRN ×3 (08:34→22:59)
[2020-08-07] MEDS: GABAPENTIN 100 MG CAPSULE PO SCH ×3 (08:35→20:07)
[2020-08-07] MEDS: NICOTINE POLACRILEX 2 MG LOZENGE PO PRN ×3 (08:35→21:49)
[2020-08-07 09:13] VITALS: BP 108/70
[2020-08-07] MEDS: FLUTICASONE PROPIONATE 50 MCG/SPRAY 16 GM NASAL SPRAY NASAL SCH ×2 (11:18→16:33)
[2020-08-07 16:31] VITALS: BP 110/75
[2020-08-07] MEDS: ZOLPIDEM TARTRATE 10 MG TABLET PO PRN (20:07)
[2020-08-08 04:47] VITALS: BP 128/62
[2020-08-08] MEDS: HALOPERIDOL 5 MG TABLET PO PRN (08:20)
[2020-08-08] MEDS: LORazepam 2 MG TABLET PO PRN (08:20)
[2020-08-08] MEDS: FLUTICASONE PROPIONATE 50 MCG/SPRAY 16 GM NASAL SPRAY NASAL SCH ×2 (08:20→16:26)
[2020-08-08] MEDS: GABAPENTIN 100 MG CAPSULE PO SCH ×3 (08:20→20:11)
[2020-08-08] MEDS: NICOTINE POLACRILEX 2 MG LOZENGE PO PRN ×2 (08:20→16:21)
[2020-08-08] MEDS: MAG HYDROX/AL HYDROX/SIMETH ES 30 ML SUSPENSION UDCUP PO PRN (12:33)
[2020-08-08 12:42] VITALS: BP 110/64
[2020-08-08 16:30] VITALS: BP 106/69
[2020-08-08] MEDS: ZOLPIDEM TARTRATE 10 MG TABLET PO PRN (20:18)
[2020-08-09] MEDS: NICOTINE POLACRILEX 2 MG LOZENGE PO PRN ×3 (00:02→16:15)
[2020-08-09 04:00] VITALS: BP 118/65
[2020-08-09 08:04] VITALS: BP 113/67
[2020-08-09] MEDS: PALIPERIDONE PALMITATE 234 MG/1.5 ML SYRINGE IM SCH (08:06)
[2020-08-09] MEDS: GABAPENTIN 100 MG CAPSULE PO SCH ×3 (08:07→20:17)
[2020-08-09] MEDS: FLUTICASONE PROPIONATE 50 MCG/SPRAY 16 GM NASAL SPRAY NASAL SCH ×2 (08:07→16:18)
[2020-08-09] MEDS: HALOPERIDOL 5 MG TABLET PO PRN ×2 (12:41→18:07)
[2020-08-09] MEDS: LORazepam 2 MG TABLET PO PRN ×2 (12:41→18:08)
[2020-08-09 16:05] VITALS: BP 122/75
[2020-08-09] MEDS: ZOLPIDEM TARTRATE 10 MG TABLET PO PRN (20:42)
[2020-08-10 07:01] VITALS: BP 116/70
[2020-08-10 08:07] VITALS: BP 100/60
[2020-08-10] MEDS: GABAPENTIN 100 MG CAPSULE PO SCH ×3 (08:36→20:08)
[2020-08-10] MEDS: FLUTICASONE PROPIONATE 50 MCG/SPRAY 16 GM NASAL SPRAY NASAL SCH ×2 (08:36→16:10)
[2020-08-10] MEDS: LORazepam 2 MG TABLET PO PRN ×2 (08:36→16:11)
[2020-08-10] MEDS: NICOTINE POLACRILEX 2 MG LOZENGE PO PRN ×3 (09:28→22:34)
[2020-08-10] MEDS: HALOPERIDOL 5 MG TABLET PO PRN ×2 (10:51→20:08)
[2020-08-10] MEDS: ACETAMINOPHEN 325 MG TABLET PO PRN (16:11)
[2020-08-10 16:14] VITALS: BP 125/82
[2020-08-10] MEDS: ZOLPIDEM TARTRATE 10 MG TABLET PO PRN (20:44)
[2020-08-11 00:23] VITALS: BP 124/80
[2020-08-11 08:34] VITALS: BP 115/70
[2020-08-11] MEDS: GABAPENTIN 100 MG CAPSULE PO SCH ×3 (08:41→20:28)
[2020-08-11] MEDS: FLUTICASONE PROPIONATE 50 MCG/SPRAY 16 GM NASAL SPRAY NASAL SCH ×2 (08:41→17:00)
[2020-08-11] MEDS: HALOPERIDOL 5 MG TABLET PO PRN ×2 (09:58→16:05)
[2020-08-11] MEDS: NICOTINE POLACRILEX 2 MG LOZENGE PO PRN ×3 (09:59→16:12)
[2020-08-11] MEDS: LORazepam 2 MG TABLET PO PRN ×2 (09:59→16:05)
[2020-08-11 16:22] VITALS: BP 106/62
[2020-08-11] MEDS: ZOLPIDEM TARTRATE 10 MG TABLET PO PRN (20:28)
[2020-08-12 04:50] VITALS: BP 112/66
[2020-08-12 08:21] VITALS: BP 115/71
[2020-08-12] MEDS: HALOPERIDOL 5 MG TABLET PO PRN ×2 (08:24→14:02)
[2020-08-12] MEDS: FLUTICASONE PROPIONATE 50 MCG/SPRAY 16 GM NASAL SPRAY NASAL SCH ×2 (08:24→16:06)
[2020-08-12] MEDS: GABAPENTIN 100 MG CAPSULE PO SCH ×3 (08:24→21:11)
[2020-08-12] MEDS: LORazepam 2 MG TABLET PO PRN ×2 (08:24→14:02)
[2020-08-12] MEDS: NICOTINE POLACRILEX 2 MG LOZENGE PO PRN ×2 (09:26→16:04)
[2020-08-12] MEDS: ACETAMINOPHEN 325 MG TABLET PO PRN (14:01)
[2020-08-12 16:14] VITALS: BP 133/82
[2020-08-12] MEDS: MAG HYDROX/AL HYDROX/SIMETH ES 30 ML SUSPENSION UDCUP PO PRN (19:11)
[2020-08-12] MEDS: ZOLPIDEM TARTRATE 10 MG TABLET PO PRN (20:29)
[2020-08-13 06:02] VITALS: BP 128/68
[2020-08-13] MEDS: NICOTINE POLACRILEX 2 MG LOZENGE PO PRN ×3 (06:24→21:01)
[2020-08-13] MEDS: GABAPENTIN 100 MG CAPSULE PO SCH ×3 (08:13→20:49)
[2020-08-13] MEDS: HALOPERIDOL 5 MG TABLET PO PRN ×2 (08:13→14:41)
[2020-08-13] MEDS: FLUTICASONE PROPIONATE 50 MCG/SPRAY 16 GM NASAL SPRAY NASAL SCH ×2 (08:13→17:01)
[2020-08-13] MEDS: LORazepam 2 MG TABLET PO PRN ×2 (08:13→14:41)
[2020-08-13 08:25] VITALS: BP 123/77
[2020-08-13] MEDS: ACETAMINOPHEN 325 MG TABLET PO PRN (14:13)
[2020-08-13 16:16] VITALS: BP 125/73
[2020-08-13] MEDS: ZOLPIDEM TARTRATE 10 MG TABLET PO PRN (20:49)
[2020-08-14 04:00] VITALS: BP 120/72
[2020-08-14] MEDS: NICOTINE POLACRILEX 2 MG LOZENGE PO PRN ×2 (06:21→16:15)
[2020-08-14] MEDS: HALOPERIDOL 5 MG TABLET PO PRN ×4 (06:40→21:18)
[2020-08-14] MEDS: LORazepam 2 MG TABLET PO PRN ×4 (06:40→21:18)
[2020-08-14] MEDS: GABAPENTIN 100 MG CAPSULE PO SCH ×3 (08:19→21:06)
[2020-08-14] MEDS: FLUTICASONE PROPIONATE 50 MCG/SPRAY 16 GM NASAL SPRAY NASAL SCH ×2 (08:19→16:16)
[2020-08-14 08:39] VITALS: BP 124/74
[2020-08-14] MEDS: GuaiFENesin/D-METHORPHAN [SUGAR-FREE] 200-20MG/10 ML SYRUP UDCUP PO PRN ×2 (11:16→19:45)
[2020-08-14 16:19] VITALS: BP 110/76
[2020-08-14] MEDS: ZOLPIDEM TARTRATE 10 MG TABLET PO PRN (21:06)
[2020-08-15 01:29] VITALS: BP 112/64
[2020-08-15] MEDS: LORazepam 2 MG TABLET PO PRN ×3 (08:50→20:15)
[2020-08-15] MEDS: GABAPENTIN 100 MG CAPSULE PO SCH ×3 (08:50→20:15)
[2020-08-15] MEDS: FLUTICASONE PROPIONATE 50 MCG/SPRAY 16 GM NASAL SPRAY NASAL SCH ×2 (08:50→16:23)
[2020-08-15] MEDS: HALOPERIDOL 5 MG TABLET PO PRN ×3 (08:50→20:15)
[2020-08-15 08:56] VITALS: BP 132/89
[2020-08-15] MEDS: NICOTINE POLACRILEX 2 MG LOZENGE PO PRN ×2 (10:43→17:08)
[2020-08-15 16:18] VITALS: BP 123/70
[2020-08-15] MEDS: ZOLPIDEM TARTRATE 10 MG TABLET PO PRN (20:45)
[2020-08-15] MEDS: MAG HYDROX/AL HYDROX/SIMETH ES 30 ML SUSPENSION UDCUP PO PRN (21:41)
[2020-08-16 01:35] VITALS: BP 121/72
[2020-08-16] MEDS: NICOTINE POLACRILEX 2 MG LOZENGE PO PRN ×3 (06:46→19:26)
[2020-08-16] MEDS: FLUTICASONE PROPIONATE 50 MCG/SPRAY 16 GM NASAL SPRAY NASAL SCH ×2 (08:32→16:54)
[2020-08-16] MEDS: GABAPENTIN 100 MG CAPSULE PO SCH ×3 (08:32→21:00)
[2020-08-16] MEDS: HALOPERIDOL 5 MG TABLET PO PRN ×2 (08:40→16:54)
[2020-08-16] MEDS: LORazepam 2 MG TABLET PO PRN ×3 (08:40→21:00)
[2020-08-16 09:07] VITALS: BP 117/71
[2020-08-16 16:12] VITALS: BP 139/80
[2020-08-16] MEDS: ZOLPIDEM TARTRATE 10 MG TABLET PO PRN (21:00)
[2020-08-17 06:38] VITALS: BP 138/82
[2020-08-17] MEDS: GABAPENTIN 100 MG CAPSULE PO SCH ×3 (08:28→20:40)
[2020-08-17] MEDS: FLUTICASONE PROPIONATE 50 MCG/SPRAY 16 GM NASAL SPRAY NASAL SCH ×2 (08:29→17:28)
[2020-08-17 08:52] VITALS: BP 124/78
[2020-08-17] MEDS: NICOTINE POLACRILEX 2 MG LOZENGE PO PRN ×2 (09:03→15:05)
[2020-08-17] MEDS: HALOPERIDOL 5 MG TABLET PO PRN ×2 (09:03→13:53)
[2020-08-17] MEDS: LORazepam 2 MG TABLET PO PRN ×2 (09:03→13:53)
[2020-08-17] MEDS ORDERED: TUBERCULIN, PURIFIED PROTEIN DERIVATIVE 5 TU/0.1 ML SYRINGE ID ONE (15:15)
[2020-08-17 16:08] VITALS: BP 111/76
[2020-08-17] MEDS: ZOLPIDEM TARTRATE 10 MG TABLET PO PRN (20:40)
[2020-08-18 05:33] VITALS: BP 103/63
[2020-08-18] MEDS: NICOTINE POLACRILEX 2 MG LOZENGE PO PRN ×2 (07:57→15:53)
[2020-08-18 08:13] VITALS: BP 125/69
[2020-08-18] MEDS: GABAPENTIN 100 MG CAPSULE PO SCH ×3 (09:15→21:06)
[2020-08-18] MEDS: FLUTICASONE PROPIONATE 50 MCG/SPRAY 16 GM NASAL SPRAY NASAL SCH ×2 (09:15→16:05)
[2020-08-18] MEDS: LORazepam 2 MG TABLET PO PRN ×3 (10:12→21:06)
[2020-08-18] MEDS: HALOPERIDOL 5 MG TABLET PO PRN ×2 (12:04→16:06)
[2020-08-18 17:59] VITALS: BP 115/65
[2020-08-18] MEDS: ZOLPIDEM TARTRATE 10 MG TABLET PO PRN (21:06)
[2020-08-19 03:34] VITALS: BP 128/70
[2020-08-19 08:14] VITALS: BP 100/60
[2020-08-19] MEDS: GABAPENTIN 100 MG CAPSULE PO SCH ×3 (08:59→21:05)
[2020-08-19] MEDS: HALOPERIDOL 5 MG TABLET PO PRN ×3 (08:59→18:44)
[2020-08-19] MEDS: LORazepam 2 MG TABLET PO PRN ×3 (08:59→18:44)
[2020-08-19] MEDS: NICOTINE POLACRILEX 2 MG LOZENGE PO PRN ×2 (09:00→15:47)
[2020-08-19] MEDS: FLUTICASONE PROPIONATE 50 MCG/SPRAY 16 GM NASAL SPRAY NASAL SCH ×2 (09:01→16:41)
[2020-08-19 16:20] VITALS: BP 105/60
[2020-08-19] MEDS: GuaiFENesin/D-METHORPHAN [SUGAR-FREE] 200-20MG/10 ML SYRUP UDCUP PO PRN (16:40)
[2020-08-19] MEDS: ZOLPIDEM TARTRATE 10 MG TABLET PO PRN (21:05)
[2020-08-20 06:28] VITALS: BP 115/62
[2020-08-20 08:06] VITALS: BP 122/79
[2020-08-20] MEDS: FLUTICASONE PROPIONATE 50 MCG/SPRAY 16 GM NASAL SPRAY NASAL SCH ×2 (08:27→16:05)
[2020-08-20] MEDS: LORazepam 2 MG TABLET PO PRN ×2 (08:27→16:05)
[2020-08-20] MEDS: HALOPERIDOL 5 MG TABLET PO PRN ×2 (08:27→16:05)
[2020-08-20] MEDS: GABAPENTIN 100 MG CAPSULE PO SCH ×3 (08:27→20:31)
[2020-08-20] MEDS: NICOTINE POLACRILEX 2 MG LOZENGE PO PRN ×2 (08:50→15:31)
[2020-08-20] MEDS: GuaiFENesin/D-METHORPHAN [SUGAR-FREE] 200-20MG/10 ML SYRUP UDCUP PO PRN (09:10)
[2020-08-20 16:10] VITALS: BP 112/76
[2020-08-20] MEDS: ZOLPIDEM TARTRATE 10 MG TABLET PO PRN (20:31)
[2020-08-21 05:46] VITALS: BP 111/73
[2020-08-21] MEDS: GABAPENTIN 100 MG CAPSULE PO SCH ×3 (08:26→21:04)
[2020-08-21 08:30] VITALS: BP 131/83
[2020-08-21] MEDS: FLUTICASONE PROPIONATE 50 MCG/SPRAY 16 GM NASAL SPRAY NASAL SCH ×2 (10:31→16:50)
[2020-08-21] MEDS: LORazepam 2 MG TABLET PO PRN (11:42)
[2020-08-21] MEDS: HALOPERIDOL 5 MG TABLET PO PRN (11:42)
[2020-08-21 16:19] VITALS: BP 117/80
[2020-08-21] MEDS: NICOTINE POLACRILEX 2 MG LOZENGE PO PRN (18:41)
[2020-08-21 19:35] VITALS: BP 120/85
[2020-08-21] MEDS: ACETAMINOPHEN 325 MG TABLET PO PRN (19:39)
[2020-08-22 04:08] VITALS: BP 123/78
[2020-08-22] MEDS: NICOTINE POLACRILEX 2 MG LOZENGE PO PRN ×3 (05:36→21:00)
[2020-08-22 08:06] LABS: COVID AG,FIA SOURCE NASOPHARYNGEAL
[2020-08-22 08:17] VITALS: BP 107/62
[2020-08-22] MEDS: GABAPENTIN 100 MG CAPSULE PO SCH ×3 (09:10→21:27)
[2020-08-22] MEDS: FLUTICASONE PROPIONATE 50 MCG/SPRAY 16 GM NASAL SPRAY NASAL SCH ×2 (09:11→16:54)
[2020-08-22] MEDS: LORazepam 2 MG TABLET PO PRN ×3 (13:13→21:08)
[2020-08-22] MEDS: HALOPERIDOL 5 MG TABLET PO PRN ×3 (13:14→21:08)
[2020-08-22 16:37] VITALS: BP 105/68
[2020-08-23 05:40] VITALS: BP 118/71
[2020-08-23] MEDS: GABAPENTIN 100 MG CAPSULE PO SCH ×3 (08:32→20:29)
[2020-08-23] MEDS: FLUTICASONE PROPIONATE 50 MCG/SPRAY 16 GM NASAL SPRAY NASAL SCH ×2 (09:00→16:24)
[2020-08-23] MEDS ORDERED: TUBERCULIN, PURIFIED PROTEIN DERIVATIVE 5 TU/0.1 ML SYRINGE ID ONE (09:00)
[2020-08-23] MEDS: NICOTINE POLACRILEX 2 MG LOZENGE PO PRN ×2 (09:30→17:10)
[2020-08-23 12:13] VITALS: BP 122/77
[2020-08-23] MEDS: HALOPERIDOL 5 MG TABLET PO PRN (16:24)
[2020-08-23] MEDS: LORazepam 2 MG TABLET PO PRN (16:24)
[2020-08-23 16:43] VITALS: BP 139/88
[2020-08-24 05:08] VITALS: BP 111/71
[2020-08-24 08:06] VITALS: BP 118/60
[2020-08-24] MEDS: NICOTINE POLACRILEX 2 MG LOZENGE PO PRN ×2 (08:48→18:24)
[2020-08-24] MEDS: GABAPENTIN 100 MG CAPSULE PO SCH ×3 (08:48→20:29)
[2020-08-24] MEDS: FLUTICASONE PROPIONATE 50 MCG/SPRAY 16 GM NASAL SPRAY NASAL SCH ×2 (08:49→16:01)
[2020-08-24] MEDS: LORazepam 2 MG TABLET PO PRN (14:30)
[2020-08-24] MEDS: HALOPERIDOL 5 MG TABLET PO PRN (14:32)
[2020-08-24 16:21] VITALS: BP 107/69
[2020-08-25 04:39] VITALS: BP 107/69
[2020-08-25 06:41] VITALS: BP 113/68
[2020-08-25] MEDS: ACETAMINOPHEN 325 MG TABLET PO PRN (06:46)
[2020-08-25 08:08] VITALS: BP 118/70
[2020-08-25] MEDS: GABAPENTIN 100 MG CAPSULE PO SCH ×3 (08:28→20:20)
[2020-08-25] MEDS: FLUTICASONE PROPIONATE 50 MCG/SPRAY 16 GM NASAL SPRAY NASAL SCH ×2 (09:00→16:23)
[2020-08-25] MEDS: NICOTINE POLACRILEX 2 MG LOZENGE PO PRN ×2 (09:00→16:01)
[2020-08-25] MEDS: LORazepam 2 MG TABLET PO PRN (13:38)
[2020-08-25] MEDS: HALOPERIDOL 5 MG TABLET PO PRN (13:38)
[2020-08-25 16:06] VITALS: BP 117/71
[2020-08-25] MEDS: ZOLPIDEM TARTRATE 10 MG TABLET PO PRN (20:23)
[2020-08-26] MEDS: NICOTINE POLACRILEX 2 MG LOZENGE PO PRN ×3 (06:25→19:36)
[2020-08-26 06:35] VITALS: BP 124/95
[2020-08-26 08:16] VITALS: BP 128/82
[2020-08-26] MEDS: FLUTICASONE PROPIONATE 50 MCG/SPRAY 16 GM NASAL SPRAY NASAL SCH ×2 (08:35→16:15)
[2020-08-26] MEDS: GABAPENTIN 100 MG CAPSULE PO SCH ×3 (08:36→20:54)
[2020-08-26] MEDS: HALOPERIDOL 5 MG TABLET PO PRN (08:36)
[2020-08-26] MEDS: LORazepam 2 MG TABLET PO PRN ×3 (08:36→16:52)
[2020-08-26 16:14] VITALS: BP 111/62
[2020-08-26] MEDS: ZOLPIDEM TARTRATE 10 MG TABLET PO PRN (20:55)
[2020-08-27 05:48] VITALS: BP 101/62
[2020-08-27 08:15] VITALS: BP 104/68
[2020-08-27] MEDS: NICOTINE POLACRILEX 2 MG LOZENGE PO PRN ×2 (08:44→14:48)
[2020-08-27] MEDS: GABAPENTIN 100 MG CAPSULE PO SCH ×3 (08:45→20:18)
[2020-08-27] MEDS: FLUTICASONE PROPIONATE 50 MCG/SPRAY 16 GM NASAL SPRAY NASAL SCH ×2 (09:00→16:25)
[2020-08-27] MEDS: HALOPERIDOL 5 MG TABLET PO PRN ×2 (13:13→18:02)
[2020-08-27] MEDS: LORazepam 2 MG TABLET PO PRN ×2 (13:14→18:02)
[2020-08-27 16:22] VITALS: BP 133/74
[2020-08-27] MEDS: ZOLPIDEM TARTRATE 10 MG TABLET PO PRN (20:34)
[2020-08-28 05:53] VITALS: BP 115/85
[2020-08-28 08:30] VITALS: BP 129/89
[2020-08-28] MEDS: NICOTINE POLACRILEX 2 MG LOZENGE PO PRN ×3 (08:37→17:54)
[2020-08-28] MEDS: LORazepam 2 MG TABLET PO PRN ×3 (08:37→17:54)
[2020-08-28] MEDS: GABAPENTIN 100 MG CAPSULE PO SCH ×3 (08:37→20:20)
[2020-08-28] MEDS: FLUTICASONE PROPIONATE 50 MCG/SPRAY 16 GM NASAL SPRAY NASAL SCH ×2 (09:28→16:18)
[2020-08-28] MEDS: HALOPERIDOL 5 MG TABLET PO PRN ×2 (12:40→17:54)
[2020-08-28 16:21] VITALS: BP 115/79
[2020-08-28] MEDS: MAG HYDROX/AL HYDROX/SIMETH ES 30 ML SUSPENSION UDCUP PO PRN (19:51)
[2020-08-28] MEDS: ZOLPIDEM TARTRATE 10 MG TABLET PO PRN (20:20)
[2020-08-29 03:05] VITALS: BP 121/88
[2020-08-29 08:13] VITALS: BP 117/88
[2020-08-29] MEDS: GABAPENTIN 100 MG CAPSULE PO SCH ×3 (08:17→20:58)
[2020-08-29] MEDS: LORazepam 2 MG TABLET PO PRN ×2 (08:17→16:07)
[2020-08-29] MEDS: HALOPERIDOL 5 MG TABLET PO PRN ×2 (08:17→16:07)
[2020-08-29] MEDS: FLUTICASONE PROPIONATE 50 MCG/SPRAY 16 GM NASAL SPRAY NASAL SCH ×2 (08:18→16:07)
[2020-08-29] MEDS: GuaiFENesin/D-METHORPHAN [SUGAR-FREE] 200-20MG/10 ML SYRUP UDCUP PO PRN (09:53)
[2020-08-29] MEDS: NICOTINE POLACRILEX 2 MG LOZENGE PO PRN (16:07)
[2020-08-29 16:21] VITALS: BP 115/81
[2020-08-29] MEDS: ZOLPIDEM TARTRATE 10 MG TABLET PO PRN (20:58)
[2020-08-30 01:57] VITALS: BP 119/78
[2020-08-30] MEDS: NICOTINE POLACRILEX 2 MG LOZENGE PO PRN ×4 (08:06→20:45)
[2020-08-30] MEDS: GABAPENTIN 100 MG CAPSULE PO SCH ×3 (08:06→20:41)
[2020-08-30] MEDS: LORazepam 2 MG TABLET PO PRN ×2 (08:07→16:25)
[2020-08-30] MEDS: FLUTICASONE PROPIONATE 50 MCG/SPRAY 16 GM NASAL SPRAY NASAL SCH ×2 (08:08→17:01)
[2020-08-30 08:24] VITALS: BP 111/76
[2020-08-30] MEDS: HALOPERIDOL 5 MG TABLET PO PRN ×2 (09:17→16:25)
[2020-08-30] MEDS: ACETAMINOPHEN 325 MG TABLET PO PRN (14:44)
[2020-08-30 16:09] VITALS: BP 114/75
[2020-08-30] MEDS: ZOLPIDEM TARTRATE 10 MG TABLET PO PRN (20:41)
[2020-08-31 00:10] VITALS: BP 110/70
[2020-08-31] MEDS: NICOTINE POLACRILEX 2 MG LOZENGE PO PRN ×2 (07:19→15:53)
[2020-08-31 08:19] VITALS: BP 132/73
[2020-08-31] MEDS: FLUTICASONE PROPIONATE 50 MCG/SPRAY 16 GM NASAL SPRAY NASAL SCH ×2 (08:29→16:26)
[2020-08-31] MEDS: GABAPENTIN 100 MG CAPSULE PO SCH ×3 (08:30→20:40)
[2020-08-31] MEDS: HALOPERIDOL 5 MG TABLET PO PRN ×2 (08:33→19:15)
[2020-08-31] MEDS: LORazepam 2 MG TABLET PO PRN ×3 (08:33→19:14)
[2020-08-31] MEDS: ACETAMINOPHEN 325 MG TABLET PO PRN (09:04)
[2020-08-31 16:05] VITALS: BP 120/80
[2020-08-31] MEDS: GuaiFENesin/D-METHORPHAN [SUGAR-FREE] 200-20MG/10 ML SYRUP UDCUP PO PRN (17:45)
[2020-08-31] MEDS: ZOLPIDEM TARTRATE 10 MG TABLET PO PRN (20:39)
[2020-09-01 02:29] VITALS: BP 119/77
[2020-09-01] MEDS: NICOTINE POLACRILEX 2 MG LOZENGE PO PRN ×3 (07:31→18:58)
[2020-09-01] MEDS: LORazepam 2 MG TABLET PO PRN ×3 (08:14→19:00)
[2020-09-01] MEDS: GABAPENTIN 100 MG CAPSULE PO SCH ×3 (08:14→20:05)
[2020-09-01] MEDS: FLUTICASONE PROPIONATE 50 MCG/SPRAY 16 GM NASAL SPRAY NASAL SCH ×2 (08:14→17:30)
[2020-09-01 08:37] VITALS: BP 108/85
[2020-09-01] MEDS: HALOPERIDOL 5 MG TABLET PO PRN ×3 (09:19→19:00)
[2020-09-01 16:40] VITALS: BP 121/79
[2020-09-01] MEDS: ZOLPIDEM TARTRATE 10 MG TABLET PO PRN (21:12)
[2020-09-02] MEDS: FLUTICASONE PROPIONATE 50 MCG/SPRAY 16 GM NASAL SPRAY NASAL SCH ×2 (08:29→16:53)
[2020-09-02] MEDS: LORazepam 2 MG TABLET PO PRN ×3 (08:29→18:27)
[2020-09-02] MEDS: GABAPENTIN 100 MG CAPSULE PO SCH ×3 (08:29→21:43)
[2020-09-02 08:52] VITALS: BP 135/74
[2020-09-02] MEDS: NICOTINE POLACRILEX 2 MG LOZENGE PO PRN ×3 (08:53→20:46)
[2020-09-02] MEDS: HALOPERIDOL 5 MG TABLET PO PRN ×3 (10:03→18:27)
[2020-09-02 16:21] VITALS: BP 112/66
[2020-09-02] MEDS: ZOLPIDEM TARTRATE 10 MG TABLET PO PRN (21:11)
[2020-09-03 05:17] VITALS: BP 97/61
[2020-09-03] MEDS: NICOTINE POLACRILEX 2 MG LOZENGE PO PRN ×3 (07:00→13:59)
[2020-09-03 07:31] LABS: COVID AG,FIA SOURCE NASOPHARYNGEAL
[2020-09-03] MEDS: FLUTICASONE PROPIONATE 50 MCG/SPRAY 16 GM NASAL SPRAY NASAL SCH ×2 (08:12→16:37)
[2020-09-03] MEDS: LORazepam 2 MG TABLET PO PRN ×3 (08:12→23:35)
[2020-09-03] MEDS: GABAPENTIN 100 MG CAPSULE PO SCH ×3 (08:12→20:29)
[2020-09-03 08:25] VITALS: BP 108/66
[2020-09-03] MEDS: HALOPERIDOL 5 MG TABLET PO PRN ×3 (09:50→23:35)
[2020-09-03 16:14] VITALS: BP 112/72
[2020-09-03] MEDS: GuaiFENesin/D-METHORPHAN [SUGAR-FREE] 200-20MG/10 ML SYRUP UDCUP PO PRN (17:15)
[2020-09-03] MEDS: ZOLPIDEM TARTRATE 10 MG TABLET PO PRN (20:31)
[2020-09-04] MEDS: NICOTINE POLACRILEX 2 MG LOZENGE PO PRN ×4 (00:05→21:18)
[2020-09-04 00:23] VITALS: BP 119/79
[2020-09-04] MEDS: MAG HYDROX/AL HYDROX/SIMETH ES 30 ML SUSPENSION UDCUP PO PRN (01:10)
[2020-09-04 08:18] VITALS: BP 112/61
[2020-09-04] MEDS: FLUTICASONE PROPIONATE 50 MCG/SPRAY 16 GM NASAL SPRAY NASAL SCH ×2 (08:50→16:58)
[2020-09-04] MEDS: LORazepam 2 MG TABLET PO PRN ×2 (08:50→17:04)
[2020-09-04] MEDS: GABAPENTIN 100 MG CAPSULE PO SCH ×3 (08:51→20:38)
[2020-09-04 16:15] VITALS: BP 125/74
[2020-09-04] MEDS: HALOPERIDOL 5 MG TABLET PO PRN (17:04)
[2020-09-04] MEDS: ZOLPIDEM TARTRATE 10 MG TABLET PO PRN (20:42)
[2020-09-05 05:56] VITALS: BP 115/68
[2020-09-05 08:16] VITALS: BP 109/82
[2020-09-05] MEDS: GABAPENTIN 100 MG CAPSULE PO SCH ×3 (08:28→20:06)
[2020-09-05] MEDS: LORazepam 2 MG TABLET PO PRN ×2 (08:28→14:24)
[2020-09-05] MEDS: FLUTICASONE PROPIONATE 50 MCG/SPRAY 16 GM NASAL SPRAY NASAL SCH ×2 (08:28→17:12)
[2020-09-05] MEDS: NICOTINE POLACRILEX 2 MG LOZENGE PO PRN ×3 (09:35→20:35)
[2020-09-05] MEDS: HALOPERIDOL 5 MG TABLET PO PRN (09:35)
[2020-09-05 16:06] VITALS: BP 134/78
[2020-09-05] MEDS: GuaiFENesin/D-METHORPHAN [SUGAR-FREE] 200-20MG/10 ML SYRUP UDCUP PO PRN (17:14)
[2020-09-06 04:36] VITALS: BP 122/74
[2020-09-06 08:09] VITALS: BP 123/72
[2020-09-06] MEDS: GABAPENTIN 100 MG CAPSULE PO SCH ×3 (08:22→20:27)
[2020-09-06] MEDS: PALIPERIDONE PALMITATE 234 MG/1.5 ML SYRINGE IM SCH (08:22)
[2020-09-06] MEDS: FLUTICASONE PROPIONATE 50 MCG/SPRAY 16 GM NASAL SPRAY NASAL SCH ×2 (08:22→17:16)
[2020-09-06] MEDS: LORazepam 2 MG TABLET PO PRN (08:35)
[2020-09-06] MEDS: HALOPERIDOL 5 MG TABLET PO PRN (08:36)
[2020-09-06 16:09] VITALS: BP 115/69
[2020-09-06] MEDS: NICOTINE POLACRILEX 2 MG LOZENGE PO PRN (18:42)
[2020-09-06] MEDS: GuaiFENesin/D-METHORPHAN [SUGAR-FREE] 200-20MG/10 ML SYRUP UDCUP PO PRN (21:41)
[2020-09-07] MEDS: NICOTINE POLACRILEX 2 MG LOZENGE PO PRN ×2 (00:12→08:20)
[2020-09-07 02:38] VITALS: BP 126/73
[2020-09-07] MEDS ORDERED: GABA-1216 PO (07:15)
[2020-09-07] MEDS ORDERED: PALI234D IM ×3 (07:35→07:40)
[2020-09-07] MEDS: GABAPENTIN 100 MG CAPSULE PO SCH (08:19)
[2020-09-07] MEDS: FLUTICASONE PROPIONATE 50 MCG/SPRAY 16 GM NASAL SPRAY NASAL SCH (08:19)
[2020-09-07 08:22] VITALS: BP 113/69
== END 2020-09-07 11:45 | disposition home or self-care (01) | DRG 750 ==
LOC: EMS 23:30 → B3A 04-17 14:35
DX: F25.0 Schizoaffective disorder, bipolar type (principal); F15.20 Other stimulant dependence, uncomplicated; Z59.0 Homelessness; G44.209 Tension-type headache, unspecified, not intractable; F17.200 Nicotine dependence, unspecified, uncomplicated; J44.9 Chronic obstructive pulmonary disease, unspecified; F31.9 Bipolar disorder, unspecified; Z20.822 Contact with and (suspected) exposure to COVID-19; F41.9 Anxiety disorder, unspecified; F60.0 Paranoid personality disorder; Z79.899 Other long term (current) drug therapy
CPT/HCPCS: 80053; 80061; 81003; 85025; 87426; 99291; A9575; G0480; J1200; J1630; J2060